=== PATIENT | female | born 1995 | race Caucasian/White ===

== ENCOUNTER 2018-01-11 07:13 | Emergency (ER) | payer OTHER, MEDICAID, SELFPAY ==
[2018-01-11 07:14] VITALS: BP 105/69; PULSE 92; RESP 16; TEMP 36.1; O2SAT 98; BMI 46.3
--- NOTE | 2018-01-11 07:19 | RAD_ITS ---
STUDY: X-RAY - RIGHT FOOT CLINICAL: Female, 22 years old. Bilateral foot pain. TECHNIQUE: 3 view(s) of the foot. COMPARISON: Radiographs of the right ankle dated January 11, 2018 and radiographs of the right foot dated November 11, 2015. FINDINGS: Patient has orthopedic screws within the talus apparently related to open reduction internal fixation of a talar fracture. Lucencies are visible in the calcaneus, similar to previous radiographs. The intertarsal articulations are within normal limits. Normal metatarsi. Normal metatarsophalangeal joint of the great toe. Normal tibial and fibular sesamoid bones. Normal interphalangeal joint of the great toe. Normal phalanges of the great toe. Normal second through fifth metatarsophalangeal joints. Normal interphalangeal joints and phalanges of the lesser toes. There is soft tissue swelling. There are small bone fragments located anterior and posterior to the tibiotalar articulation. This may be the result of chip fracture of uncertain acuity but are new since the previous radiographs. These may represent intra-articular loose bodies. RAD/Foot min 3 Views IMPRESSION: 1. Bone fragments are visible anterior and posterior to the tibiotalar articulation are new since previous study. This may represent intra-articular loose bodies. 2. Postoperative changes of the talus are similar to previous study. Electronically Signed: Mallory Dueñas MD at 8:01 EDT , Service support ,
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
--- NOTE | 2018-01-11 08:06 | ED.DEP ---
ED Disposition - Plan for ED Patient: Chief Complaint: Lower Extremity Injury Instructions: ED Sprain Ankle W X Ray Referrals: Shanti Garcia NP-Carin [Primary Care Provider] - Walker Dueñas MD [STAFF PHYSICIAN] -
[2018-01-11 08:42] VITALS: BP 108/53; PULSE 67; RESP 14; O2SAT 99
== END 2018-01-11 08:42 | disposition home or self-care (01) ==
LOC: ED 07:43
PROVIDERS: Emergency Provider Emergency Medicine; Family Provider Nurse Practitioner Family; PCP Nurse Practitioner Family
DX: S99.911A Unspecified injury of right ankle, initial encounter (principal); W22.8XXA Striking against or struck by other objects, initial encounter; Y93.89 Activity, other specified; Y92.9 Unspecified place or not applicable
CPT/HCPCS: 73610; 73630; 99284

== ENCOUNTER 2018-01-18 18:45 | Emergency (ER) | payer OTHER, MEDICAID, SELFPAY ==
[2018-01-18 18:46] VITALS: BP 125/81; PULSE 100; RESP 17; TEMP 36.9; O2SAT 96; BMI 46.3
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
--- NOTE | 2018-01-18 19:33 | ED.DEP ---
ED Disposition - Plan for ED Patient: Chief Complaint: Lower Extremity Injury Instructions: ED Fx Ankle General Prescriptions: Hydrocodone Bitart/Apap 5-325 [[place] 5MG-325MG] 1 tab PO Q6H PRN PRN 3 Days #10 tab PRN Reason: Pain Referrals: Shanti Garcia, VOCATIONAL TRAINING TEACHER-C [Primary Care Provider] - Carlos Boles [NON-STAFF] -
--- NOTE | 2018-01-18 19:34 | DCINST.ED_ITS ---
ED Disposition - Plan for ED Patient: Chief Complaint: Lower Extremity Injury Instructions: ED Fx Ankle General Prescriptions: Hydrocodone Bitart/Apap 5-325 [[place] 5MG-325MG] 1 tab PO Q6H PRN PRN 3 Days #10 tab PRN Reason: Pain Referrals: Shanti Garcia, SUPPLIER QUALITY ENGINEERING MANAGER-C [Primary Care Provider] - Carlos Boles [NON-STAFF] -
== END 2018-01-18 19:50 | disposition home or self-care (01) ==
LOC: ED 19:44
PROVIDERS: Emergency Provider Emergency Medicine; Family Provider Nurse Practitioner Family; PCP Nurse Practitioner Family
DX: M25.571 Pain in right ankle and joints of right foot (principal); E03.9 Hypothyroidism, unspecified; Z72.0 Tobacco use
CPT/HCPCS: 99282

== ENCOUNTER 2018-02-19 19:57 | Emergency (ER) | payer OTHER, MEDICAID, SELFPAY ==
[2018-02-19 19:57] VITALS: BP 148/86; PULSE 88; RESP 18; TEMP 36.7; O2SAT 97; BMI 46.0
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
--- NOTE | 2018-02-19 20:09 | ED.RN ---
CALLED CRISIS PER REQUEST OF DR LASSITER
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
--- NOTE | 2018-02-19 20:11 | ED.DEP ---
ED Disposition - Plan for ED Patient: Disposition: Home or Assisted Living Chief Complaint: Suicidal Instructions: ED Depression Referrals: Shanti Garcia NP-C [Primary Care Provider] - As Needed Counseling,Center [GROUP OF PHYSICIANS] - As soon as possible Additional Instructions: Call and follow-up with counseling center soon as possible. Return immediately if you are feeling more more depressed or that you would act on her suicidal thoughts.
--- NOTE | 2018-02-19 20:13 | ED.RN ---
SMILEY CALLED BACK, SHE WILL BE IN
[2018-02-19 21:36] VITALS: BP 135/78; PULSE 85; RESP 14; O2SAT 98
[2018-02-19 21:51] LABS: Basophil# 0.03 X10^3/uL; Basophil% 0.3 % (0-1); Eosinophil# 0.28 X10^3/uL; Eosinophils% 2.3 % (0-5); Hematocrit 42.2 % (37-47); Hemoglobin 13.7 g/dl (12.0-15.0); Lymphocyte % 40.1 % (19-41); Mean Corp Hgb Conc 32.5 g/gl (32-36); Mean Corpuscular Hgb 25.8 pg (27.0-32.0); Mean Corpuscular Volume 79.5 fL (81-99); Mean Platelet Vol. 10.5 fl (6.2-12.0); Monocyte% 7.5 % (0-10); Neutrophil # 5.96 X10^3/uL (2.7-7.7); Neutrophil % 49.7 % (47-70); Platelet Count 362 K/mm3 (150-450); RBC Distribution Width CV 14.2 % (11.6-14.6); RBC Distribution Width SD 40.2 fl (35.1-43.9); Red Blood Count 5.31 M/mm3 (4.2-5.4)
[2018-02-19 22:00] LABS: Amphetamine Urine VISTA NEGATIVE (<1000 ng/mL); Barbiturate Urine VISTA NEGATIVE (< 200 ng/mL); Benzodiazepine Urine VISTA NEGATIVE (< 200 ng/mL); Cocaine Urine VISTA NEGATIVE (< 300 ng/mL); Ecstacy Urine VISTA NEGATIVE (< 500 ng/mL); Methadone Urine VISTA NEGATIVE (< 300 ng/mL); PCP Urine VISTA NEGATIVE (< 25 ng/mL); THC Urine VISTA NEGATIVE (< 50 ng/mL); Vista UDS pH Range 6
[2018-02-19 22:01] LABS: Anion Gap 7 (5-15); BUN 13 mg/dL (7-18); BUN/Creat Ratio 18.2 RATIO (10-20); Chloride 111 mmol/L (98-107); Creatinine, Serum 0.72 mg/dL (0.55-1.02); EST Glomerular Filtration Rate 108 mL/min (>60); Est Glom Filt Rate - Afr Amer 131 mL/min (>60); Estimated Creatinine Clearance 105.83 ml/min; Glucose 89 mg/dL (74-106); POSITIVE COUNT NO; POSITIVE DIFFERENTIAL NO; POSITIVE MORPHOLOGY NO; Potassium 3.7 mmol/L (3.5-5.1); Sodium Level 141 mmol/L (136-145)
[2018-02-19 22:06] LABS: Alcohol, Blood (Medical)-Serum < 3.0 mg/dL; Pregnancy, Serum, hCG Quali. NEGATIVE Negative (0-9 Nonpreg)
[2018-02-19 23:00] VITALS: BP 121/89; PULSE 85; RESP 17; O2SAT 96
[2018-02-19] MEDS: predniSONE 20 MG Tablet 60 MG PO (23:00)
[2018-02-19] MEDS: Acetaminophen 500 MG Tablet 1000 MG PO (23:00)
[2018-02-19] MEDS: DiphenhydrAMINE 25 MG Capsule PO (23:00)
--- NOTE | 2018-02-19 23:33 | NURSING ---
Anel talking with the pt about calling children services.
[2018-02-20 01:42] VITALS: RESP 18
[2018-02-20 02:34] VITALS: RESP 14
[2018-02-20 03:49] VITALS: RESP 16
[2018-02-20 06:12] VITALS: BP 97/54; PULSE 85; RESP 14; O2SAT 97
[2018-02-20] MEDS: Levothyroxine 75 MCG Tablet PO (06:37)
--- NOTE | 2018-02-20 07:30 | NURSING ---
CALLED [facility] FOR TRANSPORT. ETA IS 45 MIN TO 1 HR
[2018-02-20 07:49] VITALS: BP 101/83; PULSE 84; RESP 18; O2SAT 97
[2018-02-20 07:54] VITALS: BP 101/83; PULSE 83; RESP 17; TEMP 36.7; O2SAT 98
== END 2018-02-20 08:32 ==
PROVIDERS: Emergency Provider Emergency Medicine; Family Provider Nurse Practitioner Family; PCP Nurse Practitioner Family
DX: F32.9 Major depressive disorder, single episode, unspecified (principal); R45.851 Suicidal ideations; L23.9 Allergic contact dermatitis, unspecified cause; E03.9 Hypothyroidism, unspecified; Z87.820 Personal history of traumatic brain injury; Z72.0 Tobacco use
CPT/HCPCS: 80048; 80307; 80320; 84703; 85025; 99283; G0480

== ENCOUNTER 2018-05-24 12:41 | Emergency (ER) | payer OTHER, MEDICAID, SELFPAY ==
[2018-05-24 12:41] VITALS: BP 157/89; PULSE 107; RESP 16; TEMP 36.8; O2SAT 99; BMI 44.6
--- NOTE | 2018-05-24 12:53 | ED.VISSUMM ---
- ER Visit Summary Date of Service: 05/24/18 Chief Complaint: Bright red blood per rectum History of Present Illness: The patient is a 22 F presents for evaluation of blood after wiping yesterday. States there was pain with wiping. There was no blood in the stools. History of hemorrhoids when she was . No anticoagulation medicines. States this morning epigastric discomfort. Nausea without vomiting. Denies melena. Denies NSAID use. Denies any lower quadrant abdominal pain. No fevers. Physical Examination: General: Alert and oriented ?3, no acute distress HEENT: Normocephalic, atraumatic. Moist mucosa membranes. Normal conjunctiva Neck: supple, nontender. Cardiovascular: Regular rate and rhythm, no murmurs Respiratory: Normal breath sounds, symmetric, no distress Abdomen: Soft, nondistended, mild epigastric tenderness without guarding or rebound. Negative Perdomo's or McBurney's tenderness. No left lower quadrant tenderness. Rectal examination: Small posterior hemorrhoid, tender to palpation, non-thrombosed. Extremities: Nontender, no edema, pulses intact ?4 Neuro: no focal neurological deficits. Skin: No pallor Test Results: [] Emergency Department Course and Treatment: Patient nonsurgical abdomen. Rectal exam notes tender hemorrhoids nonthrombosed. Plan to place patient on Colace and monitoring symptoms. The epigastric tenderness, treated with Zofran and GI cocktail with improvement. Discussed patient monitoring for melanotic stools. She will be placed on omeprazole. She will follow-up with her PCP. Signs and symptoms discussed to return. Treatment Plan: [] Disposition: Discharge Impression: 1. Acute gastritis 2. Hemorrhoids This note was generated with [employer] dictation software. It may contain incorrect words, spelling, and punctuation that were not noted in review of the chart prior to signing ED Disposition - Plan for ED Patient: Disposition: Home or Assisted Living Chief Complaint: Abd Pain Diagnosis: Gastritis, Hemorrhoids Instructions: ED Gastritis, ED Hemorrhoids Prescriptions: Ondansetron [Zofran Odt] 8 mg PO Q8H PRN PRN #10 tab PRN Reason: Nausea Docusate Sodium [Colace] 100 mg PO DAILY #30 capsule Omeprazole 40 mg PO DAILY #30 capsule. Referrals: Shanti Garcia, PARACHUTE CROWN SEWER-C [Primary Care Provider] - 3-5 Days
--- NOTE | 2018-05-24 12:56 | ED.DCSUM_ITS ---
- ER Visit Summary Date of Service: 05/24/18 Chief Complaint: Bright red blood per rectum History of Present Illness: The patient is a 22 F presents for evaluation of blood after wiping yesterday. States there was pain with wiping. There was no blood in the stools. History of hemorrhoids when she was . No anticoagulation medicines. States this morning epigastric discomfort. Nausea without vomiting. Denies melena. Denies NSAID use. Denies any lower quadrant abdominal pain. No fevers. Physical Examination: General: Alert and oriented ?3, no acute distress HEENT: Normocephalic, atraumatic. Moist mucosa membranes. Normal conjunctiva Neck: supple, nontender. Cardiovascular: Regular rate and rhythm, no murmurs Respiratory: Normal breath sounds, symmetric, no distress Abdomen: Soft, nondistended, mild epigastric tenderness without guarding or rebound. Negative Perdomo's or McBurney's tenderness. No left lower quadrant tenderness. Rectal examination: Small posterior hemorrhoid, tender to palpation, non- thrombosed. Extremities: Nontender, no edema, pulses intact ?4 Neuro: no focal neurological deficits. Skin: No pallor Test Results: [] Emergency Department Course and Treatment: Patient nonsurgical abdomen. Rectal exam notes tender hemorrhoids nonthrombosed. Plan to place patient on Colace and monitoring symptoms. The epigastric tenderness, treated with Zofran and GI cocktail with improvement. Discussed patient monitoring for melanotic stools. She will be placed on omeprazole. She will follow-up with her PCP. Signs and symptoms discussed to return. Treatment Plan: [] Disposition: Discharge Impression: 1. Acute gastritis 2. Hemorrhoids This note was generated with [employer] dictation software. It may contain incorrect words, spelling, and punctuation that were not noted in review of the chart prior to signing ED Disposition - Plan for ED Patient: Disposition: Home or Assisted Living Chief Complaint: Abd Pain Diagnosis: Gastritis, Hemorrhoids Instructions: ED Gastritis, ED Hemorrhoids Prescriptions: Ondansetron [Zofran Odt] 8 mg PO Q8H PRN PRN #10 tab PRN Reason: Nausea Docusate Sodium [Colace] 100 mg PO DAILY #30 capsule Omeprazole 40 mg PO DAILY #30 capsule. Referrals: Shanti Garcia, BALE STACKER-C [Primary Care Provider] - 3-5 Days
[2018-05-24] MEDS: Mag Hydrox/Al Hydrox/Simeth 30 ML UDC PO (13:03)
[2018-05-24] MEDS: Ondansetron ODT 4 MG Tablet 8 MG PO (13:03)
--- NOTE | 2018-05-24 13:04 | ED.RN ---
Computer not working in pts room. Unable to scan meds at this time. talend etl developer is aware and has put sysaid ticket in.
[2018-05-24 14:10] VITALS: BP 146/78; PULSE 81; RESP 16; O2SAT 100
== END 2018-05-24 14:23 | disposition home or self-care (01) ==
PROVIDERS: Emergency Provider Emergency Medicine; Family Provider Nurse Practitioner Family; PCP Nurse Practitioner Family
DX: K29.00 Acute gastritis without bleeding (principal); K64.9 Unspecified hemorrhoids
CPT/HCPCS: 99284

== ENCOUNTER → 2019-09-25 15:21 | Outpatient (CLI) | payer OTHER, MEDICAID, SELFPAY ==
[2019-09-04 11:04] VITALS: BMI 44.6
--- NOTE | 2019-09-25 15:23 | MRI_ITS ---
HISTORY:rt shoulder injurywork injury 1 month ago, pain shoulder with limited rom, loss of strengh MRI EXAMINATION OF THERight SHOULDER COMPARISON: None TECHNIQUE: Coronal fat-suppressed proton density and fat-suppressed T2 fat-suppressed T2 propeller Sagittal T2 axial T1 and fat-suppressed proton density # of images including paperwork:154 FINDINGS: Bones: There is no acute fracture or dislocation. No marrow edema. Rotator cuff: Minimal increased signal within the distal supraspinatus tendon suggesting tendinosis but no tear. The infraspinatus tendon is intact. The subscapularis tendon in the teres minor tendon are intact Coracoacromial arch and Acromioclavicular joint: The acromion demonstrates Bigliani Type 2-3 morphology. The acromiohumeral distance is preserved The acromiohumeral distance is preserved. No downsloping of the acromion. The coracoacromial ligament is intact. No arthropathy. There is fluid seen within the subacromial subdeltoid bursa that may reflect mild bursitis. Biceps tendon: The extraarticular tendon is within the bicipital groove.The intraarticular tendon is unremarkable. Glenohumeral joint and labrum: Articular Cartilage is intact with a labral tear. The anterior and posterior bands of the inferior glenohumeral ligament are intact. The middle glenohumeral ligament is intact. CONCLUSION: Minimal tendinosis involving the distal supraspinatus tendon. No evidence of a tear There is a small amount of fluid within the subacromial subdeltoid bursa that may represent bursitis at 0254 Reported and signed by: Sonia Groves DO Electronically Signed: Sonia Groves DO at 2:53 EST Tel , Service support , MRI/Upper Ext Joint Only(Routine)
== END ==
PROVIDERS: PCP Nurse Practitioner Family; Referring Provider Physician Assistant Surgical; Visit Provider Physician Assistant Surgical
DX: S46.911A Strain of unspecified muscle, fascia and tendon at shoulder and upper arm level, right arm, initial encounter (principal)
CPT/HCPCS: 73221

== ENCOUNTER 2020-01-27 12:32 | Emergency (ER) | payer OTHER, MEDICAID, SELFPAY ==
[2019-10-02 08:09] VITALS: BMI 44.6
[2020-01-27 12:35] VITALS: BP 131/90; PULSE 81; RESP 18; TEMP 36.8; O2SAT 99; BMI 46.3
--- NOTE | 2020-01-27 12:45 | ED.DCSUM_ITS ---
History of Present Illness Chief Complaint: Chest Pain Informant: Patient Onset: Today Context: Sudden Onset Timing: Continuous Quality: Pressure to sharp Location: Left sternal border Current Severity: Mild Maximum Severity: Severe Worsened by: Movement of left upper extremity Relieved by: Nothing Associated Symptoms: No associated symptoms Narrative: Patient is a 24-year-old woman who smokes 1 pack/day. She presents because of left-sided chest pain. She became concerned because the pain radiated to her back and arm. She denies any associated symptoms. The pain is worse with turning and especially movement of the left upper extremity. The pain is the worst when she puts her left arm above her head. She denies rhinorrhea, congestion or postnasal drainage. Denies sore throat. She denies fever or chills. There is no history of trauma. She works at [employer]. She denies GI symptoms. She denies black or maroon stool. She denies history of peptic ulcer disease, renal disease or diabetes. She reported no allergies. Review of records indicates patient has hives and Naprosyn. She also reports history of GERD. Prior similar symptoms: No Recent Illness/Hospitalization: No - Past Medical History (1) History of gastroesophageal reflux (GERD) Status: Chronic (2) Hypothyroidism Status: Chronic Past Medical History - Allergies and Home Meds Allergies/Adverse Reactions: Allergies bee venom protein (honey bee) Allergy (Verified 10/02/19 08:08) Swelling naproxen Adverse Reaction (Verified 10/02/19 08:08) Other blood shot/swollen eyes acid reflux hives Primary Care Physician: Shanti Garcia NP-C [Primary Care Provider] - Prior records reviewed: Yes Surgical History: tonsillectomy - 2008 Lives: Spouse/ Significant Other Smoking Status: Current every day smoker Alcohol: Rare Drugs: None - Family History Maternal Family History: Family History (Last Reviewed 10/02/19 @ 08:09 by Nino Russ) Other Arthritis Asthma Cancer Heart disease Hypertension Family History: Reports: - - mental health, liver problems. alive age 52 Paternal Family History: Family History (Last Reviewed 10/02/19 @ 08:09 by Nino Russ) Other Arthritis Asthma Cancer Heart disease Hypertension Family History: Reports: - - alive age 54, in good health Sibling Family History: Family History (Last Reviewed 10/02/19 @ 08:09 by Nino Russ) Other Arthritis Asthma Cancer Heart disease Hypertension Family History: Reports: - - brother age 27, sister age 26, in good health Review of Systems General: Denies: Chills, Fever, Malaise, Subjective, Sweats, Weight loss Cardiovascular: Reports: Chest pain. Denies: Palpitations, Heart racing Respiratory: Denies: Dyspnea, Cough, Sputum, Dyspnea on exertion, Orthopnea, Paroxysmal nocturnal dyspnea, -, - Gastrointestinal: Denies: Abdominal pain, Nausea, Vomiting, Diarrhea, Melena, Hematochezia Musculoskeletal: Denies: Myalgias, Arthralgias, Neck pain, Back pain, Swelling, Extremity Pain, -, - Skin: Denies: Rash, Wounds Neurological: Denies: Weakness, Parasthesia, Numbness Hematologic: Denies: Easy bruising, Easy bleeding Physical Exam Vital Signs/Narrative: Vital Signs Temp Pulse Resp BP Pulse Ox 01/27/20 12:35 98.2 F 81 18 131/90 H 99 Inital Vital Signs reviewed: Yes General: Well nourished, Well developed, Obese, No Acute Distress Head: Normocephalic, Atraumatic Eyes: Perrl. Negative for: Pale conjunctiva, Scleral icterus ENT: Moist mucous membranes, No rhinorrhea, TM's clear Neck: Supple, Nontender, No lymphadenopathy, No JVD Cardiovascular: Regular rate, Regular rhythm, No murmurs, Normal S1, Normal S2 Respiratory: No distress, CTA bilaterally, Chest tenderness - Tenderness over the fourth fifth left intercostal space. Movement of the left upper extremity exacerbates her pain. Having her cross her arms against resistance lifting her arms against resistance causes the pain to worsen. Abdomen: Soft, Nontender, Nondistended, Normal bowel sounds. Negative for: Hepatomegaly, Splenomegaly, Mass Rectal: Deferred Back: Nontender, Normal Inspection Extremities: Nontender, No edema Skin: Normal color, No rash Neurological: Alert, Oriented x3, Cranial nerves II-XII grossly intact, Normal Strength, Normal Sensation Psychological: Normal affect, Normal Mood Diagnostic/Tx/Re-eval - EKG Initial EKG Interpretation: Sinus Rhythm - Sinus rhythm with ventricular rate 86. MT interval 150 ms. QRS duration 86 ms. QT duration 370 ms. [place] is normal. EKG is normal. - Medical Decision Making EKG was obtained per nurse protocol. Patient's history and physical exam is con sistent with costochondritis. Since she has history of GERD and hives to Naprosyn she was treated with prednisone. She received her first dose of prednisone in the department department. ED Disposition - Plan for ED Patient: Disposition: Home or Assisted Living Diagnosis: Costochondritis, acute Instructions: ED CHEST PAIN [place] Prescriptions: Prednisone [Deltasone] 40 mg PO DAILY #10 tab Transmission Status: Pending to [id number] Referrals: Shanti Garcia, TOMMY-C [Primary Care Provider] - 3-5 Days if not improving
[2020-01-27] MEDS: predniSONE 20 MG Tablet 60 MG PO (13:19)
[2020-01-27 13:21] VITALS: BP 123/86; PULSE 80; RESP 16; O2SAT 100
--- NOTE | 2020-01-27 14:32 | EKG12_ITS ---
Test Reason : Blood Pressure : / mmHG Vent. Rate : 086 BPM Atrial Rate : 086 BPM P-R Int : 160 ms QRS Dur : 086 ms QT Int : 370 ms P-R-T Axes : 029 025 021 degrees QTc Int : 442 ms Normal sinus rhythm Normal ECG Confirmed by AMY MASON, JLUIS ([id number]), senior technical editor ALEXA STEPHENS ([id number]) on 02/01/2020 1:54:24 PM Referred By: TREY Confirmed By:HERMELINDA REYES MD
== END 2020-01-27 13:22 | disposition home or self-care (01) ==
LOC: ED 13:18
PROVIDERS: Emergency Provider Emergency Medicine
DX: M94.0 Chondrocostal junction syndrome [Tietze] (principal); F17.210 Nicotine dependence, cigarettes, uncomplicated; E66.9 Obesity, unspecified
CPT/HCPCS: 93005; 99284

== ENCOUNTER 2021-06-12 17:11 | Emergency (ER) | payer OTHER, MEDICAID, SELFPAY ==
[2021-06-12 17:12] VITALS: BP 136/95; PULSE 95; RESP 16; TEMP 35.9; O2SAT 98; BMI 51.4
--- NOTE | 2021-06-12 17:28 | EX.ED.VIS.HA ---
HPI History of Present Illness Chief Complaint: Headache Detail of Chief Complaint: Intractable occipital headache and neck pain x3 weeks Informant: patient Onset/Context/Timing Onset: Weeks (Onset of this headache 3 weeks ago) Context: Gradual Timing: Continuous Quality -Headache: Positive for Dull and Throbbing Location: Occipital Current Severity: Moderate Maximum Severity: Severe Worsened by: Nothing specific Relieved by: Nothing Associated Symptoms/Injury Associated Symptoms: Positive for Nausea, Blurred Vision (Bilateral) and Photophobia; Negative for Fever, Vomiting, Sore Throat, Sinus Pressure, Numbness, Tingling, Preceding Aura and Visual Loss Injury - PARRA: Positive for - (Patient states she has had headaches since diagnosed with Covid June 2020 she reports 2-3 episodes per week); Negative for Direct Trauma Narrative Narrative: Patient is a 25-year-old woman who presents with intractable occipital headache for the past 3 weeks. She is had headaches weekly 2-3 times since diagnosis of Covid June 2020. She complains of bilateral blurred vision. She denies loss of vision. She does report mild photophobia. She denies history of migraine. She denies fever, chills night sweats. She denies double vision. Denies ringing or ears decreased hearing. Denies rhinorrhea, congestion postnasal drainage. Denies sore throat. She denies cough. She does report shortness of breath. She does report nausea and diarrhea. She denies rash. She denies myalgias or arthralgias. Prior similar symptoms: Yes Recent Illness/Hospitalization: No PFSH PFSH Medical History (Updated 06/12/21 @ 19:[address] Christopher Gómez MD) Arthritis Asthma Back pain Hemorrhoids Shoulder pain Thyroid disease Home Medications etonogestrel 68 mg subdermal implant 1 implant SUBDERMAL ONCE 08/24/19 [History Last Taken Unknown] Allergy/AdvReac Type Severity Reaction Status Date / Time bee venom protein (honey bee) Allergy Swelling Verified 06/12/21 17:12 naproxen AdvReac Other Verified 06/12/21 17:12 Family History Other Arthritis Asthma Cancer Heart disease Hypertension Surgical History History of foot surgery History of tonsillectomy Social History (Updated 10/25/21 @ 17:[address] Christopher Gómez MD) household members: spouse Smoking Status: Current every day smoker tobacco type: cigarettes alcohol intake: never substance use type: does not use ROS ROS ED Constitutional Constitutional ED: Denies chills, fever(s), subjective, sweats or weight loss Eyes Eyes: Reports blurry vision bilateral; Denies change in vision or diplopia ENT ENT ED: Denies ear pain, rhinorrhea or sore throat Cardiovascular Cardiovascular: Denies chest pain, orthopnea, palpitations or paroxysmal nocturnal dyspnea Respiratory/Chest Respiratory/Chest: Denies cough, dyspnea, dyspnea on exertion, orthopnea or paroxysmal nocturnal dyspnea Gastrointestinal Gastrointestinal: Reports nausea; Denies abdominal pain, constipation, diarrhea, melena or vomiting Genitourinary Genitourinary ED: Denies dysuria, hematuria or urinary frequency Musculoskeletal Musculoskeletal: Reports myalgias and neck pain; Denies arthralgias or back pain Integumentary Denies rash Neurologic Neurologic: Reports headache(s); Denies paresthesias or weakness Psychiatric Psychiatric: Denies anxiety or depression Hematologic/Lymphatic Hematologic/Lymphatic: Denies easy bleeding or easy bruising EXAM Physical Exam Const Vital Signs: 06/12/21 17:12 Temperature 96.6 F L Temperature Source Temporal Pulse Rate 95 Respiratory Rate 16 Blood Pressure 136/95 H Blood Pressure Mean 108 Pulse Ox 98 Oxygen Delivery Method Room Air Positive well nourished, well developed and obese General Appearance ED: well developed; Negative for cyanotic or diaphoretic Nutritional Appearance: obese HEENT Reports normocephalic, TM's clear and moist mucous membranes atraumatic; Negative for temporal artery tenderness or vesicular rash Face and Sinus: Negative for sinus tenderness Tympanic Membrane ED: Yes TM's clear Eyes PERRL and EOMs intact bilaterally Eyes Narrative: There is no nystagmus. General Eye ED: Negative for pale conjunctiva or scleral icterus Neck no lymphadenopathy, supple, no meningeal signs and no JVD General: tenderness Resp normal respiratory effort and clear to auscultation bilaterally Cardio regular rate, regular rhythm, S1 normal heart sound, S2 normal heart sound and no murmurs GI non-tender and non-distended Auscultation: normoactive bowel sounds Palpation: soft Back/Spine no CVA tenderness General Back: Negative for tenderness Cervical Spine: Negative for cervical spine tenderness Thoracic Spine / Upper Back: Negative for thoracic spinal tenderness Lumbar Spine / Lower Back: Negative for lumbar spinal tenderness Extremity normal to inspection, full ROM and normal capillary refill Neuro oriented x3 and CN's II-XII intact bilaterally Neuro Narrative: Negative clonus and Babinski sign. No dysmetria. Negative eye askew test. Negative HIT test. Negative [place]-Hallpike maneuver. Sensorium / Orientation: awake and alert Coordination / Balance: [id number] test normal Speech: speech normal Motor Exam: strength 5/5 throughout Psych mental status grossly normal Skin General Skin Exam: elasticity normal Lesions: no lesions Rashes: no rashes Nails: normal MDM MDM MDM Narrative Medical decision making narrative: Suspect patient has a vascular headache due to Covid infection. Will treat with IV Toradol, Benadryl and Reglan. She received a liter of normal saline. Her neuro exam is normal. Imaging was not obtained. Patient was reassessed at 08/27/2004. Her headache is resolved. She still complains of neck pain with movement. She was instructed to apply ice and take anti-inflammatory. Suspect the headache is due to the her Covid infection. Discharge Plan Triage Chief Complaint: Headache ED Provider: Christopher Gómez Dx/Rx/DC Orders Clinical Impression: Cephalalgia, Intractable episodic headache, Strain of fascia of neck Instructions: ED Neck Sprain or Strain Prescriptions: No Action Nexplanon 68 mg implant 1 implant subdermal ONCE RF: 0 Primary Care Provider: Care Physician,No Primary Referrals: Care Physician,No Primary [Primary Care Provider] - Doctor,Your [STAFF PHYSICIAN] - As Needed Disposition Disposition: Home, Self Care
[2021-06-12] MEDS: Metoclopramide 10 MG/2 ML Vial IV (17:38)
[2021-06-12] MEDS: DiphenhydrAMINE 50 MG/ML Syringe 25 MG IV (17:38)
[2021-06-12] MEDS: 0.9% Normal Saline 1,000 ML 999 ML IV (17:39)
[2021-06-12] MEDS: Ketorolac 15 MG/ML Vial IV (17:39)
[2021-06-12 19:18] VITALS: BP 126/77; PULSE 84; RESP 16; O2SAT 98
== END 2021-06-12 19:20 | disposition home or self-care (01) ==
PROVIDERS: Emergency Provider Emergency Medicine
DX: R51.9 Headache, unspecified (principal); S16.1XXA Strain of muscle, fascia and tendon at neck level, initial encounter; F17.210 Nicotine dependence, cigarettes, uncomplicated; E66.9 Obesity, unspecified; Z79.899 Other long term (current) drug therapy; X58.XXXA Exposure to other specified factors, initial encounter
CPT/HCPCS: 96374; 96375; 99283; J7030; A4216

== ENCOUNTER 2023-12-29 19:05 | Emergency (ER) | payer MEDICAID, SELFPAY ==
[2023-12-29 19:06] VITALS: BP 133/81; PULSE 102; RESP 22; TEMP 36.6; O2SAT 98; BMI 49.5
--- NOTE | 2023-12-29 19:23 | EDS_ITS ---
HPI History of Present Illness Chief Complaint: Lower Extremity Injury Informant: patient Narrative Narrative: 28-year-old female was barefoot in her kitchen, her son pulled one of the cabinetry panels off of their cabinetry below the sink, a placeholder for what otherwise would be a drawer but is not because there is a sink there, and it fell hitting her squarely in the dorsum of the right great toe at the base of the nail. She is having severe pain on the toe and states that she can hardly bear any weight because of the pain. She denies injury anywhere else and no other toe. [facility] Medical History (Updated 12/29/23 @ 20:[address] Panda Cooper MD) Arthritis Asthma Back pain Hemorrhoids Shoulder pain Thyroid disease Home Medications etonogestrel 68 mg subdermal implant (Nexplanon) 1 implant subdermal ONCE 08/24/19 [History Last Taken Unknown] Allergy/AdvReac Type Severity Reaction Status Date / Time bee venom protein (honey bee) Allergy Swelling Verified 06/12/21 17:12 shellfish derived Allergy Nausea/Vom/ Verified 12/29/23 19:06 Diarrhea naproxen AdvReac Other Verified 06/12/21 17:12 Family History Other Arthritis Asthma Cancer Heart disease Hypertension Surgical History History of foot surgery History of tonsillectomy Social History household members: spouse Smoking Status: Current every day smoker tobacco type: e-cigarettes alcohol intake: never substance use type: does not use ROS ROS ED Constitutional Constitutional ED: Denies chills or fever(s) Musculoskeletal Musculoskeletal: Reports extremity pain; Denies neck pain Integumentary Denies Abrasions, rash or wounds Neurologic Neurologic: Denies paresthesias or weakness EXAM Physical Exam Const Vital Signs: 12/29/23 19:06 Temperature 98 F Temperature Source Temporal Pulse Rate 102 H Respiratory Rate 22 H Blood Pressure 133/81 H Blood Pressure Mean 98 Pulse Ox 98 Oxygen Delivery Method Room Air Positive well nourished and well developed General Appearance ED: well developed and NAD Neck full ROM and supple Back/Spine normal ROM and normal to inspection Extremity Extremity Narrative: Normal-appearing right foot including the great toe. Her toenails have black bahamian on them, there is no way to evaluate for subungual hematoma given this. Very tender at the IPJ and distally, the MTPJ is nontender limited range of motion due to pain no other areas of tenderness. Neuro oriented x3, no focal motor deficits and no sensory deficits noted Sensorium / Orientation: alert Psych thought process normal Mood & Affect: anxious Skin no wounds Rashes: no rashes MDM MDM MDM Narrative Medical decision making narrative: Three-view x-ray series of the right great toe were obtained and on my interpretation show no acute fracture or dislocation. Patient was reassured. I had nurses try to dissolve the nail bahamian on her toe. All we have are nonacetone chemical pads. The patient was crying when the nurse was trying to put any pressure on the nail to remove it, she states they are gel coat which would take acetone and a soak. On reinspection I am not able to rule out or rule in a subungual hematoma. Given this I do not recommend trephination. Patient understands, she was given ibuprofen since she drove herself here, as well as an ice pack and a postop shoe. Discharge Plan Triage Chief Complaint: Lower Extremity Injury ED Provider: Panda Cooper Dx/Rx/DC Orders Clinical Impression: Contusion of great toe, right Instructions: ED Finger or Toe Contusion Prescriptions: No Action Nexplanon 68 mg implant 1 implant subdermal ONCE Rx Instructions: as a single dose Primary Care Provider: Care Physician,No Primary Referrals: Jesus Molina DPM [Med Staff - Active Staff] - 1 Week if not improving Activity Restrictions/Additional Instructions: If you are able to soak your toe in acetone to remove the gel coat, and to see what appears to be a large bruise beneath the nail, you may be a candidate for a procedure called trephination which we burned a small hole in the nail to relieve your pain but this needs to be done to soon as possible. Disposition Disposition: Home, Self Care
--- NOTE | 2023-12-29 19:30 | RAD_ITS ---
EXAM: XR RIGHT TOES, 2 OR MORE VIEWS CLINICAL INDICATION: trauma -- GREAT TECHNIQUE: Frontal, lateral and oblique views of the toes of the right foot. COMPARISON: No relevant prior studies available. FINDINGS: BONES/JOINTS: Unremarkable. No acute fracture. No dislocation. SOFT TISSUES: Unremarkable. No radiopaque foreign body. RAD/Toe(s) Min 2 Views IMPRESSION: Negative right toe x-rays. Electronically Signed: Sreekanth Daugherty MD at 20:03 EDT ,
[2023-12-29] MEDS: Ibuprofen 600 MG Tablet PO (20:18)
[2023-12-29 20:24] VITALS: BP 130/78; PULSE 95; RESP 18; TEMP 37.2; O2SAT 96
== END 2023-12-29 20:25 | disposition home or self-care (01) ==
PROVIDERS: Emergency Provider Emergency Medicine; Visit Provider Emergency Medicine
DX: S90.111A Contusion of right great toe without damage to nail, initial encounter (principal); W22.8XXA Striking against or struck by other objects, initial encounter; Y92.89 Other specified places as the place of occurrence of the external cause; F17.290 Nicotine dependence, other tobacco product, uncomplicated
CPT/HCPCS: 73660; 99283

== ENCOUNTER 2024-03-04 13:24 | Emergency (ER) | payer MEDICAID, SELFPAY ==
[2024-03-04 13:25] VITALS: BP 142/99; PULSE 104; RESP 20; TEMP 37.2; O2SAT 97; BMI 49.8
--- NOTE | 2024-03-04 14:15 | ED.VIS.FEGU ---
HPI HPI - Female History of Present Illness Chief Complaint: Female C/O PFSH PFS Medical History (Updated 03/04/24 @ 14:02 by Jessie Leigh) Ovarian cyst Back pain Thyroid disease Asthma Shoulder pain Hemorrhoids Arthritis Home Medications ?Medication ?Instructions ?Recorded ?Last Taken ?Type etonogestrel 68 mg subdermal 1 implant subdermal ONCE 08/24/19 Unknown History implant (Nexplanon) Allergy/AdvReac Type Severity Reaction Status Date / Time bee venom protein (honey bee) Allergy Swelling Verified 03/04/24 13:25 shellfish derived Allergy Nausea/Vom/ Verified 03/04/24 13:25 Diarrhea naproxen AdvReac Other Verified 03/04/24 13:25 Family History Other Arthritis Asthma Cancer Heart disease Hypertension Surgical History History of tonsillectomy History of foot surgery Social History household members: spouse Smoking Status: Current every day smoker tobacco type: e-cigarettes alcohol intake: never substance use type: does not use EXAM Physical Exam Const Vital Signs: 03/04/24 13:25 03/04/24 15:24 03/04/24 17:00 Temperature 98.9 F Temperature Source Temporal Pulse Rate 104 H 79 69 Respiratory Rate 20 H 16 16 Blood Pressure 142/99 H 116/83 H 136/76 H Blood Pressure Mean 113 94 96 Pulse Ox 97 99 96 Oxygen Delivery Method Room Air Room Air Room Air MDM MDM MDM Narrative Medical decision making narrative: HISTORY OF PRESENT ILLNESS: 28-year-old female presents with sudden onset abdominal pain today. Pain is located left lower quadrant. She denies any CVA tenderness. She states it feels like a ruptured cyst. Notes she has history of similar. Notes acute onset of left lower quad abdominal pain that began approximately 4 hours prior to arrival. Denies nausea vomiting or fever. Denies any frequency urgency or dysuria. Denies any hematuria. Denies any vaginal discharge or foul-smelling vaginal odor. No or active 1 partner unprotected. Not concerned with STDs. Denies history abdominal surgeries. Last bowel was yesterday. No melena medic easier noted. Denies history of kidney stones. REVIEW OF SYSTEMS: Pertinent positives: Abdominal pain Pertinent negatives: Nausea, vomiting, urinary complaints PHYSICAL EXAM: Nursing triage notes reviewed, Vital signs reviewed Constitutional: please see mdm HENT: MMM Eyes: Pupils equal round and reactive to light, Extraocular muscles intact Neck: No stridor, no JVD, full neck ROM Lungs: Clear to auscultation, No wheezing or rales. No increased work of breathing, no conversational dyspnea, no accessory muscle use, no nasal flaring. No respiratory distress noted Heart: Regular rate and rhythm, No murmurs, No rubs and No gallops, 2+ distal pulses (radial, femoral, posterior tibial) in all extremities Abdomen: Soft, left adnexal tenderness, no rigidity, rebound or guarding, no obvious peritoneal signs, no palpable pulsatile abdominal masses, no auscultated abdominal bruit : No CVAT Extremities: No edema Neuro: No focal neurological deficits, cranial nerves II through XII intact, 5/5 strength in all extremities. Intact sensation to light touch in all extremities, 2+ reflexes bilateral patella tendons. Normal gait. No ataxia. Skin: No rash or lesions noted MEDICAL DECISION MAKING: Chief Complaint: Abdominal pain External records reviewed: No recent imaging of the abdomen pelvis: Ultrasound Reviewed from 2016 showed a right ovarian cyst factors affecting care: Ovarian cyst on the right Social determinants of health: none History obtained from others: none Consults: none [facility] Narrative: Patient was initially hemodynamically stable, afebrile and nontoxic-appearing. Abdominal exam with left lower quadrant TTP I considered the following differential diagnosis: AAA, small bowel obstruction, abdominal perforation, appendicitis, pancreatitis, hepatobiliary pathology (acute cholecystitis), mesenteric ischemia, pathology (ie nephrolithiasis, pyelonephritis). While consider diverticulitis, obstruction or perforation the patient abdominal exam is not consistent with such etiologies. I obtained a broad lab and imaging workup to further elucidate the etiology of the patient's complaint specifically ruling out signs of , ectopic , ovarian cyst, ovarian torsion or tubo-ovarian abscess. I initially treat the patient 1 L normal saline bolus, Tylenol orally. Will hold off on NSAIDs until test is known. ALL IMAGES (IF OBTAINED) HAVE BEEN PERSONALLY REVIEWED AND INTERPRETED BY MYSELF. Transvaginal ultrasound shows no evidence of ovarian torsion, tubo-ovarian abscess or evidence of ovarian cyst no acute process. CBC with leukocytosis suggestive of systemic admission, no anemia or thrombocytopenia BMP without evidence of significant electrolyte abnormalities, no anion gap, no acute kidney injury. Urinalysis shows no evidence of urinary inflammation suggestive of UTI Urine test is negative Given elevated white blood cell count and negative ultrasound I wanted to obtain a CT scan of the abdomen and pelvis to rule any acute/surgical intra-abdominal pathology specifically signs of appendicitis, diverticulitis or other acute surgical pathology. Prior to CT scan, reevaluation and final disposition patient eloped from the emergency department. The patient and/or family, caregivers express understanding. The patient and/or family, caregivers agrees with the plan. Shared decision making: I will have a discussion with the patient and or visitors regarding risk/benefits of further testing or admission. They will be made aware of of the risk/benefits inherent in this decision they will be given the opportunity to voice understanding. Total critical care time today provided was at least 0 minutes. This excludes separately billable procedures. Critical care time (if documented) is secondary to the patient having high probability of clinically significant/life threatening deterioration in the patient's condition which required my urgent intervention. Impression: 1. Abdominal pain 2. History of ovarian cyst 3. Elevated white blood cell count Dispo: Eloped from the emergency department This note was generated with imbookin (Pogby) dictation software. It may contain incorrect words, spelling, and punctuation that were not noted in review of the chart prior to signing. Lab Data Labs: Laboratory Results - last 24 hr 03/04/24 03/04/24 14:51 15:30 WBC 13.1 H RBC 5.03 Hgb 13.7 Hct 42.4 MCV 84.3 MCH 27.2 MCHC 32.3 RDW Std Deviation 38.8 RDW Coeff of Mimi 12.8 Plt Count 413 MPV 10.9 Immature Gran % (Auto) 0.400 Neut % (Auto) 55.0 Lymph % (Auto) 34.9 [place] % (Auto) 7.3 Eos % (Auto) 1.8 Baso % (Auto) 0.6 Absolute Neuts (auto) 7.2 Absolute Lymphs (auto) 4.59 H Nucleated RBC % 0 Sodium 140 Potassium 4.5 Chloride 108 H Carbon Dioxide 27.0 Anion Gap 5 BUN 12 Creatinine 0.87 Estim Creat Clear Calc 129.85 Est GFR (MDRD) Af Amer 100 Est GFR (MDRD) Non-Af 82 BUN/Creatinine Ratio 13.8 Glucose 91 Calcium 9.2 Urine Color Yellow Urine Clarity Clear Urine pH 6.0 Ur Specific [place] 1.020 Urine Protein Negative Urine Glucose (UA) Normal Urine Ketones Negative Urine Occult Blood Negative Urine Nitrite Negative Urine Bilirubin Negative Urine Urobilinogen Normal Ur Leukocyte Esterase Negative Urine RBC 0 SEEN Urine WBC 0 SEEN Ur Squamous Epith Cells 0-5 SEEN Urine Bacteria RARE Urine Mucus 0 SEEN Urine Test Negative Radiography Diagnostic Testing: Clinical Impression(s) from Imaging Studies Transvaginal US 03/04/24 14:36 IMPRESSION: Normal transvaginal pelvic ultrasound. Electronically Signed: Deniz Lee MD at 16:45 EDT , Discharge Plan Triage Chief Complaint: Female C/O ED Provider: Danis Garza Dx/Rx/DC Orders Prescriptions: No Action Nexplanon 68 mg implant 1 implant subdermal ONCE Rx Instructions: as a single dose Primary Care Provider: Care Physician,No Primary Referrals: Care Physician,No Primary [Primary Care Provider] - Print Language: Maltese Disposition Disposition: Elopement Discharge Date/Time: 03/04/24 18:16
--- NOTE | 2024-03-04 14:36 | US_ITS ---
STUDY: ULTRASOUND TRANSVAGINAL CLINICAL: Female, 28 years old. LLQ TTP TECHNIQUE: Transvaginal COMPARISON: None. FINDINGS: Normal uterine size measuring 8.4 x 4.6 x 3.3 cm in maximal craniocaudal dimension. There are no myometrial masses. Normal endometrial thickness measuring 5 mm. There are no endometrial masses, and there is no fluid in the endometrial cavity. Normal uterine cervix. Normal right ovary, measuring 4.1 x 2.4 x 2.5 cm. There are multiple follicles with a dominant cyst. Normal left ovary, measuring 2.1 x 2.1 x 1.2 cm. There are multiple follicles without a dominant cyst. There is no free fluid in the pelvis. Polycystic ovary disease: No. US/Transvaginal Non- IMPRESSION: Normal transvaginal pelvic ultrasound. Electronically Signed: Deniz Lee MD at 16:45 EDT ,
[2024-03-04] MEDS: 0.9% Normal Saline (1000mL) 1,000 ML 999 ML IV (14:49)
[2024-03-04] MEDS: Acetaminophen 325 MG Tablet 650 MG PO (14:50)
[2024-03-04 15:02] LABS: Absolute Lymphocyte Count 4.59 X10^3/uL (0.83-4.51); Absolute Neutrophil Count 7.2 X10^3/uL (2.0-7.7); Basophil# 0.08 X10^3/uL; Basophil% 0.6 % (0-1); Eosinophil# 0.23 X10^3/uL; Eosinophils% 1.8 % (0-5); Hematocrit 42.4 % (37-47); Hemoglobin 13.7 g/dL (12.0-15.0); Lymphocyte # 4.59 X10^3/ul (0.83-4.51); Lymphocyte % 34.9 % (19-41); Mean Corp Hgb Conc 32.3 g/dL (32-36); Mean Corpuscular Hgb 27.2 pg (27.0-32.0); Mean Corpuscular Volume 84.3 fL (81-99); Mean Platelet Vol. 10.9 fl (6.2-12.0); Monocyte# 0.96 X10^3/uL; Monocyte% 7.3 % (0-10); NRBC Flagged by Analyzer 0 % (0-5); Neutrophil # 7.23 X10^3/uL (2.7-7.7); Platelet Count 413 K/mm3 (150-450); RBC Distribution Width CV 12.8 % (11.6-14.6); RBC Distribution Width SD 38.8 fl (35.1-43.9); Red Blood Count 5.03 M/mm3 (4.2-5.4); White Blood Count 13.1 K/mm3 (4.4-11.0)
[2024-03-04 15:24] VITALS: BP 116/83; PULSE 79; RESP 16; O2SAT 99
[2024-03-04 15:39] LABS: Mucous, Urine 0 SEEN /hpf (<or=2+); Red Blood Cells-Urine 0 SEEN /hpf (0-5); White Blood Cells 0 SEEN /hpf (0-5)
[2024-03-04 15:42] LABS: Anion Gap 5 (5-15); BUN 12 mg/dL (7-18); BUN/Creat Ratio 13.8 RATIO (10-20); Calcium,Total 9.2 mg/dL (8.5-10.1); Chloride 108 mmol/L (98-107); Creatinine, Serum 0.87 mg/dL (0.55-1.02); EST Glomerular Filtration Rate 82 mL/min (>60); Est Glom Filt Rate - Afr Amer 100 mL/min (>60); Estimated Creatinine Clearance 129.85 ml/min; Glucose 91 mg/dL (74-106); Potassium 4.5 mmol/L (3.5-5.1); Sodium Level 140 mmol/L (136-145)
[2024-03-04 15:46] LABS: Color, Urine Yellow (Yellow); Glucose, Dipstick Normal (Normal); Ketone-Dipstick Negative (Negative); Leukocyte Esterase-Dipstick Negative /ul (Negative); Nitrite-Dipstick Negative (Negative); Occult Blood-Urine Negative /ul (Negative); Protein-Dipstick Negative (Negative); Urine Bilirubin Dipstick Negative (Negative); Urine Clarity Clear (Clear); Urine Urobilinogen Normal (Normal)
[2024-03-04 15:49] LABS: Internal QC Validated? YES +Cl - CLEAR BKGD; Pregnancy, Urine Negative Negative
[2024-03-04 15:55] LABS: Bacteria RARE /hpf (None Seen); Squamous Epithelial Cells - UA 0-5 SEEN /hpf (5-10)
[2024-03-04 17:00] VITALS: BP 136/76; PULSE 69; RESP 16; O2SAT 96
== END 2024-03-04 18:16 | disposition left against medical advice (07) ==
PROVIDERS: Emergency Provider Emergency Medicine; Visit Provider Emergency Medicine
DX: N83.201 Unspecified ovarian cyst, right side (principal); D72.829 Elevated white blood cell count, unspecified; J45.909 Unspecified asthma, uncomplicated; F17.290 Nicotine dependence, other tobacco product, uncomplicated; R10.32 Left lower quadrant pain
CPT/HCPCS: 76830; 80048; 81001; 81025; 85025; 99283; J7030; A4216

== ENCOUNTER → 2024-06-26 | Outpatient (CLI) | payer MEDICAID, SELFPAY ==
[2024-06-29 21:07] LABS: Chlamydia By Nucleic Acid AMP Negative (Negative); Gonococcus By Nucleic Acid AMP Negative (Negative)
== END | disposition home or self-care (01) ==
LOC: LABSPEC 13:12
PROVIDERS: Referring Provider Advanced Practice Midwife; Visit Provider Advanced Practice Midwife
DX: O99.210 Obesity complicating pregnancy, unspecified trimester (principal); Z3A.00 Weeks of gestation of pregnancy not specified
CPT/HCPCS: 87086; 87088; 87491; 87591

== ENCOUNTER → 2024-07-31 | Outpatient (CLI) | payer MEDICAID, SELFPAY ==
[2024-07-31 16:29] LABS: Absolute Neutrophil Count 11.3 X10^3/uL (2.0-7.7); Basophil# 0.05 X10^3/uL; Basophil% 0.3 % (0-1); Eosinophil# 0.17 X10^3/uL; Eosinophils% 1.1 % (0-5); Hematocrit 39.9 % (37-47); Hemoglobin 12.9 g/dL (12.0-15.0); Lymphocyte % 19.4 % (19-41); Mean Corp Hgb Conc 32.3 g/dL (32-36); Mean Corpuscular Hgb 26.9 pg (27.0-32.0); Mean Corpuscular Volume 83.1 fL (81-99); Monocyte# 1.23 X10^3/uL; Monocyte% 7.7 % (0-10); NRBC Flagged by Analyzer 0 % (0-5); Neutrophil # 11.33 X10^3/uL (2.7-7.7); Neutrophil % 71.1 % (47-70); Platelet Count 316 K/mm3 (150-450); RBC Distribution Width CV 12.9 % (11.6-14.6); RBC Distribution Width SD 38.7 fl (35.1-43.9); White Blood Count 15.9 K/mm3 (4.4-11.0)
[2024-07-31 16:50] LABS: T4 Free Direct 1.01 ng/dL (0.76-1.46)
[2024-07-31 17:43] LABS: Hemoglobin A1c 5.2 % (3.8-5.6)
[2024-08-03 16:20] LABS: HIV - WCH Non-Reactive (Nonreactive); Hepatitis B Surface Antigen Non-Reactive (Nonreactive); Hepatitis C Antibody Non-Reactive (Nonreactive); Rubella IgG Reactive (Nonreactive); Syphilis Antibodies Non-reactive
== END | disposition home or self-care (01) ==
PROVIDERS: Referring Provider Advanced Practice Midwife; Visit Provider Advanced Practice Midwife
DX: O99.210 Obesity complicating pregnancy, unspecified trimester (principal); Z3A.00 Weeks of gestation of pregnancy not specified
CPT/HCPCS: 36415; 83036; 84439; 84443; 85025; 86703; 86762; 86780; 86803; 86850; 86900; 86901; 87340

== ENCOUNTER 2024-09-06 09:38 | Emergency (ER) | payer MEDICAID, SELFPAY ==
[2024-09-06 09:38] VITALS: BP 128/83; PULSE 102; RESP 18; TEMP 36.3; O2SAT 99; BMI 51.1
--- NOTE | 2024-09-06 09:44 | RAD_ITS ---
STUDY: X-RAY CHEST REASON FOR EXAM: Female, 28 years old. Shortness of breath TECHNIQUE: PA and lateral views of the chest. COMPARISON: 03/29/2016 FINDINGS: The lungs are clear and expanded. There is no demonstrated pleural abnormality. Normal size heart. Normal mediastinum and yaakov. Normal visualized pulmonary arteries. Normal visualized aortic arch and descending thoracic aorta. Normal visualized thoracic spine. Normal visualized ribs, clavicles, and shoulders. There is no demonstrated abnormality of the visualized soft tissue structures of the upper abdomen. RAD/Chest PA and Lateral IMPRESSION: No acute pulmonary process Electronically Signed: Paul Calhoun MD at 10:29 EST ,
[2024-09-06 10:05] LABS: Absolute Lymphocyte Count 2.94 X10^3/uL (0.83-4.51); Absolute Neutrophil Count 6.2 X10^3/uL (2.0-7.7); Basophil# 0.05 X10^3/uL; Basophil% 0.5 % (0-1); Eosinophil# 0.17 X10^3/uL; Eosinophils% 1.7 % (0-5); Hematocrit 39.4 % (37-47); Hemoglobin 12.7 g/dL (12.0-15.0); Lymphocyte # 2.94 X10^3/ul (0.83-4.51); Lymphocyte % 29.1 % (19-41); Mean Corp Hgb Conc 32.2 g/dL (32-36); Mean Corpuscular Hgb 26.5 pg (27.0-32.0); Mean Corpuscular Volume 82.1 fL (81-99); Mean Platelet Vol. 10.2 fl (6.2-12.0); Monocyte# 0.72 X10^3/uL; Monocyte% 7.1 % (0-10); NRBC Flagged by Analyzer 0 % (0-5); Neutrophil # 6.17 X10^3/uL (2.7-7.7); Neutrophil % 61.1 % (47-70); Platelet Count 289 K/mm3 (150-450); RBC Distribution Width CV 13.2 % (11.6-14.6); RBC Distribution Width SD 39.4 fl (35.1-43.9); White Blood Count 10.1 K/mm3 (4.4-11.0)
--- NOTE | 2024-09-06 10:11 | EKG12_ITS ---
Test Reason : CP Blood Pressure : */* mmHG Vent. Rate : 95 BPM Atrial Rate : 95 BPM P-R Int : 142 ms QRS Dur : 86 ms QT Int : 368 ms P-R-T Axes : 26 11 10 degrees QTcB Int : 462 ms Normal sinus rhythm Normal ECG Confirmed by AMY MASON, JLUIS ([id number]), technical editor ALEXA STEPHENS ([id number]) on 09/07/2024 10:55:27 A M Referred By: MARGARITA Confirmed By: JLUIS REYES MD
--- NOTE | 2024-09-06 10:12 | EDS_ITS ---
HPI History of Present Illness Chief Complaint: Chest Pain Informant: patient and spouse/S.O. Narrative Narrative: 28-year-old female G2, P1 at 19 weeks gestation presenting to the emergency room with chest pain shortness of breath. Patient states over the past 2 days she has had a pressure/pain in her chest that moves from the left to her right side intermittently. She notes dyspnea. She notes significant fatigue palpitations and sensation that her heart is beating really strongly while doing activities such as showering or dishes. She feels no syncopal with activity. She denies any arm/hand or leg swelling. She denies any cough or fever. She notes no matter how much she drinks her urine is dark and feels like she is urinating less. She is an everyday smoker. History of asthma but states she does not get flares anymore. She called OB at [place] and was recommended to come to emergency. No previous history of venous thromboembolism. No history of sleep apnea. [facility] Medical History Seasonal allergies Femur fracture, right Rib fracture Calcaneal fracture Post term at 41 weeks gestation HSV-2 infection Ovarian cyst Back pain Thyroid disease Asthma Shoulder pain Hemorrhoids Arthritis Home Medications ?Medication ?Instructions ?Recorded ?Last Taken ?Type multivit-min no.71-iron fum 28 cap PO 06/18/24 Unknown History mg-folate no.1 1 mg-dha 300 mg capsule (PNV-[place]) ondansetron 4 mg disintegrating 4 mg PO Q6H PRN nausea and 06/26/24 Unknown Rx tablet vomiting #90 tabs potassium chloride 20 mEq 20 meq PO DAILY #5 tabs 09/06/24 Unknown Rx tablet,extended release Allergy/AdvReac Type Severity Reaction Status Date / Time bee venom protein (honey bee) Allergy Swelling Verified 09/06/24 09:39 shellfish derived Allergy Nausea/Vom/ Verified 09/06/24 09:39 Diarrhea naproxen AdvReac Other Verified 09/06/24 09:39 Family History Mother Arthritis Endometriosis Father Arthritis Cancer, Onset Age: 58 prostate Heart disease Hypertension Grandmother Cancer, Onset Age: 70 Maternal- skin cancer Heart disease Paternal Hypertension Paternal Grandfather Heart disease Paternal Hypertension Maternal Grandfather Heart disease Maternal Hypertension Paternal Surgical History History of tonsillectomy History of foot surgery Social History adopted: No household members: significant other and children number of children: 1 current occupational status: employed current occupation: [employer] @ [employer] current occupational exposures/hazards: No pets and animals: Yes (Avoid litterbox) pets and animals: cat(s) history of recent travel: No sexually active: Yes Smoking Status: Current every day smoker tobacco type: e-cigarettes quit status: considering quitting alcohol intake: never substance use type: does not use diet: gluten free well-balanced diet: daily or most days caffeine: Yes Type: coffee Number of servings: 1 eating out: rarely or never during the past year weight has: increased > 10 lbs what type of physical activity do you participate in: none rodrigo/yarsanism: None seatbelt use: always do you feel safe at home: Yes additional social history: significant Other- [employer] ROS ROS ED ROS Narrative Fatigue Constitutional Constitutional ED: Denies chills, fever(s) or weight loss Eyes Eyes: Denies change in vision or diplopia ENT ENT ED: Denies ear pain, rhinorrhea or sore throat Cardiovascular Cardiovascular: Reports chest pain, palpitations and other Details: Strongly beating heart ; Denies orthopnea Respiratory/Chest Respiratory/Chest: Reports dyspnea and dyspnea on exertion; Denies cough or orthopnea Gastrointestinal Gastrointestinal: Denies abdominal pain, diarrhea, nausea or vomiting Genitourinary Genitourinary ED: Denies dysuria, hematuria or urinary frequency Musculoskeletal Musculoskeletal: Denies arthralgias or myalgias Integumentary Denies abscess or rash Neurologic Neurologic: Denies headache(s) or weakness Psychiatric Psychiatric: Denies anxiety, depression, suicidal ideation or suicidal thoughts Endocrine Endocrinology: Denies polydipsia, polyphagia or polyuria Allergic/Immunologic Allergic/Immunologic ED: Denies mouth swelling, tongue swelling or urticaria EXAM Physical Exam Const Vital Signs: 09/06/24 09:38 09/06/24 11:40 Temperature 97.3 F L 97.3 F L Temperature Source Temporal Pulse Rate 102 H 85 Respiratory Rate 18 18 Blood Pressure 128/83 H 104/61 Blood Pressure Mean 98 75 Pulse Ox 99 100 Oxygen Delivery Method Room Air Positive well nourished, well developed and obese General Appearance ED: well developed and NAD Nutritional Appearance: obese HEENT Reports normocephalic, head/scalp atraumatic and moist mucous membranes Eyes PERRL and EOMs intact bilaterally Neck no lymphadenopathy, supple and no JVD Resp normal respiratory effort and clear to auscultation bilaterally Cardio regular rate, regular rhythm and no murmurs GI normal to inspection, nondistended, normoactive bowel sounds and non-tender Palpation: soft Back/Spine no CVA tenderness and normal ROM Extremity normal to inspection General Extremety ED: Negative for edema General Extremity: Negative for edema Neuro oriented x3 and CN's II-XII intact bilaterally Sensorium / Orientation: alert Motor Exam: strength 5/5 throughout Psych mental status grossly normal Mood & Affect: Negative for depressed or tearful Skin no rashes or lesions noted and no wounds MDM MDM MDM Narrative Medical decision making narrative: Differential diagnosis includes but not limited to anemia cardiomyopathy c ongestive heart failure acute coronary syndrome cardiac dysrhythmia electrolyte abnormalities dehydration preeclampsia pulmonary embolism pneumonia pleural effusions EKG is in normal sinus rhythm. Patient's white count 10.1 hemoglobin 12.7 platelet count of 289. Troponin and BNP are within normal limits. Potassium is noted to be slightly low at 3.4. Her urine with no overt infection. Noted that there is some protein in the urine. LFTs are within normal limits. Creatinine 0.47. D-dimer is elevated 0.74. May depend interpretation of the chest x-ray is no acute process Because of the elevated D-dimer the chest pain and the shortness of breath a CTA of the chest was obtained. This is negative for pulmonary embolism. Bedside ultrasound was performed and demonstrates a single live intrauterine . The baby is quite active. heart rate of 147 bpm is noted. Patient's had no cardiac dysrhythmias on the monitor. Given the above workup I feel the patient can be discharged home with instructions to follow-up with obstetrics. History & Record Review Discussion w/independent historian: Patient and Family Lab Data Attestation: I reviewed the patient's lab results. Labs: Laboratory Results - last 24 hr 09/06/24 10:00 WBC 10.1 RBC 4.80 Hgb 12.7 Hct 39.4 MCV 82.1 MCH 26.5 L MCHC 32.2 RDW Std Deviation 39.4 RDW Coeff of Mimi 13.2 Plt Count 289 MPV 10.2 Immature Gran % (Auto) 0.500 Neut % (Auto) 61.1 Lymph % (Auto) 29.1 [place] % (Auto) 7.1 Eos % (Auto) 1.7 Baso % (Auto) 0.5 Absolute Neuts (auto) 6.2 Absolute Lymphs (auto) 2.94 Nucleated RBC % 0 D-Dimer Quant (PE/DVT) 0.74 H* Sodium 139 Potassium 3.4 L Chloride 108 H Carbon Dioxide 25.0 Anion Gap 6 BUN 7 Creatinine 0.47 L Estim Creat Clear Calc 244.47 Est GFR (MDRD) Af Amer 202 Est GFR (MDRD) Non-Af 167 BUN/Creatinine Ratio 14.9 Glucose 92 Calcium 9.2 Total Bilirubin 0.40 Direct Bilirubin 0.14 AST 13 L ALT 21 Alkaline Phosphatase 57 Troponin I High Sens < 3 L B-Natriuretic Peptide 4.6 Total Protein 6.9 Albumin 2.8 L Globulin 4.1 Urine Color Yellow Urine Clarity Clear Urine pH 6.0 Ur Specific [place] 1.025 Urine Protein 30 H Urine Glucose (UA) Normal Urine Ketones Negative Urine Occult Blood 10 H Urine Nitrite Negative Urine Bilirubin Negative Urine Urobilinogen 1 H Ur Leukocyte Esterase 25 H Urine RBC 0 SEEN Urine WBC 0-5 SEEN Ur Squamous Epith Cells 5-10 SEEN Urine Bacteria 1+ Urine Mucus 0 SEEN Radiography Diagnostic Testing: Clinical Impression(s) from Imaging Studies Chest X-Ray 09/06/24 09:44 IMPRESSION: No acute pulmonary process Electronically Signed: Paul Calhoun MD at 10:29 EST , Chest CTA 09/06/24 10:52 IMPRESSION: No demonstrated PE, or thoracic aortic aneurysm or dissection Interstitial edema in both lung dutta consistent with patient being no superimposed infiltrate or effusion No suspicious adenopathy Electronically Signed: Paul Calhoun MD at 11:29 EST , EKG Initial EKG: Attestation: I personally reviewed and interpreted this EKG as follows: Comments: Normal sinus rhythm ventricular rate of 95 bpm. Discharge Plan Triage Chief Complaint: Chest Pain ED Provider: Tadeo Esquivel Dx/Rx/DC Orders Clinical Impression: Chest pain, Dyspnea, Second trimester , Hypokalemia Instructions: ED Chest Pain, Uncertain Cause Prescriptions: New potassium chloride 20 mEq tablet extended release 20 meq PO DAILY Qty: 5 0RF No Action PNV-[place] 28-1-300 mg capsule PO ondansetron 4 mg tablet,disintegrating 4 mg PO Q6H PRN (Reason: nausea and vomiting) Qty: 90 4RF Primary Care Provider: Care Physician,No Primary Referrals: Yany Carmichael DO [Med Staff - Active Staff] - As soon as possible Care Physician,No Primary [Primary Care Provider] - Print Language: Kazakh Disposition Disposition: Home, Self Care
[2024-09-06 10:16] LABS: Anion Gap 6 (5-15); BUN 7 mg/dL (7-18); BUN/Creat Ratio 14.9 RATIO (10-20); Calcium,Total 9.2 mg/dL (8.5-10.1); Chloride 108 mmol/L (98-107); Creatinine, Serum 0.47 mg/dL (0.55-1.02); EST Glomerular Filtration Rate 167 mL/min (>60); Est Glom Filt Rate - Afr Amer 202 mL/min (>60); Estimated Creatinine Clearance 244.47 ml/min; Glucose 92 mg/dL (74-106); Potassium 3.4 mmol/L (3.5-5.1); Sodium Level 139 mmol/L (136-145)
[2024-09-06 10:27] LABS: D-Dimer Quantitative (DVT/PE) 0.74 FEU/ug/m (0.27-0.49)
[2024-09-06 10:35] LABS: BNP,B-Type NATRIURETIC PEPTIDE 4.6 pg/mL (0-100)
[2024-09-06 10:38] LABS: AST(SGOT) 13 U/L (15-37); Alanine Aminotransfer ALT/SGPT 21 U/L (13-56); Albumin, Serum 2.8 g/dL (3.2-5.0); Alkaline Phosphatase 57 U/L (45-117); Bilirubin, Direct 0.14 mg/dL (0.00-0.30); Globulin 4.1 g/dL (2.2-4.2); Protein, Total 6.9 g/dL (6.4-8.2); Troponin-I HS < 3 pg/mL (3.0-54.0)
--- NOTE | 2024-09-06 10:52 | CT_ITS ---
STUDY: CTA CHEST REASON FOR EXAM: Female, 28 years old. Acute shortness of breath, patient RADIATION DOSAGE (If Supplied By Facility): CTDIvol = ( 13.98 ) mGy, DLP = ( 531.94 ) mGycm TECHNIQUE: The examination was performed with the intravenous administration of IV 100mL Isovue-370. Post-processing of the angiographic images was performed, with multiplanar reformation and 3D reconstruction. Individualized dose optimization techniques were used for this CT. COMPARISON: 6 03/24/2014 FINDINGS: Normal enhancement of the main pulmonary artery and right and left pulmonary arteries. Normal enhancement of the bilateral peripheral pulmonary arteries. There is no demonstrated pulmonary embolism. Normal thoracic aorta and visualized great vessels. There is no demonstrated aortic dissection. Normal heart and pericardium. Normal mediastinum. Normal hilar regions. Normal visualized trachea and bronchi. The lungs are well expanded. There is interstitial edema in both lung dutta consistent with patient being Normal pleura. Normal chest wall structures. Normal osseous structures. Normal visualized upper abdomen. CT/CTA Chest W/WO Contrast IMPRESSION: No demonstrated PE, or thoracic aortic aneurysm or dissection Interstitial edema in both lung dutta consistent with patient being no superimposed infiltrate or effusion No suspicious adenopathy Electronically Signed: Paul Calhoun MD at 11:29 EST ,
[2024-09-06 10:58] LABS: Mucous, Urine 0 SEEN /hpf (<or=2+); Red Blood Cells-Urine 0 SEEN /hpf (0-5)
[2024-09-06 11:01] LABS: Color, Urine Yellow (Yellow); Glucose, Dipstick Normal (Normal); Ketone-Dipstick Negative (Negative); Leukocyte Esterase-Dipstick 25 /ul (Negative); Nitrite-Dipstick Negative (Negative); Occult Blood-Urine 10 /ul (Negative); Protein-Dipstick 30 mg/dl (Negative); Specific Gravity, Urine 1.025 (1.002-1.030); Urine Bilirubin Dipstick Negative (Negative); Urine Clarity Clear (Clear); Urine Urobilinogen 1 mg/dl (Normal)
[2024-09-06 11:10] LABS: Bacteria 1+ /hpf (None Seen); Squamous Epithelial Cells - UA 5-10 SEEN /hpf (5-10); White Blood Cells 0-5 SEEN /hpf (0-5)
[2024-09-06 11:40] VITALS: BP 104/61; PULSE 85; RESP 18; TEMP 36.3; O2SAT 100
== END 2024-09-06 11:47 | disposition home or self-care (01) ==
PROVIDERS: Emergency Medicine; Emergency Provider Emergency Medicine; Visit Provider Emergency Medicine
DX: O99.891 Other specified diseases and conditions complicating pregnancy (principal); O99.282 Endocrine, nutritional and metabolic diseases complicating pregnancy, second trimester; O99.332 Smoking (tobacco) complicating pregnancy, second trimester; R06.00 Dyspnea, unspecified; R07.9 Chest pain, unspecified; E87.6 Hypokalemia; F17.290 Nicotine dependence, other tobacco product, uncomplicated; Z3A.19 19 weeks gestation of pregnancy
CPT/HCPCS: 71046; 71275; 80048; 80076; 81001; 83880; 84484; 85025; 85379; 93005; 99283; Q9967; A4216

== ENCOUNTER 2024-09-15 17:06 | Outpatient (CLI) | payer MEDICAID, SELFPAY ==
[2024-09-15 17:09] VITALS: PULSE 118; O2SAT 98
[2024-09-15 17:12] VITALS: RESP 16; TEMP 37.5
[2024-09-15 17:13] VITALS: BP 141/69; PULSE 111
[2024-09-15] MEDS: Lactated Ringers 1,000 ML 999 ML IV (17:30)
[2024-09-15 17:45] LABS: Absolute Lymphocyte Count 1.49 X10^3/uL (0.83-4.51); Basophil# 0.05 X10^3/uL; Basophil% 0.4 % (0-1); Eosinophil# 0.07 X10^3/uL; Eosinophils% 0.6 % (0-5); Hematocrit 38.2 % (37-47); Hemoglobin 13.2 g/dL (12.0-15.0); Lymphocyte # 1.49 X10^3/ul (0.83-4.51); Lymphocyte % 12.7 % (19-41); Mean Corp Hgb Conc 34.6 g/dL (32-36); Mean Corpuscular Hgb 27.4 pg (27.0-32.0); Mean Corpuscular Volume 79.3 fL (81-99); Mean Platelet Vol. 10.8 fl (6.2-12.0); Monocyte% 9.4 % (0-10); NRBC Flagged by Analyzer 0 % (0-5); Neutrophil # 8.98 X10^3/uL (2.7-7.7); Neutrophil % 76.6 % (47-70); Platelet Count 291 K/mm3 (150-450); RBC Distribution Width CV 13.2 % (11.6-14.6); RBC Distribution Width SD 37.5 fl (35.1-43.9); Red Blood Count 4.82 M/mm3 (4.2-5.4); White Blood Count 11.7 K/mm3 (4.4-11.0)
[2024-09-15 17:59] LABS: Fibrinogen 537 mg/dl (203-444)
[2024-09-15 18:14] LABS: ALB/GLOB Ratio 0.7 RATIO (0.9-2.4); AST(SGOT) 19 U/L (15-37); Alanine Aminotransfer ALT/SGPT 24 U/L (13-56); Albumin, Serum 2.9 g/dL (3.2-5.0); Alkaline Phosphatase 63 U/L (45-117); Anion Gap 11 (5-15); BUN 5 mg/dL (7-18); BUN/Creat Ratio 11.2 RATIO (10-20); Calcium,Total 9.6 mg/dL (8.5-10.1); Chloride 104 mmol/L (98-107); Creatinine, Serum 0.45 mg/dL (0.55-1.02); EST Glomerular Filtration Rate 177 mL/min (>60); Est Glom Filt Rate - Afr Amer 214 mL/min (>60); Globulin 4.2 g/dL (2.2-4.2); Glucose 97 mg/dL (74-106); Potassium 3.8 mmol/L (3.5-5.1); Protein, Total 7.1 g/dL (6.4-8.2); Sodium Level 135 mmol/L (136-145)
--- NOTE | 2024-09-20 17:38 | OB.TRI.PN_ITS ---
Progress Notes Date of Service: 09/15/24 Progress Note: seen at 21 weeks for abdominal pain, bedside ultrasound done and viable iU Pseen, cervical exam done and closed. patient sent to ER for eval further due to being felt thta this is a non issue. no vaginal bleeding or LOF. Laboratory Studies: Laboratory Tests 09/15/24 Range/Units 17:30 WBC 11.7 H (4.4-11.0) K/mm3 RBC 4.82 (4.2-5.4) M/mm3 Hgb 13.2 (12.0-15.0) g/dL Hct 38.2 (37-47) % MCV 79.3 L (81-99) fL MCH 27.4 (27.0-32.0) pg MCHC 34.6 (32-36) g/dL RDW Std Deviation 37.5 (35.1-43.9) fl RDW Coeff of Mimi 13.2 (11.6-14.6) % Plt Count 291 (150-450) K/mm3 MPV 10.8 (6.2-12.0) fl Immature Gran % (Auto) 0.300 (0.0-0.9) % Neut % (Auto) 76.6 H (47-70) % Lymph % (Auto) 12.7 L (19-41) % [place] % (Auto) 9.4 (0-10) % Eos % (Auto) 0.6 (0-5) % Baso % (Auto) 0.4 (0-1) % Absolute Neuts (auto) 9.0 H (2.0-7.7) X10^3/uL Absolute Lymphs (auto) 1.49 (0.83-4.51) X10^3/uL Nucleated RBC % 0 (0-5) % Fibrinogen 537 H (203-444) mg/dl Sodium 135 L (136-145) mmol/L Potassium 3.8 (3.5-5.1) mmol/L Chloride 104 (98-107) mmol/L Carbon Dioxide 21.0 (21.0-32.0) mmol/L Anion Gap 11 (5-15) BUN 5 L (7-18) mg/dL Creatinine 0.45 L (0.55-1.02) mg/dL Est GFR (MDRD) Af Amer 214 (>60) mL/min Est GFR (MDRD) Non-Af 177 (>60) mL/min BUN/Creatinine Ratio 11.2 (10-20) RATIO Glucose 97 (74-106) mg/dL Calcium 9.6 (8.5-10.1) mg/dL Total Bilirubin 0.40 (0.20-1.00) mg/dL AST 19 (15-37) U/L ALT 24 (13-56) U/L Alkaline Phosphatase 63 (45-117) U/L Total Protein 7.1 (6.4-8.2) g/dL Albumin 2.9 L (3.2-5.0) g/dL Globulin 4.2 (2.2-4.2) g/dL Albumin/Globulin Ratio 0.7 L (0.9-2.4) RATIO Charges/Coding Multi Select Codes Urinary/Genital Urinary/Genital CPT Codes: No Charge
== END 2024-09-15 17:55 | disposition home or self-care (01) ==
LOC: WPOUT 17:08 → WP 17:09
PROVIDERS: Obstetrics & Gynecology; Visit Provider Registered Nurse
DX: O99.891 Other specified diseases and conditions complicating pregnancy (principal); R10.9 Unspecified abdominal pain; Z3A.21 21 weeks gestation of pregnancy
CPT/HCPCS: 36415; 59025; 59050; 76815; 80053; 85025; 85384; G0378

== ENCOUNTER 2024-09-15 18:01 | Emergency (ER) | payer MEDICAID, SELFPAY ==
[2024-09-15 18:04] VITALS: BP 110/78; PULSE 78; RESP 16; TEMP 36.6; O2SAT 98; BMI 51.0
[2024-09-15 19:04] LABS: Absolute Lymphocyte Count 1.17 X10^3/uL (0.83-4.51); Absolute Neutrophil Count 9.6 X10^3/uL (2.0-7.7); Basophil# 0.03 X10^3/uL; Basophil% 0.3 % (0-1); Eosinophil# 0.05 X10^3/uL; Eosinophils% 0.4 % (0-5); Hematocrit 39.4 % (37-47); Hemoglobin 12.8 g/dL (12.0-15.0); Lymphocyte # 1.17 X10^3/ul (0.83-4.51); Mean Corp Hgb Conc 32.5 g/dL (32-36); Mean Corpuscular Hgb 26.7 pg (27.0-32.0); Mean Corpuscular Volume 82.3 fL (81-99); Mean Platelet Vol. 10.6 fl (6.2-12.0); Monocyte# 0.84 X10^3/uL; Monocyte% 7.2 % (0-10); NRBC Flagged by Analyzer 0 % (0-5); Neutrophil # 9.61 X10^3/uL (2.7-7.7); Neutrophil % 81.8 % (47-70); POSITIVE COUNT YES; Platelet Count 226 K/mm3 (150-450); RBC Distribution Width CV 13.2 % (11.6-14.6); RBC Distribution Width SD 39.1 fl (35.1-43.9); Red Blood Count 4.79 M/mm3 (4.2-5.4); White Blood Count 11.7 K/mm3 (4.4-11.0)
[2024-09-15 19:05] LABS: Differential Indicated SCAN CRITERIA MET
[2024-09-15 19:18] LABS: Internal QC Validated? YES +Cl - CLEAR BKGD; Pregnancy, Serum, hCG Quali. POSITIVE Negative
[2024-09-15 19:20] LABS: ALB/GLOB Ratio 0.7 RATIO (0.9-2.4); AST(SGOT) 22 U/L (15-37); Alanine Aminotransfer ALT/SGPT 24 U/L (13-56); Albumin, Serum 2.8 g/dL (3.2-5.0); Alkaline Phosphatase 63 U/L (45-117); Anion Gap 10 (5-15); BUN 5 mg/dL (7-18); BUN/Creat Ratio 11.2 RATIO (10-20); Calcium,Total 9.5 mg/dL (8.5-10.1); Chloride 104 mmol/L (98-107); Creatinine, Serum 0.45 mg/dL (0.55-1.02); EST Glomerular Filtration Rate 177 mL/min (>60); Est Glom Filt Rate - Afr Amer 214 mL/min (>60); Estimated Creatinine Clearance 254.98 ml/min; Globulin 4.2 g/dL (2.2-4.2); Glucose 84 mg/dL (74-106); Potassium 3.8 mmol/L (3.5-5.1); Sodium Level 134 mmol/L (136-145)
[2024-09-15 19:44] LABS: Anisocytosis RARE; Platelet Estimate ADEQUATE (ADEQ); Platelet Morphology LARGE
[2024-09-15 19:45] LABS: Red Cell Morphology NORM C+C NORMAL (NORM C&C)
[2024-09-15 20:02] VITALS: BP 136/79; PULSE 114; RESP 18; O2SAT 97
--- NOTE | 2024-09-15 20:58 | CT_ITS ---
PROCEDURE: ABDOMEN/PELVIS W IV CONT ONLY REASON FOR EXAM: Right lower quadrant pain. 21 weeks gestation TECHNIQUE: Abdomen and pelvis CT with intravenous contrast. IV CONTRAST: Isovue-300, 96 mL. COMPARISON: None. FINDINGS: Lung bases: Clear Liver: Unremarkable. Gallbladder: Unremarkable. Spleen: Unremarkable. Pancreas: Unremarkable. Adrenals: Unremarkable. Kidneys: Unremarkable. Bladder: Unremarkable. Reproductive Organs: Gravid uterus. Bowel: Unremarkable. Small hiatal hernia. Appendix: Normal. Lymph nodes: No suspicious lymph node enlargement. Anterior abdominal wall: Small periumbilical fat containing ventral hernia. Vasculature: Major vascular structures are unremarkable. Peritoneum / Retroperitoneum: No ascites. No free air. Bones: Unremarkable. CT/Abdomen/Pelvis W IV Cont ONLY IMPRESSION: Gravid uterus. No signs of appendicitis. Small periumbilical fat containing ventral hernia. Small hiatal hernia. One or more dose reduction techniques were used (e.g., Automated exposure contr ol, adjustment of the mA and/or kV according to patient size, use of iterative reconstruction technique). Reading Location: [facility]
[2024-09-15 20:59] LABS: Bacteria 0 SEEN /hpf (None Seen); Mucous, Urine 0 SEEN /hpf (<or=2+); Red Blood Cells-Urine 0 SEEN /hpf (0-5)
--- NOTE | 2024-09-15 20:59 | EDS_ITS ---
HPI HPI - GI History of Present Illness Chief Complaint: Abd Pain Informant: patient and spouse/S.O. Narrative Narrative: G2, P1 21-week gestation sent down from OB triage rule out appendicitis. Patient followed life-limiting OB. Earlier this morning had upper mid abdominal pain that migrated down to her right lower quadrant nausea without vomiting. Subjective fevers. No diarrhea. No urinary symptoms. No abdominal surgeries in the past. Prior similar symptoms: No PFSH PFSH Medical History Seasonal allergies Femur fracture, right Rib fracture Calcaneal fracture Post term at 41 weeks gestation HSV-2 infection Ovarian cyst Back pain Thyroid disease Asthma Shoulder pain Hemorrhoids Arthritis Home Medications ?Medication ?Instructions ?Recorded ?Last Taken ?Type multivit-min no.71-iron fum 28 1 cap PO DAILY 06/18/24 Unknown History mg-folate no.1 1 mg-dha 300 mg capsule (PNV-[place]) ondansetron 4 mg disintegrating 4 mg PO Q6H PRN nausea and 06/26/24 Unknown Rx tablet vomiting #90 tabs albuterol sulfate 90 mcg/actuation 2 puff inhalation Q6H PRN PRN 09/15/24 Unknown History aerosol inhaler wheezing Allergy/AdvReac Type Severity Reaction Status Date / Time bee venom protein (honey bee) Allergy Swelling Verified 09/15/24 18:03 shellfish derived Allergy Nausea/Vom/ Verified 09/15/24 18:03 Diarrhea naproxen AdvReac Other Verified 09/15/24 18:03 Family History Mother Arthritis Endometriosis Father Arthritis Cancer, Onset Age: 58 prostate Heart disease Hypertension Grandmother Cancer, Onset Age: 70 Maternal- skin cancer Heart disease Paternal Hypertension Paternal Grandfather Heart disease Paternal Hypertension Maternal Grandfather Heart disease Maternal Hypertension Paternal Surgical History History of tonsillectomy History of foot surgery Social History adopted: No household members: significant other and children number of children: 1 current occupational status: employed 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 @ [employer] current occupational exposures/hazards: No pets and animals: Yes (Avoid litterbox) pets and animals: cat(s) history of recent travel: No sexually active: Yes Smoking Status: Current every day smoker tobacco type: e-cigarettes quit status: considering quitting alcohol intake: never substance use type: does not use diet: gluten free well-balanced diet: daily or most days caffeine: Yes Type: coffee Number of servings: 1 eating out: rarely or never during the past year weight has: increased > 10 lbs what type of physical activity do you participate in: none rodrigo/protestant: None seatbelt use: always do you feel safe at home: Yes additional social history: significant Other- Sanjay - [employer] ROS ROS ED Constitutional Constitutional ED: Reports fever(s); Denies chills or sweats ENT ENT ED: Denies sore throat Cardiovascular Cardiovascular: Denies chest pain, leg edema, palpitations or racing heartbeat Respiratory/Chest Respiratory/Chest: Denies cough, dyspnea or dyspnea on exertion Gastrointestinal Gastrointestinal: Reports abdominal pain and nausea; Denies diarrhea or vomiting Genitourinary Genitourinary ED: Denies dysuria, hematuria or urinary frequency Musculoskeletal Musculoskeletal: Denies back pain, extremity pain or neck pain Integumentary Denies rash or wounds Neurologic Neurologic: Denies headache(s), paresthesias or weakness EXAM Physical Exam Const Vital Signs: 09/15/24 18:04 09/15/24 20:02 09/15/24 22:00 Temperature 98 F Temperature Source Oral Pulse Rate 78 114 H 110 H Respiratory Rate 16 18 18 Blood Pressure 110/78 136/79 H 110/58 L Blood Pressure Mean 88 98 75 Pulse Ox 98 97 98 Oxygen Delivery Method Room Air Room Air Room Air 09/15/24 23:55 09/16/24 00:00 Temperature 98.8 F Temperature Source Pulse Rate 100 103 H Respiratory Rate 18 18 Blood Pressure 126/54 H 126/54 H Blood Pressure Mean 78 78 Pulse Ox 98 98 Oxygen Delivery Method Room Air MDM MDM MDM Narrative Medical decision making narrative: Interventions / MDM: Differential diagnosis: Acute appendicitis, second trimester , tobacco dependence Diagnosis considered but do not suspect: N/A My EKG interpretation: N/A Imaging independently reviewed and interpreted by myself: CT abdomen pelvis: Intrauterine , dilated appendix concerning for appendicitis. External documents reviewed: N/A Test considered but not ordered:N/A ED course: Patient with pain migrated right lower quadrant. She is tender right lower quadrant on exam. IV established labs urine, fluids given Zofran and morphine for pain control. 0: Labs white count [place] 0.7 creatinine 0.45. Urine [address] scan abdomen pelvis IV contrast noting concerns for acute appendicitis dilated no rupture or abscess. This was discussed and reviewed by general surgeon Dr. Perez and agrees. He reviewed imagings with her ELISSA, he is concerned there is not the appropriate equipment and hands to manage patient here. He also discussed with anesthesia, they are hesitant with her for sedation here. They recommended transfer to higher level care for further management. I discussed this with the patient. Will start antibiotics of Zosyn. Pain is better controlled at this time. Will keep n.p.o., will run fluids. 0: Pain returning additional morphine ordered. 2300: Parent read from radiology stating of normal appendix however general surgeon was in the apartment, does not agree with this. She has classic presentation she is tender we are concerned for dilated appendix with stranding. 2310: I did receive callback from [facility] they conferenced Dr. Neri general surgery, who accepted for ED to ED transport. I spoke with the ED physician Dr. Winston ED physician for acceptance to the ED. Will work on transport. Re-evaluation: stable Disposition discussed with patient/family/significant other: Patient significant other Case discussed with consulting clinician: General Surgery This note was generated with [employer] dictation software. It may contain incorrect words, spelling, and punctuation that were not noted in checking the note before signing. Lab Data Attestation: I reviewed the patient's lab results. Labs: Laboratory Results - last 24 hr 09/15/24 09/15/24 09/15/24 18:53 20:52 22:14 WBC 11.7 H RBC 4.79 Hgb 12.8 Hct 39.4 MCV 82.3 MCH 26.7 L MCHC 32.5 D RDW Std Deviation 39.1 RDW Coeff of Mimi 13.2 Plt Count 226 MPV 10.6 Immature Gran % (Auto) 0.300 Neut % (Auto) 81.8 H Lymph % (Auto) 10.0 L [place] % (Auto) 7.2 Eos % (Auto) 0.4 Baso % (Auto) 0.3 Absolute Neuts (auto) 9.6 H Absolute Lymphs (auto) 1.17 Nucleated RBC % 0 Platelet Estimate ADEQUATE Plt Morphology Comment LARGE RBC Morphology NORM C+C Anisocytosis RARE PT 13.2 INR 1.0 APTT 20.5 L Sodium 134 L Potassium 3.8 Chloride 104 Carbon Dioxide 20.0 L Anion Gap 10 BUN 5 L Creatinine 0.45 L Estim Creat Clear Calc 254.98 Est GFR (MDRD) Af Amer 214 Est GFR (MDRD) Non-Af 177 BUN/Creatinine Ratio 11.2 Glucose 84 Calcium 9.5 Total Bilirubin 0.40 AST 22 ALT 24 Alkaline Phosphatase 63 Total Protein 7.0 Albumin 2.8 L Globulin 4.2 Albumin/Globulin Ratio 0.7 L Serum , Qual POSITIVE Urine Color Yellow Urine Clarity Sl. Cloudy Urine pH 5.0 Ur Specific [place] 1.025 Urine Protein 30 H Urine Glucose (UA) Normal Urine Ketones 150 A* Urine Occult Blood Negative Urine Nitrite Negative Urine Bilirubin Negative Urine Urobilinogen 1 H Ur Leukocyte Esterase 25 H Urine RBC 0 SEEN Urine WBC 0-5 SEEN Ur Squamous Epith Cells 0-5 SEEN Amorphous Sediment 1+ URATE Urine Bacteria 0 SEEN Urine Mucus 0 SEEN Radiography Diagnostic Testing: Clinical Impression(s) from Imaging Studies Abdomen/Pelvis CT 09/15/24 20:58 IMPRESSION: Gravid uterus. No signs of appendicitis. Small periumbilical fat containing ventral hernia. Small hiatal hernia. One or more dose reduction techniques were used (e.g., Automated exposure control, adjustment of the mA and/or kV according to patient size, use of iterative reconstruction technique). Reading Location: [facility] Discharge Plan Triage Chief Complaint: Abd Pain ED Provider: Mateusz Carlisle Dx/Rx/DC Orders Prescriptions: No Action PNV-[place] 28-1-300 mg capsule 1 cap PO DAILY ondansetron 4 mg tablet,disintegrating 4 mg PO Q6H PRN (Reason: nausea and vomiting) Qty: 90 4RF albuterol sulfate 90 mcg/actuation HFA aerosol inhaler 2 puff inhalation Q6H PRN PRN (Reason: wheezing) Primary Care Provider: Care Physician,No Primary Referrals: Care Physician,No Primary [Primary Care Provider] - Print Language: Korean
[2024-09-15 21:01] LABS: Color, Urine Yellow (Yellow); Glucose, Dipstick Normal (Normal); Leukocyte Esterase-Dipstick 25 /ul (Negative); Nitrite-Dipstick Negative (Negative); Occult Blood-Urine Negative /ul (Negative); Protein-Dipstick 30 mg/dl (Negative); Specific Gravity, Urine 1.025 (1.002-1.030); Urine Bilirubin Dipstick Negative (Negative); Urine Clarity Sl. Cloudy (Clear); Urine Urobilinogen 1 mg/dl (Normal)
[2024-09-15 21:04] LABS: Ketone-Dipstick 150 mg/dl (Negative)
[2024-09-15 21:08] LABS: Amorphous Sediment 1+ URATE; Squamous Epithelial Cells - UA 0-5 SEEN /hpf (5-10); White Blood Cells 0-5 SEEN /hpf (0-5)
[2024-09-15] MEDS: Morphine 4 MG/ML Syringe IV ×2 (21:19→22:51)
[2024-09-15] MEDS: Ondansetron 4 MG/2 ML Vial IV (21:19)
[2024-09-15] MEDS: 0.9% Normal Saline (1000mL) 1,000 ML 1000 ML IV (21:19)
[2024-09-15 22:00] VITALS: BP 110/58; PULSE 110; RESP 18; O2SAT 98
[2024-09-15] MEDS: Piperacil/Tazobactam 4.5 GM in 0.9% Normal Saline (100mL MB+) 100 ML IV (22:51)
[2024-09-15] MEDS: 0.9% Normal Saline (1000mL) 1,000 ML 999 ML IV (22:51)
[2024-09-15 23:00] LABS: Partial Thromboplast Time 20.5 Seconds (24.1-36.2); Prothrombin Time (Protime)PT. 13.2 SECONDS (11.7-14.9)
[2024-09-15 23:55] VITALS: BP 126/54; PULSE 100; RESP 18; TEMP 37.1; O2SAT 98
[2024-09-16] VITALS: BP 126/54; PULSE 103; RESP 18; O2SAT 98
[2024-09-16] MEDS: Morphine 4 MG/ML Syringe IV (01:27)
== END 2024-09-16 01:35 | disposition short-term general hospital (02) ==
PROVIDERS: Emergency Provider Emergency Medicine; Visit Provider Emergency Medicine
DX: O26.899 Other specified pregnancy related conditions, unspecified trimester (principal); O99.332 Smoking (tobacco) complicating pregnancy, second trimester; R10.9 Unspecified abdominal pain; F17.290 Nicotine dependence, other tobacco product, uncomplicated; Z3A.21 21 weeks gestation of pregnancy
CPT/HCPCS: 96367; G0378; 36415; 59025; 59050; 74177; 76815; 80053; 81001; 84703; 85025; 85384; 85610; 85730; 96361; 96365; 96375; 96376; 99221; 99284; Q9967; A4216; J2405

== ENCOUNTER → 2024-10-20 | Outpatient (CLI) | payer MEDICAID, SELFPAY ==
[2024-10-20 11:06] LABS: Absolute Lymphocyte Count 2.69 X10^3/uL (0.83-4.51); Absolute Neutrophil Count 6.1 X10^3/uL (2.0-7.7); Basophil# 0.05 X10^3/uL; Basophil% 0.5 % (0-1); Eosinophil# 0.19 X10^3/uL; Eosinophils% 1.9 % (0-5); Hematocrit 35.6 % (37-47); Hemoglobin 11.6 g/dL (12.0-15.0); Lymphocyte # 2.69 X10^3/ul (0.83-4.51); Lymphocyte % 27.6 % (19-41); Mean Corp Hgb Conc 32.6 g/dL (32-36); Mean Corpuscular Hgb 26.9 pg (27.0-32.0); Mean Corpuscular Volume 82.6 fL (81-99); Mean Platelet Vol. 11.2 fl (6.2-12.0); Monocyte# 0.74 X10^3/uL; Monocyte% 7.6 % (0-10); NRBC Flagged by Analyzer 0 % (0-5); Neutrophil # 6.05 X10^3/uL (2.7-7.7); Platelet Count 259 K/mm3 (150-450); RBC Distribution Width SD 41.1 fl (35.1-43.9); Red Blood Count 4.31 M/mm3 (4.2-5.4); White Blood Count 9.8 K/mm3 (4.4-11.0)
[2024-10-20 15:40] LABS: Glucose Challenge Gest 1H 50g 97 mg/dL; HIV Nonreactive (Nonreactive); Syphilis Antibodies Nonreactive (Nonreactive)
== END | disposition home or self-care (01) ==
PROVIDERS: Referring Provider Advanced Practice Midwife; Visit Provider Advanced Practice Midwife
DX: O09.90 Supervision of high risk pregnancy, unspecified, unspecified trimester (principal); Z3A.00 Weeks of gestation of pregnancy not specified; Z13.1 Encounter for screening for diabetes mellitus
CPT/HCPCS: 36415; 82950; 85025; 86703; 86780

== ENCOUNTER → 2024-12-14 | Outpatient (CLI) | payer MEDICAID, SELFPAY | END | disposition home or self-care (01) | PROVIDERS: Referring Provider Obstetrics & Gynecology; Visit Provider Obstetrics & Gynecology | DX: E03.9 Hypothyroidism, unspecified (principal) | CPT/HCPCS: 36415; 84439; 84443 ==

== ENCOUNTER → 2024-12-28 | Outpatient (CLI) | payer MEDICAID, SELFPAY | END | disposition home or self-care (01) | LOC: LABSPEC 15:47 | PROVIDERS: Referring Provider Advanced Practice Midwife; Visit Provider Advanced Practice Midwife | DX: O09.93 Supervision of high risk pregnancy, unspecified, third trimester (principal); Z3A.00 Weeks of gestation of pregnancy not specified | CPT/HCPCS: 87081 ==

== ENCOUNTER 2025-01-06 19:35 | Outpatient (CLI) | payer MEDICAID, SELFPAY ==
[2025-01-06] VITALS (7 sets, daily range): BP systolic 104; BP diastolic 57; PULSE 96–111; RESP 24; TEMP 37.2; O2SAT 93–99; BMI 53.1
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
[2025-01-06] MEDS: hydrOXYzine PAM 25 MG Capsule 50 MG PO (22:04)
== END 2025-01-06 22:06 | disposition home or self-care (01) ==
LOC: WPOUT 19:39 → WP 19:40
PROVIDERS: Referring Provider Obstetrics & Gynecology; Visit Provider Obstetrics & Gynecology
DX: O47.1 False labor at or after 37 completed weeks of gestation (principal); O99.333 Smoking (tobacco) complicating pregnancy, third trimester; O99.513 Diseases of the respiratory system complicating pregnancy, third trimester; O99.213 Obesity complicating pregnancy, third trimester; O99.343 Other mental disorders complicating pregnancy, third trimester; O99.280 Endocrine, nutritional and metabolic diseases complicating pregnancy, unspecified trimester; F17.290 Nicotine dependence, other tobacco product, uncomplicated; F41.9 Anxiety disorder, unspecified; J45.909 Unspecified asthma, uncomplicated; E03.9 Hypothyroidism, unspecified; Z79.51 Long term (current) use of inhaled steroids; Z3A.37 37 weeks gestation of pregnancy
CPT/HCPCS: 59025; 59050; 99221; G0378

== ENCOUNTER 2025-01-19 07:19 | Inpatient (IN) | payer MEDICAID, SELFPAY ==
[2025-01-19] VITALS (57 sets, daily range): BP systolic 99–133; BP diastolic 52–91; PULSE 74–123; RESP 16–22; TEMP 35.1–36.7; O2SAT 94–100; BMI 60.0
--- OUTSIDE RECORDS SUMMARY | 2025-01-19 07:14 | XMS RPT_ITS | CCD ---
Author Organization [facility] Care Team Providers Care Product Picker Name Role Phone Shanti Kaur APRN, NP Primary Care Provider SHANTI HARPER Primary Care Physician SHANTI HARPER Primary Care Physician Shanti Kaur APRN, NP Primary Care Provider Shanti Kaur APRN, NP Primary Care Provider Shanti Garcia Primary Care Unavailable PROVIDER, UNKNOWN Referring Unavailable CARLOS RAMIREZ Attending Unavailable SHANTI GARCIA Primary Care Unavailable SHANTI GARCIA Attending Unavailable WAYNE TAPIA Attending Unavailab SHANTI Patricia Primary Care Unavailable SHANTI GARCIA Attending Unavailable SHANTI GARCIA Primary Care Unavailable Care Physician, No Primary Primary Care Provider Unavailable Care Physician, No Primary Referring Provider Un available BOONE Chaney Attending Provider [phone] NERIS PRINCE Primary Care Unavailable Unavailable Primary Care Provider Unavailabl e Care Physician, No Primary Primary Care Provider Unavailable Care Physician, No Primary Referring Provider Un available Dr. Yany Carmichael DO Attending Provider Suzy Daniels CNM Attending Provider Suzy Daniels CNM Referring Provider Dr. Tadeo Esquivel DO Attending Provider Dr. Tadeo Esquivel DO Emergency Provider [phone] Nina Marc CNM Attending Provider Maylin SAHA, Dr. Child Attending Provider Dr. Mateusz Carlisle DO Emergency Provider Monico BAR, Nina Other Provider [phone] Enrrique MASON, Dr. Parson Attending Provider [phone] Care Physician, No Primary Primary Care Provider Unavailable Care Physician, No Primary Referring Provider Un available Nicholas BAR, Suyz Attending Provider [phone] Jenna Andrade DO, Dr. Slade Attending Provider Suzy Daniels CNM Referring Provider [phone] Bertin SANDERS-CArchana Attending Provider [phone] Jenna Andrade DO, Dr. Slade Referring Provider Care Physician, No Primary Primary Care Provider Unavailable Care Physician, No Primary Primary Care Unava ilable Mateusz Carlisle Attending Unavailable Care Physician, No Primary Referring Unava ilable Suzy Daniels Attending Unavailable Care Physician, No Primary Primary Care Unava ilable Care Physician, No Primary Primary Care Unava ilable Suzy Daniels Attending Unavailable Suzy Daniels Referring Unavailable Care Physician, No Primary Primary Care Unava ilable Care Physician, No Primary Referring Unava ilable Yany Carmichael Attending Unavailabl e Care Physician, No Primary Primary Care Unava ilable Danis Garza Attending Unavailable Care Physician, No Primary Primary Care Unava ilable Suzy Daniels Referring Unavailable Suzy Daniels Attending Unavailable Care Physician, No Primary Primary Care Unava ilable Suzy Daniels Referring Unavailable Suzy Daniles Attending Unavailable Yany Carmichael Referring Unavailabl e Yany Carmichael Attending Unavailabl e Care Physician, No Primary Primary Care Unava ilable Care Physician, No Primary Primary Care Unava ilable Suzy Daniels Referring Unavailable Suzy Daniels Attending Unavailable Yany Carmichael Referring Unavailabl e Yany Carmichael Attending Unavailabl e Care Physician, No Primary Primary Care Unava ilable Care Physician, No Primary Primary Care Unava ilable Care Physician, No Primary Referring Unava ilable Suzy Daniels Attending Unavailable Care Physician, No Primary Referring Unava ilable Yayn Carmichael Attending Unavailabl e Care Physician, No Primary Primary Care Unava ilable Care Physician, No Primary Primary Care Unava ilable Care Physician, No Primary Referring Unava ilable Suzy Daniels Attending Unavailable Care Physician, No Primary Primary Care Unava ilable Care Physician, No Primary Referring Unava ilable Suzy Daniels Attending Unavailable Yany Carmichael Attending Unavailabl e Care Physician, No Primary Primary Care Unava ilable Care Physician, No Primary Referring Unava ilable Yany Carmichael Attending Unavailabl e Care Physician, No Primary Referring Unava ilable Care Physician, No Primary Primary Care Unava ilable Jenna Andrade, Yany Consulting Unavailabl e Vande Velde, Yany Referring Unavailabl e Vande Velde, Yany Attending Unavailabl e Care Physician, No Primary Primary Care Unava ilable Nina Marc Consulting Unavailable Care Physician, No Primary Primary Care Unava ilable Blank Osuna Attending Unavailable Care Physician, No Primary Referring Unava ilable Blank Osuna Attending Unavailable Care Physician, No Primary Primary Care Unava ilable Care Physician, No Primary Referring Unava ilable Care Physician, No Primary Primary Care Unava ilable Blank Osuna Attending Unavailable Care Physician, No Primary Primary Care Unava ilable Care Physician, No Primary Referring Unava ilable Suzy Daniels Attending Unavailable Care Physician, No Primary Referring Unava ilable Care Physician, No Primary Primary Care Unava ilable Bertin JAVA J2EE ARCHITECTArchana Attending Unavailable Care Physician, No Primary Primary Care Unava ilable Tadeo Esquivel Attending Unavailable Care Physician, No Primary Primary Care Unava ilable Nina Marc Attending Unavailable DAVID GUTIERREZ Attending Unavailable YANY COHEN Referring Unavailab le NO PRIMARY CAREMD Primary Care Unavailable YANY COHEN Referring Unavailab JAMES Mcguire Attending Unavailable NO PRIMARY CARE, Primary Care Unavailable NO PRIMARY CARE, Primary Care Unavailable YANY COHEN Referring Unavailab KAYLIN Pathak Attending Unavailable NO PRIMARY CAREMD Primary Care Unavailable YANY COHEN Referring Unavailab KAYLIN Pathak Attending Unavailable NO PRIMARY CARE, Primary Care Unavailable KAYLIN MARQUEZ Attending Unavailable KAYLIN MARQUEZ Referring Unavailable ALYX PRO Attending Unavailable NO PRIMARY CAREMD Primary Care Unavailable YANY COHEN Referring Unavailab DAVID Curtis Attending Unavailable NO PRIMARY CAREMD Primary Care Unavailable YANY COHEN Referring Unavailab le Allergies Allergy Classification Reported Allergen(s) Allergy Type Date of Onset Reaction(s) Facility NSAIDs (3 sources) Naproxen Drug Allergy 8 Swelling [facility] (17 sources) Naproxen; Translations: [naproxen] Drug Allergy 6 Swelling, Abdominal pain (finding), Rash, Hives [facility] Comment on above: blood shot/swollen e yes acid reflux hives (4 sources) Bee/Wasp/Ant venom Allergy to substance Unknown (qualifier value) [facility] (1 source) Shellfish-Deriv ed Products Propensity to adverse reactions to drug 2 [facility] (7 sources) bee venom protein (honey bee) Allergy to substance 1 Swelling [facility] (7 sources) Shellfish; Translations: [shellfish derived] Allergy to substance 4 Nausea/Vom/Diar chhaya [facility] (1 source) Naproxen Drug Allergy 5 [facility] (1 source) bee venom protein (honey bee) Drug allergy (disorder) 5 [facility] (1 source) bee venom; Translations: [BEE VENOM] Propensity to adverse reactions to drug (disorder) 5 [facility] (1 source) Shellfish; Translations: [SHELLFISH ALLERGY] Propensity to adverse reactions to drug (disorder) 5 [facility] Medications Current Medications Medication Drug Class(es) Dates Sig (Normalized) Sig (Original) acetaminophen 325 mg / oxyCODONE hydrochloride 5 mg oral tablet (2 sources) Opioid Agonist Start: 05-22-2022 End: 05-29-2022 oxyCODONE-acetamin ophen (PERCOCET) 5-325 MG per tablet Indications: 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 Intended supply: 7 days. Take lowest dose possible to manage pain 28 tablet 0 05/22/2022 05/29/2022 Active Start: 01-24-2021 End: 01-31-2021 oxyCODONE-acetaminophen (PER COCET) 5-325 MG per tablet Indications: Osteoarthritis of right subtalar joint Take 1 tablet by mouth every 6 hours as needed for Pain for up to 7 days. Intended supply: 7 days. Take lowest dose possible to manage pain 28 tablet 0 01/24/2021 01/31/2021 Active [id number] 200 actuat albuterol 0.09 mg/actuat metered dose inhaler (14 sources) beta2-Adrenergic Agonist Start: 09-15-2024 Albut michaela Sulfate 90 mcg/actuation HFA aerosol inhaler Active 2 NMA INHALATION EVERY 6 HOURS NEEDED as needed for wheezing September 15, 2024 1:00am Start: 08-30-2017 End: 08-24-2019 Albuterol Sulfate 1 PUFF inh aler Discontinued 1 NMA INHALATION NEEDED as needed for Asthma August 30, 2017 1:00am August 24, 2019 2:40pm Start: 08-30-2017 End: 08-24-2019 Albuterol Sulfate Discontinu ed 1 PUFF INHALATION NEEDED August 30, 2017 1:00am August 24, 2019 2:40pm Start: 08-22-2017 take 2 puff(s) by in halation every four hours as needed for wheezing albuterol HFA (VENTOLIN HFA) 90 mcg/actuation inhaler Indications: Sinobronchitis Inhale 2 Puffs as instructed every 4 hours as needed for Wheezing/Shortness of Breath. 1 Inhaler 08/22/2017 Active ALBUTEROL IN Inh jer into the lungs 0 Active ALPRAZolam 0.25 mg disintegrating oral tablet (2 sources) Benzodiazepine Start: 05-22-2022 ALPRAZolam (NI RAVAM) dissolvable tablet 0.25 mg Start: 01-24-2021 ALPRAZolam (NI RAVAM) dissolvable tablet 0.25 mg aspirin 81 mg delayed release oral tablet (5 sources) Platelet Aggregation Inhibitor, Nonsteroidal Anti-inflammatory Drug Start: 05-22-2022 take 1 tablet by mouth once daily aspirin EC 81 MG EC tablet Indications: Pain due to internal orthopedic prosthetic devices, implants and grafts, initial encounter (HCC) Take 1 tablet by mouth daily 30 tablet 0 05/22/2022 Active Start: 01-24-2021 take 1 tablet by akshat th once daily aspirin EC 81 MG EC tablet Indications: Osteoarthritis of right subtalar joint Take 1 tablet by mouth daily 30 tablet 0 01/24/2021 Active brompheniramine maleate 0.4 mg/ml / dextromethorphan hydrobromide 2 mg/ml / pseudoephedrine hydrochloride 6 mg/ml oral solution (1 source) alpha-Adrenergic Agonist, Uncompetitive G-wssgxc-K-aspartate Receptor Antagonist, Sigma-1 Agonist Start: 08-22-2017 take 5-10 mL by mouth four times daily as needed Zcrrcbbouczrxuf-Tnpfeyzqw-FE (BROMFED DM) 2-30-10 mg/5 mL syrup Indications: Sinobronchitis Take 5-10 mL by mouth four times daily as needed. 120 mL 08/22/2017 Active calcium chloride 0.0014 meq/ml / potassium chloride 0.004 meq/ml / sodium chloride 0.103 meq/ml / sodium lactate 0.028 meq/ml injectable solution (3 sources) Start: 05-22-2022 lactated ringers infusion Start: 01-24-2021 lactated ringe rs infusion cyclobenzaprine hydrochloride 5 mg oral tablet (2 sources) Muscle Relaxant Start: 11-03-2021 End: 11-10-2021 cyclobenzaprine 5 mg oral tablet Dose : 5 mg = 1 tab(s), Oral, TID, X 7 day(s), # 21 tab(s), 0 Refill(s), 11/10/21 16:19:00 EDT, Pharmacy: [facility]/pharmacy #[id number], 163.8, cm, 11/03/21 15:39:00 EDT, Height, kg, 11/03/21 15:39:00 EDT, Dosing Weight Start Date: 11/03/21 Stop Date: 11/10/21 Status: Ordered Start: 01-08-2020 take 1 tablet by akshat th every eight hours as needed cyclobenzaprine (FLEXERIL) 10 mg tablet Take 1 tablet by mouth three times daily as needed for Muscle Spasm. 21 tablet 01/08/2020 Active dibucaine 0.01 mg/mg topical ointment (1 source) Standardized Chemical Allergen Start: 03-01-2017 dibucaine (NUPERCAINAL) 1 % ointment to perineal area as needed for pain 30 g 1 03/01/2017 Active 1 ml diphenhydrAMINE hydrochloride 50 mg/ml cartridge (2 sources) Histamine-1 Receptor Antagonist Start: 05-22-2022 End: 05-23-2022 diphenhydrAMINE (BENADRYL) injection 12.5 mg Start: 01-24-2021 End: 01-24-2021 diphenhydrAMINE (BENADRYL) i njection 12.5 mg ergocalciferol 1.25 mg oral capsule (2 sources) Provitamin D2 Compound Start: 11-09-2021 End: 01-08-2022 ergocalciferol 50,000 intl units (1.25 mg) oral capsule Dose : 50,000 International_Unit = 1 cap(s), Oral, qWeek, # 5 cap(s), 1 Refill(s), Pharmacy: [facility]/pharmacy #[id number], 163.8, cm, 11/03/21 15:39:00 EDT, Height, kg, 11/03/21 15:39:00 EDT, Dosing Weight Start Date: 11/09/21 Stop Date: 01/08/22 Status: Ordered Start: 11-09-2021 End: 01-08-2022 ergocalciferol 50,000 intl u nits (1.25 mg) oral capsule Dose : 50,000 International_Unit = 1 cap(s), Oral, qWeek, # 5 cap(s), 1 Refill(s), Pharmacy: [facility]/pharmacy #[id number], 163.8, cm, 11/03/21 15:39:00 EDT, Height, kg, 11/03/21 15:39:00 EDT, Dosing Weight Start Date: 11/09/21 Stop Date: 01/08/22 Status: Ordered 2 ml fentaNYL 0.05 mg/ml injection (2 sources) Opioid Agonist Start: 05-22-2022 fentaNYL (SUBL IMAZE) injection 50 mcg Start: 05-22-2022 fentaNYL (SUBL IMAZE) injection 25 mcg 1 ml hydrALAZINE hydrochloride 20 mg/ml injection (1 source) Arteriolar Vasodilator Start: 01-24-2021 hydrALAZINE (APRESOLINE) injection 5 mg 1 ml HYDROmorphone hydrochloride 1 mg/ml cartridge (4 sources) Opioid Agonist Start: 01-24-2021 HYDROmorphone (DILAUDID) injection 1 mg Start: 01-24-2021 HYDROmorphone (DILAUDID) injection 0.5 mg Start: 01-24-2021 HYDROmorphone (DILAUDID) injection 0.25 mg ibuprofen 200 mg oral tablet (5 sources) Nonsteroidal Anti-inflammatory Drug take 1 tablet by mouth every six hours as needed for pain ibuprofen (ADVIL;MOTRIN) 200 MG tablet Take 200 mg by mouth every 6 hours as needed for Pain 0 Active labetalol hydrochloride 5 mg/ml injectable solution (1 source) beta-Adrenergic Dyan Start: labetalol (NORMODYNE;TRANDATE) injection 5 mg labetalol (NORMODYNE;TRANDATE) injection 5 mg (1 source) Start: labetalol (NORMODYNE;TRANDATE) injection 5 mg 10 ml lidocaine hydrochloride 10 mg/ml injection (2 sources) Antiarrhythmic, Amide Local Anesthetic Start: End: lidocaine 1 % injection 1 mL Start: 01-24-2021 End: 01-24-2021 lidocaine PF 1 % injection 1 mL 1 ml meperidine hydrochloride 25 mg/ml cartridge (2 sources) Opioid Agonist Start: 05-22-2022 meperidine (DE MEROL) injection 12.5 mg Start: 01-24-2021 meperidine (DE MEROL) injection 12.5 mg Mv-Mins 40-Anoe-Yeuzt No.1-Dha (Pnv-[place]) 28-1-300 mg capsule (5 sources) Start: 06-18-2024 Mv-Mins 06-Birq-Kqims No.1-Dha (Pnv-[place]) 28-1-300 mg capsule Active 1 NMA PO DAILY June 18, 2024 12:00am Nexplanon 68 mg subcutaneous implant (3 sources) Start: 12-15-2020 inject 1 mg by subcutaneous injection once Nexplanon 68 mg subcutaneous implant mg = EA, Subcutaneous, Once, 0 Refill(s) Start Date: 12/15/20 Status: Ordered predniSONE 50 mg oral tablet (1 source) Start: 01-08-2020 take 1 tablet by mouth once daily predniSONE (DELTASONE) 50 mg Take 1 tablet by mouth once daily. 5 tablet 01/08/2020 Active vit no.124/iron/folic ( VITAMIN ORAL) (1 source) take 1 tablet by mouth once daily vit no.124/iron/folic ( VITAMIN ORAL) Take 1 tablet by mouth once daily. Active 1 ml promethazine hydrochloride 25 mg/ml injection (1 source) Phenothiazine Start: 01-24-2021 End: 01-24-2021 promethazine (PHENERGAN) injection 6.25 mg 200 ml ropivacaine hydrochloride 2 mg/ml injection (1 source) Amide Local Anesthetic Start: 01-24-2021 ropivacaine 0.2% (NAROPIN) elastomeric infusion 550 mL 5 ml sodium chloride 9 mg/ml injection (13 sources) Start: 05-22-2022 sodium chloride flush 0.9 % injection 5-40 mL Start: 05-22-2022 0.9 % sodium c hloride bolus Start: 05-22-2022 0.9 % sodium c hloride infusion Start: 05-22-2022 sodium chlorid e flush 0.9 % injection 5-40 mL Start: 01-24-2021 End: 01-24-2021 0.9 % sodium chloride bolus Start: 01-24-2021 0.9 % sodium c hloride infusion Start: 01-24-2021 sodium chlorid e flush 0.9 % injection 5-40 mL valACYclovir 500 mg oral tablet (3 sources) Herpesvirus Nucleoside Analog DNA Polymerase Inhibitor, Herpes Simplex Virus Nucleoside Analog DNA Polymerase Inhibitor, Herpes Zoster Virus Nucleoside Analog DNA Polymerase Inhibitor Start: 11-03-2021 End: 02-01-2022 valACYclovir 500 mg oral tablet Dose : 500 mg = 1 tab(s), Oral, qDay, X 90 day(s), # 90 tab(s), 0 Refill(s), 02/01/22 16:22:00 EDT, Pharmacy: [facility]/pharmacy #[id number], 163.8, cm, 11/03/21 15:39:00 EDT, Height, 138.7, kg, 11/03/21 15:39:00 EDT, Dosing Weight Start Date: 11/03/21 Stop Date: 02/01/22 Status: Ordered Completed/Discontinued Medications Medication Drug Class(es) Dates Sig (Normalized) Sig (Original) acetaminophen 500 mg oral tablet (2 sources) Start: 05-22-2022 End: 05-22-2022 acetaminophen (TYLENOL) tablet 1,000 mg Start: 01-24-2021 End: 01-24-2021 acetaminophen (TYLENOL) tabl et 1,000 mg acetaminophen 325 mg / HYDROcodone bitartrate 5 mg oral tablet (7 sources) Opioid Agonist Start: 10-05-2014 End: 10-13-2014 Hydrocodone-Acetaminophen 1 TABLET tablet Discontinued 1 - 2 {tbl} PO EVERY 6 HOURS NEEDED as needed for Pain October 05, 2014 1:00am October 13, 2014 11:11am Start: 10-05-2014 End: 10-13-2014 take 1 tablet by mouth every six hours as needed Hydrocodone-Acetaminophen Discontinued 1 - 2 TABLET PO EVERY 6 HOURS NEEDED October 05, 2014 1:00am October 13, 2014 11:11am ascorbic acid 500 mg oral tablet (7 sources) Vitamin C Start: 10-05-2014 End: 10-13-2014 take 1 tablet by mouth once daily Ascorbic Acid (Vitamin C) (Vitamin C) 500 MG tablet Discontinued 500 mg PO DAILY October 05, 2014 1:00am October 13, 2014 11:11am 24 hr buPROPion hydrochloride 150 mg extended release oral tablet (7 sources) Aminoketone Start: 05-24-2018 End: 08-24-2019 take 1 tablet by mouth once daily Bupropion Hcl 150 MG tablet extended release 24 hr Discontinued 150 mg PO DAILY May 24, 2018 12:00am August 24, 2019 2:40pm ceFAZolin (ANCEF) 3000 mg in sodium chloride 0.9% 100 mL IVPB (1 source) Start: 05-22-2022 End: 05-22-2022 ceFAZolin (ANCEF) 3000 mg in sodium chloride 0.9% 100 mL IVPB docusate sodium 100 mg oral capsule (14 sources) Start: 05-24-2018 End: 08-24-2019 take 1 capsule by mouth once daily Docusate Sodium 100 MG capsule Discontinued 100 mg PO DAILY May 24, 2018 12:00am August 24, 2019 2:40pm Start: 10-05-2014 End: 10-13-2014 take 1 capsule by mouth twice daily Docusate Sodium (Colace) 100 MG capsule Discontinued 100 mg PO TWICE A DAY October 05, 2014 1:00am October 13, 2014 11:11am 0.3 ml enoxaparin sodium 100 mg/ml prefilled syringe (7 sources) Low Molecular Weight Heparin Start: 10-05-2014 End: 10-13-2014 Enoxaparin 30 MG/0.3 ML syringe Discontinued 30 mg SC Q12H October 05, 2014 1:00am October 13, 2014 12:25pm Norgestimate-Ethin yl Estradiol (7 sources) Progestin, Estrogen Start: 03-24-2014 End: 10-06-2014 take 1 tablet by mouth once daily Norgestimate-Ethiny l Estradiol (Ortho Tri-Cyclen) 1 EACH tablet Discontinued 1 NMA PO DAILY March 24, 2014 12:00am October 06, 2014 9:00am Start: 03-24-2014 End: 10-06-2014 take 1 tablet by mouth once daily Norgestimate-Ethinyl Estradiol (Ortho Tri-Cyclen) 1 EACH tablet Discontinued 1 EACH PO DAILY March 24, 2014 12:00am October 06, 2014 9:00am Start: 03-24-2014 End: 10-06-2014 take 1 tablet by mouth once daily Norgestimate-Ethinyl Estradiol (Ortho Tri-Cyclen) 1 EACH tablet Discontinued 1 EACH PO DAILY March 23, 2014 11:00pm October 06, 2014 8:00am etonogestrel 68 mg drug implant (10 sources) Progestin Start: 08-24-2019 End: 06-18-2024 Etonogestrel (Nexplanon) 68 mg implant Discontinued 1 NMA subdermal ONCE August 24, 2019 1:00am June 18, 2024 9:04am as a single dose etonogestrel (NE XPLANON) subdermal implant 68 mg 68 mg by SUBDERMAL route. Active famotidine 20 mg oral tablet (2 sources) Histamine-2 Receptor Antagonist Start: 05-22-2022 End: 05-22-2022 famotidine (PEPCID) tablet 20 mg Start: 01-24-2021 End: 01-24-2021 famotidine (PEPCID) tablet 2 0 mg gabapentin 100 mg oral capsule (1 source) Anti-epileptic Agent Start: 05-22-2022 End: 05-22-2022 gabapentin (NEURONTIN) capsule 100 mg 1 ml LORazepam 2 mg/ml injection (3 sources) Benzodiazepine Start: 05-22-2022 End: 05-22-2022 LORazepam (ATIVAN) injection 0.5 mg Start: 01-24-2021 End: 01-24-2021 LORazepam (ATIVAN) 2 MG/ML i njection Start: 01-24-2021 End: 01-24-2021 LORazepam (ATIVAN) injection 1 mg Multivitamin With Folic Acid (Thera) 1 TABLET tablet (7 sources) Start: 10-06-2014 End: 10-13-2014 take 1 tablet by mouth once daily Multivitamin With Folic Acid (Thera) 1 TABLET tablet Discontinued 1 {tbl} PO DAILY October 06, 2014 1:00am October 13, 2014 11:11am Start: 10-06-2014 End: 10-13-2014 take 1 tablet by mouth once daily Multivitamin With Folic Acid (Thera) 1 TABLET tablet Discontinued 1 TABLET PO DAILY October 06, 2014 1:00am October 13, 2014 11:11am Start: 10-06-2014 End: 10-13-2014 take 1 tablet by mouth once daily Multivitamin With Folic Acid (Thera) 1 TABLET tablet Discontinued 1 TABLET PO DAILY October 06, 2014 12:00am October 13, 2014 10:11am omeprazole 40 mg delayed release oral capsule (7 sources) Proton Pump Inhibitor Start: 05-24-2018 End: 08-24-2019 take 1 capsule by mouth once daily Omeprazole 40 MG capsule,delayed release(DR/EC) Discontinued 40 mg PO DAILY May 24, 2018 12:00am August 24, 2019 2:40pm ondansetron 4 mg disintegrating oral tablet (19 sources) Serotonin-3 Receptor Antagonist Start: 06-26-2024 End: 12-03-2024 take 1 tablet by mouth every six hours as needed for nausea and vomiting Ondansetron 4 mg tablet,disintegratin g Discontinued 4 mg PO EVERY 6 HOURS as needed for nausea and vomiting June 26, 2024 1:00am December 03, 2024 9:57am Start: 05-22-2022 End: 05-23-2022 ondansetron (ZOFRAN) injecti on 4 mg Start: 05-22-2022 take 1 tablet by akshat th three times daily as needed for nausea ondansetron (ZOFRAN-ODT) 4 MG disintegrating tablet Indications: Pain due to internal orthopedic prosthetic devices, implants and grafts, initial encounter ([facility] [place]) Take 1 tablet by mouth 3 times daily as needed for Nausea or Vomiting 21 tablet 0 05/22/2022 Active Start: 01-24-2021 take 1 tablet by akshat th once daily as needed for nausea ondansetron (ZOFRAN) 4 MG tablet Indications: Osteoarthritis of right subtalar joint Take 1 tablet by mouth daily as needed for Nausea or Vomiting 30 tablet 0 01/24/2021 Active Start: 01-24-2021 End: 01-24-2021 ondansetron (ZOFRAN) injecti on 4 mg Start: 05-24-2018 End: 08-24-2019 take 1 tablet by mouth every eight hours as needed for nausea Ondansetron 8 MG tablet,disintegrating Discontinued 8 mg PO EVERY 8 HOURS NEEDED as needed for Nausea May 24, 2018 12:00am August 24, 2019 2:40pm potassium chloride 20 meq extended release oral tablet (5 sources) Start: 09-06-2024 End: 09-15-2024 take 1 tablet by mouth once daily Potassium Chloride 20 mEq tablet extended release Discontinued 20 meq PO DAILY September 06, 2024 1:00am September 15, 2024 9:04pm sertraline 50 mg oral tablet (7 sources) Serotonin Reuptake Inhibitor Start: 05-24-2018 End: 08-24-2019 take 1 tablet by mouth once daily Sertraline 50 MG tablet Discontinued 50 mg PO DAILY May 24, 2018 12:00am August 24, 2019 2:40pm Problems Active Problems Problem Classification Problem Date Documented Da te Episodic/Chronic Abdominal pain (12 sources) Right lower quadrant pain; Translations: [Right lower quadrant pain] Onset: 4 09-24-2024 Episodic Allergic reactions (2 sources) Allergy status to analgesic agent status; Translations: [Allergy status to analgesic agent] Onset: 2 Episodic Anxiety disorders (20 sources) Generalized anxiety disorder; Translations: [Anxiety] Onset: 5 07-13-2020 Chronic Comment on above: stable Appendicitis and other appendiceal conditions (12 sources) Acute appendicitis; Translations: [Unspecified acute appendicitis] Onset: 5 09-16-2024 Episodic Comment on above: appendectomy 09/15/24 [facility] (2 sources) Unspecified asthma, uncomplicated; Translations: [Unspecified asthma, uncomplicated] Onset: 2 Chronic Complication of device; implant or graft (4 sources) Pain due to internal prosthetic device; Translations: [Pain due to internal orthopedic prosthetic devices, implants and grafts, initial encounter] Onset: 2 Episodic Deficiency and other anemia (7 sources) Anemia; Translations: [Anemia, unspecified] 01-27-2020 Episodic Comment on above: orif 2 Early or threatened labor (2 sources) False labor at or after 37 completed weeks of gestation; Translations: [False labor at or after 37 completed weeks of gestation] Onset: 5 Episodic Esophageal disorders (6 sources) Gastroesophageal reflux disease; Translations: [Gastro-esophageal reflux disease without esophagitis] 11-27-2017 Chronic Fluid and electrolyte disorders (5 sources) Hypokalemia; Translations: [Hypokalemia] 09-14-2024 Episodic Fracture of lower limb (14 sources) Fracture of calcaneus; Translations: [Unspecified fracture of unspecified calcaneus, initial encounter for closed fracture] 01-27-2020 Episodic Comment on above: S/P orif 09/30 Gastritis and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 Period: 04/21/24 Zika: Zika virus screening: Negative : No PFSH PFSH Medical History Seasonal allergies Femur fracture, right Rib fracture Calcaneal fracture Post term at 41 weeks gestation HSV-2 infection Ovarian cyst Back pain Thyroid disease Asthma Shoulder pain Hemorrhoids Arthritis Surgical History History of tonsillectomy History of foot surgery Family History Mother Arthritis Endometriosis Father Arthritis Cancer, Onset Age: 58 prostate Heart disease Hypertension Grandmother Cancer, Onset Age: 70 Maternal- skin cancer Heart disease Paternal Hypertension Paternal Grandfather Heart disease Paternal Hypertension Maternal Grandfather Heart disease Maternal Hypertension Paternal Social History adopted: No household members: significant other and children number of children: 1 current occupational status: employed current occupation: [employer] @ [employer] current occupational exposures/hazards: No pets and animals: Yes (Avoid litterbox) pets and animals: cat(s) history of recent travel: No sexually active: Yes Smoking Status: Current every day smoker tobacco type: e-cigarettes quit status: considering quitting alcohol intake: never substance use type: does not use diet: gluten free well-balanced diet: daily or most days caffeine: Yes Type: coffee Number of servings: 1 eating out: rarely or never during the past year weight has: increased > 10 lbs what type of physical activity do you participate in: none rodrigo/spiritism: None seatbelt use: always do you feel safe at home: Yes additional social history: significant Other- [employer] History 2 Elective abortions Hx Para 1 Spontaneous abortions Hx # Term Pregnancies 1 Ectopic pregnancies Hx # Pregnancies Multiple births # of living children 1 Past Pregnancies Del. Date Name GA/Weeks Outcome Route Bth Weight Gen Labor Lgth Anesthesia Del Locatn Provider FOB 02/26/17 Nick 41 live - full term 8#2oz Female epidural [facility] Dr. Benjamin Rodriguez Delivery Date: 02/26/17 Last Updated by: Catherine Garrett placenta started to detach- not given abruption dx HPI 37wk ob Details: MARYAM CONROY is a 29 year old who presents for routine OB visit. OB Visit CAT Calculator Estimated Delivery Date Method Current WG Current Estimate 01/26/25 LMP (Certain) 37w 0d Other Estimates 01/25/25 Ultrasound #1 37w 1d Expected Delivery Route/Plan Labor Preferences- CB/BF classes: no labor support person: Sanjay labor intervention preferences: [] pain management options preferred: epidural cut cord/dad catch: cord : yes PP control planned: discussed discussed possible routes of delivery and associated risks: [] special requests: [] Specific Issue/Plans Covid status: [] Flu vaccine: [] Tdap vaccine: given Rhogam: NA LARC form signed: yes Problem list reviewed and updated with the most current plan of care details and appropriate orders placed. Relevant counseling for the gestational age provided. Continue routine care and follow up unless otherwise noted in visit notes/problem list details Initial Weight: 294 lb Date -???-???-???-???-???- ???-???-???-???-???-? ??-???- EGA Weight BP Urine Prot -???-???-???-???-???- ???-???-???-???-???-? ??-???- Glucose FHR FuHt Pres Dilation -???-?? (more content not included)... Normal [facility] Rule out Beta Strep (Grp. B) on 12-30-2024 JESUS Group B Beta Streptococcus is not isolated. Normal [facility] Comment on above: Performed By: #### M [id number] ####[facility] [id number] [place], [address] Laboratory - Chemistry and C hemistry - challengeOrdered By: uSzy Daniels on 12-28-2024 Glucose Ql (U) Negative [facility] Laboratory - UrinalysisOrder ed By: Suzy Daniels on 12-28-2024 Protein Ql (U) Negative [facility] Irrigation Installation Specialist Office Visit Reporton 12-28-2024 Irrigation Installation Specialist Office Visit Report [facility] [address], [address] [place] [address] OFFICE VISIT Date of Service: 12/28/24 MR#: [id number] Acct: [id number] Name: MARYAM CONROY Rep #: [id number] 5 : 1995 Provider: DIPIKA Spencer ams Age/Sex: 29/F Location[facility] Status: Signed Intake Vital Signs 11/02/24 13:53 12/14/24 10:03 12/28/24 09:55 Height 5 ft 4 in 5 ft 4 in 5 ft 4 in Weight: 308 lb BMI 52.8 BP 120/82 H Intake Visit Reasons: 36wk ob Chief Complaint: 36wk OB Death Claim Clerk Required: No Is patient in pain?: No Allergies bee venom protein (honey bee) Allergy (Verified 12/28/24 09:53) Swelling shellfish derived Allergy (Verified 12/28/24 09:53) Nausea/Vom/Diarrhea naproxen Adverse Reaction (Verified 12/28/24 09:53) Other Medications ???Medication ???Instructions ???Recorded ???Confirmed ???Type multivit-min no.71-iron fum 28 1 cap PO DAILY 06/18/24 12/28/24 H istory mg-folate no.1 1 mg-dha 300 mg capsule (PNV-[place]) albuterol sulfate 90 mcg/actuation 2 puff inhalation Q6H PRN PRN 12/28/24 History aerosol inhaler wheezing Last Menstrual Period: 04/21/24 : No PFSH PFSH Medical History Seasonal allergies Femur fracture, right Rib fracture Calcaneal fracture Post term at 41 weeks gestation HSV-2 infection Ovarian cyst Back pain Thyroid disease Asthma Shoulder pain Hemorrhoids Arthritis Surgical History History of tonsillectomy History of foot surgery Family History Mother Arthritis Endometriosis Father Arthritis Cancer, Onset Age: 58 prostate Heart disease Hypertension Grandmother Cancer, Onset Age: 70 Maternal- skin cancer Heart disease Paternal Hypertension Paternal Grandfather Heart disease Paternal Hypertension Maternal Grandfather Heart disease Maternal Hypertension Paternal Social History adopted: No household members: significant other and children number of children: 1 current occupational status: employed 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 @ [employer] current occupational exposures/hazards: No pets and animals: Yes (Avoid litterbox) pets and animals: cat(s) history of recent travel: No sexually active: Yes Smoking Status: Current every day smoker tobacco type: e-cigarettes quit status: considering quitting alcohol intake: never substance use type: does not use diet: gluten free well-balanced diet: daily or most days caffeine: Yes Type: coffee Number of servings: 1 eating out: rarely or never during the past year weight has: increased > 10 lbs what type of physical activity do you participate in: none rodrigo/spiritism: None seatbelt use: always do you feel safe at home: Yes additional social history: significant Other- [employer] History 2 Elective abortions Hx Para 1 Spontaneous abortions Hx # Term Pregnancies 1 Ectopic pregnancies Hx # Pregnancies Multiple births # of living children 1 Past Pregnancies Del. Date Name GA/Weeks Outcome Route Bth Weight Infant Gen Labor Lgth Anesthesia Del Locatn Provider FOB 02/26/17 Nick 41 live - full term 8#2oz Female epidural [facility] Dr. Benjamin Rodriguez Delivery Date: 02/26/17 Last Updated by: Catherine Garrett placenta started to detach- not given abruption dx HPI 36wk ob Details: MARYAM CONROY is a 29 year old who presents for routine OB visit. OB Visit CAT Calculator Estimated Delivery Date Method Current Current Estimate 01/26/25 LMP (Certain) 35w 6d Other Estimates 01/25/25 Ultrasound #1 36w 0d Expected Delivery Route/Plan Labor Preferences- CB/BF classes: no labor support person: Sanjay labor intervention preferences: [] pain management options preferred: epidural cut cord/dad catch: cord : yes PP control planned: discussed discussed possible routes of delivery and associated risks: [] special requests: [] Specific Issue/Plans Covid status: [] Flu vaccine: [] Tdap vaccine: given Rhogam: NA LARC form signed: yes Problem list reviewed and updated with the most current plan of care details and appropriate orders placed. Relevant counseling for the gestational age provided. Continue routine care and follow up unless otherwise noted in visit notes/problem list details Initial Weight: 294 lb Date -???-???-???-???-???- ???-???-???-???-???-? ??-???- EGA Weight BP Urine Prot -???-???-???-???-???- ???-???-???-???-???-? ??-???- Glucose FHR FuHt Pres Dilation -???-???-???-???-???- ???-???-???-???-???-? ??-?? (more content not included)... Normal [facility] Screening beta-hemolytic Str eptococcus cultureOrdered By: Suzy Daniels on 12-28-2024 Beta-hemolytic Streptococcus culture Group B Beta Streptococcus is not isolated. [facility] Laboratory - Chemistry and C hemistry - challengeOrdered By: Yany Andrade on 12-14-2024 Glucose Ql (U) Negative [facility] Laboratory - UrinalysisOrder ed By: Yany Andrade on 12-14-2024 Protein Ql (U) Negative [facility] Irrigation Installation Specialist Office Visit Reporton 12-14-2024 Irrigation Installation Specialist Office Visit Report [facility]'s [address], [facility] [address] [place] [address] OFFICE VISIT Date of Service: 12/14/24 MR#: [id number] Acct: [id number] Name: MARYAM CONROY Rep #: [id number] 7 : 1995 Provider: Dr. Yany Turpin DO Age/Sex: 29/F Location: [facility] Status: Signed Intake Vital Signs 11/02/24 13:53 12/03/24 09:53 12/14/24 10:03 12/14/24 10:03 Height 5 ft 4 in 5 ft 4 in 5 ft 4 in 5 ft 4 in Weight: 308 lb 6 oz BMI 52.9 BP 115/78 Intake Visit Reasons: 34wk ob Death Claim Clerk Required: No Is patient in pain?: No Allergies bee venom protein (honey bee) Allergy (Verified 12/14/24 10:03) Swelling shellfish derived Allergy (Verified 12/14/24 10:03) Nausea/Vom/Diarrhea naproxen Adverse Reaction (Verified 12/14/24 10:03) Other Medications ???Medication ???Instructions ???Recorded ???Confirmed ???Type multivit-min no.71-iron fum 28 1 cap PO DAILY 06/18/24 12/14/24 H istory mg-folate no.1 1 mg-dha 300 mg capsule (PNV-[place]) albuterol sulfate 90 mcg/actuation 2 puff inhalation Q6H PRN PRN 12/14/24 History aerosol inhaler wheezing Last Menstrual Period: 04/21/24 Zika: Zika virus screening: Negative : No PFSH PFSH Medical History Seasonal allergies Femur fracture, right Rib fracture Calcaneal fracture Post term at 41 weeks gestation HSV-2 infection Ovarian cyst Back pain Thyroid disease Asthma Shoulder pain Hemorrhoids Arthritis Surgical History History of tonsillectomy History of foot surgery Family History Mother Arthritis Endometriosis Father Arthritis Cancer, Onset Age: 58 prostate Heart disease Hypertension Grandmother Cancer, Onset Age: 70 Maternal- skin cancer Heart disease Paternal Hypertension Paternal Grandfather Heart disease Paternal Hypertension Maternal Grandfather Heart disease Maternal Hypertension Paternal Social History adopted: No household members: significant other and children number of children: 1 current occupational status: employed current occupation: [employer] @ [employer] current occupational exposures/hazards: No pets and animals: Yes (Avoid litterbox) pets and animals: cat(s) history of recent travel: No sexually active: Yes Smoking Status: Current every day smoker tobacco type: e-cigarettes quit status: considering quitting alcohol intake: never substance use type: does not use diet: gluten free well-balanced diet: daily or most days caffeine: Yes Type: coffee Number of servings: 1 eating out: rarely or never during the past year weight has: increased > 10 lbs what type of physical activity do you participate in: none rodrigo/spiritism: None seatbelt use: always do you feel safe at home: Yes additional social history: significant Other- [employer] History 2 Elective abortions Hx Para 1 Spontaneous abortions Hx # Term Pregnancies 1 Ectopic pregnancies Hx # Pregnancies Multiple births # of living children 1 Past Pregnancies Del. Date Name GA/Weeks Outcome Route Bth Weight Gen Labor Lgth Anesthesia Del Locatn Provider FOB 02/26/17 Nick 41 live - full term 8#2oz Female epidural [facility] Dr. Benjamin Rodriguez Delivery Date: 02/26/17 Last Updated by: Catherine Garrett placenta started to detach- not given abruption dx HPI 34wk ob Details: MARYAM CONROY is a 29 year old who presents for routine OB visit. OB Visit CAT Calculator Estimated Delivery Date Method Current WG Current Estimate 01/26/25 LMP (Certain) 33w 6d Other Estimates 01/25/25 Ultrasound #1 34w 0d Expected Delivery Route/Plan Labor Preferences- CB/BF classes: no labor support person: Sanjay labor intervention preferences: [] pain management options preferred: epidural cut cord/dad catch: cord : yes PP control planned: discussed discussed possible routes of delivery and associated risks: [] special requests: [] Specific Issue/Plans Covid status: [] Flu vaccine: [] Tdap vaccine: given Rhogam: NA LARC form signed: yes Problem list reviewed and updated with the most current plan of care details and appropriate orders placed. Relevant counseling for the gestational age provided. Continue routine care and follow up unless otherwise noted in visit notes/problem list details Initial Weight: 294 lb Date -???-???-???-???-???- ???-???-???-???-???-? ??-???- EGA Weight BP Urine Prot -???-???-???-???-???- ???-???-???-???-???-? ??-???- Glucose (more content not included)... Normal [facility] T4 Free Directon 12-14-2024 T4 FREE DIRECT 0.70 ng/dL Low 0.76-1.46 [facility] Comment on above: Performed By: #### L [id number], [id number] #### [facility] Laboratory [address] [place], [address] T4 freeOrdered By: Yany Andrade on 12-14-2024 Free T4 [Mass/Vol] 0.70 ng/dL Low 0.76-1.46 [facility] TSH DL <= 0.005 mIU/L QnOrde red By: Yany Andrade on 12-14-2024 TSH Qn 4.080 uIU/mL 0.300-4.200 [facility] Thyroid Stim Hormone (TSH)on 12-14-2024 TSH 4.080 uIU/mL Normal 0.300-4.200 [facility] Comment on above: Performed By: #### L [id number], [id number] #### [facility] [address] [place], [address] Laboratory - Chemistry and C hemistry - challengeOrdered By: Suzy Daniels on 12-03-2024 Glucose Ql (U) Negative [facility] Laboratory - UrinalysisOrder ed By: Suzy Daniels on 12-03-2024 Protein Ql (U) Negative [facility] Irrigation Installation Specialist Office Visit Reporton 12-03-2024 Irrigation Installation Specialist Office Visit Report [facility]'s [address], [address] [place] [address] OFFICE VISIT Date of Service: 12/03/24 MR#: [id number] Acct: [id number] Name: MARYAM CONROY Rep #: [id number] 8 : 1995 Provider: DIPIKA Spencer ams Age/Sex: 29/F Location: [facility] Status: Signed Intake Vital Signs 10/20/24 09:29 11/17/24 08:45 12/03/24 09:53 Height 5 ft 4 in 5 ft 4 in 5 ft 4 in Weight: 305 lb 6 oz BMI 52.4 BP 130/87 H Intake Visit Reasons: 32 wk ob Chief Complaint: 32wk ob Death Claim Clerk Required: No Is patient in pain?: No Allergies bee venom protein (honey bee) Allergy (Verified 12/03/24 09:51) Swelling shellfish derived Allergy (Verified 12/03/24 09:51) Nausea/Vom/Diarrhea naproxen Adverse Reaction (Verified 12/03/24 09:51) Other Medications ???Medication ???Instructions ???Recorded ???Confirmed ???Type multivit-min no.71-iron fum 28 1 cap PO DAILY 06/18/24 12/03/24 H istory mg-folate no.1 1 mg-dha 300 mg capsule (PNV-[place]) albuterol sulfate 90 mcg/actuation 2 puff inhalation Q6H PRN PRN 12/03/24 History aerosol inhaler wheezing Last Menstrual Period: 04/21/24 : No PFSH PFS Medical History Seasonal allergies Femur fracture, right Rib fracture Calcaneal fracture Post term at 41 weeks gestation HSV-2 infection Ovarian cyst Back pain Thyroid disease Asthma Shoulder pain Hemorrhoids Arthritis Surgical History History of tonsillectomy History of foot surgery Family History Mother Arthritis Endometriosis Father Arthritis Cancer, Onset Age: 58 prostate Heart disease Hypertension Grandmother Cancer, Onset Age: 70 Maternal- skin cancer Heart disease Paternal Hypertension Paternal Grandfather Heart disease Paternal Hypertension Maternal Grandfather Heart disease Maternal Hypertension Paternal Social History adopted: No household members: significant other and children number of children: 1 current occupational status: employed current occupation: [employer] @ [employer] current occupational exposures/hazards: No pets and animals: Yes (Avoid litterbox) pets and animals: cat(s) history of recent travel: No sexually active: Yes Smoking Status: Current every day smoker tobacco type: e-cigarettes quit status: considering quitting alcohol intake: never substance use type: does not use diet: gluten free well-balanced diet: daily or most days caffeine: Yes Type: coffee Number of servings: 1 eating out: rarely or never during the past year weight has: increased > 10 lbs what type of physical activity do you participate in: none rodrigo/spiritism: None seatbelt use: always do you feel safe at home: Yes additional social history: significant Other- [employer] History 2 Elective abortions Hx Para 1 Spontaneous abortions Hx # Term Pregnancies 1 Ectopic pregnancies Hx # Pregnancies Multiple births # of living children 1 Past Pregnancies Del. Date Name GA/Weeks Outcome Route Bth Weight Gen Labor Lgth Anesthesia Del Locatn Provider FOB 02/26/17 Nick 41 live - full term 8#2oz Female epidural [facility] Dr. Benjamin Rodriguez Delivery Date: 02/26/17 Last Updated by: Catherine Garrett placenta started to detach- not given abruption dx HPI 32 wk ob Details: MARYAM CONROY is a 29 year old who presents for routine OB visit. OB Visit CAT Calculator Estimated Delivery Date Method Current WG Current Estimate 01/26/25 LMP (Certain) 32w 2d Other Estimates 01/25/25 Ultrasound #1 32w 3d Expected Delivery Route/Plan Labor Preferences- CB/BF classes: no labor support person: Sanjay labor intervention preferences: [] pain management options preferred: epidural cut cord/dad catch: cord : yes PP control planned: discussed discussed possible routes of delivery and associated risks: [] special requests: [] Specific Issue/Plans Covid status: [] Flu vaccine: [] Tdap vaccine: given Rhogam: NA LARC form signed: yes Problem list reviewed and updated with the most current plan of care details and appropriate orders placed. Relevant counseling for the gestational age provided. Continue routine care and follow up unless otherwise noted in visit notes/problem list details Initial Weight: 294 lb Date -???-???-???-???-???- ???-???-???-???-???-? ??-???- EGA Weight BP Urine Prot -???-???-???-???-???- ???-???-???-???-???-? ??-???- Glucose FHR FuHt Pres Dilation -???-???-???-???-???- ???-???-???-???-??? (more content not included)... [facility] Laboratory - Chemistry and C hemistry - challengeOrdered By: Archana Denton on 11-17-2024 Glucose Ql (U) Negative [facility] Laboratory - UrinalysisOrder ed By: Archana Denton on 11-17-2024 Protein Ql (U) Negative [facility] Irrigation Installation Specialist Office Visit Reporton 11-17-2024 Irrigation Installation Specialist Office Visit Report [facility]'s [address], [address] [place] [address] OFFICE VISIT Date of Service: 11/17/24 MR#: [id number] Acct: [id number] Name: MARYAM CONROY Rep #: [id number] 8 : 1995 Provider: GAVIN jordan Age/Sex: 29/F Location: [facility] Status: Signed Intake Vital Signs 09/21/24 10:44 11/02/24 13:53 11/17/24 08:45 Height 5 ft 4 in 5 ft 4 in 5 ft 4 in Weight: 306 lb 8 oz BMI 52.6 BP 118/80 Intake Visit Reasons: 30 wk ob Chief Complaint: 30 Week OB Death Claim Clerk Required: No Is patient in pain?: No Allergies bee venom protein (honey bee) Allergy (Verified 11/17/24 08:45) Swelling shellfish derived Allergy (Verified 11/17/24 08:45) Nausea/Vom/Diarrhea naproxen Adverse Reaction (Verified 11/17/24 08:45) Other Medications ???Medication ???Instructions ???Recorded ???Confirmed ???Type multivit-min no.71-iron fum 28 1 cap PO DAILY 06/18/24 11/17/24 H istory mg-folate no.1 1 mg-dha 300 mg capsule (PNV-[place]) ondansetron 4 mg disintegrating 4 mg PO Q6H PRN nausea and 4 11/17/24 Rx tablet vomiting #90 tabs albuterol sulfate 90 mcg/actuation 2 puff inhalation Q6H PRN PRN 11/17/24 History aerosol inhaler wheezing Last Menstrual Period: 04/21/24 Zika: Zika virus screening: Negative : Yes PFSH PFSH Medical History Seasonal allergies Femur fracture, right Rib fracture Calcaneal fracture Post term at 41 weeks gestation HSV-2 infection Ovarian cyst Back pain Thyroid disease Asthma Shoulder pain Hemorrhoids Arthritis Surgical History History of tonsillectomy History of foot surgery Family History Mother Arthritis Endometriosis Father Arthritis Cancer, Onset Age: 58 prostate Heart disease Hypertension Grandmother Cancer, Onset Age: 70 Maternal- skin cancer Heart disease Paternal Hypertension Paternal Grandfather Heart disease Paternal Hypertension Maternal Grandfather Heart disease Maternal Hypertension Paternal Social History adopted: No household members: significant other and children number of children: 1 current occupational status: employed 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 @ [employer] current occupational exposures/hazards: No pets and animals: Yes (Avoid litterbox) pets and animals: cat(s) history of recent travel: No sexually active: Yes Smoking Status: Current every day smoker tobacco type: e-cigarettes quit status: considering quitting alcohol intake: never substance use type: does not use diet: gluten free well-balanced diet: daily or most days caffeine: Yes Type: coffee Number of servings: 1 eating out: rarely or never during the past year weight has: increased > 10 lbs what type of physical activity do you participate in: none rodrigo/spiritism: None seatbelt use: always do you feel safe at home: Yes additional social history: significant Other- [employer] History 2 Elective abortions Hx Para 1 Spontaneous abortions Hx # Term Pregnancies 1 Ectopic pregnancies Hx # Pregnancies Multiple births # of living children 1 Past Pregnancies Del. Date Name GA/Weeks Outcome Route Bth Weight Infant Gen Labor Lgth Anesthesia Del Locatn Provider FOB 02/26/17 Nick 41 live - full term 8#2oz Female epidural [facility] Dr. Benjamin Rodriguez Delivery Date: 02/26/17 Last Updated by: Catherine Garrett placenta started to detach- not given abruption dx HPI 30 wk ob Details: MARYAM CONROY is a 29 year old who presents for routine OB visit. OB Visit CAT Calculator Estimated Delivery Date Method Current WG Current Estimate 01/26/25 LMP (Certain) 30w 0d Other Estimates 01/25/25 Ultrasound #1 30w 1d Expected Delivery Route/Plan Labor Preferences- CB/BF classes: no labor support person: Sanjay labor intervention preferences: [] pain management options preferred: epidural cut cord/dad catch: cord : yes PP control planned: discussed discussed possible routes of delivery and associated risks: [] special requests: [] Specific Issue/Plans Covid status: [] Flu vaccine: [] Tdap vaccine: given Rhogam: NA LARC form signed: yes Problem list reviewed and updated with the most current plan of care details and appropriate orders placed. Relevant counseling for the gestational age provided. Continue routine care and follow up unless otherwise noted in visit notes/problem list details Initial Weight: 294 lb Date -???-???-???-???-???- ? (more content not included)... Normal [facility] Laboratory - Chemistry and C hemistry - challengeOrdered By: Blank Osuna on 11-02-2024 Glucose Ql (U) Negative [facility] - UrinalysisOrder ed By: Blank Osuna on 11-02-2024 Protein Ql (U) Negative [facility] Irrigation Installation Specialist Office Visit Reporton 11-02-2024 Irrigation Installation Specialist Office Visit Report [facility] [address], [address] [place] [address] OFFICE VISIT Date of Service: 11/02/24 MR#: [id number] Acct: [id number] Name: MARYAM CONROY Rep #: [id number] 1 : 1995 Provider: Dr. Blank nolasco MD Age/Sex: 29/F Location: [facility] Status: Signed Intake Vital Signs 10/20/24 09:29 11/02/24 13:51 11/02/24 13:53 Height 5 ft 4 in 5 ft 4 in 5 ft 4 in Weight: 304 lb BMI 52.2 BP 117/81 H Intake Visit Reasons: 28 wk ob Death Claim Clerk Required: No Is patient in pain?: No Feel stressed/tense/nervou s/anxious/difficulty sleeping: not at all Allergies bee venom protein (honey bee) Allergy (Verified 11/02/24 13:51) Swelling shellfish derived Allergy (Verified 11/02/24 13:51) Nausea/Vom/Diarrhea naproxen Adverse Reaction (Verified 11/02/24 13:51) Other Medications ???Medication ???Instructions ???Recorded ???Confirmed ???Type multivit-min no.71-iron fum 28 1 cap PO DAILY 06/18/24 11/02/24 H istory mg-folate no.1 1 mg-dha 300 mg capsule (PNV-[place]) ondansetron 4 mg disintegrating 4 mg PO Q6H PRN nausea and 4 11/02/24 Rx tablet vomiting #90 tabs albuterol sulfate 90 mcg/actuation 2 puff inhalation Q6H PRN PRN 11/02/24 History aerosol inhaler wheezing Last Menstrual Period: 04/21/24 Zika: Zika virus screening: Negative : No PFSH PFS Medical History Seasonal allergies Femur fracture, right Rib fracture Calcaneal fracture Post term at 41 weeks gestation HSV-2 infection Ovarian cyst Back pain Thyroid disease Asthma Shoulder pain Hemorrhoids Arthritis Surgical History History of tonsillectomy History of foot surgery Family History Mother Arthritis Endometriosis Father Arthritis Cancer, Onset Age: 58 prostate Heart disease Hypertension Grandmother Cancer, Onset Age: 70 Maternal- skin cancer Heart disease Paternal Hypertension Paternal Grandfather Heart disease Paternal Hypertension Maternal Grandfather Heart disease Maternal Hypertension Paternal Social History adopted: No household members: significant other and children number of children: 1 current occupational status: employed current occupation: [employer] @ [employer] current occupational exposures/hazards: No pets and animals: Yes (Avoid litterbox) pets and animals: cat(s) history of recent travel: No sexually active: Yes Smoking Status: Current every day smoker tobacco type: e-cigarettes quit status: considering quitting alcohol intake: never substance use type: does not use diet: gluten free well-balanced diet: daily or most days caffeine: Yes Type: coffee Number of servings: 1 eating out: rarely or never during the past year weight has: increased > 10 lbs what type of physical activity do you participate in: none rodrigo/spiritism: None seatbelt use: always do you feel safe at home: Yes additional social history: significant Other- Sanjay - [employer] History 2 Elective abortions Hx Para 1 Spontaneous abortions Hx # Term Pregnancies 1 Ectopic pregnancies Hx # Pregnancies Multiple births # of living children 1 Past Pregnancies Del. Date Name GA/Weeks Outcome Route Bth Weight Gen Labor Lgth Anesthesia Del Locatn Provider FOB 02/26/17 Nick 41 live - full term 8#2oz Female epidural [facility] Dr. Benjamin Rodriguez Delivery Date: 02/26/17 Last Updated by: Catherine Garrett placenta started to detach- not given abruption dx HPI 28 wk ob Details: MARYAM CONROY is a 29 year old who presents for routine OB visit. OB Visit CAT Calculator Estimated Delivery Date Method Current WG Current Estimate 01/26/25 LMP (Certain) 27w 6d Other Estimates 01/25/25 Ultrasound #1 28w 0d Expected Delivery Route/Plan Labor Preferences- CB/BF classes: [] labor support person: [] labor intervention preferences: [] pain management options preferred: [] cut cord/dad catch: [] : [] PP control planned: [] discussed possible routes of delivery and associated risks: [] special requests: [] Specific Issue/Plans Covid status: [] Flu vaccine: [] Tdap vaccine: [] Rhogam: [] LARC form signed: [] Problem list reviewed and updated with the most current plan of care details and appropriate orders placed. Relevant counseling for the gestational age provided. Continue routine care and follow up unless otherwise noted in visit notes/problem list details Initial Weight: 294 lb Date -???-???-???- (more content not included)... Normal [facility] Progress Noteon 10-27-2024 Respite Worker Authentication Interface Message Text Assessment Maryam Conroy is a 29 y.o. female being seen for a consult at the request of Kaylin Marquez MD for my opinion or medical advice regarding suboptimal cardiac views. Evaluation today demonstrated a normal appearing echocardiogram. I reviewed the normal cardiac anatomy, and explained that there is no evidence of significant cardiac disease in the fetus. I explained the limitations of echocardiography in general, including our inability to rule out mild valve abnormalities, smaller VSDs, and persistent patency of the ductus arteriosus or the interatrial communication after . Plan Given the normal findings today, we have not made a follow up appointment for Ms. Conroy in the [facility]. However, should any new concerns arise about the baby's heart either before or after delivery, we would be more than happy to reevaluate the baby at that time. Subjective Chief Complaint: New Patient Visit Initial History Maryam Conroy is a 29 year old 2 para 1 female currently at 27 0/7 weeks gestation seen in evaluation for suboptimal cardiac views. There is no reported family history of congenital heart disease. Lab Results, Procedures, & Imaging echocardiogram: SUMMARY: 1. Technically difficult study due to maternal habitus and position. 2. Normal appearing echocardiogram. 3. This study is limited in evaluating minor valve abnormalities, septal defects, partial anomalous pulmonary venous connection, and aortic arch abnormalities. 4. The above findings, including the limitations, were discussed with the patient. REASON FOR EXAM: Suboptimal cardiac views of the heart. : : - Maternal age: 29yr. - : 2. - Parity: 1. - Estimated delivery date: 01/26/2025. - Gestational age: 27 weeks. STUDY AND PROCEDURE DATA: The patient is . Procedure Description: New ([id number]) . Study status: Routine. Location: lab. Procedure: Transabdominal echocardiogram was performed for congenital heart disease evaluation. Patient status: Outpatient. FINDINGS: DESCRIPTION One fetus is present. Normal three vessel view. The rhythm is sinus rhythm, with a heart rate of 148bpm. The position is vertex. Normal Doppler pattern of the umbilical artery and vein. Three vessel cord. ANATOMIC RELATIONSHIPS - Normal viceral situs. Left sided stomach. Left sided cardiac apex (levocardia). Normally related great vessels. VEINS AND ATRIA Atrial septum - There is a patent foramen ovale. There is a [id number] shunt. Left atrium: - The atrium is normal in size. Right atrium: - The atrium is normal in size. Systemic veins - Inferior vena cava and superior vena cava seen entering normally into the right atrium. Pulmonary veins - There are at least 2 out of 4 pulmonary veins seen entering normally into the left atrium, with normal Doppler pattern. A-V CANAL Tricuspid valve - There is no regurgitation. - There is normal biphasic inflow spectral Doppler. Mitral valve - There is no regurgitation. - There is normal biphasic inflow spectral Doppler. VENTRICLES Right ventricle - The cavity size is normal. Wall thickness is normal. Systolic function is qualitatively normal. Ventricular septum - There is no evidence of a ventricular septal defect. Left ventricle - The cavity size is normal. Wall thickness is normal. Systolic function is quantitatively normal. The fractional shortening (MM) is 42%. CONOTRUNCUS Aortic valve - There is no stenosis. There is no insufficiency. Pulmonic valve - There is no stenosis. There is no insufficiency. GREAT ARTERIES Aorta and systemic arteries: - The arch is left-sided. Normal ductal arch seen. Normally related great arteries. Pulmonary arteries - The proximal branch pulmonary arteries are normal. - Main pulmonary artery: The artery is of normal size. Systemic-pulmonary shunts - Patent ductus arteriosus. Normal pulsed wave Doppler pattern. PERICARDIUM - There is no significant pericardial effusion. Normal [facility] Absolute lymphocyte countOrd ered By: Suzy Daniels on 10-20-2024 Lymphocytes Auto (Unsp spec) [#/Vol] 2.69 10*3/uL 0.83-4.51 [facility] Absolute neutrophil countOrd ered By: Suzy Daniels on 10-20-2024 Neutrophils (Bld) [#/Vol] 6.1 10*3/uL 2.0-7.7 [facility] Automated lymphocyte count a s percentage of total leukocytesOrdered By: Suzy Daniels on 10-20-2024 Lymphocytes/100 WBC Auto (Unsp spec) 27.6 % 19-41 [facility] Basophil percentageOrdered B y: Suzy Daniels on 10-20-2024 Basophils/100 WBC (Bld) 0.5 % 0-1 [facility] CBC W/Diff, Automatedon Absolute Lymph 2.69 X10 3/uL Normal 0.83-4.51 [facility] Comment on above: Performed By: #### L 509.8002, L501.0250, L100.0100, L3890.6006 #### [facility] [address] [place], [address] Absolute Neut 6.1 X10 3/uL Normal 2.0-7.7 [facility] Comment on above: Performed By: #### L 509.8002, L501.0250, L100.0100, L3890.6006 #### [facility] [address] [place], [address] Basophils/100 WBC (Bld) 0.5 % Normal 0-1 [facility] Comment on above: Performed By: #### L 509.8002, L501.0250, L100.0100, L3890.6006 #### [facility] [address] [place], [address] Eosinophils/100 WBC (Bld) 1.9 % Normal 0-5 [facility] Comment on above: Performed By: #### L 509.8002, L501.0250, L100.0100, L3890.6006 #### [facility] [address] [place], [address] Erythrocyte distribution width (RBC) [Ratio] 14.0 % Normal 11.6-14.6 [facility] Comment on above: Performed By: #### L 509.8002, L501.0250, L100.0100, L3890.6006 #### [facility] [address] [place], [address] Hematocrit (Bld) [Volume fraction] 35.6 % Low 37-47 [facility] Comment on above: Performed By: #### L 509.8002, L501.0250, L100.0100, L3890.6006 #### [facility] [address] [place], [address] Hemoglobin (Bld) [Mass/Vol] 11.6 g/dL Low 12.0-15.0 [facility] Comment on above: Performed By: #### L 509.8002, L501.0250, L100.0100, L3890.6006 #### [facility] [address] [place], [address] IG% 0.400 Normal 0.0-0.9 [facility] Comment on above: Result Comment: IG% - Immature Granulocytes (promyelocytes, myelocytes and metamyelocytes) > 1% indicates that a LEFT SHIFT is Present. Performed By: #### L 509.8002, L501.0250, L100.0100, L3890.6006 #### [facility] [address] [place], [address] Lymphocytes/100 WBC (Bld) 27.6 % Normal 19-41 [facility] Comment on above: Performed By: #### L 509.8002, L501.0250, L100.0100, L3890.6006 #### [facility] [address] [place], [address] MCH (RBC) [Entitic mass] 26.9 pg Low 27.0-32.0 [facility] Comment on above: Performed By: #### L 509.8002, L501.0250, L100.0100, L3890.6006 #### [facility] [address] [place], [address] MCHC (RBC) [Mass/Vol] 32.6 g/dL Normal 32-36 [facility] Comment on above: Performed By: #### L 509.8002, L501.0250, L100.0100, L3890.6006 #### [facility] [address] [place], [address] MCV (RBC) [Entitic vol] 82.6 fL Normal 81-99 [facility] Comment on above: Performed By: #### L 509.8002, L501.0250, L100.0100, L3890.6006 #### [facility] [address] [place], [address] Monocytes/100 WBC (Bld) 7.6 % Normal 0-10 [facility] Comment on above: Performed By: #### L 509.8002, L501.0250, L100.0100, L3890.6006 #### [facility] [address] [place], [address] Neutrophils/100 WBC (Bld) 62.0 % Normal 47-70 [facility] Comment on above: Performed By: #### L 509.8002, L501.0250, L100.0100, L3890.6006 #### [facility] [address] [place], [address] Nucleated RBC (Bld) [#/Vol] 0 10*3/uL Normal 0-5 [facility] Comment on above: Performed By: #### L 509.8002, L501.0250, L100.0100, L3890.6006 #### [facility] [address] [place], [address] Platelet mean volume (Bld) [Entitic vol] 11.2 fL Normal 6.2-12.0 [facility] Comment on above: Performed By: #### L 509.8002, L501.0250, L100.0100, L3890.6006 #### [facility] [address] [place], [address] Platelets (Bld) [#/Vol] 259 10*3/uL Normal 150-450 [facility] Comment on above: Performed By: #### L 509.8002, L501.0250, L100.0100, L3890.6006 #### [facility] [address] [place], [address] RBC (Bld) [#/Vol] 4.31 10*6/uL Normal 4.2-5.4 [facility] Comment on above: Performed By: #### L 509.8002, L501.0250, L100.0100, L3890.6006 #### [facility] [address] [place], [address] RDW SD 41.1 fl Normal 35.1-43.9 [facility] Comment on above: Performed By: #### L 509.8002, L501.0250, L100.0100, L3890.6006 #### [facility] [address] [place], [address] WBC (Bld) [#/Vol] 9.8 10*3/uL Normal 4.4-11.0 [facility] Comment on above: Performed By: #### L 509.8002, L501.0250, L100.0100, L3890.6006 #### [facility] [address] [place], [address] Eosinophil percentageOrdered By: Suzy Daniels on 10-20-2024 Eosinophils/100 WBC (Bld) 1.9 % 0-5 [facility] Erythrocyte distribution wid th ratioOrdered By: Suzy Daniels on 10-20-2024 Erythrocyte distribution width (RBC) [Ratio] 14.0 % 11.6-14.6 [facility] Erythrocyte distribution wid th standard deviationOrdered By: Suzy Daniels on 10-20-2024 Erythrocyte distribution width (RBC) [Entitic vol] 41.1 fL 35.1-43.9 [facility] Erythrocyte distribution width (RBC) [Ratio] 41.1 fl 35.1-43.9 [facility] Glucose Challenge Gest 1H 50 eileen 10-20-2024 GLU GEST 50g 1H 97 mg/dL Normal [facility] Comment on above: Performed By: #### L 509.8002, L501.0250, L100.0100, L3890.6006 #### [facility] [address] [facility] [place], [place], [id number] Glucose measurement at 2 pricila rs post-dose gestational glucose tolerance testOrdered By: Suzy Daniels on 10-20-2024 Glucose [Mass/Vol] 97 mg/dL [facility] Hematocrit Auto (Bld) [Volum e fraction]Ordered By: Suzy Daniels on 10-20-2024 Hematocrit (Bld) [Volume fraction] 35.6 % Low 37-47 [facility] Hemoglobin measurementOrdere d By: Suzy Daniels on 10-20-2024 Hemoglobin (Bld) [Mass/Vol] 11.6 g/dL Low 12.0-15.0 [facility] Immature granulocytes/100 WB C Auto (Bld)Ordered By: Suzy Daniels on 10-20-2024 Immature granulocytes/100 WBC (Bld) 0.400 % 0.0-0.9 [facility] Comment on above: IG% - Immature Granu locytes (promyelocytes, myelocytes and metamyelocytes) > 1% indicates that a LEFT SHIFT is Present. L3890.6006on 10-20-2024 HIV Non-Reactive Normal Nonreactive [facility] Comment on above: Result Comment: Non- Reactive Reactive Repeatedly reactive samples must be confirmed according to CDC recommended confirmatory algorithms. The subresults for either HIVAG or AHIV can be used as an aid in the selection of the confirmation algorithm for reactive samples. Send out specimens with Reactive results to [facility] for confirmation. Order the HIV antibody detection and differentiation: lc#[id number] Performed By: #### L 509.8002, L501.0250, L100.0100, L3890.6006 #### [facility] [address] [place], [address] L509.8002on 10-20-2024 Syphilis Abs Non-Reactive Normal Nonreactive [facility] Comment on above: Performed By: #### L 509.8002, L501.0250, L100.0100, L3890.6006 #### [facility] [address] [place], [address] Laboratory - Chemistry and C hemistry - challengeOrdered By: Yany Andrade on 10-20-2024 Glucose Ql (U) Negative [facility] - UrinalysisOrder ed By: Yany Andrade on 10-20-2024 Protein Ql (U) Negative [facility] Lymphocytes Auto (Unsp spec) [#/Vol]Ordered By: Suzy Daniels on 10-20-2024 Lymphocytes (Bld) [#/Vol] 2.69 10*3/uL 0.83-4.51 [facility] Lymphocytes/100 WBC Auto (Un sp spec)Ordered By: Suzy Daniels on 10-20-2024 Lymphocytes/100 WBC (Bld) 27.6 % 19-41 [facility] MCV (mean corpuscular volume ) determinationOrdered By: Suzy Daniels on 10-20-2024 MCV (RBC) [Entitic vol] 82.6 fL 81-99 [facility] Mean corpuscular hemoglobin (MCH) determinationOrdered By: Suzy Daniels on 10-20-2024 MCH (RBC) [Entitic mass] 26.9 pg Low 27.0-32.0 [facility] Mean corpuscular hemoglobin concentration (MCHC) determinationOrdered By: Suzy Daniels on 10-20-2024 MCHC (RBC) [Mass/Vol] 32.6 g/dL 32-36 [facility] Mean platelet volume determi nationOrdered By: Suzy Daniels on 10-20-2024 Platelet mean volume (Bld) [Entitic vol] 11.2 fL 6.2-12.0 [facility] Monocyte percentageOrdered B y: Suzy Daniels on 10-20-2024 Monocytes/100 WBC (Bld) 7.6 % 0-10 [facility] Neutrophil percentageOrdered By: Suzy Daniels on 10-20-2024 Neutrophils/100 WBC (Bld) 62.0 % 47-70 [facility] No Panel InformationOrdered By: Suzy Daniels on 10-20-2024 HIV (1&2) Antibody Non-Reactive Nonreactive [facility] Comment on above: Non-ReactiveReactive Repeatedly reactive samples must be confirmed according to CDC recommended confirmatory algorithms. The subresults for either HIVAG or AHIV can be used as an aid in the selection of the confirmation algorithm for reactive samples.Send out specimens with Reactive results to [facility] for confirmation.Order the HIV antibody detection and differentiation: lc#[id number] Nucleated red blood cell per centageOrdered By: Suzy Daniels on 10-20-2024 Nucleated RBC/100 WBC (Bld) [Ratio] 0 % 0-5 [facility] Irrigation Installation Specialist Office Visit Reporton 10-20-2024 Irrigation Installation Specialist Office Visit Report [facility] [address], [address] [place] [address] OFFICE VISIT Date of Service: 10/20/24 MR#: [id number] Acct: [id number] Name: MARYAM CONROY Rep #: [id number] : 1995 Provider: Dr. Yany Turpin DO Age/Sex: 28/F Location: [facility] Status: Signed Intake Vital Signs 09/21/24 10:44 10/20/24 09:27 10/20/24 09:29 Height 5 ft 4 in 5 ft 4 in 5 ft 4 in Weight: 303 lb 8 oz BMI 52.0 BP 121/78 H Intake Visit Reasons: 26 wk ob Death Claim Clerk Required: No Is patient in pain?: No Allergies bee venom protein (honey bee) Allergy (Verified 10/20/24 09:27) Swelling shellfish derived Allergy (Verified 10/20/24 09:27) Nausea/Vom/Diarrhea naproxen Adverse Reaction (Verified 10/20/24 09:27) Other Medications ???Medication ???Instructions ???Recorded ???Confirmed ???Type multivit-min no.71-iron fum 28 1 cap PO DAILY 06/18/24 10/20/24 H istory mg-folate no.1 1 mg-dha 300 mg capsule (PNV-[place]) ondansetron 4 mg disintegrating 4 mg PO Q6H PRN nausea and 4 10/20/24 Rx tablet vomiting #90 tabs albuterol sulfate 90 mcg/actuation 2 puff inhalation Q6H PRN PRN 10/20/24 History aerosol inhaler wheezing Last Menstrual Period: 04/21/24 Zika: Zika virus screening: Negative : No [facility] Medical History Seasonal allergies Femur fracture, right Rib fracture Calcaneal fracture Post term at 41 weeks gestation HSV-2 infection Ovarian cyst Back pain Thyroid disease Asthma Shoulder pain Hemorrhoids Arthritis Surgical History History of tonsillectomy History of foot surgery Family History Mother Arthritis Endometriosis Father Arthritis Cancer, Onset Age: 58 prostate Heart disease Hypertension Grandmother Cancer, Onset Age: 70 Maternal- skin cancer Heart disease Paternal Hypertension Paternal Grandfather Heart disease Paternal Hypertension Maternal Grandfather Heart disease Maternal Hypertension Paternal Social History adopted: No household members: significant other and children number of children: 1 current occupational status: employed 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 @ [employer] current occupational exposures/hazards: No pets and animals: Yes (Avoid litterbox) pets and animals: cat(s) history of recent travel: No sexually active: Yes Smoking Status: Current every day smoker tobacco type: e-cigarettes quit status: considering quitting alcohol intake: never substance use type: does not use diet: gluten free well-balanced diet: daily or most days caffeine: Yes Type: coffee Number of servings: 1 eating out: rarely or never during the past year weight has: increased > 10 lbs what type of physical activity do you participate in: none rodrigo/spiritism: None seatbelt use: always do you feel safe at home: Yes additional social history: significant Other- Sanjya - [employer] History 2 Elective abortions Hx Para 1 Spontaneous abortions Hx # Term Pregnancies 1 Ectopic pregnancies Hx # Pregnancies Multiple births # of living children 1 Past Pregnancies Del. Date Name GA/Weeks Outcome Route Bth Weight Infant Gen Labor Lgth Anesthesia Del Locatn Provider FOB 02/26/17 Nick 41 live - full term 8#2oz Female epidural [facility] Dr. Benjamin Rodriguez Delivery Date: 02/26/17 Last Updated by: Catherine Garrett placenta started to detach- not given abruption dx HPI 26 wk ob Details: MARYAM CONROY is a 28 year old who presents for routine OB visit. OB Visit CAT Calculator Estimated Delivery Date Method Current WG Current Estimate 01/26/25 LMP (Certain) 26w 0d Other Estimates 01/25/25 Ultrasound #1 26w 1d Expected Delivery Route/Plan Labor Preferences- CB/BF classes: [] labor support person: [] labor intervention preferences: [] pain management options preferred: [] cut cord/dad catch: [] : [] PP control planned: [] discussed possible routes of delivery and associated risks: [] special requests: [] Specific Issue/Plans Covid status: [] Flu vaccine: [] Tdap vaccine: [] Rhogam: [] LARC form signed: [] Problem list reviewed and updated with the most current plan of care details and appropriate orders placed. Relevant counseling for the gestational age provided. Continue routine care and follow up unless otherwise noted in visit notes/problem list details Initial Weight: 294 lb Date -???-???-???-???-???- ???-???-???-???-???-? ??-???- EGA Weight BP Ur (more content not included)... Normal [facility] Platelet countOrdered By: Tucker Daniels on 10-20-2024 Platelets (Bld) [#/Vol] 259 10*3/uL 150-450 [facility] RBC Auto (Bld) [#/Vol]Ordere d By: Suzy Daniels on 10-20-2024 RBC (Bld) [#/Vol] 4.31 10*6/uL 4.2-5.4 [facility] T. pallidum abOrdered By: Tucker Daniels on 10-20-2024 Syphilis Total Antibody Non-Reactive Nonreactiv e [facility] White blood cell (WBC) count Ordered By: Suzy Daniels on 10-20-2024 WBC (Bld) [#/Vol] 9.8 10*3/uL 4.4-11.0 [facility] Laboratory - Chemistry and C hemistry - challengeOrdered By: Suzy Daniels on 09-21-2024 Glucose Ql (U) Negative [facility] Laboratory - UrinalysisOrder ed By: Suzy Daniels on 09-21-2024 Protein Ql (U) Trace [facility] Irrigation Installation Specialist Office Visit Reporton 09-21-2024 Irrigation Installation Specialist Office Visit Report [facility] [address], [address] [place] [address] OFFICE VISIT Date of Service: 09/21/24 MR#: [id number] Acct: [id number] Name: MARYAM CONROY Rep #: [id number] : 1995 Provider: DIPIKA Spencer ams Age/Sex: 28/F Location: [facility] Status: Signed Intake Vital Signs 09/06/24 09:38 09/10/24 12:49 09/21/24 10:44 Height 5 ft 4 in 5 ft 4 in 5 ft 4 in Weight: 297 lb 4 oz BMI 51.0 BP 110/77 Intake Visit Reasons: 22 wk OB Chief Complaint: 22wk OB Is patient in pain?: Yes (right groin ) Pain scale (1-10): 4 Allergies bee venom protein (honey bee) Allergy (Verified 09/21/24 10:42) Swelling shellfish derived Allergy (Verified 09/21/24 10:42) Nausea/Vom/Diarrhea naproxen Adverse Reaction (Verified 09/21/24 10:42) Other Medications ???Medication ???Instructions ???Recorded ???Confirmed ???Type multivit-min no.71-iron fum 28 1 cap PO DAILY 06/18/24 09/21/24 H istory mg-folate no.1 1 mg-dha 300 mg capsule (PNV-[place]) ondansetron 4 mg disintegrating 4 mg PO Q6H PRN nausea and 4 09/21/24 Rx tablet vomiting #90 tabs albuterol sulfate 90 mcg/actuation 2 puff inhalation Q6H PRN PRN 09/21/24 History aerosol inhaler wheezing Last Menstrual Period: 04/21/24 : [facility] Medical History Seasonal allergies Femur fracture, right Rib fracture Calcaneal fracture Post term at 41 weeks gestation HSV-2 infection Ovarian cyst Back pain Thyroid disease Asthma Shoulder pain Hemorrhoids Arthritis Surgical History History of tonsillectomy History of foot surgery Family History Mother Arthritis Endometriosis Father Arthritis Cancer, Onset Age: 58 prostate Heart disease Hypertension Grandmother Cancer, Onset Age: 70 Maternal- skin cancer Heart disease Paternal Hypertension Paternal Grandfather Heart disease Paternal Hypertension Maternal Grandfather Heart disease Maternal Hypertension Paternal Social History adopted: No household members: significant other and children number of children: 1 current occupational status: employed current occupation: [employer] @ [employer] current occupational exposures/hazards: No pets and animals: Yes (Avoid litterbox) pets and animals: cat(s) history of recent travel: No sexually active: Yes Smoking Status: Current every day smoker tobacco type: e-cigarettes quit status: considering quitting alcohol intake: never substance use type: does not use diet: gluten free well-balanced diet: daily or most days caffeine: Yes Type: coffee Number of servings: 1 eating out: rarely or never during the past year weight has: increased > 10 lbs what type of physical activity do you participate in: none rodrigo/spiritism: None seatbelt use: always do you feel safe at home: Yes additional social history: significant Other- [employer] History 2 Elective abortions Hx Para 1 Spontaneous abortions Hx # Term Pregnancies 1 Ectopic pregnancies Hx # Pregnancies Multiple births # of living children 1 Past Pregnancies Del. Date Name GA/Weeks Outcome Route Bth Weight Infant Gen Labor Lgth Anesthesia Del Locatn Provider FOB 02/26/17 Nick 41 live - full term 8#2oz Female epidural [facility] Dr. Benjamin Rodriguez Delivery Date: 02/26/17 Last Updated by: Catherine Garrett placenta started to detach- not given abruption dx HPI 22 wk OB Details: MARYAM CONROY is a 28 year old who presents for routine OB visit. OB Visit CAT Calculator Estimated Delivery Date Method Current WG Current Estimate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 100.0100 ####[facility] [address] [place], [address] Lymphocytes/100 WBC (Bld) 12.7 % Low 19-41 [facility] Comment on above: Performed By: #### L 100.0100 ####[facility] [address] [place], [address] MCH (RBC) [Entitic mass] 27.4 pg Normal 27.0-32.0 [facility] Comment on above: Performed By: #### L 100.0100 ####[facility] [address] [place], [address] MCHC (RBC) [Mass/Vol] 34.6 g/dL Normal 32-36 [facility] Comment on above: Performed By: #### L 100.0100 ####[facility] [address] [place], [address] MCV (RBC) [Entitic vol] 79.3 fL Low 81-99 [facility] Comment on above: Performed By: #### L 100.0100 ####[facility] [address] [place], [address] Monocytes/100 WBC (Bld) 9.4 % Normal 0-10 [facility] Comment on above: Performed By: #### L 100.0100 ####[facility] [address] [place], [address] Neutrophils/100 WBC (Bld) 76.6 % High 47-70 [facility] Comment on above: Performed By: #### L 100.0100 ####[facility] [address] [place], [address] Nucleated RBC (Bld) [#/Vol] 0 10*3/uL Normal 0-5 [facility] Comment on above: Performed By: #### L 100.0100 ####[facility] [address] [place], [address] Platelet mean volume (Bld) [Entitic vol] 10.8 fL Normal 6.2-12.0 [facility] Comment on above: Performed By: #### L 100.0100 ####[facility] [address] [place], [address] Platelets (Bld) [#/Vol] 291 10*3/uL Normal 150-450 [facility] Comment on above: Performed By: #### L 100.0100 ####[facility] [address] [place], [address] RBC (Bld) [#/Vol] 4.82 10*6/uL Normal 4.2-5.4 [facility] Comment on above: Performed By: #### L 100.0100 ####[facility] [address] [place], [address] RDW SD 37.5 fl Normal 35.1-43.9 [facility] Comment on above: Performed By: #### L 100.0100 ####[facility] [address] [place], [address] WBC (Bld) [#/Vol] 11.7 10*3/uL High 4.4-11.0 [facility] Comment on above: Performed By: #### L 100.0100 ####[facility] [address] [place], [address] Carbon dioxide measurementOr dered By: ED PROVIDER on 09-15-2024 CO2 [Moles/Vol] 20.0 mmol/L Low 21.0-32.0 [facility] Carbon dioxide measurementOr dered By: Blank Osuna on 09-15-2024 CO2 [Moles/Vol] 21.0 mmol/L 21.0-32.0 [facility] Chloride measurementOrdered By: ED PROVIDER on 09-15-2024 Chloride [Moles/Vol] 104 mmol/L 98-107 [facility] Chloride measurementOrdered By: Blank Osuna on 09-15-2024 Chloride [Moles/Vol] 104 mmol/L 98-107 [facility] Comprehensive Metabolic Prof ilon 09-15-2024 Albumin [Mass/Vol] 2.8 g/dL Low 3.2-5.0 [facility] Comment on above: Performed By: #### L 700.6800, L100.0100, L500.4050 #### [facility] [address] [place], [address] Albumin/Globulin [Mass ratio] 0.7 {ratio} Low 0.9-2.4 [facility] Comment on above: Performed By: #### L 700.6800, L100.0100, L500.4050 #### [facility] [address] [place], [address] ALK P 63 U/L Normal 45-117 [facility] Comment on above: Performed By: #### L 700.6800, L100.0100, L500.4050 #### [facility] [address] [place], [address] ALT [Catalytic activity/Vol] 24 U/L Normal 13-56 [facility] Comment on above: Performed By: #### L 700.6800, L100.0100, L500.4050 #### [facility] [address] [place], [address] AST [Catalytic activity/Vol] 22 U/L Normal 15-37 [facility] Comment on above: Performed By: #### L 700.6800, L100.0100, L500.4050 #### [facility] [address] [place], [address] Bilirubin [Mass/Vol] 0.40 mg/dL Normal 0.20-1.00 [facility] Comment on above: Result Comment: For patients on eltrombopag therapy, use of Dimension Cades TBIL is not recommended. Performed By: #### L 700.6800, L100.0100, L500.4050 #### [facility] [address] [place], [address] BUN/CRE 11.2 RATIO Normal 10-20 [facility] Comment on above: Performed By: #### L 700.6800, L100.0100, L500.4050 #### [facility] [address] [place], [address] CA,Total 9.5 mg/dL Normal 8.5-10.1 [facility] Comment on above: Performed By: #### L 700.6800, L100.0100, L500.4050 #### [facility] [address] [place], [address] Chloride [Moles/Vol] 104 mmol/L Normal 98-107 [facility] Comment on above: Performed By: #### L 700.6800, L100.0100, L500.4050 #### [facility] [address] [place], [address] CO2 [Moles/Vol] 20.0 mmol/L Low 21.0-32.0 [facility] Comment on above: Performed By: #### L 700.6800, L100.0100, L500.4050 #### [facility] [address] [place], [address] Creatinine [Mass/Vol] 0.45 mg/dL Low 0.55-1.02 [facility] Comment on above: Result Comment: The validity of the calculated GFR GFRAA in patients over 70 years has not been determined. Clinical correlation is essential. Performed By: #### L 700.6800, L100.0100, L500.4050 #### [facility] [address] [place], [address] ECRCL 254.98 ml/min Normal [facility] Comment on above: Performed By: #### L 700.6800, L100.0100, L500.4050 #### [facility] [address] [place], [address] EST GFR - AA 214 mL/min Normal >60 [facility] Comment on above: Result Comment: Afri can Marshallese GFR Calc Performed By: #### L 700.6800, L100.0100, L500.4050 #### [facility] [address] [place], [address] GAP 10 Normal 5-15 [facility] Comment on above: Performed By: #### L 700.6800, L100.0100, L500.4050 #### [facility] [address] [place], [address] GFR/1.73 sq M.predicted among non-blacks MDRD (S/P/Bld) [Vol rate/Area] 177 mL/min/{1.73_m2} Normal >60 [facility] Comment on above: Result Comment: Non- GFR Calc Performed By: #### L 700.6800, L100.0100, L500.4050 #### [facility] [address] [place], [address] Globulin (S) [Mass/Vol] 4.2 g/dL Normal 2.2-4.2 [facility] Comment on above: Performed By: #### L 700.6800, L100.0100, L500.4050 #### [facility] [address] [place], [address] Glucose [Mass/Vol] 84 mg/dL Normal 74-106 [facility] Comment on above: Performed By: #### L 700.6800, L100.0100, L500.4050 #### [facility] [address] [place], [address] Potassium [Moles/Vol] 3.8 mmol/L Normal 3.5-5.1 [facility] Comment on above: Performed By: #### L 700.6800, L100.0100, L500.4050 #### [facility] [address] [place], [address] Sodium [Moles/Vol] 134 mmol/L Low 136-145 [facility] Comment on above: Performed By: #### L 700.6800, L100.0100, L500.4050 #### [facility] [address] [place], [address] T PROT 7.0 g/dL Normal 6.4-8.2 [facility] Comment on above: Performed By: #### L 700.6800, L100.0100, L500.4050 #### [facility] [address] [place], [address] Urea nitrogen [Mass/Vol] 5 mg/dL Low 7-18 [facility] Comment on above: Performed By: #### L 700.6800, L100.0100, L500.4050 #### [facility] [address] [place], [address] Albumin [Mass/Vol] 2.9 g/dL Low 3.2-5.0 [facility] Comment on above: Performed By: #### L 700.6800, L100.0100, L500.4050 #### [facility] [address] [place], [address] Albumin/Globulin [Mass ratio] 0.7 {ratio} Low 0.9-2.4 [facility] Comment on above: Performed By: #### L 700.6800, L100.0100, L500.4050 #### [facility] [address] [place], [address] ALK P 63 U/L Normal 45-117 [facility] Comment on above: Performed By: #### L 700.6800, L100.0100, L500.4050 #### [facility] [address] [place], [address] ALT [Catalytic activity/Vol] 24 U/L Normal 13-56 [facility] Comment on above: Performed By: #### L 700.6800, L100.0100, L500.4050 #### [facility] [address] [place], [address] AST [Catalytic activity/Vol] 19 U/L Normal 15-37 [facility] Comment on above: Performed By: #### L 700.6800, L100.0100, L500.4050 #### [facility] [address] [place], [address] Bilirubin [Mass/Vol] 0.40 mg/dL Normal 0.20-1.00 [facility] Comment on above: Result Comment: For patients on eltrombopag therapy, use of Dimension Cades TBIL is not recommended. Performed By: #### L 700.6800, L100.0100, L500.4050 #### [facility] [address] [place], [address] BUN/CRE 11.2 RATIO Normal 10-20 [facility] Comment on above: Performed By: #### L 700.6800, L100.0100, L500.4050 #### [facility] [address] [place], [address] CA,Total 9.6 mg/dL Normal 8.5-10.1 [facility] Comment on above: Performed By: #### L 700.6800, L100.0100, L500.4050 #### [facility] [address] [place], [address] Chloride [Moles/Vol] 104 mmol/L Normal 98-107 [facility] Comment on above: Performed By: #### L 700.6800, L100.0100, L500.4050 #### [facility] [address] [place], [address] CO2 [Moles/Vol] 21.0 mmol/L Normal 21.0-32.0 [facility] Comment on above: Performed By: #### L 700.6800, L100.0100, L500.4050 #### [facility] [address] [place], [address] Creatinine [Mass/Vol] 0.45 mg/dL Low 0.55-1.02 [facility] Comment on above: Result Comment: The validity of the calculated GFR GFRAA in patients over 70 years has not been determined. Clinical correlation is essential. Performed By: #### L 700.6800, L100.0100, L500.4050 #### [facility] [address] [place], [address] EST GFR - AA 214 mL/min Normal >60 [facility] Comment on above: Result Comment: Afri can Marshallese GFR Calc Performed By: #### L 700.6800, L100.0100, L500.4050 #### [facility] [address] [place], [address] GAP 11 Normal 5-15 [facility] Comment on above: Performed By: #### L 700.6800, L100.0100, L500.4050 #### [facility] [address] [place], [address] GFR/1.73 sq M.predicted among non-blacks MDRD (S/P/Bld) [Vol rate/Area] 177 mL/min/{1.73_m2} Normal >60 [facility] Comment on above: Result Comment: Non- GFR Calc Performed By: #### L 700.6800, L100.0100, L500.4050 #### [facility] [address] [place], [address] Globulin (S) [Mass/Vol] 4.2 g/dL Normal 2.2-4.2 [facility] Comment on above: Performed By: #### L 700.6800, L100.0100, L500.4050 #### [facility] [address] [place], [address] Glucose [Mass/Vol] 97 mg/dL Normal 74-106 [facility] Comment on above: Performed By: #### L 700.6800, L100.0100, L500.4050 #### [facility] [address] [place], [address] Potassium [Moles/Vol] 3.8 mmol/L Normal 3.5-5.1 [facility] Comment on above: Performed By: #### L 700.6800, L100.0100, L500.4050 #### [facility] [address] [place], [address] Sodium [Moles/Vol] 135 mmol/L Low 136-145 [facility] Comment on above: Performed By: #### L 700.6800, L100.0100, L500.4050 #### [facility] [address] [place], [address] T PROT 7.1 g/dL Normal 6.4-8.2 [facility] Comment on above: Performed By: #### L 700.6800, L100.0100, L500.4050 #### [facility] [address] [place], [address] Urea nitrogen [Mass/Vol] 5 mg/dL Low 7-18 [facility] Comment on above: Performed By: #### L 700.6800, L100.0100, L500.4050 #### [facility] [address] [place], [address] Emergency Department Summary on 09-15-2024 Emergency Department Summary [facility] [address] [place] [address] Emergency Department Summary 09/15/24 MR#: [id number] Acct: [id number] Name: MARYAM CONROY Rep #: [id number] : 1995 28 From: Mateusz Berkowitz PCP: Care Physician,No Primary Status:REG ER Location: ED HPI HPI - GI History of Present Illness Chief Complaint: Abd Pain Informant: patient and spouse/S.O. Narrative Narrative: G2, P1 21-week gestation sent down from OB triage rule out appendicitis. Patient followed life- limiting OB. Earlier this morning had upper mid abdominal pain that migrated down to her right lower quadrant nausea without vomiting. Subjective fevers. No diarrhea. No urinary symptoms. No abdominal surgeries in the past. Prior similar symptoms: No PFSH PFSH Medical History Seasonal allergies Femur fracture, right Rib fracture Calcaneal fracture Post term at 41 weeks gestation HSV-2 infection Ovarian cyst Back pain Thyroid disease Asthma Shoulder pain Hemorrhoids Arthritis Home Medications ???Medication ???Instructions ???Recorded ???Last Taken ???Type multivit-min no.71-iron fum 28 1 cap PO DAILY 06/18/24 Unknown History mg-folate no.1 1 mg-dha 300 mg capsule ([facility]-[place]) ondansetron 4 mg disintegrating 4 mg PO Q6H PRN nausea and 06/26/24 Unknown Rx tablet vomiting #90 tabs albuterol sulfate 90 mcg/actuation 2 puff inhalation Q6H PRN PRN 09/15/24 Unknown History aerosol inhaler wheezing Allergy/AdvReac Type Severity Reaction Status Date / Time bee venom protein (honey bee) Allergy Swelling Verified 09/15/24 18:03 shellfish derived Allergy Nausea/Vom/ Verified 09/15/24 18:03 Diarrhea naproxen AdvReac Other Verified 09/15/24 18:03 Family History Mother Arthritis Endometriosis Father Arthritis Cancer, Onset Age: 58 prostate Heart disease Hypertension Grandmother Cancer, Onset Age: 70 Maternal- skin cancer Heart disease Paternal Hypertension Paternal Grandfather Heart disease Paternal Hypertension Maternal Grandfather Heart disease Maternal Hypertension Paternal Surgical History History of tonsillectomy History of foot surgery Social History adopted: No household members: significant other and children number of children: 1 current occupational status: employed 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 @ [employer] current occupational exposures/hazards: No pets and animals: Yes (Avoid litterbox) pets and animals: cat(s) history of recent travel: No sexually active: Yes Smoking Status: Current every day smoker tobacco type: e-cigarettes quit status: considering quitting alcohol intake: never substance use type: does not use diet: gluten free well-balanced diet: daily or most days caffeine: Yes Type: coffee Number of servings: 1 eating out: rarely or never during the past year weight has: increased > 10 lbs what type of physical activity do you participate in: none rodrigo/spiritism: None seatbelt use: always do you feel safe at home: Yes additional social history: significant Other- [employer] ROS ROS ED Constitutional Constitutional ED: Reports fever(s); Denies chills or sweats ENT ENT ED: Denies sore throat Cardiovascular Cardiovascular: Denies chest pain, leg edema, palpitations or racing heartbeat Respiratory/Chest Respiratory/Chest: Denies cough, dyspnea or dyspnea on exertion Gastrointestinal Gastrointestinal: Reports abdominal pain and nausea; Denies diarrhea or vomiting Genitourinary Genitourinary ED: Denies dysuria, hematuria or urinary frequency Musculoskeletal Musculoskeletal: Denies back pain, extremity pain or neck pain Integumentary Denies rash or wounds Neurologic Neurologic: Denies headache(s), paresthesias or weakness EXAM Physical Exam Const Vital Signs: 09/15/24 18:04 09/15/24 20:02 09/15/24 22:00 Temperature 98 F Temperature Source Oral Pulse Rate 78 114 H 110 H Respiratory Rate 16 18 18 Blood Pressure 110/78 136/79 H 110/58 L Blood Pressure Mean 88 98 75 Pulse Ox 98 97 98 Oxygen Delivery Method Room Air Room Air Room Air 09/15/24 23:55 09/16/24 00:00 Temperature 98.8 F Temperature Source Pulse Rate 100 103 H Respiratory Rate 18 18 Blood Pressure 126/54 H 126/54 H Blood Pressure Mean 78 78 Pulse Ox 98 98 Oxygen Delivery Method Room Air MDM MDM MDM Narrative Medical decision making narrative: Interventions / MDM: Differential diagnosis: Acute appendicitis, second trimester , tobacco dependence Diagnosis considered but do not awa (more content not included)... Normal [facility] Eosinophil percentageOrdered By: ED PROVIDER on 09-15-2024 Eosinophils/100 WBC (Bld) 0.4 % 0-5 [facility] Eosinophil percentageOrdered By: Blank Osuna on 09-15-2024 Eosinophils/100 WBC (Bld) 0.6 % 0-5 [facility] Epithelial cells.squamous LM Ql (Urine sed)Ordered By: Mateusz Carlisle on 09-15-2024 Epithelial cells.squamous LM.HPF (Urine sed) [#/Area] 0 /[HPF] 5-10 [facility] Erythrocyte distribution wid th ratioOrdered By: ED PROVIDER on 09-15-2024 Erythrocyte distribution width (RBC) [Ratio] 13.2 % 11.6-14.6 [facility] Erythrocyte distribution wid th ratioOrdered By: Blank Osuna on 09-15-2024 Erythrocyte distribution width (RBC) [Ratio] 13.2 % 11.6-14.6 [facility] Erythrocyte distribution wid th standard deviationOrdered By: ED PROVIDER on 09-15-2024 Erythrocyte distribution width (RBC) [Entitic vol] 39.1 fL 35.1-43.9 [facility] Erythrocyte distribution width (RBC) [Ratio] 39.1 fl 35.1-43.9 [facility] Erythrocyte distribution wid th standard deviationOrdered By: Blank Osuna on 09-15-2024 Erythrocyte distribution width (RBC) [Entitic vol] 37.5 fL 35.1-43.9 [facility] Erythrocyte distribution width (RBC) [Ratio] 37.5 fl 35.1-43.9 [facility] Erythrocyte morphology asses smentOrdered By: ED PROVIDER on 09-15-2024 RBC morphology finding Nom (Bld) NORM C+C NORMAL NORM C&C [facility] Estimated glomerular filtrat ion rate (GFR) AmericanOrdered By: ED PROVIDER on 09-15-2024 Estimated GFR (MDRD) Amer 214 mL/min >60 [facility] Comment on above: GFR Calc Estimated glomerular filtrat ion rate (GFR) AmericanOrdered By: Blank Osuna on 09-15-2024 Estimated GFR (MDRD) Amer 214 mL/min >60 [facility] Comment on above: GFR Calc Estimation of creatinine alex aranceOrdered By: ED PROVIDER on 09-15-2024 Estimated Creatinine Clearance Calc 254.98 ml/min [facility] Fibrinogenon 09-15-2024 FIBRINOGEN 537 mg/dl High 203-444 [facility] Comment on above: Performed By: #### L 700.6800, L100.0100, L500.4050 #### [facility] [address] [place], [address] Fibrinogen measurementOrdere d By: Blank Osuna on 09-15-2024 Fibrinogen 537 mg/dl High 203-444 [facility] Glomerular filtration rate ( GFR) estimationOrdered By: ED PROVIDER on 09-15-2024 Estimated GFR (MDRD) Non-Af Amer 177 mL/min >60 [facility] Comment on above: Non- GFR Calc GFR/1.73 sq M.predicted among non-blacks MDRD (S/P/Bld) [Vol rate/Area] 177 mL/min/{1.73_m2} >60 [facility] Comment on above: Non- GFR Calc Glomerular filtration rate ( GFR) estimationOrdered By: Blank Osuna on 09-15-2024 Estimated GFR (MDRD) Non-Af Amer 177 mL/min >60 [facility] Comment on above: Non- GFR Calc GFR/1.73 sq M.predicted among non-blacks MDRD (S/P/Bld) [Vol rate/Area] 177 mL/min/{1.73_m2} >60 [facility] Comment on above: Non- GFR Calc Glucose Ql (U)Ordered By: Zac Carlisle on 09-15-2024 Urine Glucose (UA) Normal mg/dl Normal [facility] Glucose measurementOrdered B y: ED PROVIDER on 09-15-2024 Glucose [Mass/Vol] 84 mg/dL 74-106 [facility] Glucose measurementOrdered B y: Blank Osuna on 09-15-2024 Glucose [Mass/Vol] 97 mg/dL 74-106 [facility] Hematocrit Auto (Bld) [Volum e fraction]Ordered By: ED PROVIDER on 09-15-2024 Hematocrit (Bld) [Volume fraction] 39.4 % 37-47 [facility] Hematocrit Auto (Bld) [Volum e fraction]Ordered By: Blank Osuna on 09-15-2024 Hematocrit (Bld) [Volume fraction] 38.2 % 37-47 [facility] Hemoglobin measurementOrdere d By: ED PROVIDER on 09-15-2024 Hemoglobin (Bld) [Mass/Vol] 12.8 g/dL 12.0-15.0 [facility] Hemoglobin measurementOrdere d By: Blank Osuna on 09-15-2024 Hemoglobin (Bld) [Mass/Vol] 13.2 g/dL 12.0-15.0 [facility] Immature granulocytes/100 WB C Auto (Bld)Ordered By: ED PROVIDER on 09-15-2024 Immature granulocytes/100 WBC (Bld) 0.300 % 0.0-0.9 [facility] Comment on above: IG% - Immature Granu locytes (promyelocytes, myelocytes and metamyelocytes) > 1% indicates that a LEFT SHIFT is Present. Immature granulocytes/100 WB C Auto (Bld)Ordered By: Blank Osuna on 09-15-2024 Immature granulocytes/100 WBC (Bld) 0.300 % 0.0-0.9 [facility] Comment on above: IG% - Immature Granu locytes (promyelocytes, myelocytes and metamyelocytes) > 1% indicates that a LEFT SHIFT is Present. International normalized rat io (INR) calculationOrdered By: Mateusz Carlisle on 09-15-2024 INR Coag (Bld) [Relative time] 1.0 {INR} [facility] Ketones Test strip Ql (U)Ord ered By: Mateusz Carlisle on 09-15-2024 Ketones Ql (U) 150 mg/dl Abnormal Negative [facility] Comment on above: CRITICAL VALUE RODRIGUEZ D TO SAÚL PATEL RN [id number] Jesus Macias.RESULTS READ BACK BY SAME. CRITICAL VALUE *H Laboratory - Chemistry and C hemistry - challengeOrdered By: ED PROVIDER on 09-15-2024 AST [Catalytic activity/Vol] 22 U/L [facility] Laboratory - Chemistry and C hemistry - challengeOrdered By: Blank Osuna on 09-15-2024 AST [Catalytic activity/Vol] 19 U/L [facility] Laboratory - Hematology and Cell countsOrdered By: ED PROVIDER on 09-15-2024 Anisocytosis Ql (Bld) RARE [facility] Lymphocytes Auto (Unsp spec) [#/Vol]Ordered By: ED PROVIDER on 09-15-2024 Lymphocytes (Bld) [#/Vol] 1.17 10*3/uL 0.83-4.51 [facility] Lymphocytes Auto (Unsp spec) [#/Vol]Ordered By: Blank Osuna on 09-15-2024 Lymphocytes (Bld) [#/Vol] 1.49 10*3/uL 0.83-4.51 [facility] Lymphocytes/100 WBC Auto (Un sp spec)Ordered By: ED PROVIDER on 09-15-2024 Lymphocytes/100 WBC (Bld) 10.0 % Low 19-41 [facility] Lymphocytes/100 WBC Auto (Un sp spec)Ordered By: Blank Osuna on 09-15-2024 Lymphocytes/100 WBC (Bld) 12.7 % Low 19-41 [facility] MCV (mean corpuscular volume ) determinationOrdered By: ED PROVIDER on 09-15-2024 MCV (RBC) [Entitic vol] 82.3 fL 81-99 [facility] MCV (mean corpuscular volume ) determinationOrdered By: Blank Osuna on 09-15-2024 MCV (RBC) [Entitic vol] 79.3 fL Low 81-99 [facility] Mean corpuscular hemoglobin (MCH) determinationOrdered By: ED PROVIDER on 09-15-2024 MCH (RBC) [Entitic mass] 26.7 pg Low 27.0-32.0 [facility] Mean corpuscular hemoglobin (MCH) determinationOrdered By: Blank Osuna on 09-15-2024 MCH (RBC) [Entitic mass] 27.4 pg 27.0-32.0 [facility] Mean corpuscular hemoglobin concentration (MCHC) determinationOrdered By: ED PROVIDER on 09-15-2024 MCHC (RBC) [Mass/Vol] 32.5 g/dL 32-36 [facility] Comment on above: Delta: 34.6 on 09/15-1729 Mean corpuscular hemoglobin concentration (MCHC) determinationOrdered By: Blank Osuna on 09-15-2024 MCHC (RBC) [Mass/Vol] 34.6 g/dL -36 [facility] Mean platelet volume determi nationOrdered By: ED PROVIDER on 09-15-2024 Platelet mean volume (Bld) [Entitic vol] 10.6 fL 6.2-12.0 [facility] Mean platelet volume determi nationOrdered By: Blank Osuna on 09-15-2024 Platelet mean volume (Bld) [Entitic vol] 10.8 fL 6.2-12.0 [facility] Microscopic analysis of urin e for red blood cells (RBC)Ordered By: Mateusz Carlisle on 09-15-2024 Microscopic analysis of urine for red blood cells (RBC) 0 SEEN /hpf 0-5 [facility] Urine RBC 0 SEEN /hpf 0-5 [facility] Monocyte percentageOrdered B y: ED PROVIDER on 09-15-2024 Monocytes/100 WBC (Bld) 7.2 % 0-10 [facility] Monocyte percentageOrdered B y: Blank Osuna on 09-15-2024 Monocytes/100 WBC (Bld) 9.4 % 0-10 [facility] Mucus LM Ql (Urine sed)Order ed By: Mateusz Carlisle on 09-15-2024 Mucus Ql (Urine sed) 0 SEEN /hpf [facility] Neutrophil percentageOrdered By: ED PROVIDER on 09-15-2024 Neutrophils/100 WBC (Bld) 81.8 % High 47-70 [facility] Neutrophil percentageOrdered By: Blank Osuna on 09-15-2024 Neutrophils/100 WBC (Bld) 76.6 % High 47-70 [facility] Nitrite Test strip Ql (U)Ord ered By: Mateusz Carlisle on 09-15-2024 Nitrite Ql (U) Negative Negative [facility] Nucleated red blood cell per centageOrdered By: ED PROVIDER on 09-15-2024 Nucleated RBC/100 WBC (Bld) [Ratio] 0 % 0-5 [facility] Nucleated red blood cell per centageOrdered By: Blank Osuna on 09-15-2024 Nucleated RBC/100 WBC (Bld) [Ratio] 0 % 0-5 [facility] Platelet countOrdered By: ED PROVIDER on 09-15-2024 Platelets (Bld) [#/Vol] 226 10*3/uL 150-450 [facility] Platelet countOrdered By: Naveen Osuna on 09-15-2024 Platelets (Bld) [#/Vol] 291 10*3/uL 150-450 [facility] Platelet estimateOrdered By: ED PROVIDER on 09-15-2024 Platelets LM Ql (Bld) ADEQUATE ADEQ [facility] Platelet morphologyOrdered B y: ED PROVIDER on 09-15-2024 Platelet morphology finding Nom (Bld) LARGE [facility] Platelet morphology finding Nom (Bld)Ordered By: ED PROVIDER on 09-15-2024 Platelet Morphology Comment LARGE [facility] Platelets LM Ql (Bld)Ordered By: ED PROVIDER on 09-15-2024 Platelet Estimate ADEQUATE ADEQ [facility] Potassium measurementOrdered By: ED PROVIDER on 09-15-2024 Potassium [Moles/Vol] 3.8 mmol/L 3.5-5.1 [facility] Potassium measurementOrdered By: Blank Osuna on 09-15-2024 Potassium [Moles/Vol] 3.8 mmol/L 3.5-5.1 [facility] ,Serum,hCG Quali.on 09-15-2024 HCG, SERUM QUAL Positive Normal [facility] Comment on above: Order Comment: CRITI CHEYANNE VALUE CALLED TO SAÚL PATEL 09/15/24 Yarelis Za Pederson. RESULTS READ BACK BY SAME. Performed By: #### L 700.6800, L100.0100, L500.4050 #### [facility] [address] [place], [place], [id number] Protein Test strip Ql (U)Ord ered By: Mateusz Carlisle on 09-15-2024 Protein Ql (U) 30 mg/dl High Negative [facility] Prothrombin Time w/INRon INR Coag (PPP) [Relative time] 1.0 {INR} Normal [facility] Comment on above: Performed By: #### L 700.6800, L100.0100, L500.4050 #### [facility] [address] [place], [place], [id number] Prothrombin timeOrdered By: Mateusz Carlisle on 09-15-2024 PT Coag (PPP) [Time] 13.2 s Normal 11.7-14.9 [facility] Comment on above: Performed By: #### L 700.6800, L100.0100, L500.4050 #### [facility] [place], [address] RBC Auto (Bld) [#/Vol]Ordere d By: ED PROVIDER on 09-15-2024 RBC (Bld) [#/Vol] 4.79 10*6/uL 4.2-5.4 [facility] RBC Auto (Bld) [#/Vol]Ordere d By: Blank Osuna on 09-15-2024 RBC (Bld) [#/Vol] 4.82 10*6/uL 4.2-5.4 [facility] RBC morphology finding Nom ( Bld)Ordered By: ED PROVIDER on 09-15-2024 Red Blood Cell Morphology NORM C+C NORMAL NORM C&C [facility] Serum anion gap measurementO rdered By: ED PROVIDER on 09-15-2024 Anion gap [Moles/Vol] 10 mmol/L - [facility] Serum anion gap measurementO rdered By: Blank Osuna on 09-15-2024 Anion gap [Moles/Vol] 11 mmol/L 5- [facility] Serum beta-hCG test, qualita tiveOrdered By: ED PROVIDER on 09-15-2024 Beta HCG ( test) Ql Negative [facility] Serum globulin measurementOr dered By: ED PROVIDER on 09-15-2024 Globulin (S) [Mass/Vol] 4.2 g/dL 2.2-4.2 [facility] Serum globulin measurementOr dered By: Blank Osuna on 09-15-2024 Globulin (S) [Mass/Vol] 4.2 g/dL 2.2-4.2 [facility] Serum or plasma alanine shi otransferase (ALT) measurementOrdered By: ED PROVIDER on 09-15-2024 ALT [Catalytic activity/Vol] 24 U/L [facility] Serum or plasma alanine shi otransferase (ALT) measurementOrdered By: Blank Osuna on 09-15-2024 ALT [Catalytic activity/Vol] 24 U/L [facility] Serum or plasma albumin cary urement (mass/volume)Ordered By: ED PROVIDER on 09-15-2024 Albumin [Mass/Vol] 2.8 g/dL Low 3.2-5.0 [facility] Serum or plasma albumin cary urement (mass/volume)Ordered By: Blank Osuna on 09-15-2024 Albumin [Mass/Vol] 2.9 g/dL Low 3.2-5.0 [facility] Serum or plasma alkaline philomena sphatase measurementOrdered By: ED PROVIDER on 09-15-2024 ALP [Catalytic activity/Vol] 63 U/L 45-117 [facility] Serum or plasma alkaline philomena sphatase measurementOrdered By: Blank Osuna on 09-15-2024 ALP [Catalytic activity/Vol] 63 U/L 45-117 [facility] Serum or plasma calcium cary urement (mass/volume)Ordered By: ED PROVIDER on 09-15-2024 Calcium [Mass/Vol] 9.5 mg/dL 8.5-10.1 [facility] Serum or plasma calcium cary urement (mass/volume)Ordered By: Blank Osuna on 09-15-2024 Calcium [Mass/Vol] 9.6 mg/dL 8.5-10.1 [facility] Serum or plasma creatinine m easurement (mass/volume)Ordered By: ED PROVIDER on 09-15-2024 Creatinine [Mass/Vol] 0.45 mg/dL Low 0.55-1.02 [facility] Comment on above: The validity of the calculated GFR & GFRAA in patients over 70 years has not been determined. Clinical correlation is essential. Serum or plasma creatinine m easurement (mass/volume)Ordered By: Blank Osuna on 09-15-2024 Creatinine [Mass/Vol] 0.45 mg/dL Low 0.55-1.02 [facility] Comment on above: The validity of the calculated GFR & GFRAA in patients over 70 years has not been determined. Clinical correlation is essential. Serum or plasma urea nitroge n measurement (mass/volume)Ordered By: ED PROVIDER on 09-15-2024 Urea nitrogen [Mass/Vol] 5 mg/dL Low 7-18 [facility] Serum or plasma urea nitroge n measurement (mass/volume)Ordered By: Blank Osuna on 01-28-2025 Urea nitrogen [Mass/Vol] 5 mg/dL Low 7-18 [facility] Sodium levelOrdered By: YARELI ERNANDEZ on 09-15-2024 Sodium [Moles/Vol] 134 mmol/L Low 136-145 [facility] Sodium levelOrdered By: Kory Osuna on 09-15-2024 Sodium [Moles/Vol] 135 mmol/L Low 136-145 [facility] Squamous epithelial cells de tection in urine sediment by light microscopyOrdered By: Mateusz Carlisle on 09-15-2024 Epithelial cells.squamous LM Ql (Urine sed) 0-5 SEEN /hpf 5-10 [facility] Total proteinOrdered By: ED JAROD on 09-15-2024 Protein [Mass/Vol] 7.0 g/dL 6.4-8.2 [facility] Total proteinOrdered By: Kyrie Osuna on 09-15-2024 Protein [Mass/Vol] 7.1 g/dL 6.4-8.2 [facility] Urinalysis, Completeon 09-15 AMORPHOUS 1+ URATE Normal [facility] Comment on above: Order Comment: FERNANDA CTOR TO SPECIFY Performed By: #### L 509.8002, L501.0250, L100.0100, L3890.6006 #### [facility] [address] [place], [address] EPI,SQUAMOUS 0-5 SEEN Normal 5-10 [facility] Comment on above: Order Comment: FERNANDA CTOR TO SPECIFY Performed By: #### L 509.8002, L501.0250, L100.0100, L3890.6006 #### [facility] [address] [place], [address] WBC 0-5 SEEN Normal 0-5 [facility] Comment on above: Order Comment: FERNANDA CTOR TO SPECIFY Performed By: #### L 509.8002, L501.0250, L100.0100, L3890.6006 #### [facility] [address] [place], [address] BACTERIA 0 SEEN Normal None Seen [facility] Comment on above: Order Comment: FERNANDA CTOR TO SPECIFY Performed By: #### L 509.8002, L501.0250, L100.0100, L3890.6006 #### [facility] [address] [place], [address] Mucus Ql (Urine sed) 0 SEEN Normal [facility] Comment on above: Order Comment: FERNANDA CTOR TO SPECIFY Performed By: #### L 509.8002, L501.0250, L100.0100, L3890.6006 #### [facility] [address] [place], [address] RBC 0 SEEN Normal 0-5 [facility] Comment on above: Order Comment: FERNANDA CTOR TO SPECIFY Performed By: #### L 509.8002, L501.0250, L100.0100, L3890.6006 #### [facility] [address] [place], [address] Urine blood detectionOrdered By: Mateusz Carlisle on 09-15-2024 Urine Occult Blood Negative Negative [facility] Urine clarityOrdered By: Steve Carlisle on 09-15-2024 Clarity (U) Sl. Cloudy Clear [facility] Urine color determinationOrd ered By: Mateusz Carlisle on 09-15-2024 Color (U) Yellow Yellow [facility] Urine glucose detectionOrder ed By: Mateusz Carlisle on 09-15-2024 Glucose Ql (U) Normal mg/dl Normal [facility] Urine leukocyte esterase det ection by dipstickOrdered By: Mateusz Calrisle on 09-15-2024 Leukocyte esterase Test strip Ql (U) 25 /ul High Negative [facility] Urine pHOrdered By: Mateusz Carlisle on 09-15-2024 pH (U) 5.0 [pH] 5.0 - 8.0 [facility] Urine sediment bacteria coun t by microscopy (number/high power field)Ordered By: Mateusz Carlisle on 09-15-2024 Bacteria LM.HPF (Urine sed) [#/Area] 0 /[HPF] None Seen [facility] Urine specific gravity measu rementOrdered By: Mateusz Carlisle on 09-15-2024 Specific gravity (U) [Rel density] 1.025 1.002-1.030 [facility] Urine urobilinogen measureme ntOrdered By: Mateusz Carlisle on 09-15-2024 Urobilinogen Ql (U) 1 mg/dl High Normal [facility] Urobilinogen Ql (U)Ordered B y: Mateusz Carlisle on 09-15-2024 Urobilinogen (U) [Mass/Vol] 1 mg/dL High Normal [facility] White blood cell (WBC) count Ordered By: ED PROVIDER on 09-15-2024 WBC (Bld) [#/Vol] 11.7 10*3/uL High 4.4-11.0 [facility] White blood cell (WBC) count Ordered By: Blank Osuna on 09-15-2024 WBC (Bld) [#/Vol] 11.7 10*3/uL High 4.4-11.0 [facility] White blood cell countOrdere d By: Mateusz Carlisle on 09-15-2024 Urine WBC 0-5 SEEN /hpf 0-5 [facility] White blood cell count 0-5 SEEN /hpf 0-5 [facility] 12 Lead EKGon 09-06-2024 12 Lead EKG [facility] [address] [place] [address] 12 Lead EKG 09/06/24 0947 MR#: [id number] Acct: [id number] Name: MARYAM CONROY Rep #: [id number] : 1995 28 From: Madison Finch MD Attending Dr: Status: DEP ER Ordering Dr: Tadeo Esquivel DO Date: 09/06/24 Location: ED Sex: F C Admitted: Test Reason : CP Blood Pressure : */* mmHG Vent. Rate : 95 BPM Atrial Rate : 95 BPM P-R Int : 142 ms QRS Dur : 86 ms QT Int : 368 ms P-R-T Axes : 26 11 10 degrees QTcB Int : 462 ms Normal sinus rhythm Normal ECG Confirmed by AMY MASON, JLUIS ([id number]), news editor ALEXA STEPHENS ([id number]) on 09/07/2024 10:55:27 AM Referred By: MARGARITA Confirmed By: JLUIS FINCH MD 09/07/24 1055 Date Madison Finch MD CC: Dr. Tadeo Esquivel, DO; No Primary Care Physician Signed Normal [facility] Absolute lymphocyte countOrd ered By: Christopher Gómez on 09-06-2024 Lymphocytes Auto (Unsp spec) [#/Vol] 2.94 10*3/uL 0.83-4.51 [facility] Absolute neutrophil countOrd ered By: Christopher Gómez on 09-06-2024 Neutrophils (Bld) [#/Vol] 6.2 10*3/uL 2.0-7.7 [facility] Automated blood erythrocyte countOrdered By: Christopher Gómez on 09-06-2024 RBC (Bld) [#/Vol] 4.80 10*6/uL Normal 4.2-5.4 [facility] Comment on above: Performed By: #### L 700.6800, L100.0100, L500.4050 #### [facility] [address] [place], [place], [id number] Automated blood hematocrit ( percentage)Ordered By: Christopher Gómez on 09-06-2024 Hematocrit (Bld) [Volume fraction] 39.4 % Normal 37-47 [facility] Comment on above: Performed By: #### L 700.6800, L100.0100, L500.4050 #### [facility] [address] [place], [address] Automated lymphocyte count a s percentage of total leukocytesOrdered By: Christopher Gómez on 09-06-2024 Lymphocytes/100 WBC (Bld) 29.1 % Normal 19-41 [facility] Comment on above: Performed By: #### L 700.6800, L100.0100, L500.4050 #### [facility] [address] [place], [address] Lymphocytes/100 WBC Auto (Unsp spec) 29.1 % 19-41 [facility] BNP (brain natriuretic pepti de measurement)Ordered By: Tadeo Esquivel on 09-06-2024 Natriuretic peptide B (Bld) [Mass/Vol] 4.6 pg/mL Normal 0-100 [facility] Comment on above: Performed By: #### L 503.6620, L501.4020, L500.3400, L300.8000 ####[facility] [address] [place], [address] Basic Metabolic Profile (BMP )on 09-06-2024 BUN/CRE 14.9 RATIO Normal 10-20 [facility] Comment on above: Performed By: #### L 700.6800, L100.0100, L500.4050 #### [facility] [address] [place], [address] CA,Total 9.2 mg/dL Normal 8.5-10.1 [facility] Comment on above: Performed By: #### L 700.6800, L100.0100, L500.4050 #### [facility] [address] [place], [address] ECRCL 244.47 ml/min Normal [facility] Comment on above: Performed By: #### L 700.6800, L100.0100, L500.4050 #### [facility] [address] [place], [address] EST GFR - AA 202 mL/min Normal >60 [facility] Comment on above: Result Comment: Afri can Marshallese GFR Calc Performed By: #### L 700.6800, L100.0100, L500.4050 #### [facility] [address] [place], [address] GAP 6 Normal 5-15 [facility] Comment on above: Performed By: #### L 700.6800, L100.0100, L500.4050 #### [facility] [address] [place], [address] Basophil percentageOrdered B y: Christopher Gómez on 09-06-2024 Basophils/100 WBC (Bld) 0.5 % Normal 0-1 [facility] Comment on above: Performed By: #### L 700.6800, L100.0100, L500.4050 #### [facility] [address] [place], [address] Bilirubin Test strip Ql (U)O rdered By: Tadeo Esquivel on 09-06-2024 Bilirubin Ql (U) Negative Negative [facility] Bilirubin directOrdered By: Tadeo Esquivel on 09-06-2024 Bilirubin.direct [Mass/Vol] 0.14 mg/dL Normal 0.00-0.30 [facility] Comment on above: Order Comment: 'TROP ' Serial specimen #1, #2 or #3: 1 Performed By: #### L 509.8002, L501.0250, L100.0100, L3890.6006 #### [facility] [address] [place], [address] Bilirubin, totalOrdered By: Tadeo Esquivel on 09-06-2024 Bilirubin [Mass/Vol] 0.40 mg/dL Normal 0.20-1.00 [facility] Comment on above: For patients on eltr ombopag therapy, use of Dimension Cades TBIL is not recommended. Order Comment: 'TROP ' Serial specimen #1, #2 or #3: 1 Result Comment: For patients on eltrombopag therapy, use of Dimension Cades TBIL is not recommended. Performed By: #### L 509.8002, L501.0250, L100.0100, L3890.6006 #### [facility] [address] [place], [address] Blood urea nitrogen (BUN)/cr eatinine ratioOrdered By: Christopher Gómez on 09-06-2024 Urea nitrogen/Creatinine [Mass ratio] 14.9 mg/mg 10-20 [facility] CBC W/Diff, Automatedon 08-19 Absolute Lymph 2.94 X10 3/uL Normal 0.83-4.51 [facility] Comment on above: Performed By: #### L 700.6800, L100.0100, L500.4050 #### [facility] [address] [place], [address] Absolute Neut 6.2 X10 3/uL Normal 2.0-7.7 [facility] Comment on above: Performed By: #### L 700.6800, L100.0100, L500.4050 #### [facility] [address] [place], [address] IG% 0.500 Normal 0.0-0.9 [facility] Comment on above: Result Comment: IG% - Immature Granulocytes (promyelocytes, myelocytes and metamyelocytes) > 1% indicates that a LEFT SHIFT is Present. Performed By: #### L 700.6800, L100.0100, L500.4050 #### [facility] [address] [place], [address] Nucleated RBC (Bld) [#/Vol] 0 10*3/uL Normal 0-5 [facility] Comment on above: Performed By: #### L 700.6800, L100.0100, L500.4050 #### [facility] [address] [place], [address] RDW SD 39.4 fl Normal 35.1-43.9 [facility] Comment on above: Performed By: #### L 700.6800, L100.0100, L500.4050 #### [facility] [address] [place], [address] CTA Chest W/WO Contraston CTA Chest W/WO Contrast [facility] [address] [place] [address] CTA Chest W/WO Contrast MR#: [id number] Acct: [id number] Name: MARYAM CONROY Rep #: [id number] : 1995 F 28 From: Sukhwinder Calhoun MD PCP: Care Physician,No Primary Status: REG ER Study: CTA Chest W/WO Contrast Date of Exam: 09/06/24 Exam# [id number] Ordering Dr: Tadeo Esquivel DO [id number] STUDY: CTA CHEST REASON FOR EXAM: Female, 28 years old. Acute shortness of breath, patient RADIATION DOSAGE (If Supplied By Facility): CTDIvol = ( 13.98 ) mGy, DLP = ( 531.94 ) mGycm TECHNIQUE: The examination was performed with the intravenous administration of IV 100mL Isovue-370. Post-processing of the angiographic images was performed, with multiplanar reformation and 3D reconstruction. Individualized dose optimization techniques were used for this CT. COMPARISON: 6 03/24/2014 FINDINGS: Normal enhancement of the main pulmonary artery and right and left pulmonary arteries. Normal enhancement of the bilateral peripheral pulmonary arteries. There is no demonstrated pulmonary embolism. Normal thoracic aorta and visualized great vessels. There is no demonstrated aortic dissection. Normal heart and pericardium. Normal mediastinum. Normal hilar regions. Normal visualized trachea and bronchi. The lungs are well expanded. There is interstitial edema in both lung dutta consistent with patient being Normal pleura. Normal chest wall structures. Normal osseous structures. Normal visualized upper abdomen. CT/CTA Chest W/WO Contrast IMPRESSION: No demonstrated PE, or thoracic aortic aneurysm or dissection Interstitial edema in both lung dutta consistent with patient being no superimposed infiltrate or effusion No suspicious adenopathy Electronically Signed: Paul Calhoun MD at 11:29 EST , CC: Dr. Tadeo Esquivel, ; No Primary Care Physician Half Backer: Signed Normal [facility] Carbon dioxide measurementOr dered By: Christopher Gómez on 09-06-2024 CO2 [Moles/Vol] 25.0 mmol/L Normal 21.0-32.0 [facility] Comment on above: Performed By: #### L 700.6800, L100.0100, L500.4050 #### [facility] [address] [place], [place], [address] Chest PA and Lateralon 09-06 Chest PA and Lateral [facility] [address] [place], [place] [address] Chest PA and Lateral MR#: [id number] Acct: [id number] Name: MARYAM CONROY Rep #: [id number] : 1995 F 28 From: Sukhwinder Calhoun MD PCP: Care Physician,No Primary Status: PRE ER Study: Chest PA and Lateral Date of Exam: 09/06/24 Exam# [id number] Ordering Dr: Christopher Gómez MD [id number] STUDY: X-RAY CHEST REASON FOR EXAM: Female, 28 years old. Shortness of breath TECHNIQUE: PA and lateral views of the chest. COMPARISON: 03/29/2016 FINDINGS: The lungs are clear and expanded. There is no demonstrated pleural abnormality. Normal size heart. Normal mediastinum and yaakov. Normal visualized pulmonary arteries. Normal visualized aortic arch and descending thoracic aorta. Normal visualized thoracic spine. Normal visualized ribs, clavicles, and shoulders. There is no demonstrated abnormality of the visualized soft tissue structures of the upper abdomen. RAD/Chest PA and Lateral IMPRESSION: No acute pulmonary process Electronically Signed: Paul Calhoun MD at 10:29 EST , CC: Dr. Christopher Gómez MD; No Primary Care Physician Half Backer: Signed Normal [facility] Chloride measurementOrdered By: Christopher Gómez on 09-06-2024 Chloride [Moles/Vol] 108 mmol/L High 98-107 [facility] Comment on above: Performed By: #### L 700.6800, L100.0100, L500.4050 #### [facility] [address] [place], [place], [id number] D-Dimer Quantitative (DVT/PE )on 09-06-2024 D-DIMER QUANT 0.74 FEU/ug/m Invalid Interpretation Code 0.27-0.49 [facility] Comment on above: Order Comment: CRITI CHEYANNE VALUE CALLED TO rose mary reyes09/06/24 1027 Janet Cee.RESULTS READ BACK BY same. Result Comment: D-Di anirudh ELEVATED (>0.49): Additional studies and clinical assessments are indicated to conclude diagnosis of: Deep Vein Thrombosis (DVT) or Pulmonary Embolism (PE) Performed By: #### L 503.6620, L501.4020, L500.3400, L300.8000 ####[facility] [address] [place], [place], [id number] D-dimer measurement for deep venous thrombosisOrdered By: Tadeo Esquivel on 09-06-2024 D-Dimer Quantitative (PE/DVT) 0.74 FEU/ug/m High 0.27-0.49 [facility] Comment on above: D-Dimer ELEVATED (>0 .49): Additional studies and clinicalassessments are indicated to conclude diagnosis of:Deep Vein Thrombosis (DVT) or Pulmonary Embolism (PE) Emergency Department Summary on 09-06-2024 Emergency Department Summary [facility] Department [address] [place] [address] Emergency Department Summary 09/06/24 MR#: [id number] Acct: [id number] Name: MARYAM CONROY Rep #: [id number] : 1995 28 From: Tadeo Esquivel DO PCP: Care Physician,No Primary Status:DEP ER Location: ED HPI History of Present Illness Chief Complaint: Chest Pain Informant: patient and spouse/S.O. Narrative Narrative: 28-year-old female G2, P1 at 19 weeks gestation presenting to the emergency room with chest pain shortness of breath. Patient states over the past 2 days she has had a pressure/pain in her chest that moves from the left to her right side intermittently. She notes dyspnea. She notes significant fatigue palpitations and sensation that her heart is beating really strongly while doing activities such as showering or dishes. She feels no syncopal with activity. She denies any arm/hand or leg swelling. She denies any cough or fever. She notes no matter how much she drinks her urine is dark and feels like she is urinating less. She is an everyday smoker. History of asthma but states she does not get flares anymore. She called OB at [facility] and was recommended to come to emergency. No previous history of venous thromboembolism. No history of sleep apnea. [facility] Medical History Seasonal allergies Femur fracture, right Rib fracture Calcaneal fracture Post term at 41 weeks gestation HSV-2 infection Ovarian cyst Back pain Thyroid disease Asthma Shoulder pain Hemorrhoids Arthritis Home Medications ???Medication ???Instructions ???Recorded ???Last Taken ???Type multivit-min no.71-iron fum 28 cap PO 06/18/24 Unknown History mg-folate no.1 1 mg-dha 300 mg capsule (PNV-[place]) ondansetron 4 mg disintegrating 4 mg PO Q6H PRN nausea and 06/26/24 Unknown Rx tablet vomiting #90 tabs potassium chloride 20 mEq 20 meq PO DAILY #5 tabs 09/06/24 Unknown Rx tablet,extended release Allergy/AdvReac Type Severity Reaction Status Date / Time bee venom protein (honey bee) Allergy Swelling Verified 09/06/24 09:39 shellfish derived Allergy Nausea/Vom/ Verified 09/06/24 09:39 Diarrhea naproxen AdvReac Other Verified 09/06/24 09:39 Family History Mother Arthritis Endometriosis Father Arthritis Cancer, Onset Age: 58 prostate Heart disease Hypertension Grandmother Cancer, Onset Age: 70 Maternal- skin cancer Heart disease Paternal Hypertension Paternal Grandfather Heart disease Paternal Hypertension Maternal Grandfather Heart disease Maternal Hypertension Paternal Surgical History History of tonsillectomy History of foot surgery Social History adopted: No household members: significant other and children number of children: 1 current occupational status: employed current occupation: [employer] @ [employer] current occupational exposures/hazards: No pets and animals: Yes (Avoid litterbox) pets and animals: cat(s) history of recent travel: No sexually active: Yes Smoking Status: Current every day smoker tobacco type: e-cigarettes quit status: considering quitting alcohol intake: never substance use type: does not use diet: gluten free well-balanced diet: daily or most days caffeine: Yes Type: coffee Number of servings: 1 eating out: rarely or never during the past year weight has: increased > 10 lbs what type of physical activity do you participate in: none rodrigo/spiritism: None seatbelt use: always do you feel safe at home: Yes additional social history: significant Other- [employer] ROS ROS ED ROS Narrative Fatigue Constitutional Constitutional ED: Denies chills, fever(s) or weight loss Eyes Eyes: Denies change in vision or diplopia ENT ENT ED: Denies ear pain, rhinorrhea or sore throat Cardiovascular Cardiovascular: Reports chest pain, palpitations and other Details: Strongly beating heart ; Denies orthopnea Respiratory/Chest Respiratory/Chest: Reports dyspnea and dyspnea on exertion; Denies cough or orthopnea Gastrointestinal Gastrointestinal: Denies abdominal pain, diarrhea, nausea or vomiting Genitourinary Genitourinary ED: Denies dysuria, hematuria or urinary frequency Musculoskeletal Musculoskeletal: Denies arthralgias or myalgias Integumentary Denies abscess or rash Neurologic Neurologic: Denies headache(s) or weakness Psychiatric Psychiatric: Denies anxiety, depression, suicidal ideation or suicidal thoughts Endocrine Endocrinology: Denies polydipsia, polyphagia or polyuria Allergic/Immunologic Allergic/Immunologic ED: Denies mouth swelli (more content not included)... Normal [facility] Eosinophil percentageOrdered By: Christopher Gómez on 09-06-2024 Eosinophils/100 WBC (Bld) 1.7 % Normal 0-5 [facility] Comment on above: Performed By: #### L 700.6800, L100.0100, L500.4050 #### [facility] [address] [place], [address] Epithelial cells.squamous LM Ql (Urine sed)Ordered By: Tadeo Esquivel on 09-06-2024 Epithelial cells.squamous LM.HPF (Urine sed) [#/Area] 5 /[HPF] 5-10 [facility] Erythrocyte distribution wid th ratioOrdered By: Christopher Gómez on 09-06-2024 Erythrocyte distribution width (RBC) [Ratio] 13.2 % Normal 11.6-14.6 [facility] Comment on above: Performed By: #### L 700.6800, L100.0100, L500.4050 #### [facility] [address] [place], [address] Erythrocyte distribution wid th standard deviationOrdered By: Christopher Gómez on 09-06-2024 Erythrocyte distribution width (RBC) [Entitic vol] 39.4 fL 35.1-43.9 [facility] Erythrocyte distribution width (RBC) [Ratio] 39.4 fl 35.1-43.9 [facility] Estimated glomerular filtrat ion rate (GFR) AmericanOrdered By: Christopher Gómez on 09-06-2024 Estimated GFR (MDRD) Amer 202 mL/min >60 [facility] Comment on above: GFR Calc Estimation of creatinine alex aranceOrdered By: Christopher Gómez on 09-06-2024 Estimated Creatinine Clearance Calc 244.47 ml/min [facility] Glomerular filtration rate ( GFR) estimationOrdered By: Christopher Gómez on 09-06-2024 GFR/1.73 sq M.predicted among non-blacks MDRD (S/P/Bld) [Vol rate/Area] 167 mL/min/{1.73_m2} Normal >60 [facility] Comment on above: Non- GFR Calc Result Comment: Non- GFR Calc Performed By: #### L 700.6800, L100.0100, L500.4050 #### [facility] [address] [place], [address] Estimated GFR (MDRD) Non-Af Amer 167 mL/min >60 [facility] Comment on above: Non- GFR Calc Glucose Ql (U)Ordered By: Smith Esquivel on 09-06-2024 Urine Glucose (UA) Normal mg/dl Normal [facility] Glucose measurementOrdered B y: Christopher Gómez on 09-06-2024 Glucose [Mass/Vol] 92 mg/dL Normal 74-106 [facility] Comment on above: Performed By: #### L 700.6800, L100.0100, L500.4050 #### [facility] [address] [place], [address] Hemoglobin measurementOrdere d By: Christopher Gómez on 09-06-2024 Hemoglobin (Bld) [Mass/Vol] 12.7 g/dL Normal 12.0-15.0 [facility] Comment on above: Performed By: #### L 700.6800, L100.0100, L500.4050 #### [facility] [address] [place], [address] Immature granulocytes/100 WB C Auto (Bld)Ordered By: Christopher Gómez on 09-06-2024 Immature granulocytes/100 WBC (Bld) 0.500 % 0.0-0.9 [facility] Comment on above: IG% - Immature Granu locytes (promyelocytes, myelocytes and metamyelocytes) > 1% indicates that a LEFT SHIFT is Present. Ketones Test strip Ql (U)Ord ered By: Tadeo Esquivel on 09-06-2024 Ketones Ql (U) Negative Negative [facility] L501.4020on 09-06-2024 TROPONIN-I HS < 3 Low 3.0-54.0 [facility] Comment on above: Order Comment: 'TROP ' Serial specimen #1, #2 or #3: 1 Result Comment: [place] foley Note: New Test Units and Gender Specific Reference Ranges. For more information see Policy Stat Procedure Cades High Sensitivity Troponin (TNIH) and attachments. Performed By: #### L 509.8002, L501.0250, L100.0100, L3890.6006 #### [facility] [address] [place], [address] Liver Profileon 09-06-2024 ALK P 57 U/L Normal 45-117 [facility] Comment on above: Order Comment: 'TROP ' Serial specimen #1, #2 or #3: 1 Performed By: #### L 509.8002, L501.0250, L100.0100, L3890.6006 #### [facility] [address] [place], [address] T PROT 6.9 g/dL Normal 6.4-8.2 [facility] Comment on above: Order Comment: 'TROP ' Serial specimen #1, #2 or #3: 1 Performed By: #### L 509.8002, L501.0250, L100.0100, L3890.6006 #### [facility] [address] [place], [address] Liver ProfileOrdered By: Wilfrid Esquivel on 09-06-2024 AST [Catalytic activity/Vol] 13 U/L Low 15-37 [facility] Comment on above: Order Comment: 'TROP ' Serial specimen #1, #2 or #3: 1 Performed By: #### L 509.8002, L501.0250, L100.0100, L3890.6006 #### [facility] [address] [place], [address] Lymphocytes Auto (Unsp spec) [#/Vol]Ordered By: Christopherzhen Leono on 09-06-2024 Lymphocytes (Bld) [#/Vol] 2.94 10*3/uL 0.83-4.51 [facility] MCV (mean corpuscular volume ) determinationOrdered By: Christopherzhen Leono on 09-06-2024 MCV (RBC) [Entitic vol] 82.1 fL Normal 81-99 [facility] Comment on above: Performed By: #### L 700.6800, L100.0100, L500.4050 #### [facility] [address] [place], [address] Mean corpuscular hemoglobin (MCH) determinationOrdered By: Christopher Gómez on 09-06-2024 MCH (RBC) [Entitic mass] 26.5 pg Low 27.0-32.0 [facility] Comment on above: Performed By: #### L 700.6800, L100.0100, L500.4050 #### [facility] [address] [place], [address] Mean corpuscular hemoglobin concentration (MCHC) determinationOrdered By: Christopherzhen Leono on 09-06-2024 MCHC (RBC) [Mass/Vol] 32.2 g/dL Normal 32-36 [facility] Comment on above: Performed By: #### L 700.6800, L100.0100, L500.4050 #### [facility] [address] [place], [address] Mean platelet volume determi nationOrdered By: Christopherzhen Leono on 09-06-2024 Platelet mean volume (Bld) [Entitic vol] 10.2 fL Normal 6.2-12.0 [facility] Comment on above: Performed By: #### L 700.6800, L100.0100, L500.4050 #### [facility] [address] [place], [address] Microscopic analysis of urin e for red blood cells (RBC)Ordered By: Tadeo Esquivel on 09-06-2024 Microscopic analysis of urine for red blood cells (RBC) 0 SEEN /hpf 0-5 [facility] Urine RBC 0 SEEN /hpf 0-5 [facility] Monocyte percentageOrdered B y: Christopher Gómez on 09-06-2024 Monocytes/100 WBC (Bld) 7.1 % Normal 0-10 [facility] Comment on above: Performed By: #### L 700.6800, L100.0100, L500.4050 #### [facility] [address] [place], [address] Mucus LM Ql (Urine sed)Order ed By: Tadeo Esquivel on 09-06-2024 Mucus Ql (Urine sed) 0 SEEN /hpf [facility] Neutrophil percentageOrdered By: Christopher Gómez on 09-06-2024 Neutrophils/100 WBC (Bld) 61.1 % Normal 47-70 [facility] Comment on above: Performed By: #### L 700.6800, L100.0100, L500.4050 #### [facility] [address] [place], [address] Nitrite Test strip Ql (U)Ord ered By: Tadeo Esquivel on 09-06-2024 Nitrite Ql (U) Negative Negative [facility] Nucleated red blood cell per centageOrdered By: Christopher Gómez on 09-06-2024 Nucleated RBC/100 WBC (Bld) [Ratio] 0 % 0-5 [facility] Platelet countOrdered By: Adria Gómez on 09-06-2024 Platelets (Bld) [#/Vol] 289 10*3/uL Normal 150-450 [facility] Comment on above: Performed By: #### L 700.6800, L100.0100, L500.4050 #### [facility] [address] [place], [address] Potassium measurementOrdered By: Christopher Gómez on 09-06-2024 Potassium [Moles/Vol] 3.4 mmol/L Low 3.5-5.1 [facility] Comment on above: Performed By: #### L 700.6800, L100.0100, L500.4050 #### [facility] [address] [place], [address] Protein Test strip Ql (U)Ord ered By: Tadeo Esquivel on 09-06-2024 Protein Ql (U) 30 mg/dl High Negative [facility] Serum anion gap measurementO rdered By: Christopher Gómez on 09-06-2024 Anion gap [Moles/Vol] 6 mmol/L 5-15 [facility] Serum globulin measurementOr dered By: Tadeo Esquivel on 09-06-2024 Globulin (S) [Mass/Vol] 4.1 g/dL Normal 2.2-4.2 [facility] Comment on above: Order Comment: 'TROP ' Serial specimen #1, #2 or #3: 1 Performed By: #### L 509.8002, L501.0250, L100.0100, L3890.6006 #### [facility] [address] [place], [address] Serum or plasma alanine shi otransferase (ALT) measurementOrdered By: Tadeo Esquivel on 09-06-2024 ALT [Catalytic activity/Vol] 21 U/L Normal 13-56 [facility] Comment on above: Order Comment: 'TROP ' Serial specimen #1, #2 or #3: 1 Performed By: #### L 509.8002, L501.0250, L100.0100, L3890.6006 #### [facility] [address] [place], [address] Serum or plasma albumin cary urement (mass/volume)Ordered By: Tadeo Esquivel on 09-06-2024 Albumin [Mass/Vol] 2.8 g/dL Low 3.2-5.0 [facility] Comment on above: Order Comment: 'TROP ' Serial specimen #1, #2 or #3: 1 Performed By: #### L 509.8002, L501.0250, L100.0100, L3890.6006 #### [facility] [address] [place], [address] Serum or plasma alkaline philomena sphatase measurementOrdered By: Tadeo Esquivel on 09-06-2024 ALP [Catalytic activity/Vol] 57 U/L 45-117 [facility] [facility] Serum or plasma calcium cary urement (mass/volume)Ordered By: Christopherzhen Leono on 09-06-2024 Calcium [Mass/Vol] 9.2 mg/dL 8.5-10.1 [facility] Serum or plasma creatinine m easurement (mass/volume)Ordered By: [facility] on 09-06-2024 Creatinine [Mass/Vol] 0.47 mg/dL Low 0.55-1.02 [facility] Comment on above: The validity of the calculated GFR & GFRAA in patients over 70 years has not been determined. Clinical correlation is essential. Result Comment: The validity of the calculated GFR GFRAA in patients over 70 years has not been determined. Clinical correlation is essential. Performed By: #### L 700.6800, L100.0100, L500.4050 #### [facility] [address] [place], [address] Serum or plasma urea nitroge n measurement (mass/volume)Ordered By: Christopherzhen Leono on 09-06-2024 Urea nitrogen [Mass/Vol] 7 mg/dL Normal 7-18 [facility] Comment on above: Performed By: #### L 700.6800, L100.0100, L500.4050 #### [facility] [address] [place], [address] Sodium levelOrdered By: Christopher Gómez on 09-06-2024 Sodium [Moles/Vol] 139 mmol/L Normal 136-145 [facility] Comment on above: Performed By: #### L 700.6800, L100.0100, L500.4050 #### [facility] [address] [place], [address] Squamous epithelial cells de tection in urine sediment by light microscopyOrdered By: Tadeo Esquivel on 09-06-2024 Epithelial cells.squamous LM Ql (Urine sed) 5-10 SEEN /hpf 5-10 [facility] Total proteinOrdered By: Wilfrid ornelas Sierra on 09-06-2024 Protein [Mass/Vol] 6.9 g/dL 6.4-8.2 [facility] Troponin IOrdered By: Tadeo Esquivel on 09-06-2024 Troponin I < 3 pg/mL Low 3.0-54.0 [facility] Comment on above: Please Note: [place] t Units and Gender Specific Reference Ranges. For more information see Policy Stat Procedure Cades High Sensitivity Troponin (TNIH) and attachments. Troponin I High Sensitivity < 3 pg/mL Low 3.0-54.0 [facility] Comment on above: Please Note: [place] t Units and Gender Specific Reference Ranges. For more information see Policy Stat Procedure Cades High Sensitivity Troponin (TNIH) and attachments. Urinalysis, Completeon 09-06 BACTERIA 1+ /hpf Normal None Seen [facility] Comment on above: Order Comment: CRITI CHEYANNE VALUE CALLED TO [facility] 09/15/24 [facility] Za Lollo. RESULTS READ BACK BY SAME. Performed By: #### L 700.6800, L100.0100, L500.4050 #### [facility] [address] [place], [place], [id number] EPI,SQUAMOUS 5-10 SEEN Normal 5-10 [facility] Comment on above: Order Comment: CRITI CHEYANNE VALUE CALLED TO [facility] 09/15/241917 Za Lollo. RESULTS READ BACK BY SAME. Performed By: #### L 700.6800, L100.0100, L500.4050 #### [facility] [address] [place], [address] WBC 0-5 SEEN Normal 0-5 [facility] Comment on above: Order Comment: CRITI CHEYANNE VALUE CALLED TO [facility] 09/15/241917 Za Lollo. RESULTS READ BACK BY SAME. Performed By: #### L 700.6800, L100.0100, L500.4050 #### [facility] [address] [place], [address] Mucus Ql (Urine sed) 0 SEEN Normal [facility] Comment on above: Order Comment: CRITI CHEYANNE VALUE CALLED TO [facility] 09/15/241917 Za Lollo. RESULTS READ BACK BY SAME. Performed By: #### L 700.6800, L100.0100, L500.4050 #### [facility] [address] [place], [address] RBC 0 SEEN Normal 0-5 [facility] Comment on above: Order Comment: CRITI CHEYANNE VALUE CALLED TO [facility] PAT[facility] 09/15/24 [facility] Za Lollo. RESULTS READ BACK BY SAME. Performed By: #### L 700.6800, L100.0100, L500.4050 #### [facility] [address] [place], [address] Urine blood detectionOrdered By: Tadeo Esquivel on 09-06-2024 Urine Occult Blood 10 /ul High Negative [facility] Urine clarityOrdered By: Wilfrid Esquivel on 09-06-2024 Clarity (U) Clear Clear [facility] Urine color determinationOrd ered By: Tadeo Esquivel on 09-06-2024 Color (U) Yellow Yellow [facility] Urine glucose detectionOrder ed By: Tadeo Esquivel on 09-06-2024 Glucose Ql (U) Normal mg/dl Normal [facility] Urine leukocyte esterase det ection by dipstickOrdered By: Tadeo Esquivel on 09-06-2024 Leukocyte esterase Test strip Ql (U) 25 /ul High Negative [facility] Urine pHOrdered By: Tadeo campos on 09-06-2024 pH (U) 6.0 [pH] 5.0 - 8.0 [facility] Urine sediment bacteria coun t by microscopy (number/high power field)Ordered By: Tadeo Esquivel on 09-06-2024 Bacteria LM.HPF (Urine sed) [#/Area] 1 /[HPF] None Seen [facility] Urine specific gravity measu rementOrdered By: Tadeo Esquivel on 09-06-2024 Specific gravity (U) [Rel density] 1.025 1.002-1.030 [facility] Urine urobilinogen measureme ntOrdered By: Tadeo Esquivel on 09-06-2024 Urobilinogen Ql (U) 1 mg/dl High Normal [facility] Urobilinogen Ql (U)Ordered B y: Tadeo Esquivel on 09-06-2024 Urobilinogen (U) [Mass/Vol] 1 mg/dL High Normal [facility] White blood cell (WBC) count Ordered By: Christopher Gómez on 09-06-2024 WBC (Bld) [#/Vol] 10.1 10*3/uL Normal 4.4-11.0 [facility] Comment on above: Performed By: #### L 700.6800, L100.0100, L500.4050 #### [facility] [address] [place] [address]. [place], [address] White blood cell countOrdere d By: Tadeo Esquivel on 09-06-2024 Urine WBC 0-5 SEEN /hpf 0-5 [facility] White blood cell count 0-5 SEEN /hpf 0-5 [facility] Miscellaneous Lab Procedureo n 08-05-2024 [facility] [place] Normal [facility] Comment on above: Order Comment: Comme nts: [id number] Receptor Antibodies Result Comment: TEST RESULTS LIMITS Thyrotropin Receptor Ab, Serum <1.10 IU/L 0.00-1.75 TESTING PERFORMED AT [facility]. ORIGINAL REPORT ON FILE IN LAB CONTAINS ADDITIONAL TEST SITE INFORMATION. Performed By: #### L 700.6800, L100.0100, L500.4050 #### [facility] [address] [place], [address] HIV - WCHon 08-03-2024 HIV Non-Reactive Normal Nonreactive [facility] Comment on above: Order Comment: Reaso n for Exam: Performed By: #### L 700.6800, L100.0100, L500.4050 #### [facility] [address] [place], [address] Hepatitis B Surface Antigeno n 08-03-2024 HEP B Surf Ag Non-Reactive Normal Nonreactive [facility] Comment on above: Order Comment: Reaso n for Exam: Performed By: #### L 700.6800, L100.0100, L500.4050 #### [facility] [address] [place], [address] Hepatitis C Antibodyon 08-03 Hepatitis C AB Non-Reactive Normal Nonreactive [facility] Comment on above: Order Comment: Reaso n for Exam: Result Comment: Non Reactive: < 0.8 Equivocal: >/= 0.8 to < 1.0 Reactive: >/= 1.0 The CDC requires that a reactive/equivocal HCV antibody result be sent out for confirmation. HCV Quant by PCR testing. Performed By: #### L 700.6800, L100.0100, L500.4050 #### [facility] [address] [place], [address] L509.8000on 08-03-2024 Syphilis Abs Non-Reactive Normal [facility] Comment on above: Order Comment: Reaso n for Exam: Performed By: #### L 700.6800, L100.0100, L500.4050 #### [facility] [address] [place], [address] Rubella IgGon 08-03-2024 Rubella IgG Reactive Normal Nonreactive [facility] Comment on above: Order Comment: Reaso n for Exam: Result Comment: Anti body Results Interpretation of Immune Status Non Reactive Presumed Non-Immune Equivocal Equivocal Reactive Presumed Immune Performed By: #### L 700.6800, L100.0100, L500.4050 #### [facility] [address] [place], [address] Absolute neutrophil countOrd ered By: Suzy Daniels on 07-31-2024 Neutrophils (Bld) [#/Vol] 11.3 10*3/uL High 2.0-7.7 [facility] Basophil percentageOrdered B y: Suzy Daniels on 07-31-2024 Basophils/100 WBC (Bld) 0.3 % 0-1 [facility] CBC W/Diff, Automatedon 07-19-2023 Absolute Lymph 3.10 X10 3/uL Normal 0.83-4.51 [facility] Comment on above: Performed By: #### L 700.6800, L100.0100, L500.4050 #### [facility] [address] [place], [address] Absolute Neut 11.3 X10 3/uL High 2.0-7.7 [facility] Comment on above: Performed By: #### L 700.6800, L100.0100, L500.4050 #### [facility] [address] [place], [address] Basophils/100 WBC (Bld) 0.3 % Normal 0-1 [facility] Comment on above: Performed By: #### L 700.6800, L100.0100, L500.4050 #### [facility] [address] [place], [address] Eosinophils/100 WBC (Bld) 1.1 % Normal 0-5 [facility] Comment on above: Performed By: #### L 700.6800, L100.0100, L500.4050 #### [facility] [address] [place], [address] Erythrocyte distribution width (RBC) [Ratio] 12.9 % Normal 11.6-14.6 [facility] Comment on above: Performed By: #### L 700.6800, L100.0100, L500.4050 #### [facility] [address] [place], [address] Hematocrit (Bld) [Volume fraction] 39.9 % Normal 37-47 [facility] Comment on above: Performed By: #### L 700.6800, L100.0100, L500.4050 #### [facility] [address] [place], [address] Hemoglobin (Bld) [Mass/Vol] 12.9 g/dL Normal 12.0-15.0 [facility] Comment on above: Performed By: #### L 700.6800, L100.0100, L500.4050 #### [facility] [address] [place], [address] IG% 0.400 Normal 0.0-0.9 [facility] Comment on above: Result Comment: IG% - Immature Granulocytes (promyelocytes, myelocytes and metamyelocytes) > 1% indicates that a LEFT SHIFT is Present. Performed By: #### L 700.6800, L100.0100, L500.4050 #### [facility] [address] [place], [address] Lymphocytes/100 WBC (Bld) 19.4 % Normal 19-41 [facility] Comment on above: Performed By: #### L 700.6800, L100.0100, L500.4050 #### [facility] [address] [place], [address] MCH (RBC) [Entitic mass] 26.9 pg Low 27.0-32.0 [facility] Comment on above: Performed By: #### L 700.6800, L100.0100, L500.4050 #### [facility] [address] [place], [address] MCHC (RBC) [Mass/Vol] 32.3 g/dL Normal 32-36 [facility] Comment on above: Performed By: #### L 700.6800, L100.0100, L500.4050 #### [facility] [address] [place], [address] MCV (RBC) [Entitic vol] 83.1 fL Normal 81-99 [facility] Comment on above: Performed By: #### L 700.6800, L100.0100, L500.4050 #### [facility] [address] [place], [address] Monocytes/100 WBC (Bld) 7.7 % Normal 0-10 [facility] Comment on above: Performed By: #### L 700.6800, L100.0100, L500.4050 #### [facility] [address] [place], [address] Neutrophils/100 WBC (Bld) 71.1 % High 47-70 [facility] Comment on above: Performed By: #### L 700.6800, L100.0100, L500.4050 #### [facility] [address] [place], [address] Nucleated RBC (Bld) [#/Vol] 0 10*3/uL Normal 0-5 [facility] Comment on above: Performed By: #### L 700.6800, L100.0100, L500.4050 #### [facility] [address] [place], [address] Platelet mean volume (Bld) [Entitic vol] 11.0 fL Normal 6.2-12.0 [facility] Comment on above: Performed By: #### L 700.6800, L100.0100, L500.4050 #### [facility] [address] [place], [address] Platelets (Bld) [#/Vol] 316 10*3/uL Normal 150-450 [facility] Comment on above: Performed By: #### L 700.6800, L100.0100, L500.4050 #### [facility] [address] [place], [address] RBC (Bld) [#/Vol] 4.80 10*6/uL Normal 4.2-5.4 [facility] Comment on above: Performed By: #### L 700.6800, L100.0100, L500.4050 #### [facility] [address] [place], [address] RDW SD 38.7 fl Normal 35.1-43.9 [facility] Comment on above: Performed By: #### L 700.6800, L100.0100, L500.4050 #### [facility] [address] [place], [address] WBC (Bld) [#/Vol] 15.9 10*3/uL High 4.4-11.0 [facility] Comment on above: Performed By: #### L 700.6800, L100.0100, L500.4050 #### [facility] [address] [place], [address] Direct serum free thyroxine (FT4) measurementOrdered By: Suzy Daniels on 07-31-2024 Free T4 [Mass/Vol] 1.01 ng/dL 0.76-1.46 [facility] Eosinophil percentageOrdered By: Suzy Daniels on 07-31-2024 Eosinophils/100 WBC (Bld) 1.1 % 0-5 [facility] Erythrocyte distribution wid th ratioOrdered By: Suzy Daniels on 07-31-2024 Erythrocyte distribution width (RBC) [Ratio] 12.9 % 11.6-14.6 [facility] Erythrocyte distribution wid th standard deviationOrdered By: Suzy Daniels on 07-31-2024 Erythrocyte distribution width (RBC) [Entitic vol] 38.7 fL 35.1-43.9 [facility] HIV 1+2 Ab+HIV1 p24 Ag IA Ql Ordered By: Suzy Daniels on 07-31-2024 HIV (1&2) Antibody Non-Reactive Nonreactive [facility] Hematocrit Auto (Bld) [Volum e fraction]Ordered By: Suzy Daniels on 07-31-2024 Hematocrit (Bld) [Volume fraction] 39.9 % 37-47 [facility] Hemoglobin A1con 07-31-2024 HbA1c (Bld) [Mass fraction] 5.2 % Normal 3.8-5.6 [facility] Comment on above: Result Comment: Norm al < 5.7 % Prediabetic 5.7 - 6.4 % Diabetic >or= 6.5 % Please note range changes. Performed By: #### L 700.6800, L100.0100, L500.4050 #### [facility] [address] [place] [address]. [place], [place], [address] Hemoglobin A1c percentageOrd ered By: Suzy Daniels on 07-31-2024 HbA1c (Bld) [Mass fraction] 5.2 % 3.8-5.6 [facility] Comment on above: Normal < 5.7 % Predi abetic 5.7 - 6.4 % Diabetic >or= 6.5 % Please note range changes. Hemoglobin measurementOrdere d By: Suzy Daniels on 07-31-2024 Hemoglobin (Bld) [Mass/Vol] 12.9 g/dL 12.0-15.0 [facility] Hepatitis B surface antigen detectionOrdered By: Suzy Daniels on 07-31-2024 Hepatitis B Surface Antigen Non-Reactive Nonreactive [facility] Hepatitis C virus antibody a ssayOrdered By: Suzy Daniels on 07-31-2024 Hepatitis C Antibody Non-Reactive Nonreactive [facility] Comment on above: Non Reactive: < 0.8 Equivocal: >/= 0.8 to < 1.0 Reactive: >/= 1.0The CDC requires that a reactive/equivocal HCV antibody result be sent out for confirmation. HCV Quant by PCR testing. Immature granulocytes/100 WB C Auto (Bld)Ordered By: Suzy Daniels on 07-31-2024 Immature granulocytes/100 WBC (Bld) 0.400 % 0.0-0.9 [facility] Comment on above: IG% - Immature Granu locytes (promyelocytes, myelocytes and metamyelocytes) > 1% indicates that a LEFT SHIFT is Present. Laboratory - Chemistry and C hemistry - challengeon 07-31-2024 Glucose Ql (U) Negative [facility] Laboratory - Urinalysison Protein Ql (U) Negative [facility] Lymphocytes Auto (Unsp spec) [#/Vol]Ordered By: Suzy Daniels on 07-31-2024 Lymphocytes (Bld) [#/Vol] 3.10 10*3/uL 0.83-4.51 [facility] Lymphocytes/100 WBC Auto (Un sp spec)Ordered By: Suzy Daniels on 07-31-2024 Lymphocytes/100 WBC (Bld) 19.4 % 19-41 [facility] MCV (mean corpuscular volume ) determinationOrdered By: Suzy Daniels on 07-31-2024 MCV (RBC) [Entitic vol] 83.1 fL 81-99 [facility] Mean corpuscular hemoglobin (MCH) determinationOrdered By: Suzy Daniels on 07-31-2024 MCH (RBC) [Entitic mass] 26.9 pg Low 27.0-32.0 [facility] Mean corpuscular hemoglobin concentration (MCHC) determinationOrdered By: Suzy Daniels on 07-31-2024 MCHC (RBC) [Mass/Vol] 32.3 g/dL 32-36 [facility] Mean platelet volume determi nationOrdered By: Suzy Daniels on 07-31-2024 Platelet mean volume (Bld) [Entitic vol] 11.0 fL 6.2-12.0 [facility] Miscellaneous procedureOrder ed By: Suzy Daniels on 07-31-2024 Miscellaneous Test See comment [facility] Comment on above: TEST RESULTS LIMITST hyrotropin Receptor Ab,Serum <1.10 IU/L 0.00-1.75 TESTING PERFORMED AT [facility]. ORIGINAL REPORT ON FILE IN LAB CONTAINS ADDITIONAL TEST SITE INFORMATION. Miscellaneous Test Comment SEE SCANNED REPORT [facility] Monocyte percentageOrdered B y: Suzy Daniels on 07-31-2024 Monocytes/100 WBC (Bld) 7.7 % 0-10 [facility] NATERAon 07-31-2024 NATURA SEE SCANNED REPORT Normal [facility] Comment on above: Order Comment: CRITI CHEYANNE VALUE CALLED TO SAÚL PATEL 09/15/241917 Za Pederson. RESULTS READ BACK BY SAME. Performed By: #### L 700.6800, L100.0100, L500.4050 #### [facility] [address] [place], [address] Neutrophil percentageOrdered By: Suzy Daniels on 07-31-2024 Neutrophils/100 WBC (Bld) 71.1 % High 47-70 [facility] Nucleated red blood cell per centageOrdered By: Suzy Daniels on 07-31-2024 Nucleated RBC/100 WBC (Bld) [Ratio] 0 % 0-5 [facility] Irrigation Installation Specialist Office Visit Reporton 07-31-2024 Irrigation Installation Specialist Office Visit Report [facility] [address], [address] [place] [address] OFFICE VISIT Date of Service: 07/31/24 MR#: [id number] Acct: [id number] Name: MARYAM CONROY Rep #: [id number] 1 : 1995 Provider: Dr. Yany Turpin DO Age/Sex: 28/F Location: [facility] Status: Signed Intake Vital Signs 03/04/24 13:25 06/26/24 11:34 07/31/24 13:25 07/31/24 13:25 Height 5 ft 4 in 5 ft 4 in 5 ft 4 in 5 ft 4 in Weight: 295 lb 4 oz BMI 50.6 BP 117/81 H Intake Visit Reasons: 14wk OB Death Claim Clerk Required: No Is patient in pain?: No Allergies bee venom protein (honey bee) Allergy (Verified 07/31/24 13:) Swelling shellfish derived Allergy (Verified 07/31/24 13:24) Nausea/Vom/Diarrhea naproxen Adverse Reaction (Verified 07/31/24 13:24) Other Medications ???Medication ???Instructions ???Recorded ???Confirmed ???Type multivit-min no.71-iron fum 28 cap PO 06/18/24 07/31/24 History mg-folate no.1 1 mg-dha 300 mg capsule (PNV-[place]) ondansetron 4 mg disintegrating 4 mg PO Q6H PRN nausea and 06/26/24 07/31/24 Rx tablet vomiting #90 tabs Last Menstrual Period: 04/21/24 Zika: Zika virus screening: Negative : No PFSH PFSH Medical History Seasonal allergies Femur fracture, right Rib fracture Calcaneal fracture Post term at 41 weeks gestation HSV-2 infection Ovarian cyst Back pain Thyroid disease Asthma Shoulder pain Hemorrhoids Arthritis Surgical History History of tonsillectomy History of foot surgery Family History Mother Arthritis Endometriosis Father Arthritis Cancer, Onset Age: 58 prostate Heart disease Hypertension Grandmother Cancer, Onset Age: 70 Maternal- skin cancer Heart disease Paternal Hypertension Paternal Grandfather Heart disease Paternal Hypertension Maternal Grandfather Heart disease Maternal Hypertension Paternal Social History adopted: No household members: significant other and children number of children: 1 current occupational status: employed current occupation: [employer] @ [employer] current occupational exposures/hazards: No pets and animals: Yes (Avoid litterbox) pets and animals: cat(s) history of recent travel: No sexually active: Yes Smoking Status: Current every day smoker tobacco type: e-cigarettes quit status: considering quitting alcohol intake: never substance use type: does not use diet: gluten free well-balanced diet: daily or most days caffeine: Yes Type: coffee Number of servings: 1 eating out: rarely or never during the past year weight has: increased > 10 lbs what type of physical activity do you participate in: none rodrigo/spiritism: None seatbelt use: always do you feel safe at home: Yes additional social history: significant Other- [employer] - [employer] History 2 Elective abortions Hx Para 1 Spontaneous abortions Hx # Term Pregnancies 1 Ectopic pregnancies Hx # Pregnancies Multiple births # of living children 1 Past Pregnancies Del. Date Name GA/Weeks Outcome Route Bth Weight Gen Labor Lgth Anesthesia Del Locatn Provider FOB 02/26/17 Nick 41 live - full term 8#2oz Female epidural [facility] Dr. Benjamin Rodriguez Delivery Date: 02/26/17 Last Updated by: Catherine Garrett placenta started to detach- not given abruption dx HPI 14wk OB Details: MARYAM CONROY is a 28 year old who presents for routine OB visit. OB Visit CAT Calculator Estimated Delivery Date Method Current WG Current Estimate 01/26/25 LMP (Certain) 14w 3d Other Estimates 01/25/25 Ultrasound #1 14w 4d Expected Delivery Route/Plan Labor Preferences- CB/BF classes: [] labor support person: [] labor intervention preferences: [] pain management options preferred: [] cut cord/dad catch: [] : [] PP control planned: [] discussed possible routes of delivery and associated risks: [] special requests: [] Specific Issue/Plans Covid status: [] Flu vaccine: [] Tdap vaccine: [] Rhogam: [] LARC form signed: [] Problem list reviewed and updated with the most current plan of care details and appropriate orders placed. Relevant counseling for the gestational age provided. Continue routine care and follow up unless otherwise noted in visit notes/problem list details Initial Weight: 2 lb Date -???-???-???-???-???- ???-???-???-???-???-? ??-???- EGA Weight BP Urine Prot -???-???-???-???-???- ???-???-???-???-???-? ??-???- Glucose FHR FuHt Pres Dilation -???-???-???-???-???- ? (more content not included)... Normal [facility] Platelet countOrdered By: Tucker Daniels on 07-31-2024 Platelets (Bld) [#/Vol] 316 10*3/uL 150-450 [facility] RBC Auto (Bld) [#/Vol]Ordere d By: Suzy Daniels on 07-31-2024 RBC (Bld) [#/Vol] 4.80 10*6/uL 4.2-5.4 [facility] Rubella immune status IgGOrd ered By: Suzy Daniels on 07-31-2024 Rubella IgG Antibody Reactive Nonreactive [facility] Comment on above: Antibody Results Int erpretation of Immune Status Non Reactive Presumed Non-Immune Equivocal Equivocal Reactive Presumed Immune T4 Free Directon 07-31-2024 T4 FREE DIRECT 1.01 ng/dL Normal 0.76-1.46 [facility] Comment on above: Order Comment: [id number] Performed By: #### L 700.6800, L100.0100, L500.4050 #### [facility] [address] [place], [address] TSH QnOrdered By: Suzy ruiz on 07-31-2024 Thyroid Stimulating Hormone (TSH) 2.660 uIU/mL 0.358-3.740 [facility] [facility] Thyroid Stim Hormone (TSH)on 07-31-2024 TSH 2.660 uIU/mL Normal 0.358-3.740 [facility] Comment on above: Order Comment: CRITI CHEYANNE VALUE CALLED TO SAÚL PATEL 09/15/24 [address]. RESULTS READ BACK BY SAME. Performed By: #### L 700.6800, L100.0100, L500.4050 #### [facility] [address] [place], [address] Treponema sp Ab Ql (S)Ordere d By: Suzy Daniels on 07-31-2024 Syphilis Total Antibody Non-Reactive [facility] Type AND Screenon 07-31-2024 Ab SCREEN GEL Negative Normal [facility] Comment on above: Order Comment: PN Performed By: #### L 700.6800, L100.0100, L500.4050 #### [facility] [address] [place], [address] ABO and Rh group Nom (Bld) Blood group A Rh(D) positive Normal [facility] Comment on above: Order Comment: PN Performed By: #### L 700.6800, L100.0100, L500.4050 #### [facility] [address] [place], [address] White blood cell (WBC) count Ordered By: Suzy Daniels on 07-31-2024 WBC (Bld) [#/Vol] 15.9 10*3/uL High 4.4-11.0 [facility] Chlamydia/GC ROLANDA aptimaon CHLAMY,NUC ACID Negative Normal Negative [facility] Comment on above: Performed By: #### L 501.9520, L506.0400 #### [facility] [address] [place], [address] GC BY NUC ACID Negative Normal Negative [facility] Comment on above: Result Comment: Perf ormed at: =G - [facility] [address] [phone] Business Services Associate: Beena Toledo MD, Phone: [phone] Performed By: #### L 501.9520, L506.0400 #### [facility] [address] [place], [address] Urine Cultureon 06-27-2024 URC Positive Normal [facility] Comment on above: Performed By: #### L 501.9520, L506.0400 #### [facility] [address] [place], [address] Irrigation Installation Specialist Office Visit Reporton 06-26-2024 Irrigation Installation Specialist Office Visit Report [address], [address] [place] [address] OFFICE VISIT Date of Service: 06/26/24 MR#: [id number] Acct: [id number] Name: MARYAM CONROY Rep #: [id number] : 1995 Provider: DIPIKA Spencer ams Age/Sex: 28/F Location: [facility] Status: Signed Intake Vital Signs 03/04/24 13:25 06/26/24 11:32 06/26/24 11:34 Height 5 ft 4 in 5 ft 4 in 5 ft 4 in Weight: 294 lb 2 oz BMI 50.5 BP 116/78 Intake Visit Reasons: NOB LMP 04/21 Death Claim Clerk Required: No Allergies bee venom protein (honey bee) Allergy (Verified 06/26/24 11:33) Swelling shellfish derived Allergy (Verified 06/26/24 11:33) Nausea/Vom/Diarrhea naproxen Adverse Reaction (Verified 06/26/24 11:33) Other Medications ???Medication ???Instructions ???Recorded ???Confirmed ???Type multivit-min no.71-iron fum 28 cap PO 06/18/24 06/26/24 History mg-folate no.1 1 mg-dha 300 mg capsule (PNV-[place]) ondansetron 4 mg disintegrating 4 mg PO Q6H PRN nausea and 06/26/24 06/26/24 Rx tablet vomiting #90 tabs Last Menstrual Period: 04/21/24 Zika: Zika virus screening: Negative : Yes PFSH PFSH Medical History Seasonal allergies Femur fracture, right Rib fracture Calcaneal fracture Post term at 41 weeks gestation HSV-2 infection Ovarian cyst Back pain Thyroid disease Asthma Shoulder pain Hemorrhoids Arthritis Surgical History History of tonsillectomy History of foot surgery Family History Mother Arthritis Endometriosis Father Arthritis Cancer, Onset Age: 58 prostate Heart disease Hypertension Grandmother Cancer, Onset Age: 70 Maternal- skin cancer Heart disease Paternal Hypertension Paternal Grandfather Heart disease Paternal Hypertension Maternal Grandfather Heart disease Maternal Hypertension Paternal Social History adopted: No household members: significant other and children number of children: 1 service: No current occupational status: employed 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 @ [employer] current occupational exposures/hazards: No pets and animals: Yes (Avoid litterbox) pets and animals: cat(s) history of recent travel: No sexually active: Yes Smoking Status: Current every day smoker tobacco type: e-cigarettes quit status: considering quitting alcohol intake: never substance use type: does not use diet: gluten free well-balanced diet: daily or most days caffeine: Yes Type: coffee Number of servings: 1 eating out: rarely or never during the past year weight has: increased > 10 lbs what type of physical activity do you participate in: none rodrigo/spiritism: None seatbelt use: always do you feel safe at home: Yes additional social history: significant Other- Sanjay - [employer] History 2 Elective abortions Hx Para 1 Spontaneous abortions Hx # Term Pregnancies 1 Ectopic pregnancies Hx # Pregnancies Multiple births # of living children 1 Past Pregnancies Del. Date Name GA/Weeks Outcome Route Bt Weight Infant Gen Labor Lgth Anesthesia Del Locatn Provider FOB 02/26/17 Nick 41 live - full term 8#2oz Female epidural [facility] Dr. Benjamin Rodriguez Delivery Date: 02/26/17 Last Updated by: Catherine Garrett placenta started to detach- not given abruption dx HPI NOB LMP 04/21 Details: MARYAM CONROY is a 28 year old who presents for New OB visit. OB Visit CAT Calculator Estimated Delivery Date Method Current WG Current Estimate 01/26/25 LMP (Certain) 9w 3d Other Estimates 01/25/25 Ultrasound #1 9w 4d Comments: HIV: Urine Culture: Sequential Screen: NIPT Screen: Estimated Due Date: 01/26/25 Expected Delivery Route/Plan Labor Preferences- CB/BF classes: [] labor support person: [] labor intervention preferences: [] pain management options preferred: [] cut cord/dad catch: [] : [] PP control planned: [] discussed possible routes of delivery and associated risks: [] special requests: [] Specific Issue/Plans Covid status: [] Flu vaccine: [] Tdap vaccine: [] Rhogam: [] LARC form signed: [] Problem list reviewed and updated with the most current plan of care details and appropriate orders placed. Relevant counseling for the gestational age provided. Continue routine care and follow up unless otherwise noted in visit notes/problem list details Initial Weight: 2 lb Date -???-???-???-???-???- ???-???-???-???-???-? ??-???- EGA Weight BP Urine Prot -???-???-???-???-???- ???-???- (more content not included)... Normal [facility] Basic Metabolic Profile (BMP )on 03-04-2024 BUN/CRE 13.8 RATIO Normal 10-20 [facility] Comment on above: Performed By: #### L 501.9520, L506.0400 #### [facility] [address] [place], [address] CA,Total 9.2 mg/dL Normal 8.5-10.1 [facility] Comment on above: Performed By: #### L 501.9520, L506.0400 #### [facility] [address] [place], [address] Chloride [Moles/Vol] 108 mmol/L High 98-107 [facility] Comment on above: Performed By: #### L 501.9520, L506.0400 #### [facility] [address] [place], [address] CO2 [Moles/Vol] 27.0 mmol/L Normal 21.0-32.0 [facility] Comment on above: Performed By: #### L 501.9520, L506.0400 #### [facility] [address] [place], [address] Creatinine [Mass/Vol] 0.87 mg/dL Normal 0.55-1.02 [facility] Comment on above: Result Comment: The validity of the calculated GFR GFRAA in patients over 70 years has not been determined. Clinical correlation is essential. Performed By: #### L 501.9520, L506.0400 #### [facility] [address] [place], [address] ECRCL 129.85 ml/min Normal [facility] Comment on above: Performed By: #### L 501.9520, L506.0400 #### [facility] [address] [place], [address] EST GFR - AA 100 mL/min Normal >60 [facility] Comment on above: Result Comment: Afri can Marshallese GFR Calc Performed By: #### L 501.9520, L506.0400 #### [facility] [address] [place], [address] GAP 5 Normal 5-15 [facility] Comment on above: Performed By: #### L 501.9520, L506.0400 #### [facility] [address] [place], [address] GFR/1.73 sq M.predicted among non-blacks MDRD (S/P/Bld) [Vol rate/Area] 82 mL/min/{1.73_m2} Normal >60 [facility] Comment on above: Result Comment: Non- GFR Calc Performed By: #### L 501.9520, L506.0400 #### [facility] [address] [place], [address] Glucose [Mass/Vol] 91 mg/dL Normal 74-106 [facility] Comment on above: Performed By: #### L 501.9520, L506.0400 #### [facility] [address] [place], [address] Potassium [Moles/Vol] 4.5 mmol/L Normal 3.5-5.1 [facility] Comment on above: Result Comment: Slig ht Hemolysis, Result may be falsely increased. Performed By: #### L 501.9520, L506.0400 #### [facility] [address] [place], [address] Sodium [Moles/Vol] 140 mmol/L Normal 136-145 [facility] Comment on above: Performed By: #### L 501.9520, L506.0400 #### [facility] [address] [place], [address] Urea nitrogen [Mass/Vol] 12 mg/dL Normal 7-18 [facility] Comment on above: Performed By: #### L 501.9520, L506.0400 #### [facility] [address] [place], [address] CBC W/Diff, Automatedon 02-16 Absolute Lymph 4.59 X10 3/uL High 0.83-4.51 [facility] Comment on above: Performed By: #### L 700.6800, L100.0100, L500.4050 #### [facility] [address] [place], [address] Absolute Neut 7.2 X10 3/uL Normal 2.0-7.7 [facility] Comment on above: Performed By: #### L 700.6800, L100.0100, L500.4050 #### [facility] [address] [place], [address] Basophils/100 WBC (Bld) 0.6 % Normal 0-1 [facility] Comment on above: Performed By: #### L 700.6800, L100.0100, L500.4050 #### [facility] [address] [place], [address] Eosinophils/100 WBC (Bld) 1.8 % Normal 0-5 [facility] Comment on above: Performed By: #### L 700.6800, L100.0100, L500.4050 #### [facility] [address] [place], [address] Erythrocyte distribution width (RBC) [Ratio] 12.8 % Normal 11.6-14.6 [facility] Comment on above: Performed By: #### L 700.6800, L100.0100, L500.4050 #### [facility] [address] [place], [address] Hematocrit (Bld) [Volume fraction] 42.4 % Normal 37-47 [facility] Comment on above: Performed By: #### L 700.6800, L100.0100, L500.4050 #### [facility] [address] [place], [address] Hemoglobin (Bld) [Mass/Vol] 13.7 g/dL Normal 12.0-15.0 [facility] Comment on above: Performed By: #### L 700.6800, L100.0100, L500.4050 #### [facility] [address] [place], [address] IG% 0.400 Normal 0.0-0.9 [facility] Comment on above: Result Comment: IG% - Immature Granulocytes (promyelocytes, myelocytes and metamyelocytes) > 1% indicates that a LEFT SHIFT is Present. Performed By: #### L 700.6800, L100.0100, L500.4050 #### [facility] [address] [place], [address] Lymphocytes/100 WBC (Bld) 34.9 % Normal 19-41 [facility] Comment on above: Performed By: #### L 700.6800, L100.0100, L500.4050 #### [facility] [address] [place], [address] MCH (RBC) [Entitic mass] 27.2 pg Normal 27.0-32.0 [facility] Comment on above: Performed By: #### L 700.6800, L100.0100, L500.4050 #### [facility] [address] [place], [address] MCHC (RBC) [Mass/Vol] 32.3 g/dL Normal 32-36 [facility] Comment on above: Performed By: #### L 700.6800, L100.0100, L500.4050 #### [facility] [address] [place], [address] MCV (RBC) [Entitic vol] 84.3 fL Normal 81-99 [facility] Comment on above: Performed By: #### L 700.6800, L100.0100, L500.4050 #### [facility] [address] [place], [address] Monocytes/100 WBC (Bld) 7.3 % Normal 0-10 [facility] Comment on above: Performed By: #### L 700.6800, L100.0100, L500.4050 #### [facility] [address] [place], [address] Neutrophils/100 WBC (Bld) 55.0 % Normal 47-70 [facility] Comment on above: Performed By: #### L 700.6800, L100.0100, L500.4050 #### [facility] [address] [place], [address] Nucleated RBC (Bld) [#/Vol] 0 10*3/uL Normal 0-5 [facility] Comment on above: Performed By: #### L 700.6800, L100.0100, L500.4050 #### [facility] [address] [place], [address] Platelet mean volume (Bld) [Entitic vol] 10.9 fL Normal 6.2-12.0 [facility] Comment on above: Performed By: #### L 700.6800, L100.0100, L500.4050 #### [facility] [address] [place], [address] Platelets (Bld) [#/Vol] 413 10*3/uL Normal 150-450 [facility] Comment on above: Performed By: #### L 700.6800, L100.0100, L500.4050 #### [facility] [address] [place], [address] RBC (Bld) [#/Vol] 5.03 10*6/uL Normal 4.2-5.4 [facility] Comment on above: Performed By: #### L 700.6800, L100.0100, L500.4050 #### [facility] [address] [place], [address] RDW SD 38.8 fl Normal 35.1-43.9 [facility] Comment on above: Performed By: #### L 700.6800, L100.0100, L500.4050 #### [facility] [address] [place], [address] WBC (Bld) [#/Vol] 13.1 10*3/uL High 4.4-11.0 [facility] Comment on above: Performed By: #### L 700.6800, L100.0100, L500.4050 #### [facility] [address] [place], [address] Emergency Department Summary on 03-04-2024 Emergency Department Summary [facility] [address] [place] [address] Emergency Department Summary 03/04/24 MR#: [id number] Acct: [id number] Name: MARYAM CONROY Rep #: [id number] : 1995 28 From: Danis Garza DO PCP: Care Physician,No Primary Status:DEP ER Location: ED HPI HPI - Female History of Present Illness Chief Complaint: Female C/O PFSH PFSH Medical History (Updated 03/04/24 @ 14:02 by Jessie Leigh) Ovarian cyst Back pain Thyroid disease Asthma Shoulder pain Hemorrhoids Arthritis Home Medications ???Medication ???Instructions ???Recorded ???Last Taken ???Type etonogestrel 68 mg subdermal 1 implant subdermal ONCE 08/24/19 Unknown History implant (Nexplanon) Allergy/AdvReac Type Severity Reaction Status Date / Time bee venom protein (honey bee) Allergy Swelling Verified 03/04/24 13:25 shellfish derived Allergy Nausea/Vom/ Verified 03/04/24 13:25 Diarrhea naproxen AdvReac Other Verified 03/04/24 13:25 Family History Other Arthritis Asthma Cancer Heart disease Hypertension Surgical History History of tonsillectomy History of foot surgery Social History household members: spouse Smoking Status: Current every day smoker tobacco type: e-cigarettes alcohol intake: never substance use type: does not use EXAM Physical Exam Const Vital Signs: 03/04/24 13:25 03/04/24 15:24 03/04/24 17:00 Temperature 98.9 F Temperature Source Temporal Pulse Rate 104 H 79 69 Respiratory Rate 20 H 16 16 Blood Pressure 142/99 H 116/83 H 136/76 H Blood Pressure Mean 113 94 96 Pulse Ox 97 99 96 Oxygen Delivery Method Room Air Room Air Room Air MDM MDM MDM Narrative Medical decision making narrative: HISTORY OF PRESENT ILLNESS: 28-year-old female presents with sudden onset abdominal pain today. Pain is located left lower quadrant. She denies any CVA tenderness. She states it feels like a ruptured cyst. Notes she has history of similar. Notes acute onset of left lower quad abdominal pain that began approximately 4 hours prior to arrival. Denies nausea vomiting or fever. Denies any frequency urgency or dysuria. Denies any hematuria. Denies any vaginal discharge or foul-smelling vaginal odor. No or active 1 partner unprotected. Not concerned with STDs. Denies history abdominal surgeries. Last bowel was yesterday. No melena medic easier noted. Denies history of kidney stones. REVIEW OF SYSTEMS: Pertinent positives: Abdominal pain Pertinent negatives: Nausea, vomiting, urinary complaints PHYSICAL EXAM: Nursing triage notes reviewed, Vital signs reviewed Constitutional: please see main campus medical center HENT: MMM Eyes: Pupils equal round and reactive to light, Extraocular muscles intact Neck: No stridor, no JVD, full neck ROM Lungs: Clear to auscultation, No wheezing or rales. No increased work of breathing, no conversational dyspnea, no accessory muscle use, no nasal flaring. No respiratory distress noted Heart: Regular rate and rhythm, No murmurs, No rubs and No gallops, 2+ distal pulses (radial, femoral, posterior tibial) in all extremities Abdomen: Soft, left adnexal tenderness, no rigidity, rebound or guarding, no obvious peritoneal signs, no palpable pulsatile abdominal masses, no auscultated abdominal bruit : No CVAT Extremities: No edema Neuro: No focal neurological deficits, cranial nerves II through XII intact, 5/5 strength in all extremities. Intact sensation to light touch in all extremities, 2+ reflexes bilateral patella tendons. Normal gait. No ataxia. Skin: No rash or lesions noted MEDICAL DECISION MAKING: Chief Complaint: Abdominal pain External records reviewed: No recent imaging of the abdomen pelvis: Ultrasound Reviewed from 2016 showed a right ovarian cyst factors affecting care: Ovarian cyst on the right Social determinants of health: none History obtained from others: none Consults: none [facility] Narrative: Patient was initially hemodynamically stable, afebrile and nontoxic-appearing. Abdominal exam with left lower quadrant TTP I considered the following differential diagnosis: AAA, small bowel obstruction, abdominal perforation, appendicitis, pancreatitis, hepatobiliary pathology (acute cholecystitis), mesenteric ischemia, pathology (ie nephrolithiasis, pyelonephritis). While consider diverticulitis, obstruction or perforation the patient abdominal exam is not consistent with such etiologies. I obtained a broad lab and imaging workup to further elucidate the etiology of the patient's complaint specifically ruling out signs of , ectopic , o (more content not included)... Normal [facility] ,Urineon 03-04-2024 Beta HCG ( test) Ql (U) Negative Normal [facility] Comment on above: Order Comment: [id number] Result Comment: Very dilute urine specimens, as indicated by a low specific gravity, may not contain claim service representative levels of hCG. If is still suspected, a first morning urine specimen should be collected 48 hours later and tested. Performed By: #### L 400.7600 ####[facility] [address] [place], [address] Transvaginal Non-on 03-04-2024 Transvaginal Non- [facility] [address] [place] [address] Transvaginal Non- MR#: [id number] Acct: [id number] Name: MARYAM CONROY Rep #: [id number] : 1995 F 28 From: Deniz Lee MD PCP: Care Physician,No Primary Status: REG ER Study: Transvaginal Non- Date of Exam: Exam# [id number] Ordering Dr: Danis Garza DO [id number] STUDY: ULTRASOUND TRANSVAGINAL CLINICAL: Female, 28 years old. LLQ TTP TECHNIQUE: Transvaginal COMPARISON: None. FINDINGS: Normal uterine size measuring 8.4 x 4.6 x 3.3 cm in maximal craniocaudal dimension. There are no myometrial masses. Normal endometrial thickness measuring 5 mm. There are no endometrial masses, and there is no fluid in the endometrial cavity. Normal uterine cervix. Normal right ovary, measuring 4.1 x 2.4 x 2.5 cm. There are multiple follicles with a dominant cyst. Normal left ovary, measuring 2.1 x 2.1 x 1.2 cm. There are multiple follicles without a dominant cyst. There is no free fluid in the pelvis. Polycystic ovary disease: No. US/Transvaginal Non- IMPRESSION: Normal transvaginal pelvic ultrasound. Electronically Signed: Deniz Lee MD at 16:45 EDT , CC: Dr. Danis Garza, DO; No Primary Care Physician Half Backer: Signed Normal [facility] Urinalysis, Completeon 03-04 BACTERIA RARE Normal None Seen [facility] Comment on above: Order Comment: CLEAN CATCH Performed By: #### L 400.0001 ####[facility] [address] [place], [address] EPI,SQUAMOUS 0-5 SEEN Normal 5-10 [facility] Comment on above: Order Comment: CLEAN CATCH Performed By: #### L 400.0001 ####[facility] [address] [place], [address] Mucus Ql (Urine sed) 0 SEEN Normal [facility] Comment on above: Order Comment: CLEAN CATCH Performed By: #### L 400.0001 ####[facility] [address] [place], [address] RBC 0 SEEN Normal 0-5 [facility] Comment on above: Order Comment: CLEAN CATCH Performed By: #### L 400.0001 ####[facility] [address] [place], [address] WBC 0 SEEN Normal 0-5 [facility] Comment on above: Order Comment: CLEAN CATCH Performed By: #### L 400.0001 ####[facility] [address] [place], [address] COVID-19 virus antigen assay Ordered By: Carlitos Last on 08-14-2023 SARS-CoV-2 (COVID-19) Ag IA.rapid Ql (Resp) [facility] - Microbiology an d Antimicrobial susceptibilityon 08-01-2023 SARS-CoV-2 (COVID-19) RNA ROLANDA+probe Ql (Unsp spec) Not detected [facility] No Panel Informationon 08-01 POC Nasal Swab Influenza A,B Not detected [facility] POC Nasal Swab RSV Not detected [facility] - Microbiology an d Antimicrobial susceptibilityon 07-31-2023 SARS-CoV-2 (COVID-19) RNA ROLANDA+probe Ql (Unsp spec) Not detected [facility] No Panel Informationon 07-31 POC Nasal Swab Influenza A,B Not detected [facility] POC Nasal Swab RSV Not detected [facility] No Panel InformationOrdered By: COUNT INCLUDES THE [facility] on 06-13-2023 Hepatitis B Surface Antibody Non-Reactive [facility] Comment on above: Non Reactive: Incons istent with immunity less than <10 mIU/mL Reactive: Consistent with immunity greater than or equal to 10 mIU/mL Rubella IgG Antibody Reactive Nonreactive [facility] Comment on above: Antibody Results Int erpretation of Immune Status Non Reactive Presumed Non-Immune Equivocal Equivocal Reactive Presumed Immune Serum Varicella zoster virus IgG antibody assay by immunoassay (units/volume)Ordered By: COUNT INCLUDES THE [facility] on 06-13-2023 VZV IgG IA Qn (S) < 135 index Immune >165 [facility] Comment on above: Negative <135 Equivo cheyanne 135 - 165 Positive >165A positive result generally indicates exposure to thepathogen or administration of specific immunoglobulins,but it is not indication of active infection or stageof disease. Serum measles virus IgG anti body assay (units/volume)Ordered By: COUNT INCLUDES THE [facility] on 06-13-2023 MeV IgG Qn (S) 126.0 AU/mL Immune >16.4 [facility] Comment on above: Negative <13.5 Equiv ocal 13.5 - 16.4 Positive >16.4Presence of antibodies to Rubeola is presumptive evidenceof immunity except when acute infection is suspected.Performed at: - [address] [id number] Director: Joo Prescott PhD, Phone: [phone] Serum mumps virus IgG antibo dy assay (units/volume)Ordered By: COUNT INCLUDES THE [facility] on 06-13-2023 MuV IgG Qn (S) 28.8 AU/mL Immune >10.9 [facility] Comment on above: Negative <9.0 Equivo cheyanne 9.0 - 10.9 Positive >10.9A positive result generally indicates past exposure toMumps virus or previous vaccination. .Auto Diffon 01-28-2023 Basophil, Absolute 0.1 10 3/mcL Normal 0.0-0.2 [facility] ([place]) Comment on above: Performed By: #### A DIFF, CMP, VIDH, CBC, ANEU, LIPID, TSH, GFR, FT4 #### [address] [address] Basophils/100 WBC (Bld) 0.5 % Normal 0.0-2.5 [facility] ([place]) Comment on above: Performed By: #### A DIFF, CMP, VIDH, CBC, ANEU, LIPID, TSH, GFR, FT4 #### [address] [address] Eosinophil, Absolute 0.3 10 3/mcL Normal 0.0-0.4 [facility] ([place]) Comment on above: Performed By: #### A DIFF, CMP, VIDH, CBC, ANEU, LIPID, TSH, GFR, FT4 #### [address] [address] Eosinophils/100 WBC (Bld) 1.8 % Normal 0.0-7.0 [facility] ([place]) Comment on above: Performed By: #### A DIFF, CMP, VIDH, CBC, ANEU, LIPID, TSH, GFR, FT4 #### [address] [address] Lymphocyte, Absolute 4.6 10 3/mcL High 0.8-3.9 [facility] ([place]) Comment on above: Performed By: #### A DIFF, CMP, VIDH, CBC, ANEU, LIPID, TSH, GFR, FT4 #### [address] [address] Lymphocytes/100 WBC (Bld) 32.4 % Normal 10.0-50.0 [facility] ([place]) Comment on above: Performed By: #### A DIFF, CMP, VIDH, CBC, ANEU, LIPID, TSH, GFR, FT4 #### [address] [address] Monocyte, Absolute 1.1 10 3/mcL High 0.2-1.0 [facility] ([place] Comment on above: Performed By: #### A DIFF, CMP, VIDH, CBC, ANEU, LIPID, TSH, GFR, FT4 #### [address] [address] Monocytes/100 WBC (Bld) 7.8 % Normal 1.7-13.0 [facility] ([place] Comment on above: Performed By: #### A DIFF, CMP, VIDH, CBC, ANEU, LIPID, TSH, GFR, FT4 #### [address] [address] Neutrophils/100 WBC (Bld) 57.5 % Normal 37.0-80.0 [facility] ([place]) Comment on above: Performed By: #### A DIFF, CMP, VIDH, CBC, ANEU, LIPID, TSH, GFR, FT4 #### [address] [address] .GFRon 01-28-2023 GFR 124 ml/min/1.73sqm Normal [facility] ([place]) Comment on above: Result Comment: GFR Population mean for , Non- Americans Ages 20-29 = 116 mL/min/1.73 sq.m. Ages 30-39 = 107 mL/min/1.73 sq.m. Ages 40-49 = 99 mL/min/1.73 sq.m. Ages 50-59 = 93 mL/min/1.73 sq.m. Ages 60-69 = 85 mL/min/1.73 sq.m. Ages 70+ = 75 mL/min/1.73 sq.m. Chronic Kidney Disease: Less than 60 mL/min/1.73 square meters End Stage Renal Disease: Less than 15 mL/min/1.73 square meters Performed By: #### A DIFF, CMP, VIDH, CBC, ANEU, LIPID, TSH, GFR, FT4 #### [address] [address] GFR Non- 102 ml/min/1.73sqm Normal [facility] ([place]) Comment on above: Result Comment: GFR Population mean for , Non- Americans Ages 20-29 = 116 mL/min/1.73 sq.m. Ages 30-39 = 107 mL/min/1.73 sq.m. Ages 40-49 = 99 mL/min/1.73 sq.m. Ages 50-59 = 93 mL/min/1.73 sq.m. Ages 60-69 = 85 mL/min/1.73 sq.m. Ages 70+ = 75 mL/min/1.73 sq.m. Chronic Kidney Disease: Less than 60 mL/min/1.73 square meters End Stage Renal Disease: Less than 15 mL/min/1.73 square meters Performed By: #### A DIFF, CMP, VIDH, CBC, ANEU, LIPID, TSH, GFR, FT4 #### [address] [address] .NEUABSon 01-28-2023 Neutrophil, Absolute 8.2 10 3/mcL High 2.9-6.2 [facility] ([place]) Comment on above: Performed By: #### A DIFF, CMP, VIDH, CBC, ANEU, LIPID, TSH, GFR, FT4 #### [address] [address] CBCon 01-28-2023 Erythrocyte distribution width (RBC) [Ratio] 13.7 % Normal 11.5-14.5 [facility] ([place]) Comment on above: Performed By: #### A DIFF, CMP, VIDH, CBC, ANEU, LIPID, TSH, GFR, FT4 #### [address] [address] Hematocrit (Bld) [Volume fraction] 41.4 % Normal 37.0-47.0 [facility] ([place]) Comment on above: Performed By: #### A DIFF, CMP, VIDH, CBC, ANEU, LIPID, TSH, GFR, FT4 #### [address] [address] Hgb 13.9 G/dL Normal 12.0-16.0 [facility] ([place]) Comment on above: Performed By: #### A DIFF, CMP, VIDH, CBC, ANEU, LIPID, TSH, GFR, FT4 #### [address] [address] MCH (RBC) [Entitic mass] 27.2 pg Normal 27.0-31.2 [facility] ([place] Comment on above: Performed By: #### A DIFF, CMP, VIDH, CBC, ANEU, LIPID, TSH, GFR, FT4 #### [address] [address] MCHC 33.7 G/dL Normal 33.0-37.0 [facility] ([place] Comment on above: Performed By: #### A DIFF, CMP, VIDH, CBC, ANEU, LIPID, TSH, GFR, FT4 #### [address] [address] MCV (RBC) [Entitic vol] 80.6 fL Normal 80.0-94.0 [facility] ([place]) Comment on above: Performed By: #### A DIFF, CMP, VIDH, CBC, ANEU, LIPID, TSH, GFR, FT4 #### [address] [address] Platelet 357 10 3/mcL Normal 130-400 [facility] ([place]) Comment on above: Performed By: #### A DIFF, CMP, VIDH, CBC, ANEU, LIPID, TSH, GFR, FT4 #### [address] [address] Platelet mean volume (Bld) [Entitic vol] 9.1 fL Normal 7.4-10.4 [facility] ([place] Comment on above: Performed By: #### A DIFF, CMP, VIDH, CBC, ANEU, LIPID, TSH, GFR, FT4 #### [address] [address] RBC 5.13 10 6/mcL Normal 4.20-5.40 [facility] ([place] Comment on above: Performed By: #### A DIFF, CMP, VIDH, CBC, ANEU, LIPID, TSH, GFR, FT4 #### [address] [address] WBC 14.2 10 3/mcL High 4.6-10.8 [facility] ([place]) Comment on above: Performed By: #### A DIFF, CMP, VIDH, CBC, ANEU, LIPID, TSH, GFR, FT4 #### [address] [address] CMPon 01-28-2023 Albumin Level 3.7 G/dL Normal 3.5-5.0 [facility] ([place]) Comment on above: Performed By: #### A DIFF, CMP, VIDH, CBC, ANEU, LIPID, TSH, GFR, FT4 #### [address] [address] Albumin/Globulin [Mass ratio] 1.2 {ratio} Normal 1.1-2.5 [facility] ([place]) Comment on above: Performed By: #### A DIFF, CMP, VIDH, CBC, ANEU, LIPID, TSH, GFR, FT4 #### [address] [address] ALP [Catalytic activity/Vol] 90 U/L Normal 40-135 [facility] ([place] Comment on above: Performed By: #### A DIFF, CMP, VIDH, CBC, ANEU, LIPID, TSH, GFR, FT4 #### [address] [address] ALT [Catalytic activity/Vol] 23 U/L Normal 14-59 [facility] ([place]) Comment on above: Performed By: #### A DIFF, CMP, VIDH, CBC, ANEU, LIPID, TSH, GFR, FT4 #### [address] [address] AST [Catalytic activity/Vol] 13 U/L Normal 10-40 [facility] ([place] Comment on above: Performed By: #### A DIFF, CMP, VIDH, CBC, ANEU, LIPID, TSH, GFR, FT4 #### [address] [address] Bili Total 0.5 mg/dL Normal 0.2-1.0 [facility] ([place]) Comment on above: Result Comment: Use of this assay is not recommended for patients undergoing treatment with eltrombopag due to the potential for falsely elevated results. Performed By: #### A DIFF, CMP, VIDH, CBC, ANEU, LIPID, TSH, GFR, FT4 #### [address] [address] BUN/Creatinine Ratio 12 ratio Normal 7-27 [facility] ([place] Comment on above: Performed By: #### A DIFF, CMP, VIDH, CBC, ANEU, LIPID, TSH, GFR, FT4 #### [address] [address] Calcium [Mass/Vol] 9.3 mg/dL Normal 8.4-10.2 [facility] ([place]) Comment on above: Performed By: #### A DIFF, CMP, VIDH, CBC, ANEU, LIPID, TSH, GFR, FT4 #### [place] [address] Chloride [Moles/Vol] 104 mmol/L Normal 98-107 [facility] ([place] Comment on above: Performed By: #### A DIFF, CMP, VIDH, CBC, ANEU, LIPID, TSH, GFR, FT4 #### [address] [address] CO2 [Moles/Vol] 28 mmol/L Normal 22-29 [facility] ([place]) Comment on above: Performed By: #### A DIFF, CMP, VIDH, CBC, ANEU, LIPID, TSH, GFR, FT4 #### [address] [address] Creatinine [Mass/Vol] 0.69 mg/dL Normal 0.55-1.02 [facility] ([place]) Comment on above: Performed By: #### A DIFF, CMP, VIDH, CBC, ANEU, LIPID, TSH, GFR, FT4 #### [address] [address] Electrolyte Balance 7.0 mEq/L Normal 4.0-15.0 [facility] ([place]) Comment on above: Performed By: #### A DIFF, CMP, VIDH, CBC, ANEU, LIPID, TSH, GFR, FT4 #### [address] [address] Globulin 3.1 G/dL Normal [facility] ([place] Comment on above: Performed By: #### A DIFF, CMP, VIDH, CBC, ANEU, LIPID, TSH, GFR, FT4 #### [address] [address] Glucose [Mass/Vol] 91 mg/dL Normal 70-105 [facility] ([place] Comment on above: Performed By: #### A DIFF, CMP, VIDH, CBC, ANEU, LIPID, TSH, GFR, FT4 #### [address] [address] Potassium [Moles/Vol] 5.2 mmol/L High 3.5-5.1 [facility] ([place] Comment on above: Performed By: #### A DIFF, CMP, VIDH, CBC, ANEU, LIPID, TSH, GFR, FT4 #### [address] [address] Sodium [Moles/Vol] 139 mmol/L Normal 136-145 [facility] ([place] Comment on above: Performed By: #### A DIFF, CMP, VIDH, CBC, ANEU, LIPID, TSH, GFR, FT4 #### [address] [address] Total Protein 6.8 G/dL Normal 6.4-8.2 [facility] ([place] Comment on above: Performed By: #### A DIFF, CMP, VIDH, CBC, ANEU, LIPID, TSH, GFR, FT4 #### [address] [address] Urea nitrogen [Mass/Vol] 8 mg/dL Normal 7-18 [facility] ([place]) Comment on above: Performed By: #### A DIFF, CMP, VIDH, CBC, ANEU, LIPID, TSH, GFR, FT4 #### [address] [address] FT4on 01-28-2023 Free T4 [Mass/Vol] 1.00 ng/dL Normal 0.76-1.46 [facility] ([place] Comment on above: Performed By: #### A DIFF, CMP, VIDH, CBC, ANEU, LIPID, TSH, GFR, FT4 #### [address] [address] LIPIDon 01-28-2023 Cholesterol [Mass/Vol] 170 mg/dL Normal 0-200 [facility] ([place] Comment on above: Result Comment: Chol esterol Reference Interval: Less than 200 Desirable 200-239 Borderline high risk 240 and above High risk Performed By: #### A DIFF, CMP, VIDH, CBC, ANEU, LIPID, TSH, GFR, FT4 #### [address] [address] Cholesterol in HDL [Mass/Vol] 38 mg/dL Low 40-60 [facility] ([place]) Comment on above: Performed By: #### A DIFF, CMP, VIDH, CBC, ANEU, LIPID, TSH, GFR, FT4 #### [address] [address] Cholesterol in LDL [Mass/Vol] 97 mg/dL Normal 0-130 [facility] ([place]) Comment on above: Performed By: #### A DIFF, CMP, VIDH, CBC, ANEU, LIPID, TSH, GFR, FT4 #### [address] [address] Triglyceride [Mass/Vol] 173 mg/dL High 0-150 [facility] ([place]) Comment on above: Result Comment: Trig lyceride Reference Interval: Less than 150 Normal 150-199 Borderline high risk 200-499 High risk 500 or higher Very high risk Performed By: #### A DIFF, CMP, VIDH, CBC, ANEU, LIPID, TSH, GFR, FT4 #### [address] [address] TSHon 01-28-2023 TSH Qn 4.30 m[IU]/L High 0.36-3.74 [facility] ([place]) Comment on above: Performed By: #### A DIFF, CMP, VIDH, CBC, ANEU, LIPID, TSH, GFR, FT4 #### [address] [address] VIDHon 01-28-2023 Vit. D 25-Hydroxy 18.4 ng/mL Normal [facility] ([place]) Comment on above: Result Comment: Inte rpretive Values Based on Total 25(OH) Vitamin D: Deficient <20 ng/mL Insufficient 20 - <30 ng/mL Sufficient 30-100 ng/mL Performed By: #### A DIFF, CMP, VIDH, CBC, ANEU, LIPID, TSH, GFR, FT4 #### [place] [id number] [place], [place] [address] Op Noteon 05-22-2022 Op Note Operative Note Patient: Maryam Conroy Date of : 1995 Pre-operative Diagnosis: Right foot painful orthopaedic implant Post-operative Diagnosis: Same Procedure: Right foot removal deep implant Components used: Not Applicable Anesthesia: General Surgeon: Ashley Assistants: Jefry Rodriguez Estimated Blood Loss: Minimal Complications: None Specimens: No Medications: Ancef 3 g IV Operative findings: The prominent screw traversing the subtalar joint was removed without difficulty. The subtalar joint was found to be completely fused. History of present illness: Maryam is a 26 y.o. female with past history significant for having had surgery on the Right foot and then she developed pain due to the orthopaedic implant. Because of pain and prominence of the implant I made a recommendation for surgical removal. Despite the risks of the above mentioned procedure, Maryam wished to proceed. Operative report: I met with Maryam in the preoperative area prior to the procedure and discussed the surgical plan once again and answered all of her questions related to the procedure and the expected post-operative course. The risks of surgery were discussed including but not limited to the risks of medications given for surgery, the risk of blood loss during and after surgery that can lead to the need for blood products in certain situations, infection, damage to normal structures that can lead to assisted problems of pain or dysfunction, wound healing complications, and late or chronic pain as a result of the surgical intervention. In addition potentially life threatening complications that can occur at the time of surgery and after surgery were discussed including but not limited to deep vein thrombosis, pulmonary embolism, myocardial infarction, stroke and . I initialed her Right lower extremity and signed her consent form. Maryam was then brought to the operating room and placed in the supine position on the Operating Room table. Care was taken to identify and pad all bony prominences. A general anesthetic was then given by the anesthesia staff and an endotracheal tube was placed by the anesthesia staff. At all times during the operative procedure the patient's head neck and airway were protected by the anesthesia staff. A tourniquet was not utilized for the case. The Right lower extremity was then prepped and draped in the usual orthopedic sterile fashion. A surgical timeout was then performed with the patient's identification, the procedure to be performed being reviewed with the consent form, verification that the patient had received preoperative antibiotics, and verification of the correct surgical side. Everyone in the operating room stopped what they were doing in order to participate in the timeout. This timeout was performed by myself, the circulating room nurse and the anesthesia staff. The patient's ASA was verified by the nurse compliance spec and the anesthesia staff. Fire risk was assessed. The dorsal midfoot incision was utilized to approach the prominent subtalar fusion screw. The skin and subcutaneous tissues were divided overlying the dorsal midfoot just medial to the anterior tibial tendon. At the deeper subcutaneous tissue layer blunt dissection was carried down over the dorsal talar head/neck. The screw was identified dorsally and bone that had grown over the head of the screw and into the service parts driver portion of the screw was removed. The screw was then removed using the 6.5 mm screwdriver. Fluoroscopic images were then obtained in multiple planes to verify screw removal and to assess the subtalar fusion. Any active bleeding was then controlled using Bovie cautery. The wound was thoroughly irrigated with copious amounts of sterile saline. The subcutaneous tissues were then closed utilizing 2-0 Vicryl. The skin was then closed utilizing 3-0 nylon. Dry sterile dressings were then applied. Maryam was then awakened from her anesthetic, transferred to her hospital bed and taken to the recovery room in stable medical condition. Post-operative plan: Follow-up: Maryam will follow-up in 2 week(s) for her first post-operative check. Suture removal: her incision(s) was/were closed with nylon and the sutures can be removed if the incision(s) appear(s) healed Shoe instructions: At the first post-operative visit Maryam will be allowed to try to fit into a regular shoe. Weight bearing: Maryam will be instructed to be weight bearing as tolerated on the Right lower extremity in her regular shoe following the 2 week visit and this will be continued until the 6 week office visit. Follow-up plan with Dr Ramirez after 2 week visit: If Maryam is doing well and has been able to resume her normal activities, she does not need to see Dr Ramirez for a follow up visit and should be instructed to call if things change and she wants to be seen Electron (more content not included)... Normal [facility] , urine POCTon 10-0 Beta HCG ( test) Ql (U) Negative Negative [employer] Work Phone: [phone] Beta HCG ( test) Ql (U) [id number] [employer] Work Phone: [phone] Negative QC Pass/Fail Pass [facility] Work Phone: Positive QC Pass/Fail Pass [facility] Work Phone: [facility] Work Phone: [phone] CR Foot Complete 3+ Views [facility] 03-30-2022 CR Foot Complete 3+ Views Right Patient Name: MARYAM CONROY Diagnostic Radiology ACCESSION EXAM DATE/TIME PROCEDURE ORDERING PROVIDER [id number] 03/30/2022 15:13 EDT CR Foot Complete 3+ [id number] -JEFYR HOMAR Views Right CPT code 64237 Reason For Exam (CR Foot Complete 3+ Views Right) PAIN Report Right foot TECHNIQUE: Three view CLINICAL INDICATION: Pain COMPARISON: May 05, 2021. FINDINGS: AP, lateral, and oblique views of the right foot are provided. 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 On the oblique view, there is increased lucency surrounding the threaded screw extending from the talus into the calcaneus (see arrow) suspicious for loosening. Stable degenerative changes of the tibiotalar joint including remodeling of the talar dome. No acute fracture or dislocation. The visualized soft tissues are within normal limits. IMPRESSION: On the oblique view, there is increased lucency surrounding the threaded screw extending from the talus into the calcaneus (see arrow) suspicious for loosening. Otherwise stable right foot radiographs. Report Dictated on Final Dictating Physician: MD NICHOLSON JASON Signed Date and Time: 03/30/2022 4:16 pm Signed by: MD NICHOLSON JASON Transcribed Date and Time: 03/30/2022 4:17 [facility] XR FOOT RIGHT (MIN 3 VIEWS)o n 03-30-2022 Patient Name: MARYAM CONROY Diagnostic Radiology ACCESSION EXAM DATE/TIME PROCEDURE ORDERING PROVIDER [id number] 03/30/2022 15:13 EDT CR Foot Complete 3+ [id number] -JEFRY, HOMAR Views Right CPT code 81830 Reason For Exam (CR Foot Complete 3+ Views Right) PAIN Report Right foot TECHNIQUE: Three view CLINICAL INDICATION: Pain COMPARISON: May 05, 2021. FINDINGS: AP, lateral, and oblique views of the right foot are provided. 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 On the oblique view, there is increased lucency surrounding the threaded screw extending from the talus into the calcaneus (see arrow) suspicious for loosening. Stable degenerative changes of the tibiotalar joint including remodeling of the talar dome. No acute fracture or dislocation. The visualized soft tissues are within normal limits. IMPRESSION: On the oblique view, there is increased lucency surrounding the threaded screw extending from the talus into the calcaneus (see arrow) suspicious for loosening. Otherwise stable right foot radiographs. Report Dictated on --- Final --- Dictating Physician: MD NICHOLSON JASON Signed Date and Time: 03/30/2022 4:16 pm Signed by: MD NICHOLSON JASON Transcribed Date and Time: 03/30/2022 4:17 [facility] Roman Nicholson MD - 03/30/2022 Patient Name: MARYAM CONROY Diagnostic Radiology ACCESSION EXAM DATE/TIME PROCEDURE ORDERING PROVIDER [id number] 03/30/2022 15:13 EDT CR Foot Complete 3+ [id number] -JEFRY, HOMAR Views Right CPT code 24254 Reason For Exam (CR Foot Complete 3+ Views Right) PAIN Report Right foot TECHNIQUE: Three view CLINICAL INDICATION: Pain COMPARISON: May 05, 2021. FINDINGS: AP, lateral, and oblique views of the right foot are provided. 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 On the oblique view, there is increased lucency surrounding the threaded screw extending from the talus into the calcaneus (see arrow) suspicious for loosening. Stable degenerative changes of the tibiotalar joint including remodeling of the talar dome. No acute fracture or dislocation. The visualized soft tissues are within normal limits. IMPRESSION: On the oblique view, there is increased lucency surrounding the threaded screw extending from the talus into the calcaneus (see arrow) suspicious for loosening. Otherwise stable right foot radiographs. Report Dictated on --- Final --- Dictating Physician: MD NICHOLSON JASON Signed Date and Time: 03/30/2022 4:16 pm Signed by: MD NICHOLSON JASON Transcribed Date and Time: 03/30/2022 4:17 [facility] Work Phone: Radiology Study observation (narrative) [facility] Work Phone: XR FOOT RIGHT (MIN 3 VIEWS)O rdered By: Roman Nicholson on 03-30-2022 [facility] Work Phone: LABORATORYOrdered By: PHI KALEN CONTRIBUTOR_SYSTEM on 11-06-2021 Creatinine [Mass/Vol] 63 mg/dL Invalid Interpretation Code AO Sendouts SS Creatinine Ur, per 24h 961 mg/day Invalid Interpretation Code 700-1600mg/da y AO Sendouts SS Hours Collected 24 1 Invalid Interpretation Code AO Sendouts SS Comment on above: Result Comment: Per 24h calculations are provided to aid interpretation for collections with a duration of 24 hours and an average daily urine volume. For specimens with notable deviations in collection time or volume, ratios of analytes to a corresponding urine creatinine concentration may assist in result interpretation. Total Volume, Urine 1525 mL Invalid Interpretation Code AO Sendouts SS UR [facility] Free Interp See Note Invalid Interpretation Code AO Sendouts SS Comment on above: Result Comment: INTE RPRETIVE INFORMATION: Cortisol Urine Free by LC-MS/MS Access complete set of age- and/or gender-specific reference intervals for this test in the [employer] [facility] Test Directory ([employer]). This test was developed and its performance characteristics determined by [facility]. It has not been cleared or approved by the [place] Food and Drug Administration. This test was performed in a CLIA certified laboratory and is intended for clinical purposes. Performed by [facility], [address] [place] [address],[place] [address] [email or web address], Vilma Duran MD, Lab. Director UR Cortisol Free ug/L 15.30 UG/L Invalid Interpretation Code AO Sendouts SS UR Cortisol ug/g delinquency prevention officer 24.29 UG/G CREAT Invalid Interpretation Code AO Sendouts SS Comment on above: Result Comment: Refe rence Interval: Cortisol ug/g delinquency prevention officer Female Prepubertal: Less than 25 ug/g delinquency prevention officer 18 years and older: Less than 24 ug/g delinquency prevention officer : Less than 59 ug/g delinquency prevention officer Male Prepubertal: Less than 25 ug/g delinquency prevention officer 18 years and older: Less than 32 ug/g delinquency prevention officer UR, Cortisol ug/d 23.3 1 Invalid Interpretation Code <=45.0ug/day AO Sendouts SS LABORATORYOrdered By: PHI HIGUERA CONTRIBUTOR_SYSTEM on 11-04-2021 Adrenocorticotropic Hormone 15.5 pg/mL Invalid Interpretation Code 7.2-63.3pg/mL AO Sendouts Comment on above: Result Comment: ACTH Reference Range: 7-10 am: 7.2 - 63.3 pg/mL Performed By: [facility] [address] [place] [address] Business Services Associate: Carmella Wolff III#: [id number] LABORATORYOrdered By: Lois Farris on 11-04-2021 Albumin BCP dye [Mass/Vol] 3.6 G/dL Invalid Interpretation Code 3.5 - 5.0 G/dL AO ADM SS Albumin/Globulin [Mass ratio] 1.1 {ratio} Invalid Interpretation Code 1.1 - 2.5 ratio AO ADM SS ALP [Catalytic activity/Vol] 73 U/L Invalid Interpretation Code 40 - 135 U/L AO ADM SS ALT With P-5'-P [Catalytic activity/Vol] 23 U/L Invalid Interpretation Code 14 - 59 U/L AO ADM SS AST With P-5'-P [Catalytic activity/Vol] 20 U/L Invalid Interpretation Code 10 - 40 U/L AO ADM SS Basophil, Absolute 0.00 103/mcL Invalid Interpretation Code 0.00 - 0.19 10^3/mcL AO Auto Heme SS Basophils/100 WBC (Bld) 0.4 % Invalid Interpretation Code 0.0 - 2.5 % AO Auto Heme SS Bilirubin [Mass/Vol] 0.4 mg/dL Invalid Interpretation Code 0.2 - 1.0 mg/dL AO ADM SS Calcium [Mass/Vol] 9.4 mg/dL Invalid Interpretation Code 8.4 - 10.2 mg/dL AO ADM SS Chloride [Moles/Vol] 104 mmol/L Invalid Interpretation Code 98 - 107 mmol/L AO ADM SS CO2 [Moles/Vol] 25 mmol/L Invalid Interpretation Code 22 - 29 mmol/L AO ADM SS Creatinine [Mass/Vol] 0.59 mg/dL Invalid Interpretation Code 0.55 - 1.02 mg/dL AO ADM SS Electrolyte Balance 11.0 mEq/L Invalid Interpretation Code 4.0 - 15.0 mEq/L AO ADM SS Eosinophil, Absolute 0.40 103/mcL Invalid Interpretation Code 0.00 - 0.40 10^3/mcL AO Auto Heme SS Eosinophils/100 WBC (Bld) 3.3 % Invalid Interpretation Code 0.0 - 7.0 % AO Auto Heme SS Erythrocyte distribution width (RBC) [Ratio] 14.1 % Invalid Interpretation Code 11.5 - 14.5 % AO Auto Heme SS Free T4 [Mass/Vol] 1.02 ng/dL Invalid Interpretation Code 0.76 - 1.46 ng/dL AO ADM SS Globulin 3.3 G/dL Invalid Interpretation Code AO ADM SS Glucose [Mass/Vol] 97 mg/dL Invalid Interpretation Code 70 - 105 mg/dL AO ADM SS Hematocrit (Bld) [Volume fraction] 41.8 % Invalid Interpretation Code 37.0 - 47.0 % AO Auto Heme SS Hemoglobin (Bld) [Mass/Vol] 14.0 G/dL Invalid Interpretation Code 12.0 - 16.0 G/dL AO Auto Heme SS Lymphocyte, Absolute 4.70 103/mcL Invalid Interpretation Code 0.77 - 3.85 10^3/mcL AO Auto Heme SS Lymphocytes/100 WBC (Bld) 38.2 % Invalid Interpretation Code 10.0 - 50.0 % AO Auto Heme SS MCH (RBC) [Entitic mass] 27.0 pg Invalid Interpretation Code 27.0 - 31.2 pg AO Auto Heme SS MCHC (RBC) [Mass/Vol] 33.5 G/dL Invalid Interpretation Code 33.0 - 37.0 G/dL AO Auto Heme SS MCV (RBC) [Entitic vol] 80.6 fL Invalid Interpretation Code 80.0 - 94.0 fL AO Auto Heme SS Monocyte, Absolute 0.90 103/mcL Invalid Interpretation Code 0.15 - 1.00 10^3/mcL AO Auto Heme SS Monocytes/100 WBC (Bld) 7.5 % Invalid Interpretation Code 1.7 - 13.0 % AO Auto Heme SS Neutrophil, Absolute 6.20 103/mcL Invalid Interpretation Code 2.85 - 6.16 10^3/mcL AO Auto Heme SS Neutrophils/100 WBC (Bld) 50.6 % Invalid Interpretation Code 37.0 - 80.0 % AO Auto Heme SS Platelet mean volume (Bld) [Entitic vol] 9.6 fL Invalid Interpretation Code 7.4 - 10.4 fL AO Auto Heme SS Platelets (Bld) [#/Vol] 362 103/mcL Invalid Interpretation Code 130 - 400 10^3/mcL AO Auto Heme SS Potassium [Moles/Vol] 5.1 mmol/L Invalid Interpretation Code 3.5 - 5.1 mmol/L AO ADM SS Protein [Mass/Vol] 6.9 G/dL Invalid Interpretation Code 6.4 - 8.2 G/dL AO ADM SS RBC (Bld) [#/Vol] 5.19 106/mcL Invalid Interpretation Code 4.20 - 5.40 10^6/mcL AO Auto Heme SS Sodium [Moles/Vol] 140 mmol/L Invalid Interpretation Code 136 - 145 mmol/L AO ADM SS TSH Qn 3.56 m[IU]/L Invalid Interpretation Code 0.36 - 3.74 mcIU/mL AO ADM SS Urea nitrogen [Mass/Vol] 11 mg/dL Invalid Interpretation Code 7 - 18 mg/dL AO ADM SS Urea nitrogen/Creatinine [Mass ratio] 19 ratio Invalid Interpretation Code 7 - 27 ratio AO ADM SS Vit. D 25-Hydroxy 12.6 ng/mL Invalid Interpretation Code AO ADM SS WBC (Bld) [#/Vol] 12.30 103/mcL Invalid Interpretation Code 4.60 - 10.80 10^3/mcL AO Auto Heme SS LABORATORYOrdered By: SYSTEM SYSTEM on 11-04-2021 Cortisol [Mass/Vol] 7.2 ug/dL Invalid Interpretation Code 6.5 - 26.0 mcg/dL AH ADM SS GFR 149 ml/min/1.73sqm Invalid Interpretation Code AO Chemistry S GFR Non- 123 ml/min/1.73sqm Invalid Interpretation Code AO Chemistry S LABORATORYOrdered By: Cari Monzon on 05-30-2021 ADMITTED TO INTENSIVE CARE UNIT FOR CONDITION OF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 pressure 80 mm[Hg] No Primary Care Physician [facility] 11-17-2024 08:45-0400 Systolic blood pressure 118 mm[Hg] No Primary Care Physician [facility] 11-02-2024 13:53-0400 Body mass index (BMI) [Ratio] 52.2 kg/m2 No Primary Care Physician [facility] 11-02-2024 13:53-0400 Body weight 137.89 kg No Primary Care Physician [facility] 11-02-2024 13:53-0400 Diastolic blood pressure 81 mm[Hg] No Primary Care Physician [facility] 11-02-2024 13:53-0400 Systolic blood pressure 117 mm[Hg] No Primary Care Physician [facility] 10-20-2024 09:29-0500 Body height 162.56 cm No Primary Care Physician [facility] 10-20-2024 09:27-0500 Body mass index (BMI) [Ratio] 52 kg/m2 No Primary Care Physician [facility] 10-20-2024 09:27-0500 Body weight 137.66 kg No Primary Care Physician [facility] 10-20-2024 09:27-0500 Diastolic blood pressure 78 mm[Hg] No Primary Care Physician [facility] 10-20-2024 09:27-0500 Systolic blood pressure 121 mm[Hg] No Primary Care Physician [facility] 09-21-2024 10:44-0500 Body mass index (BMI) [Ratio] 51 kg/m2 No Primary Care Physician [facility] 09-21-2024 10:44-0500 Body weight 134.83 kg No Primary Care Physician [facility] 09-21-2024 10:44-0500 Diastolic blood pressure 77 mm[Hg] No Primary Care Physician [facility] 09-21-2024 10:44-0500 Systolic blood pressure 110 mm[Hg] No Primary Care Physician [facility] 09-16-2024 00:00-0500 Diastolic blood pressure 54 mm[Hg] No Primary Care Physician [facility] 09-16-2024 00:00-0500 Heart rate 103 /min No Primary Care Physician [facility] 09-16-2024 00:00-0500 Respiratory rate 18 /min No Primary Care Physician [facility] 09-16-2024 00:00-0500 Systolic blood pressure 126 mm[Hg] No Primary Care Physician [facility] 09-15-2024 23:55-0500 Body temperature 98.8 [degF] No Primary Care Physician [facility] 09-15-2024 18:04-0500 Body mass index (BMI) [Ratio] 51 kg/m2 No Primary Care Physician [facility] 09-15-2024 18:04-0500 Body weight 134.89 kg No Primary Care Physician [facility] 09-15-2024 17:13-0500 Diastolic blood pressure 69 mm[Hg] No Primary Care Physician [facility] 09-15-2024 17:13-0500 Heart rate 111 /min No Primary Care Physician [facility] 09-15-2024 17:13-0500 Systolic blood pressure 141 mm[Hg] No Primary Care Physician [facility] 09-15-2024 17:12-0500 Body temperature 99.5 [degF] No Primary Care Physician [facility] 09-15-2024 17:12-0500 Respiratory rate 16 /min No Primary Care Physician [facility] 09-15-2024 17:09-0500 SaO2% (BldA) [Mass fraction] 98 % No Primary Care Physician [facility] 09-06-2024 11:40-0500 Body temperature 97.3 [degF] No Primary Care Physician [facility] 09-06-2024 11:40-0500 Diastolic blood pressure 61 mm[Hg] No Primary Care Physician [facility] 09-06-2024 11:40-0500 Heart rate 85 /min No Primary Care Physician [facility] 09-06-2024 11:40-0500 Respiratory rate 18 /min No Primary Care Physician [facility] 09-06-2024 11:40-0500 SaO2% (BldA) [Mass fraction] 100 % No Primary Care Physician [facility] 09-06-2024 11:40-0500 Systolic blood pressure 104 mm[Hg] No Primary Care Physician [facility] 09-06-2024 09:38-0500 Body mass index (BMI) [Ratio] 51.1 kg/m2 No Primary Care Physician [facility] 09-06-2024 09:38-0500 Body weight 135.2 kg No Primary Care Physician [facility] 07-31-2024 13:25-0500 Body mass index (BMI) [Ratio] 50.6 kg/m2 No Primary Care Physician [facility] 07-31-2024 13:25-0500 Body weight 133.92 kg No Primary Care Physician [facility] 07-31-2024 13:25-0500 Diastolic blood pressure 81 mm[Hg] No Primary Care Physician [facility] 07-31-2024 13:25-0500 Systolic blood pressure 117 mm[Hg] No Primary Care Physician [facility] 12-29-2023 20:24-0400 Body temperature 98.9 [degF] [facility] 12-29-2023 20:24-0400 Diastolic blood pressure 78 mm[Hg] [facility] 12-29-2023 20:24-0400 Heart rate 95 /min [facility] 12-29-2023 20:24-0400 Respiratory rate 18 /min [facility] 12-29-2023 20:24-0400 SaO2% (BldA) [Mass fraction] 96 % [facility] 12-29-2023 20:24-0400 Systolic blood pressure 130 mm[Hg] [facility] 12-29-2023 19:06-0400 Body height 162.56 cm [facility] 12-29-2023 19:06-0400 Body mass index (BMI) [Ratio] 49.5 kg/m2 [facility] 12-29-2023 19:06-0400 Body weight 130.95 kg [facility] 05-22-2022 16:20-0400 Body temperature 97.3 [degF] Carlos Ramirez MD Work Phone: [facility] 05-22-2022 16:20-0400 Diastolic blood pressure 88 mm[Hg] Carlos Ramirez MD Work Phone: [facility] 05-22-2022 16:20-0400 Heart rate 94 /min Carlos Ramirez MD Work Phone: [facility] 05-22-2022 16:20-0400 Respiratory rate 23 /min Carlos Ramirez MD Work Phone: [facility] 05-22-2022 16:20-0400 SaO2% (BldA) [Mass fraction] 99 % Carlos Ramirez MD Work Phone: [facility] 05-22-2022 16:20-0400 Systolic blood pressure 128 mm[Hg] Carlos Ramirez MD Work Phone: [facility] 05-22-2022 11:05-0400 Body height 162.6 cm Carlos Ramirez MD Work Phone: [facility] 05-22-2022 11:05-0400 Body mass index (BMI) [Ratio] 52.35 kg/m2 Carlos Ramirez MD Work Phone: [facility] 05-22-2022 11:05-0400 Body weight 138.35 kg Carlos Ramirez MD Work Phone: [facility] 01-24-2021 15:27-0400 Diastolic blood pressure 95 mm[Hg] Carlos Ramirez MD Work Phone: [facility] Work Phone: 01-24-2021 15:27-0400 Heart rate 93 /min Carlos Ramirez MD Work Phone: [facility] Work Phone: 01-24-2021 15:27-0400 Respiratory rate 20 /min Carlos Ramirez MD Work Phone: [facility] Work Phone: 01-24-2021 15:27-0400 SaO2% (BldA) [Mass fraction] 95 % Carlos Ramirez MD Work Phone: [facility] Work Phone: 01-24-2021 15:27-0400 Systolic blood pressure 117 mm[Hg] Carlos Ramirez MD Work Phone: [facility] Work Phone: 01-24-2021 15:15-0400 Body temperature 98.1 [degF] Carlos Ramirez MD Work Phone: [facility] Work Phone: 01-24-2021 08:19-0400 Body mass index (BMI) [Ratio] 52.18 kg/m2 Carlos Ramirez MD Work Phone: [facility] Work Phone: 01-24-2021 08:19-0400 Body weight 137.89 kg Carlos Ramirez MD Work Phone: [facility] Work Phone: 01-12-2021 09:27-0400 Body height 162.6 cm Carlos Ramirez MD Work Phone: [facility] Work Phone: 01-12-2021 09:27-0400 Body mass index (BMI) [Ratio] 52.22 kg/m2 Carlos Ramirez MD Work Phone: [facility] Work Phone: 01-12-2021 09:27-0400 Body weight 138.01 kg Carlos Ramirez MD Work Phone: [facility] Work Phone: 01-12-2021 09:25-0400 Body temperature 97.81 [degF] Carlos Ramirez MD Work Phone: [facility] Work Phone: 01-12-2021 09:25-0400 Diastolic blood pressure 92 mm[Hg] Carlos Ramirez MD Work Phone: [facility] Work Phone: 01-12-2021 09:25-0400 Heart rate 109 /min Carlos Ramirez MD Work Phone: [facility] Work Phone: 01-12-2021 09:25-0400 Respiratory rate 16 /min Carlos Ramirez MD Work Phone: [facility] Work Phone: 01-12-2021 09:25-0400 SaO2% (BldA) [Mass fraction] 96 % Carlos Ramirez MD Work Phone: [facility] Work Phone: 01-12-2021 09:25-0400 Systolic blood pressure 142 mm[Hg] Carlos Ramirez MD Work Phone: [facility] Work Phone: Encounters Encounter Date Encounter Type Care Provider Facility Start: 01-21-2025 ambulatory No Primary Car e Physician Facility:[facility] Start: 01-14-2025 End: 01-14-2025 ambulatory YANY COHEN [facility] Start: 01-12-2025 End: 01-12-2025 Patient encounter procedure Suzy BAUGH -[facility] Work Phone: Start: 01-12-2025 End: 01-12-2025 ambulatory No Primary Care Physician [facility] Work Phone: Start: 01-06-2025 End: 01-06-2025 ambulatory No Primary Care Physician [facility] Work Phone: Start: 01-06-2025 End: 01-06-[address] Yany Carmichael DO [facility] Work Phone: Start: 01-05-2025 End: 01-05-[address] Yany Carmichael DO -[facility] Work Phone: Start: 01-05-2025 End: 01-05-2025 ambulatory No Primary Care Physician [facility] Work Phone: Start: 12-31-2024 End: 12-31-2024 ambulatory [facility] Start: 12-28-2024 End: 12-28-2024 ambulatory No Primary Care Physician [facility] Work Phone: Start: 12-28-2024 End: 12-28-2024 Patient encounter procedure Suzy Daniels CNM -[facility] Work Phone: Start: 12-28-2024 End: 12-28-2024 Patient encounter procedure Suzy Daniels CNM -[facility] Work Phone: Start: 12-28-2024 End: 12-28-2024 ambulatory No Primary Care Physician Facility:[facility] Start: 12-28-2024 End: 12-28-2024 ambulatory No Primary Care Physician Facility:[facility] Start: 12-17-2024 End: 12-17-2024 ambulatory [facility] Start: 12-14-2024 End: 12-14-[address] Yany Carmichael DO -[facility] Work Phone: Start: 12-14-2024 End: 12-14-2024 ambulatory Yany Carmichael Facility:[facility] Start: 12-14-2024 End: 12-14-2024 ambulatory Yany Carmichael Facility:[facility] Start: 12-03-2024 End: 12-03-2024 ambulatory [facility] Start: 12-03-2024 End: 12-03-2024 Patient encounter procedure Suzy Daniels CNM -[facility] Work Phone: Start: 12-03-2024 End: 12-03-2024 ambulatory No Primary Care Physician Facility:[facility] Start: 11-17-2024 End: 11-17-2024 Patient encounter procedure Archana ALONSO -[facility] Work Phone: Start: 11-17-2024 End: 11-17-2024 ambulatory No Primary Care Physician Facility:[facility] Start: 11-02-2024 End: 11-02-[address] Blank Osuna MD -[facility] Work Phone: Start: 11-02-2024 End: 11-02-2024 ambulatory No Primary Care Physician Facility:[facility] Start: 10-27-2024 End: 10-27-2024 ambulatory NO PRIMARY CARE [facility] Start: 10-20-2024 End: 10-20-[address] Yany Carmichael DO -[facility] Work Phone: Start: 10-20-2024 End: 10-20-2024 ambulatory No Primary Care Physician [facility] Work Phone: Start: 10-20-2024 End: 10-20-2024 ambulatory No Primary Care Physician Facility:[facility] Start: 10-05-2024 End: 10-05-2024 Follow-up encounter Acute [facility] Work Phone: [facility] Comment on above: Follow-up exam (Prim timothy Dx) Start: 10-05-2024 End: 10-05-2024 Telemedicine consultation with patient [facility] Work Phone: [facility] Start: 10-05-2024 End: 10-05-2024 ambulatory NERIS PRINCE Facility:[facility] Start: 09-28-2024 End: 09-28-2024 ambulatory NO PRIMARY CARE [facility] Start: 09-21-2024 End: 09-21-2024 Patient encounter procedure Suzy Daniels CNM -[facility] Work Phone: Start: 09-21-2024 End: 09-21-2024 ambulatory No Primary Care Physician Facility:[facility] Start: 09-20-2024 ambulatory Nina Marc Facilit y:[facility] Start: 09-20-2024 Non-patient / Non-visit Dr. Naveen Osuna MD -[facility] Start: 09-16-2024 Emergency department patient visit NERIS PRINCE Facility:[facility] Start: 09-15-2024 End: 09-16-2024 Emergency department patient visit Dr. Mateusz Carlisle DO -Emergency Department Work Phone: Start: 09-15-2024 End: 09-15-2024 Patient encounter procedure Nina Marc CN -[facility] Work Phone: Start: 09-15-2024 End: 09-15-2024 ambulatory No Primary Care Physician Facility:[facility] Start: 09-10-2024 End: 09-10-2024 ambulatory MD NO PRIMARY CARE [facility] Start: 09-06-2024 End: 09-06-2024 Emergency department patient visit Dr. Tadeo Esquivel DO -Emergency Department Work Phone: Start: 07-31-2024 End: 07-31-[address] Yany Carmichael DO -[facility] Work Phone: Start: 07-31-2024 End: 07-31-2024 ambulatory No Primary Care Physician Facility:[facility] Start: 07-31-2024 End: 07-31-2024 ambulatory No Primary Care Physician Facility:[facility] Start: 06-26-2024 End: 06-26-2024 ambulatory No Primary Care Physician Facility:[facility] Start: 06-26-2024 End: 06-26-2024 ambulatory No Primary Care Physician Facility:[facility] Start: 03-04-2024 End: 03-04-2024 Emergency department patient visit No Primary Care Physician Facility:[facility] Start: 12-29-2023 End: 12-29-2023 Emergency department patient visit [facility]-Emergency Department Work Phone: Start: 08-14-2023 End: 08-18-2023 ambulatory No Primary Care Physician [facility] Work Phone: Start: 08-14-2023 End: 08-18-2023 Discharged Recurring No Primary Care Physician [facility] Start: 08-01-2023 End: 08-01-2023 Patient encounter procedure No Primary Care Physician [facility] Work Phone: Start: 07-31-2023 End: 07-31-2023 Patient encounter procedure No Primary Care Physician [facility] Work Phone: Start: 06-13-2023 Registered Referred No Primary Care Physician [facility] Start: 06-13-2023 Registered Recurring No [facility] Start: 03-20-2023 ambulatory SHANTI BREENICE Facility :A Start: 01-28-2023 End: 01-29-2023 ambulatory SHANTI GARCIA Facility:B Start: 06-18-2022 ambulatory WAYNE BRYAN ANESTHETIC ASSISTANT-REHAB DEPARTMENT MANAGER F acility:B Start: 05-22-2022 End: 05-22-2022 ambulatory Shanti Garcia [facility] Start: 05-22-2022 End: 05-22-2022 Subsequent hospital visit by physician Carlos Ramirez MD Work Phone: [facility] General Surgery Comment on above: Pain due to internal orthopedic prosthetic devices, implants and grafts, initial encounter (HCC) (Primary Dx) Start: 03-30-2022 End: 03-30-2022 Subsequent hospital visit by physician Homar SHOOK Work Phone: [facility] Radiology Comment on above: Right foot pain Start: 11-16-2021 End: 12-01-2021 Physical therapy management JAMES GARCIA ANESTHETIC ASSISTANT-REHAB DEPARTMENT MANAGER [facility] Start: 11-06-2021 End: 11-10-2021 Outreach Lab JAMES GARCIA ANESTHETIC ASSISTANT-REHAB DEPARTMENT MANAGER [facility] Start: 11-04-2021 End: 11-04-2021 Patient encounter procedure JAMES GARCIA ANESTHETIC ASSISTANT-REHAB DEPARTMENT MANAGER [facility] Start: 05-30-2021 End: 05-30-2021 Patient encounter procedure JAMES GARCIA ANESTHETIC ASSISTANT-REHAB DEPARTMENT MANAGER [facility] Start: 05-05-2021 End: 05-05-2021 Subsequent hospital visit by physician Carlos Ramirez MD Work Phone: 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) Start: 01-12-2021 End: 01-12-2021 Subsequent hospital visit by physician Carlos Ramirez MD Work Phone: [facility] Pre-Admit Testing Comment on above: Arrived Start: 06-28-2016 Patient requested procedure Acute 359 Work Phone: [facility] Procedures Date Procedure Procedure Detail Performing Clinician Start: 12-28-2024 Beta-hemolytic Strep tococcus culture No Primary Care Physician Start: 10-20-2024 Serologic test for syphilis No Primary Care Physician Start: 09-15-2024 Computed tomography of abdomen and pelvis with intravenous contrast No Primary Care Physician Start: 09-15-2024 Urnls dip stick/tabl et reagent auto microscopy No Primary Care Physician Start: 09-15-2024 Estimated creatinine clearance No Primary Care Physician Start: 09-15-2024 Measurement of renal function No Primary Care Physician Comment on above: GFR Calc Start: 09-15-2024 Fibrinogen assay, quantitative No Primary Care Physician Start: 09-15-2024 Measurement of renal function No Primary Care Physician Comment on above: GFR Calc Start: 09-06-2024 CT angiography of ch est with contrast No Primary Care Physician Start: 09-06-2024 D-dimer assay, quantitative No Primary Care Physician Comment on above: D-Dimer ELEVATED (>0 .49): Additional studies and clinicalassessments are indicated to conclude diagnosis of:Deep Vein Thrombosis (DVT) or Pulmonary Embolism (PE) Start: 09-06-2024 Estimated creatinine clearance No Primary Care Physician Start: 09-06-2024 Measurement of renal function No Primary Care Physician Comment on above: GFR Calc Start: 09-06-2024 Urnls dip stick/tabl et reagent auto microscopy No Primary Care Physician Start: 09-06-2024 X-ray of chest, PA a nd lateral views No Primary Care Physician Start: 12-29-2023 Plain X-ray of toe Start: 08-14-2023 Viral antigen assay No Primary Care Physician Start: 05-22-2022 Urine test visual color amanda Arvizu MD Work Phone: Start: 03-30-2022 Radex foot complete minimum 3 views Homar SHOOK Work Phone: Start: 01-24-2021 OPERATIVE REPORT [facility] Start: 01-24-2021 Urine test visual color amanda Arvizu MD Work Phone: Start: 01-12-2021 Ecg routine ecg w/le ast 12 lds w/i&r Gabrielgeorge Neri MD Work Phone: Start: 01-12-2021 Basic metabolic pane l calcium total Gabrielgeorge Neri MD Work Phone: Adenoid excision JAMES ROMERO ANESTHETIC ASSISTANT-REHAB DEPARTMENT MANAGER Foot structure (body structure) JAMES GARCIA ANESTHETIC ASSISTANT-REHAB DEPARTMENT MANAGER Comment on above: screws, micah, plate i n heel right foot Tonsillectomy JAMES Solomon ANESTHETIC ASSISTANT-REHAB DEPARTMENT MANAGER Plan of Treatment Date Care Activity Detail Author Start: 06-13-2033 Urine microalbumin profile DTaP,Tdap,Td Vaccine (4 - Td or Tdap) [facility] Start: 11-27-2026 DTaP/Tdap/Td vaccine (3 - Td or Tdap) DTaP/Tdap/Td vaccine (3 - Td or Tdap) [facility] Start: 11-27-2026 DTaP/Tdap/Td vaccine (3 - Td) DTaP/Tdap/Td vaccine (3 - Td) [facility] Work Phone: Start: 01-06-2025 Nonstress test [facility] Start: 01-06-2025 Obstetric monitoring [facility] Start: 01-06-2025 Vital signs measurements [facility] Start: 01-06-2025 [facility] Start: 01-06-2025 Patient discharge [facility] Start: 12-28-2024 Group B Streptococcu s Culture Group B Streptococcus Culture [facility] Start: 12-28-2024 Streptococcus agalactiae [Presence] in Unspecified specimen by Organism specific culture [facility] Start: 09-15-2024 [facility] Start: 09-15-2024 Nonstress test [facility] Start: 09-15-2024 Obstetric monitoring [facility] Start: 09-15-2024 Vital signs measurements [facility] Start: 09-15-2024 [facility] Start: 09-15-2024 Blood count complete auto&auto difrntl wbc COMPLETE CBC W/AUTO DIFF WBC [facility] Start: 09-15-2024 Collection venous bl ood venipuncture OPAL VENOUS BLD VENIPUNCTURE [facility] Start: 09-15-2024 Comprehensive metabo lic panel COMPREHEN METABOLIC PANEL [facility] Start: 09-15-2024 monitoring lab or phys written report MONITOR W/REPORT [facility] Start: 09-15-2024 nonstress test NON-STRES S TEST [facility] Start: 09-15-2024 Fibrinogen activity FIBRINOGEN ACTIV ITY [facility] Start: 09-15-2024 Iv infusion ther pro ph addl sequential to 1 hr TX/PROPH/DG ADDL SEQ IV INF [facility] Start: 09-15-2024 Us uterus limited 1/> fetuses OB US LIMITED FETUS(S) [facility] Start: 09-15-2024 Patient discharge [facility] Start: 09-06-2024 [facility] Start: 04-19-2024 Covid-19 Vaccine ( season) Covid-19 Vaccine ( season) [facility] Start: 12-29-2023 [facility] Start: 06-08-2022 End: 06-08-2022 Patient encounter procedure 06/08/2022 Office Visit Orthopedic Surgery Carlos Ramirez MD [address] [facility] [address] [place], [place] [id number] [facility] [place] Start: 04-19-2022 Influenza vaccination Flu vaccine (# 1) [facility] Start: 03-19-2022 Influenza vaccination Flu vaccine (# 1) [facility] Start: 05-05-2021 End: 05-05-2021 Patient encounter procedure 05/05/2021 Office Visit Orthopedic Surgery Carlos Ramirez MD [address] [facility] [address] [place], [place] [id number] [facility] [place] Start: 05-05-2021 End: 05-05-2021 Nursing evaluation of patient and report 05/05/2021 Nurse Only Orthopedic Surgery [facility] [place] Start: 04-19-2021 Influenza vaccination S [facility] Work Phone: Start: 02-10-2021 End: 02-10-2021 Patient encounter procedure 02/10/2021 Office Visit Orthopedic Surgery Carlos Ramirez MD [address] [facility] [address] [place], [place] [id number] [facility] [place] Start: 01-24-2021 Subsequent hospital visit by physician 01/24/2021 Hospital Encounter IP Unit Carlos Ramirez MD [address] [facility] [address] [place] [address] [facility] Start: 10-23-2016 Screening for malign ant neoplasm of cervix [facility] Start: 10-23-2013 Anxiety Screening Anxiety Screening [facility] Start: 10-23-2013 Depression Screening Depression Scre ening [facility] Start: 10-23-2013 Hepatitis C screening Hepatitis C cody heidigeorge [facility] Start: 10-23-2010 HIV screening HIV screen [facility] Start: 2007 Depression Screen Depression Screen [facility] Start: 10-23-2006 HPV vaccine (1 - 2-d ose series) HPV vaccine (1 - 2-dose series) [facility] Start: 10-23-2001 Pneumococcal 0-64 ye ars Vaccine (1 - PCV) Pneumococcal 0-64 years Vaccine (1 - PCV) [facility] Start: 10-23-2001 Pneumococcal 0-64 ye ars Vaccine (1 of 2 - PPSV23) Pneumococcal 0-64 years Vaccine (1 of 2 - PPSV23) [facility] Work Phone: Start: 10-23-1996 Varicella vaccine (1 of 2 - 2-dose childhood series) Varicella vaccine (1 of 2 - 2-dose childhood series) [facility] Start: 04-25-1996 COVID-19 Vaccine (#1) COVID-19 Vacci ne (#1) [facility] Start: 1995 Hepatitis C screening Hepatitis C cody warren [facility] Work Phone: Beta-hemolytic Streptococcus culture [facility] Blood glucose - POCT [facility] Work Phone: Comment on above: As Needed until disc ontinued starting 01/24/2021 Blood glucose - POCT Blood gluco se - POCT Point of Care Testing STAT As Needed until discontinued starting 05/22/2022 [facility] Work Phone: Comment on above: As Needed until disc ontinued starting 05/22/2022 End: 01-24-2021 Creatinine [Mass/volume] in Serum or Plasma Creatinine, serum Lab STAT One Time for 1 Occurrences starting 01/24/2021 until 01/24/2021 [facility] Work Phone: Comment on above: One Time for 1 Occur rences starting 01/24/2021 until 01/24/2021 End: 05-22-2022 Creatinine [Mass/volume] in Serum or Plasma Creatinine, serum Lab STAT One Time for 1 Occurrences starting 05/22/2022 until 05/22/2022 [employer] Work Phone: Comment on above: One Time for 1 Occur rences starting 05/22/2022 until 05/22/2022 EKG 12 Lead EKG 12 Lead ECG Routine 01/12/2021 9:48 AM EDT [employer] Work Phone: End: 01-24-2021 FL Greater Than 1 Hour FL Greater Than 1 Hour Imaging Routine Once for 1 Occurrences starting 01/24/2021 until 01/24/2021 [facility] Work Phone: Comment on above: Once for 1 Occurrenc es starting 01/24/2021 until 01/24/2021 FL Greater Than 1 Hour FL Greate r Than 1 Hour Imaging Routine 01/24/2021 11:50 AM EDT [facility] Work Phone: End: 05-22-2022 FL Greater Than 1 Hour [facility] Work Phone: Comment on above: Once for 1 Occurrenc es starting 05/22/2022 until 05/22/2022 End: 05-22-2022 INITIATE PACU OXYGEN THERAPY PROTOCOL Initiate PACU Oxygen Therapy Protocol Respiratory Care Routine Continuous until discontinued starting 05/22/2022 [facility] Comment on above: Continuous until dis continued starting 05/22/2022 End: 01-24-2021 Intermittent pulse oximetry Pulse Oximetry Spot Check Respiratory Care Routine One Time for 1 Occurrences starting 01/24/2021 until 01/24/2021 [facility] Work Phone: Comment on above: One Time for 1 Occur rences starting 01/24/2021 until 01/24/2021 End: 05-22-2022 Intermittent pulse oximetry Pulse Oximetry Spot Check Respiratory Care Routine One Time for 1 Occurrences starting 05/22/2022 until 05/22/2022 [facility] Work Phone: Comment on above: One Time for 1 Occur rences starting 05/22/2022 until 05/22/2022 Nasal Cannula Oxygen Nasal Cannu la Oxygen Respiratory Care Routine As Needed until discontinued starting 05/22/2022 [facility] Work Phone: Comment on above: As Needed until disc ontinued starting 05/22/2022 Nasal Cannula Oxygen Nasal Cannu la Oxygen Respiratory Care Routine As Needed until discontinued starting 05/22/2022 [employer] Work Phone: Comment on above: As Needed until disc ontinued starting 05/22/2022 Nonrebreather mask oxygen Nonrebreather mask oxygen Respiratory Care Routine As Needed until discontinued starting 05/22/2022 [employer] Work Phone: Comment on above: As Needed until disc ontinued starting 05/22/2022 Nonrebreather mask oxygen Nonrebreather mask oxygen Respiratory Care Routine As Needed until discontinued starting 05/22/2022 [employer] Work Phone: Comment on above: As Needed until disc ontinued starting 05/22/2022 Oxygen therapy [Mini mum Data Set] Initiate Oxygen Therapy Protocol Respiratory Care Routine Daily until discontinued starting 01/24/2021 [employer] Work Phone: Comment on above: Daily until disconti nued starting 01/24/2021 Oxygen therapy [Mini mum Data Set] Initiate Oxygen Therapy Protocol Respiratory Care Routine As Needed until discontinued starting 05/22/2022 [employer] Work Phone: Comment on above: As Needed until disc ontinued starting 05/22/2022 Patient Education [facility] Work Phone: Patient referral [facility] Work Phone: End: 01-24-2021 Potassium w/ Reflex to Magnesium Potassium w/ Reflex to Magnesium Lab Routine One Time for 1 Occurrences starting 01/24/2021 until 01/24/2021 [employer] Work Phone: Comment on above: One Time for 1 Occur rences starting 01/24/2021 until 01/24/2021 End: 05-22-2022 Potassium w/ Reflex to Magnesium Potassium w/ Reflex to Magnesium Lab Routine One Time for 1 Occurrences starting 05/22/2022 until 05/22/2022 [employer] Work Phone: Comment on above: One Time for 1 Occur rences starting 05/22/2022 until 05/22/2022 End: 01-24-2021 Protime-INR Protime-INR Lab STAT One Time for 1 Occurrences starting 01/24/2021 until 01/24/2021 [facility] Work Phone: Comment on above: One Time for 1 Occur rences starting 01/24/2021 until 01/24/2021 End: 05-22-2022 Protime-INR Protime-INR Lab STAT One Time for 1 Occurrences starting 05/22/2022 until 05/22/2022 [facility] Work Phone: Comment on above: One Time for 1 Occur rences starting 05/22/2022 until 05/22/2022 Serologic test for syphilis [facility] Spirometry panel Incentive fran metry Respiratory Care Routine Q1H PRN until discontinued starting 01/24/2021 [facility] Work Phone: Comment on above: Q1H PRN until discon tinued starting 01/24/2021 Spirometry panel Incentive fran metry Respiratory Care Routine Q1H PRN until discontinued starting 05/22/2022 [facility] Work Phone: Comment on above: Q1H PRN until discon tinued starting 05/22/2022 End: 03-10-2021 XR FOOT RIGHT (MIN 3 VIEWS) XR FOOT RIGHT (MIN 3 VIEWS) Imaging Routine Once for 1 Occurrences starting 03/10/2021 until 03/10/2021 [facility] Work Phone: Comment on above: Once for 1 Occurrenc es starting 03/10/2021 until 03/10/2021 XR FOOT RIGHT (MIN 3 VIEWS) [facility] Work Phone: End: 05-05-2021 XR FOOT RIGHT (MIN 3 VIEWS) XR FOOT RIGHT (MIN 3 VIEWS) Imaging Routine Once for 1 Occurrences starting 05/05/2021 until 05/05/2021 [facility] Work Phone: Comment on above: Once for 1 Occurrenc es starting 05/05/2021 until 05/05/2021 [facility] Immunizations Immunization Date Immunization Notes Care Provider Fa cility 11-17-2024 tetanus toxoid, redu samantha diphtheria toxoid, and acellular pertussis vaccine, adsorbed No Primary Care Physician [facility] 08-13-2024 influenza, seasonal, injectable, preservative free No Primary Care Physician [facility] 07-24-2023 Hepatitis B vaccine (recombinant), CpG adjuvanted No Primary Care Physician [facility] 06-21-2023 Hepatitis B vaccine (recombinant), CpG adjuvanted No Primary Care Physician [facility] 06-21-2023 varicella virus vaccine No P [facility] Physician [facility] 06-13-2023 influenza, injectabl e, quadrivalent, preservative free No Primary Care Physician [facility] 06-13-2023 tetanus toxoid, redu samantha diphtheria toxoid, and acellular pertussis vaccine, adsorbed No Primary Care Physician [facility] 11-27-2016 tetanus toxoid, redu samantha diphtheria toxoid, and acellular pertussis vaccine, adsorbed [facility] Work Phone: [facility] 09-30-2014 tetanus and diphther ia toxoids, adsorbed, preservative free, for adult use (2 Lf of tetanus toxoid and 2 Lf of diphtheria toxoid) No Primary Care Physician [facility] Payers Date Payer Category Payer Self-pay [id number] 2022 Medicaid [facility] [id number] 2022 Unknown [id number] 2016 Unknown [id number]. [id number] 2015 Unknown [id number] 1.2.840.806321.1.13.239.2.7.3. [id number] 1995 Unknown [id number] 2.16840.1.180695.3.579.2.668 1995 Unknown [id number] 2.16.840.1.020643.3.579.2.627 1995 Unknown [id number] 2.16840.1.350587.3.579.2.627 1995 Unknown [id number] 2.840.1.398626.3.579.2.627 1995 Unknown [id number] 2.840.1.662066.3.579.2.479 1995 Unknown [id number] 2.840.1.358214.3.579.2.479 1995 Unknown [id number] 2.840.1.051097.3.579.2479 1995 Unknown [id number] 2.840.1.831992.3.579.2479 1995 Unknown [id number] 2.840.1.489982.3.579.2479 1995 Unknown [id number] 2.840.1.395224.3.579.2.479 1995 Unknown [id number] 2.840.1.927452.3.579.2.479 Unknown Unknown [id number] 840.1.679989.3.579.2.462 Unknown [id number] .840.1.078325.3.579.2.462 Unknown [id number] 2.840.1.800907.3.579.2.462 Unknown [id number] 2.840.1.975570.3.579.2.462 Unknown [id number] 2.840.1.740998.3.579.2.462 Unknown [id number] 2.16.840.1.429839.3.579.2.462 Unknown [id number] 2.16.840.1.352399.3.579.2.462 Unknown [id number] 2.16.840.1.252807.3.579.2.462 Unknown [id number] 2.16.840.1.400688.3.579.2.462 Unknown [id number] 2.16840.1.404919.3.579.2.462 Unknown [id number] 2.16840.1.721552.3.579.2.462 Unknown [id number] 2.16840.1.667892.3.579.2.462 Unknown [id number] 2.840.1.309642.3.579.2.462 Unknown [id number] 2.16840.1.440792.3.579.2.462 Unknown [id number] 2.840.1.836459.3.579.2.462 Unknown [id number] 2.840.1.353393.3.579.2.462 Unknown [id number] 2.16840.1.232212.3.579.2.462 Unknown [id number] 2.16840.1.154521.3.579.2.462 Unknown [id number] 2.16840.1.561910.3.579.2.462 Unknown [id number] 2.16840.1.180756.3.579.2.462 Unknown [id number] 2.16840.1.483611.3.579.2.462 Unknown [id number] 2.16840.1.038018.3.579.2.462 Unknown [id number] 2.16840.1.209776.3.579.2.462 Unknown [id number] 2.16840.1.202866.3.579.2.462 Social History Date Type Detail Facility Start: 01-12-2021 End: 09-15-2024 Tobacco smoking status NHIS Current every day smoker [facility] Start: 08-19-2010 End: 05-17-2016 History of tobacco use Cigarette Smoker [facility] Start: 01-12-2021 End: 09-17-2024 Cigarettes smoked current (pack per day) - Reported [facility] Work Phone: Start: 08-22-2017 End: 01-12-2021 Tobacco use and exposure Never used [facility] Start: 01-12-2021 End: 05-22-2022 Alcohol intake Ex-drinker (finding) [facility] Work Phone: Start: 1995 Sex Assigned At Not on file S [facility] Work Phone: Start: 05-12-2022 End: 05-22-2022 Exposure to SARS-CoV-2 (event) Not sure [facility] Tobacco Nicotine Use: 1 pack daily. [facility] Sex Assigned At [facility] Start: 05-29-2021 Heavy tobacco smoker (finding) [facility] Start: 08-22-2017 End: 05-15-2022 Tobacco smoking status NHIS Ex-smoker [facility] Work Phone: Start: 08-19-2010 End: 05-17-2016 History of tobacco use Current smoker [facility] Work Phone: Start: 06-12-2021 End: 12-29-2023 Tobacco smoking status MTIS Unknown if ever smoked [facility] Start: 01-27-2020 Rare [facility] Start: 01-27-2020 None [facility] Start: 01-27-2020 Spouse/ Signif icant Other [facility] Start: 10-06-2014 Cigarettes [facility] Start: 1995 Sex Assigned At Female [facility] Start: 09-16-2024 Alcoholic beverage intake Current non-drinker of alcohol (finding) [facility] Start: 09-16-2024 End: 09-17-2024 Tobacco use panel [facility] National Score (1-10 0), lower number is lower risk 87 [facility] Start: 05-05-2024 [facility] Start: 10-30-2024 Sex Female (finding) [facility] Functional Status Date Assessment Result Facility 11-16-2021 Functional Status Viridiana L[facility]pez 11-30-2014 Are you deaf, or do you have serious difficulty hearing Yes 11/30/2014 10:55 AM ADELITA Fabiana Love Ma Yes [facility] 11-30-2014 Are you blind, or do you have serious difficulty seeing, even when wearing glasses No 11/30/2014 10:55 AM ADELITA Fabiana Love Ma No [facility] 11-30-2014 Do you have serious difficulty walking or climbing stairs Yes 11/30/2014 10:55 AM ADELITA Fabiana Love Ma Yes [facility] 11-30-2014 Do you have difficul ty dressing or bathing No 11/30/2014 10:55 AM ADELITA Fabiana Love Ma No [facility] 11-30-2014 Because of a physica l, mental, or emotional condition, do you have difficulty doing errands alone such as visiting a physician's office or shopping Yes 11/30/2014 10:55 AM ADELITA Fabiana Love Ma [facility] Mental Status Date Assessment Result Facility 11-30-2014 Because of a physica l, mental, or emotional condition, do you have serious difficulty concentrating, remembering, or making decisions No 11/30/2014 10:55 AM ADELITA Fabiana Love Ma No [facility] Clinical Notes 07-13-2020 to 01-05-2025 Lucas Nichole, JESSICA.REHAB DEPARTMENT MANAGER - 10/05/2024 1:30 PM EST Note Date & Type Note Facility 01-05-2025 Progress note [facility] 10-05-2024 History of Present illness Narrative AMBULATORY TELEPHONE VISIT Maryam Conroy has consented to this telephone encounter. Persons Present: patient Chief Complaint/Reason: Follow up visit HPI: Maryam Conroy is 23 weeks who underwent a s/p Laparoscopic appendectomy by Dr. Goode on 09/16.Patient tolerated surgery well without complications. Patient was stable for discharged home few hours after surgery. Spoke with Maryam who states she is doing well > 2 weeks post surgery. Tolerating regular diet without nausea/vomiting and having normal bowel function. Reports that pain has subsided. Surgical incisions are healing well, most of the glue have fell off. Data Reviewed: No new labs Assessment: Follow up visit S/p lap appendectomy Reviewed post operative instructions with patient including but not limited to diet, activity/restrictions and incisional care. Advised to continue to follow lifting restrictions as discussed. Recovering as expected. Follow up PRN Time spent counseling the patient, discussing post surgical recovery, and therapeutic modalities was conducted. This included a total of 10 min, of which, more than 50% was spent face to face with the patient. Total Time Spent: 10 minutes Lucas Nichole APRN.BETZY documented in this encounter [facility] 10-05-2024 Note HNO ID: [id number] Author: LUCAS NICHOLE APRN.CNP Service: ? Author Type: Nurse Practitioner Type: Progress Notes Filed: 10/05/2024 14:05 Note Text: AMBULATORY TELEPHONE VISIT Maryam Conroy has consented to this telephone encounter. Persons Present: patient Chief Complaint/Reason: Follow up visit HPI: Maryam Conroy is 23 weeks who underwent a s/p Laparoscopic appendectomy by Dr. Goode on 09/16.Patient tolerated surgery well without complications. Patient was stable for discharged home few hours after surgery. Spoke with Maryam who states she is doing well > 2 weeks post surgery. Tolerating regular diet without nausea/vomiting and having normal bowel function. Reports that pain has subsided. Surgical incisions are healing well, most of the glue have fell off. Data Reviewed: No new labs Assessment: Follow up visit S/p lap appendectomy Reviewed post operative instructions with patient including but not limited to diet, activity/restrictions and incisional care. Advised to continue to follow lifting restrictions as discussed. Recovering as expected. Follow up PRN Time spent counseling the patient, discussing post surgical recovery, and therapeutic modalities was conducted. This included a total of 10 min, of which, more than 50% was spent face to face with the patient. Total Time Spent: 10 minutes Lucas Nichole APRN.CNP [facility] 09-21-2024 Evaluation note Diagnosis Onset Date Resolution Anxiety acute September 21, 2024 10:40am Current every day smoker acute September 21, 2024 10:40am History of maternal blood transfusion, currently acute September 21 10:40am Hx of depression, currently acute September 21 10:40am Obesity affecting acute September 21 10:40am acute September 21, 2024 10:40am Supervision of high-risk acute September 21 10:40am History of gastroesophageal reflux (GERD) chronic September 21 10:40am Hypothyroidism chronic September 212024 10:40am Abdominal pain, RLQ inactive Febru timothy2024 10:40am Acute appendicitis inactive Februa 2024 10:40am Second trimester inactive September 21 10:40am Anxiety acute October 20 9:16am Current every day smoker acute October 20, 2024 9:16am History of maternal blood transfusion, currently acute October 20, 2024 9:16am Hx of depression, currently acute October 20, 2024 9:16am Obesity affecting acute October 20, 2024 9:16am acute October 20 9:16am Supervision of high-risk acute October 20, 2024 9:16am History of gastroesophageal reflux (GERD) chronic October 20, 2024 9:16am Hypothyroidism chronic October 20, 2024 9:16am Anxiety acute November 02 1:49pm Current every day smoker acute November 02, 2024 1:49pm History of maternal blood transfusion, currently acute November 02, 2024 1:49pm Hx of depression, currently acute November 02, 2024 1:49pm Obesity affecting acute November 02, 2024 1:49pm acute November 02 1:49pm Supervision of high-risk acute November 02, 2024 1:49pm History of gastroesophageal reflux (GERD) chronic November 02, 2024 1:49pm Hypothyroidism chronic October 1:49pm Anxiety acute November 17 8:35am Current every day smoker acute November 17, 2024 8:35am History of maternal blood transfusion, currently acute November 17, 2024 8:35am Hx of depression, currently acute November 17, 2024 8:35am Obesity affecting acute November 17, 2024 8:35am acute November 17 8:35am Supervision of high-risk acute November 17, 2024 8:35am History of gastroesophageal reflux (GERD) chronic November 17, 2024 8:35am Hypothyroidism chronic November 17, 2024 8:35am Anxiety acute December 03 9:49am Current every day smoker acute December 03, 2024 9:49am History of maternal blood transfusion, currently acute December 03, 2024 9:49am Hx of depression, currently acute December 03, 2024 9:49am Obesity affecting acute December 03, 2024 9:49am acute December 03 9:49am Supervision of high-risk acute December 03, 2024 9:49am History of gastroesophageal reflux (GERD) chronic December 03, 2024 9:49am Hypothyroidism chronic November 9:49am Anxiety acute December 14 10:02am Current every day smoker acute December 14, 2024 10:02am History of maternal blood transfusion, currently acute December 14, 2024 10:02am Hx of depression, currently acute December 14, 2024 10:02am Obesity affecting acute December 14, 2024 10:02am acute December 14 10:02am Supervision of high-risk acute December 14, 2024 10:02am History of gastroesophageal reflux (GERD) chronic December 14, 2024 10:02am Hypothyroidism chronic November 10:02am Anxiety acute December 28, 2024 9:50am Current every day smoker acute December 28, 2024 9:50am History of maternal blood transfusion, currently acute December 28, 2024 9:50am Hx of depression, currently acute December 28, 2024 9:50am Obesity affecting acute December 28, 2024 9:50am acute December 28, 2024 9:50am Supervision of high-risk acute December 28, 2024 9:50am History of gastroesophageal reflux (GERD) chronic December 28, 2024 9:50am Hypothyroidism chronic December 28, 2024 9:50am [facility] Work Phone: [phone]) 339-995102-03-2025 Evaluation note* Diagnosis Onset Date Resolution Status Admit Date Anxiety acute September 21, 2024 10:40am Current every day smoker acute September 21, 2024 10:40am History of maternal blood transfusion, currently acute September 21, 2024 10:40am Hx of depression, currently acute September 21, 2024 10:40am Obesity affecting acute September 21, 2024 10:40am acute September 21, 2024 10:40am Supervision of high-risk acute September 21 10:40am History of gastroesophageal reflux (GERD) chronic September 21 10:40am Hypothyroidism chronic September 212024 10:40am Abdominal pain, RLQ inactive Febru 2024 10:40am Acute appendicitis inactive Febr2024 10:40am Second trimester inactive September 21, 2024 10:40am Anxiety acute October 20 9:16am Current every day smoker acute October 20, 2024 9:16am History of maternal blood transfusion, currently acute October 20, 2024 9:16am Hx of depression, currently acute October 20 9:16am Obesity affecting acute October 20, 2024 9:16am acute October 20 9:16am Supervision of high-risk acute October 20, 2024 9:16am History of gastroesophageal reflux (GERD) chronic October 20, 2024 9:16am Hypothyroidism chronic October 20, 2024 9:16am Anxiety acute November 02 1:49pm Current every day smoker acute November 02, 2024 1:49pm History of maternal blood transfusion, currently acute November 02, 2024 1:49pm Hx of depression, currently acute November 02, 2 025 1:49pm Obesity affecting acute November 02, 2024 1:49pm acute November 02 1:49pm Supervision of high-risk acute November 02, 2024 1:49pm History of gastroesophageal reflux (GERD) chronic November 02, 2024 1:49pm Hypothyroidism chronic October 1:49pm Anxiety acute November 17 8:35am Current every day smoker acute November 17, 2024 8:35am History of maternal blood transfusion, currently acute November 17, 2024 8:35am Hx of depression, currently acute November 17 8:35am Obesity affecting acute November 17, 2024 8:35am acute November 17 8:35am Supervision of high-risk acute November 17, 2024 8:35am History of gastroesophageal reflux (GERD) chronic November 17, 2024 8:35am Hypothyroidism chronic November 17, 2024 8:35am Anxiety acute December 03 9:49am Current every day smoker acute December 03, 2024 9:49am History of maternal blood transfusion, currently acute December 03, 2024 9:49am Hx of depression, currently acute December 03, 025 9:49am Obesity affecting acute December 03, 2024 9:49am acute December 03 9:49am Supervision of high-risk acute December 03, 2024 9:49am History of gastroesophageal reflux (GERD) chronic December 03, 2024 9:49am Hypothyroidism chronic November 9:49am Anxiety acute December 14 10:02am Current every day smoker acute December 14, 2024 10:02am History of maternal blood transfusion, currently acute December 14, 2024 10:02am Hx of depression, currently acute December 14, 025 10:02am Obesity affecting acute December 14, 2024 10:02am acute December 14 10:02am Supervision of high-risk acute December 14, 2024 10:02am History of gastroesophageal reflux (GERD) chronic December 14, 2024 10:02am Hypothyroidism chronic November 10:02am Anxiety acute December 28, 2024 9:50am Current every day smoker acute December 28, 2024 9:50am History of maternal blood transfusion, currently acute December 28, 2024 9:50am Hx of depression, currently acute December 28 9:50am Obesity affecting acute December 28, 2024 9:50am acute December 28, 2024 9:50am Supervision of high-risk acute December 28, 2024 9 :50am History of gastroesophageal reflux (GERD) chronic December 28, 2024 9 :50am Hypothyroidism chronic December 28, 2024 9:50am Anxiety acute January 05, 2025 9:31am Current every day smoker acute January 05, 2025 9:31am History of maternal blood transfusion, currently acute January 05, 2025 9:31am Hx of depression, currently acute January 05 9:31am Obesity affecting acute January 05, 2025 9:31am acute January 05, 2025 9:31am Supervision of high-risk acute January 05, 2025 9 :31am History of gastroesophageal reflux (GERD) chronic January 05, 2025 9 :31am Hypothyroidism chronic January 05, 2025 9:31am [facility] Work Phone: 1([phone]) 312-371102-03-2025 Evaluation note* Diagnosis Onset Date Resolution Status Admit Date Anxiety acute September 21, 2024 10:40am Current every day smoker acute September 21, 2024 10:40am History of maternal blood transfusion, currently acute September 21, 2024 10:40am Hx of depression, currently acute September 21, 2024 10:40am Obesity affecting acute September 21, 2024 10:40am acute September 21, 2024 10:40am Supervision of high-risk acute September 21 10:40am History of gastroesophageal reflux (GERD) chronic September 21 10:40am Hypothyroidism chronic September 212024 10:40am Abdominal pain, RLQ inactive Febr2024 10:40am Acute appendicitis inactive Febr2024 10:40am Second trimester inactive September 21, 2024 10:40am Anxiety acute October 20 9:16am Current every day smoker acute October 20, 2024 9:16am History of maternal blood transfusion, currently acute October 20, 2024 9:16am Hx of depression, currently acute October 20 9:16am Obesity affecting acute October 20, 2024 9:16am acute October 20 9:16am Supervision of high-risk acute October 20, 2024 9:16am History of gastroesophageal reflux (GERD) chronic October 20, 2024 9:16am Hypothyroidism chronic October 20, 2024 9:16am Anxiety acute November 02 1:49pm Current every day smoker acute November 02, 2024 1:49pm History of maternal blood transfusion, currently acute November 02, 2024 1:49pm Hx of depression, currently acute November 02, 2 025 1:49pm Obesity affecting acute November 02, 2024 1:49pm acute November 02 1:49pm Supervision of high-risk acute November 02, 2024 1:49pm History of gastroesophageal reflux (GERD) chronic November 02, 2024 1:49pm Hypothyroidism chronic October 1:49pm Anxiety acute November 17 8:35am Current every day smoker acute November 17, 2024 8:35am History of maternal blood transfusion, currently acute November 17, 2024 8:35am Hx of depression, currently acute November 17 8:35am Obesity affecting acute November 17, 2024 8:35am acute November 17 8:35am Supervision of high-risk acute November 17, 2024 8:35am History of gastroesophageal reflux (GERD) chronic November 17, 2024 8:35am Hypothyroidism chronic November 17, 2024 8:35am Anxiety acute December 03 9:49am Current every day smoker acute December 03, 2024 9:49am History of maternal blood transfusion, currently acute December 03, 2024 9:49am Hx of depression, currently acute December 03, 2 025 9:49am Obesity affecting acute December 03, 2024 9:49am acute December 03 9:49am Supervision of high-risk acute December 03, 2024 9:49am History of gastroesophageal reflux (GERD) chronic December 03, 2024 9:49am Hypothyroidism chronic November 9:49am Anxiety acute December 14 10:02am Current every day smoker acute December 14, 2024 10:02am History of maternal blood transfusion, currently acute December 14, 2024 10:02am Hx of depression, currently acute December 14, 2 025 10:02am Obesity affecting acute December 14, 2024 10:02am acute December 14 10:02am Supervision of high-risk acute December 14, 2024 10:02am History of gastroesophageal reflux (GERD) chronic December 14, 2024 10:02am Hypothyroidism chronic November 10:02am Anxiety acute December 28, 2024 9:50am Current every day smoker acute December 28, 2024 9:50am History of maternal blood transfusion, currently acute December 28, 2024 9:50am Hx of depression, currently acute December 28 9:50am Obesity affecting acute December 28, 2024 9:50am acute December 28, 2024 9:50am Supervision of high-risk acute December 28, 2024 9 :50am History of gastroesophageal reflux (GERD) chronic December 28, 2024 9 :50am Hypothyroidism chronic December 28, 2024 9:50am Anxiety acute January 05, 2025 9:31am Current every day smoker acute January 05, 2025 9:31am History of maternal blood transfusion, currently acute January 05, 2025 9:31am Hx of depression, currently acute January 05 9:31am Obesity affecting acute January 05, 2025 9:31am acute January 05, 2025 9:31am Supervision of high-risk acute January 05, 2025 9 :31am History of gastroesophageal reflux (GERD) chronic January 05, 2025 9 :31am Hypothyroidism chronic January 05, 2025 9:31am Anxiety acute January 12, 2025 1:15pm Current every day smoker acute January 12, 2025 1:15pm History of maternal blood transfusion, currently acute January 12, 2025 1:15pm Hx of depression, currently acute January 12 1:15pm Obesity affecting acute January 12, 2025 1:15pm acute January 12, 2025 1:15pm Supervision of high-risk acute January 12, 2025 1 :15pm History of gastroesophageal reflux (GERD) chronic January 12, 2025 1 :15pm Hypothyroidism chronic January 12, 2025 1:15pm [facility] Work Phone: 1(300) 563-313001-29-2025 NoteHNO ID: [id number] Author: ROSAS POLLACK DO Service: Obstetrics Author Type: Resident Type: Progress Notes Filed: 09/16/2024 10:35 Note Text: Point of care ultrasound performed after procedure. heart tones measured 124 bpm. Rosas Pollack DO 10:34 [facility]01-29-2025 NoteHNO ID: [id number] Author: ANGELICA CABALLERO APRN.CRNA Service: Anesthesiology Author Type: Nurse Monitoring Specialist Type: Anesthesia Procedure Notes Filed: 09/16/2024 09:11 Note Text: ANESTHESIOLOGY PROCEDURE NOTE Airway General Information Procedure Start Time/Medication Administration: 09/16/2024 8:54 AM Procedure End Time: 09/16/2024 8:54 AM Patient location during procedure: OR Timeout Performed Pre-procedure: timeout performed Consent Obtained: Yes Patient identity confirmed: arm band Staffing GLASS ARTIST: Angelica Caballero APRN.GLASS ARTIST Performed by: MARTÍNEZ Indications and Patient Condition Indications for airway management: anesthesia and airway protection Preoxygenated: yes anesthesia circuit Patient position: sniffing Method: asleep Cricoid Pressure: No Manual In-Line Stabilization: No Difficult Mask: No Final Airway Details Final airway type: endotracheal airway Final Endotracheal Airway: ETT Cuffed: yes Successful intubation technique: direct laryngoscopy Endotracheal tube insertion site: oral Blade: Dueñas Blade size: #2 ETT size (mm): 7.0 Measured from: lips Measurement (cm): 22 Placement verified by: chest auscultation and capnometry Cormack-Lehane Classification: grade I - full view of glottis Number of attempts at approach: 1 Airway not difficult SIGNATURE: Angelica Caballero APRN.CRNA PATIENT NAME: Maryam Conroy DATE: September 16, 2024 TIME: 9:10 AM [facility]: [id number] NoteHNO ID: [id number] Author: DARA YOUNG DO Service: Obstetrics Author Type: Resident Type: Progress Notes Filed: 09/16/2024 08:21 Note Text: Unable to obtain doppler FHR due to body habitus. Bedside ultrasound performed: FHR 132 bpm movement noted during scan Will repeat POCUS for FHR post-operatively. Please page [phone] when patient ready for scan in PACU. Dara Young DO Obstetrics and Gynecology [facility]25 NoteHNO ID: [id number] Author: LAKEISHA WHITE MD Service: Maternal Medicine Author Type: Resident Type: Plan of Care Filed: 09/16/2024 03:41 Note Text: General guidelines: -In general, goals for a woman include: Slight left lateral tilt or slightly upright positioning to displace the gravid uterus off of the vena cava Maintain O2 sat >95% BP greater than 90/40 to maximize uterine perfusion If using the ABG to adjust oxygen supplementation or vent changes, consider physiologic normal values in (pH 7.40-7.47, pCO2 27-34, po2 106-108, bicarb 18-22, bd 3) Imaging guidelines: MRI: Most studies evaluating MRI safety during show no ill effects. It is good practice to avoid MRI during , particularly for elective studies or during the first trimester, but MRI remains preferable to any studies using ionizing radiation. Intravenous gadolinium is generally contra-indicated in , given that teratogenic effects have been demonstrated in animal studies, and should only be used if absolutely essential, and only after discussion of risks and benefits with the patient and referring clinician. CT scans should be avoided in all trimesters of unless absolutely necessary, because it may cause up to a doubling of the risk of fatal childhood cancer, which is low overall. Teratogenesis however is not a major concern after diagnostic CT studies of the pelvis in , because the radiation dose is generally too low to cause such effects. Despite in vitro concerns, iodinated contrast seems safe to use in . -- Place lead apron over abdomen/pelvic when feasible for any additional imaging studies Medication guidelines: - Narcotics and Tylenol safe for use in . Avoid NSAIDs. - Avoid tetracyclines and fluoroquinolones - Anticoagulation: heparin and lovenox safe to use. Avoid Coumadin - Call with any other medication questions Safe Over the Counter Medications in Allergy Diphenhydramine (Benadryl?) Loratidine (Claritin?) Cetirizine (Zyrtec?) Cold and Flu Diphenhydramine (Benadryl)* Dextromethorphan (Robitussin?)* Guaifenesin (Mucinex? [plain]) * Vicks Vapor Rub? mentholated cream Mentholated or non-mentholated cough drops (Sugar-free cough drops for gestational diabetes should not contain blends of herbs or aspartame) Pseudoephedrine ([Sudafed?] after 1st trimester, limited use in 2nd and 3rd trimester) Acetaminophen (Tylenol?)* Saline nasal drops or spray Warm salt/water gargle *Note: Do not take the SA (Sustained Action) form of these drugs or the Multi-Symptom form of these drugs. Do not use Nyquil? due to its high alcohol content. Diarrhea Loperamide ([Imodium?] after 1st trimester, for 24 hours only) Constipation Methylcellulose fiber (Citrucel?) Docusate (Colace?) Psyllium (Fiberall?, Metamucil?) Polycarbophil (FiberCon?) Polyethylene glycol (MiraLAX?) First Aid Ointment Bacitracin Neomycin/polymyxin B/bacitracin (Neosporin?) Headache Acetaminophen (Tylenol) Heartburn Famotidine (Pepcid AC?) Aluminum hydroxide/magnesium hydroxide (Maalox?) Calcium carbonate/magnesium carbonate (Mylanta?) Calcium carbonate (Titralac?, Tums?) Hemorrhoids Phenylephrine/mineral oil/petrolatum (Preparation H?) Witch howard (Tucks? pads or ointment) Insect Repellent N,K-scnksxn-wckx-toluamide (DEET?) Nausea and Vomiting Diphenhydramine (Benadryl) Vitamin B6 Rashes Diphenhydramine cream (Benadryl) Hydrocortisone cream or ointment Oatmeal bath (Aveeno?) Sleep Diphenhydramine (Unisom SleepGels?, Benadryl) Yeast infection Miconazole (Monistat?) SIGNATURE: Lakeisha White MD PATIENT NAME: Maryam Conroy DATE: 09/16/2024 TIME: 3:40 AM PAGER/CONTACT #: [phone] CASINO ATTENDANT Service Pager: For questions or concerns regarding: -Obstetric patients or consults, please page [phone] Evaluation note* Diagnosis Onset Date Resolution Status Admit Date Anxiety acute July 31, 2024 1:21pm Current every day smoker acute July 31, 2024 1:21pm History of maternal blood transfusion, currently acute July 31, 2024 1:21pm Hx of depression, currently acute July 1:21pm Obesity affecting acute July 31, 2024 1:21pm acute July 31, 2024 1:21pm Supervision of high-risk acute July 31, 2 024 1:21pm History of gastroesophageal reflux (GERD) chronic July 31, 2 024 1:21pm Hypothyroidism chronic July 192023 1:21pm Anxiety acute September 21, 2024 10:40am Current every day smoker acute September 21, 2024 10:40am History of maternal blood transfusion, currently acute September 21, 2024 10:40am Hx of depression, currently acute September 21, 2024 10:40am Obesity affecting acute September 21, 2024 10:40am acute September 21, 2024 10:40am Supervision of high-risk acute September 21 10:40am History of gastroesophageal reflux (GERD) chronic September 21 10:40am Hypothyroidism chronic September 212024 10:40am Abdominal pain, RLQ inactive Febru timothy2024 10:40am Acute appendicitis inactive Februa 2024 10:40am Second trimester inactive September 21, 2024 10:40am Anxiety acute October 20 9:16am Current every day smoker acute October 20, 2024 9:16am History of maternal blood transfusion, currently acute October 20, 2024 9:16am Hx of depression, currently acute October 20 9:16am Obesity affecting acute October 20, 2024 9:16am acute October 20 9:16am Supervision of high-risk acute October 20, 2024 9:16am History of gastroesophageal reflux (GERD) chronic October 20, 2024 9:16am Hypothyroidism chronic October 20, 2024 9:16am [facility] Work Phone: 1(715) 580-986205-12-2024 Discharge summary Author Panda Cooper [facility] December 29, 2023 8:05pm Note Date/Time December 29, 2023 7:25p m [facility] Medical Records Department [address] [place] [address] Emergency Department Summary 12/29/23 MR#: [id number] Acct: [id number] Name: MARYAM CONROY Rep #:[id number] 05 : 1995 28 From: Panda Cooper MD PCP: Care Physician,No Primary Status :REG ER Location: ED HPI History of Present Illness Chief Complaint: Lower Extremity Injury Informant: patient Narrative Narrative: 28-year-old female was barefoot in her kitchen, her son pulled one of the cabinetry panels off of their cabinetry below the sink, a placeholder for what otherwise would be a drawer but is not because there is a sink there, and it fell hitting her squarely in the dorsum of the right great toe at the base of the nail. She is having severe pain on the toe and states that she can hardly bear any weight because of the pain. She denies injury anywhere else and no other toe. [facility] Medical History (Updated 12/29/23 @ 20:[address] Panad Cooper MD) Arthritis Asthma Back pain Hemorrhoids Shoulder pain Thyroid disease Home Medications etonogestrel 68 mg subdermal implant (Nexplanon) 1 implant subdermal ONCE 08/24/19 [History Last Taken Unknown] Allergy/AdvReac Type Severity Reaction Status Date / Time bee venom protein (honey bee) Allergy Swelling Verified 06/12/21 17:12 shellfish derived Allergy Nausea/Vom/ Verified 12/29/23 19:06 Diarrhea naproxen AdvReac Other Verified 06/12/21 17:12 Family History Other Arthritis Asthma Cancer Heart disease Hypertension Surgical History History of foot surgery History of tonsillectomy Social History household members: spouse Smoking Status: Current every day smoker tobacco type: e-cigarettes alcohol intake: never substance use type: does not use ROS ROS ED Constitutional Constitutional ED: Denies chills or fever(s) Musculoskeletal Musculoskeletal: Reports extremity pain; Denies neck pain Integumentary Denies Abrasions, rash or wounds Neurologic Neurologic: Denies paresthesias or weakness EXAM Physical Exam Const Vital Signs: 12/29/23 19:06 Temperature 98 F Temperature Source Temporal Pulse Rate 102 H Respiratory Rate 22 H Blood Pressure 133/81 H Blood Pressure Mean 98 Pulse Ox 98 Oxygen Delivery Method Room Air Positive well nourished and well developed General Appearance ED: well developed and NAD Neck full ROM and supple Back/Spine normal ROM and normal to inspection Extremity Extremity Narrative: Normal-appearing right foot including the great toe. Her toenails have black icelandic on them, there is no way to evaluate for subungual hematoma given this. Very tender at the IPJ and distally, the MTPJ is nontender limited range of motion due to pain no other areas of tenderness. Neuro oriented x3, no focal motor deficits and no sensory deficits noted Sensorium / Orientation: alert Psych thought process normal Mood & Affect: anxious Skin no wounds Rashes: no rashes MDM MDM MDM Narrative Medical decision making narrative: Three-view x-ray series of the right great toe were obtained and on my interpretation show no acute fracture or dislocation. Patient was reassured. Ihad nurses try to dissolve the nail icelandic on her toe. All we have are nonacetone chemical pads. The patient was crying when the nurse was trying to put any pressure on the nail to remove it, she states they are gel coat which would take acetone and a soak. On reinspection I am not able to rule out or rule in a subungual hematoma. Given this I do not recommend trephination. Patient understands, she was given ibuprofen since she drove herself here, as well as an ice pack and a postop shoe. Discharge Plan Triage Chief Complaint: Lower Extremity Injury ED Provider: Panda Cooper Dx/Rx/DC Orders Clinical Impression: Contusion of great toe, right Instructions: ED Finger or Toe Contusion Prescriptions: No Action Nexplanon 68 mg implant 1 implant subdermal ONCE Rx Instructions: as a single dose Primary Care Provider: Care Physician,No Primary Referrals: Jesus Molina DPM [Med Staff - Active Staff] - 1 Week if not improving Activity Restrictions/Additional Instructions: If you are able to soak your toe in acetone to remove the gel coat, and to see what appears to be a large bruise beneath the nail, you may be a candidate for aprocedure called trephination which we burned a small hole in the nail to relieve your pain but this needs to be done to soon as possible. Disposition Disposition: Home, Self Care What to do if you have Problems For any increased pain, shortness of breath, bleeding, nausea or vomiting, chestpain, or any unexpected problems, contact your Primary Care Provider. Call [facility] ([phone]) or report to the closest Emergency Room. Call 911 if necessary. 12/29/232004 <Electronically signed by Panda Cooper MD> Cosigner Signature (if applicable): CC: No Primary Care Physician ~ Signed [facility] Work Phone: 1(284) 395-759410-04-2022 History of Present illness Narrative* Emili Verde RN - 05/22/2022 3:07 PM EDT 1457 received from OR on cart right foot dressing guaze with sincere wrap dressing D&I PPP strong good cap refill warm to touch foot toes documented in this [facility] Work Phone: 1(814) 206-601310-04-2022 Hospital Discharge instructions* Discharge Instructions* BOONE Busch - 05/22/2022 1:23 PM EDT Images from the original note were not included. If you have any questions please call Dr Ramirez's office ([phone]), all calls after 4:30 pm or anytime on Saturday or Saturday go through the answering service. The nurse at the answering service will triage your call to determine if the at night on-call physician needs to be called (this may notbe Dr Ramirez but one of his partners if Dr Ramirez is not environmental coordinator). Any calls regarding medication refills will be handled by the office during usual business hours Saturday-Saturday. If you call for medication refills after hours or on the weekend you will have to wait until the next business day. BANDAGE INSTRUCTIONS: Keep your bandage clean and dry. Do not put anything down under the dressings to scratch. If your bandage gets wet or starts to feel uncomfortable call Dr Ramirez's office immediately ([phone]). Leave the dressing in place, you do not need to change it unless you are instructed to do so by . If there are problems with the dressing (it feels to tight, too loose, it gets wet) call 's office. If you see any blood on the bandage reinforce it on the surface with gauze and an sincere bandage and call Dr Ramirez's office. Please call if you have any questions concerning your bandage/splint. ACTIVITY: The first 2 weeks after surgery is the most important time for healing. Please take this time to rest and give yourself the best chance to have a good outcome. Doing too much can affect your healing.If you are not sure how active you can be please call Dr Ramirez. You should get up and move around once or twice an hour based on your comfort level. You are not marissa at bed rest meaning you need to get up and move around in order to prevent blood clots. It is OK to wiggle your toes and you can contract your calf muscle as well. When you put your foot down it is normal for the toes to turn a bluish or purple color. Once you elevate the foot for a few minutes a normal pink color should return underneath the toenails. If the color does not change within [address] Ramirez's office. Keep your foot/ankle elevated for comfort. Elevation is the best way to alleviate pain and decreaseyour swelling (swelling causes pain by itself). Elevation means keeping the toes at the level of your nose. If your leg is not elevated to that height then it is not truly elevated. MEDICATIONS You have been given a prescription for a narcotic medication that is intended for postoperative pain control. This medication should be used judiciously to try and minimize your discomfort after surgery. The medication will not relieve all of your pain and you should not take large amounts of the medication in an attempt to be pain free. Please understand that narcotic medications can be addictive and they are intended to decrease but not eliminate your pain and should therefore be used in moderation. If you have questions regarding taking the narcotic medication and other medications that you are currently on please call the office. You cannot drive or operate machinery while taking the narcotic medication. You should not drink alcohol or use recreational drugs while taking the narcotic medication.[facility] restricts the amount of pain pills that can be legally prescribed and no more than one prescription in a week can be given. If you require a refill of the pain medication it requires that someone come to the office in person as it cannot be called in to the pharmacy or E-prescribed. Please understand that there is a limit to the total amount of pain medication that canbe prescribed so make every effort to take it only when needed. Unless otherwise instructed by Dr Ramirez you can take an over the counter anti-inflammatory to help with your pain as well. This includes but is not limited to Ibuprofen, Advil, Motrin, Alleve, etc. WEIGHTBEARING INSTRUCTIONS Dr Ramirez wants you to be weight bearing as tolerated on the Right lower extremity. If you have any problems maintaining this weight bearing status please call the office so that appropriate instructions can be given. FREQUENTLY ASKED QUESTIONS If I am supposed to be non-weight bearing on the operative foot/ankle can I still rest the foot on the ground when I am sitting? Yes, it is OK to rest your operative foot on the ground when you are sitting. Is it normal to feel a oneill of fluid or pressure in my foot/ankle when I put it down? Yes, after most foot, ankle or leg surgeries it is very common to feel immediate swelling or pressure in your foot, ankle and leg. Is it OK to put ice on my foot/ankle to help with the swelling and pain? After foot/ankle surgery elevating the foot/ankle is much better at relieving pain and swelling than ice. In many cases you bandage prevents the cold from getting to your skin. At your 2 week visit when your bandage is removed, icing the foot/ankle works much better and you can start it then. If I received a nerve block before surgery, how long will it last? A single shot nerve block can last anywhere from 8 hours to 36 hours on average, some patients' single shot blocks stop sooner and some can go a little longer. A catheter block (pain ball) lasts longer when you have it dialed down and it runs out faster if you have it dialed up. For most patients it lasts for a day and a half to 3 days. Can I shower or bathe after surgery? Yes, you can shower or bathe after surgery but you have to put a plastic bag over your splint/dressing to keep the splint/bandage absolutely dry. The splint/bandage is like a sponge and any water that gets in can damage your skin or cause your incision/incisions to open up and get infected. If your splint/bandage gets water in it, call Dr. Ramirez's office ([phone]) immediately and you will beinstructed which office can see your the quickest to change your splint/bandage. * Discharge Instr - Activity* BOONE Busch - 05/22/2022 1:24 PM EDT Weight-bearing and post-operative activity Dr Ramirez wants you to be weight bearing as tolerated on the Right lower extremity. If you have any problems maintaining this weight bearing status please call the office so that appropriate instructions can be given. Dr. Ramirez wants you to be as active as your comfort will allow. Remember that when you get up it isnormal for your foot/toes to change color and for you to feel fluid, pressure or throbbing (your heart beat) in your foot or toes. When you return to sitting down or laying down elevate your foot as it will lessen your swelling and be more comfortable. If you are having a hard time moving around during the day, let Dr Ramirez know. * Discharge Instr - Diet* BOONE Busch - 05/22/2022 1:24 PM EDT Good nutrition is important when healing from an illness, injury, or surgery. Follow any nutrition recommendations given to you during your hospital stay. If you were given an oral nutrition supplement while in the hospital, continue to take this supplement at home. You can take it with meals, in-between meals, and/or before bedtime. These supplements can be purchased at most local grocery stores, pharmacies, and chain [employer]-stores. If you have any questions about your diet or nutrition, call the hospital and ask for the dietitian. documented in this [facility] Work Phone: [phone]) 856-623403-29-2022 Evaluation + Plan note Future Scheduled Tests Laboratory* Complete Blood Count 11/14/21 Radiology* XR Spine Cervical AP/LAT 11/03/21 [facility] 03-18-2022 Evaluation + Plan note Future Scheduled Tests Laboratory* Urine Free Cortisol by LC-MS/MS 11/03/21 Radiology* XR Spine Cervical AP/LAT 11/03/21 [facility] 03-18-2022 Evaluation + Plan note Future Scheduled Tests Radiology* XR Spine Cervical AP/LAT 11/03/21 [facility] 06-08-2021 History of Present illness Narrative* Gilbert Lamar RN - 01/24/2021 2:10 PM EDT CRNAs at bedside for block. * Kalyani Greenwood RN - 01/24/2021 8:50 AM EDT SCD's applied documented in this [facility] Work Phone: [phone]) 693-497106-08-2021 Hospital Discharge instructions* Discharge Instr - Activity* Carlos Ramirez MD - 01/24/2021 10:47 AM EDT Weight-bearing and post-operative activity Dr Ramirez wants you to be nonweight bearing on the Right lower extremity. You will continue this weight bearing restriction for the next 6 weeks If you have any problems maintaining this weight bearing status please call the office so that appropriate instructions can be given. Dr. Ramirez wants you to get up once per hour during the day to move around for a few minutes while following the above weight bearing orders. He does not want you to be in bed or on a couch all day not getting up. Getting up and moving once per hour helps to promote blood flow and is one way of trying to prevent a blood clot. Remember that when you get up it is normal for your foot/toes to change color and for you to feel fluid, pressure or throbbing (your heart beat) in your foot or toes. When you return to sitting down or laying down elevate your foot as it will lessen your swelling and be more comfortable. If you are having a hard time moving around during the day, let Dr Ramirez know. * Discharge Instr - Diet* Carlos Ramirez MD - 01/24/2021 10:47 AM EDT Good nutrition is important when healing from an illness, injury, or surgery. Follow any nutrition recommendations given to you during your hospital stay. If you were given an oral nutrition supplement while in the hospital, continue to take this supplement at home. You can take it with meals, in-between meals, and/or before bedtime. These supplements can be purchased at most local grocery stores, pharmacies, and [employer]-stores. If you have any questions about your diet or nutrition, call the hospital and ask for the dietitian. VITAMIN D and Calcium Dr Ramirez wants you to take 10,000 IU of Vitamin D and 1000 mg of Calcium daily for the next 6 weeks. This will help your bone fusion to heal. * Additional Instructions* Carlos Ramirez MD - 01/24/2021 Images from the original note were not included. SPLINT INSTRUCTIONS Keep your splint clean and dry. Do not put anything down in the splint to scratch. If your splint gets wet or starts to feel uncomfortable call Dr Ramirez immediately ([phone]). If you see any blood on the outside bandage reinforce it on the surface with gauze and an sincere bandage and call Dr Ramirez [phone]. Do not walk or stand on your splint. You can rest the splint on the floor but do not put weight on it. You should get up and move around once or twice an hour based on your comfort level. You are notto be at bed rest meaning you need to get up and move around in order to prevent blood clots. It is OK to wiggle your toes and you can contract your calf muscle inside the splint as well. When you put your foot down it is normal for the toes to turn a bluish or purple color. Once you elevate the foot for a few minutes a normal pink color should return underneath the toenails. If the color does not change within 10 minutes after elevating call Dr. Ramirez. ELEVATION Keep your foot/ankle elevated for comfort. Elevating your foot/ankle is the best way to control your swelling and pain. Elevation means keeping the toes at the level of your nose. If your leg is not elevated to that height then it is not truly elevated. Correct elevation height Incorrect elevation height MEDICATIONS You have been given a prescription for a narcotic medication that is intended for postoperative pain control. This medication should be used judiciously to try and minimize your discomfort after surgery. The medication will not relieve all of your pain and you should not take large amounts of the medication in an attempt to be pain free. Please understand that narcotic medications can be addictive and they are intended to decrease but not eliminate your pain and should therefore be used in moderation. If you have questions regarding taking the narcotic medication and other medications that you are currently on please call the office. You cannot drive or operate machinery while taking the narcotic medication. You should not drink alcohol or use recreational drugs while taking the narcotic medication.[facility] restricts the amount of pain pills that can be legally prescribed and no more than one prescription in a week can be given. If you require a refill of the pain medication it requires that someone come to the office in person as it cannot be called in to the pharmacy or E-prescribed. Please understand that there is a limit to the total amount of pain medication that canbe prescribed so make every effort to take it only when needed. Unless otherwise instructed by Dr Ramirez you can take an over the counter anti-inflammatory to help with your pain as well. This includes but is not limited to Ibuprofen, Advil, Motrin, Alleve, etc. A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 10:02am December 14, 2024 10: 02am Supervision of high-risk December 14, 2024 10:02am History of gastroesophageal reflux (GERD ) December 14, 2024 10:02am Hypothyroidism December 14, 2024 10: 02am Anxiety December 28, 2024 9:50a m Current every day smoker December 28, 2024 9:50am History of maternal blood transfusion, c urrently December 28, 2024 9:50am Hx of depression, currently p regnant December 28, 2024 9:50am Obesity affecting December 28 9:50am December 28, 2024 9:50a m Supervision of high-risk December 172024 9:50am History of gastroesophageal reflux (GERD ) December 28, 2024 9:50am Hypothyroidism December 28, 2024 9:50a m Chief Complaint Admit Date ABDOMINAL PAIN September 15, 2024 5 :06pm ABD PAIN September 15, 2024 6 :01pm ABDOMINAL PAIN September 20, 2024 5 :38pm 22 wk OB September 21, 2024 1 0:40am 26 wk ob October 20, 2024 9:16 am 28 wk ob November 02, 2024 1:4 9pm 30 wk ob November 17, 2024 8:35 am 32 wk ob December 03, 2024 9:4 9am 34wk ob December 14, 2024 10: 02am 36wk ob December 28, 2024 9:50a m 37wk ob January 05, 2025 9:31a m Reason for Visit Admit Date Anxiety September 21, 2024 1 0:40am Current every day smoker September 21, 10:40am History of maternal blood transfusion, c urrently September 21, 2024 10:40am Hx of depression, currently p regnant September 21, 2024 10:40am Obesity affecting September 10:40am September 21, 2024 1 0:40am Supervision of high-risk u 2024 10:40am History of gastroesophageal reflux (GERD ) September 21, 2024 10:40am Hypothyroidism September 21, 2024 1 0:40am Abdominal pain, RLQ September 21, 2024 1 0:40am Acute appendicitis September 21, 2024 1 0:40am Second trimester September 21, 2024 10:40am Anxiety October 20, 2024 9:16 am Current every day smoker October 20, 2024 9:16am History of maternal blood transfusion, c urrently October 20, 2024 9:16am Hx of depression, currently p regnant October 20, 2024 9:16am Obesity affecting October 20 025 9:16am October 20, 2024 9:16 am Supervision of high-risk October 20, 2024 9:16am History of gastroesophageal reflux (GERD ) October 20, 2024 9:16am Hypothyroidism October 20, 2024 9:16 am Anxiety November 02, 2024 1:4 9pm Current every day smoker November 02 1:49pm History of maternal blood transfusion, c urrently November 02, 2024 1:49pm Hx of depression, currently p regnant November 02, 2024 1:49pm Obesity affecting November 02, 2024 1:49pm November 02, 2024 1:4 9pm Supervision of high-risk November 02, 2024 1:49pm History of gastroesophageal reflux (GERD ) November 02, 2024 1:49pm Hypothyroidism November 02, 2024 1:4 9pm Anxiety November 17, 2024 8:35 am Current every day smoker November 17, 2024 8:35am History of maternal blood transfusion, c urrently November 17, 2024 8:35am Hx of depression, currently p regnant November 17, 2024 8:35am Obesity affecting November 17 8:35am November 17, 2024 8:35 am Supervision of high-risk November 17, 2024 8:35am History of gastroesophageal reflux (GERD ) November 17, 2024 8:35am Hypothyroidism November 17, 2024 8:35 am Anxiety December 03, 2024 9:4 9am Current every day smoker December 03 9:49am History of maternal blood transfusion, c urrently December 03, 2024 9:49am Hx of depression, currently p regnant December 03, 2024 9:49am Obesity affecting December 03, 2024 9:49am December 03, 2024 9:4 9am Supervision of high-risk December 03, 2024 9:49am History of gastroesophageal reflux (GERD ) December 03, 2024 9:49am Hypothyroidism December 03, 2024 9:4 9am Anxiety December 14, 2024 10: 02am Current every day smoker December 14 10:02am History of maternal blood transfusion, c urrently December 14, 2024 10:02am Hx of depression, currently p regnant December 14, 2024 10:02am Obesity affecting December 14, 2024 10:02am December 14, 2024 10: 02am Supervision of high-risk December 14, 2024 10:02am History of gastroesophageal reflux (GERD ) December 14, 2024 10:02am Hypothyroidism December 14, 2024 10: 02am Anxiety December 28, 2024 9:50a m Current every day smoker December 28, 2024 9:50am History of maternal blood transfusion, c urrently December 28, 2024 9:50am Hx of depression, currently p regnant December 28, 2024 9:50am Obesity affecting December 28 9:50am December 28, 2024 9:50a m Supervision of high-risk December 172024 9:50am History of gastroesophageal reflux (GERD ) December 28, 2024 9:50am Hypothyroidism December 28, 2024 9:50a m Anxiety January 05, 2025 9:31a m Current every day smoker January 05, 2025 9:31am History of maternal blood transfusion, c urrently January 05, 2025 9:31am Hx of depression, currently p regnant January 05, 2025 9:31am Obesity affecting January 05 9:31am January 05, 2025 9:31a m Supervision of high-risk December 182024 9:31am History of gastroesophageal reflux (GERD ) January 05, 2025 9:31am Hypothyroidism January 05, 2025 9:31a m Chief Complaint Admit Date ABDOMINAL PAIN September 15, 2024 5 :06pm ABD PAIN September 15, 2024 6 :01pm ABDOMINAL PAIN September 20, 2024 5 :38pm 22 wk OB September 21, 2024 1 0:40am 26 wk ob October 20, 2024 9:16 am 28 wk ob November 02, 2024 1:4 9pm 30 wk ob November 17, 2024 8:35 am 32 wk ob December 03, 2024 9:4 9am 34wk ob December 14, 2024 10: 02am 36wk ob December 28, 2024 9:50a m 37wk ob January 05, 2025 9:31a m R/O January 06, 2025 7:35p m Chief Complaint Admit Date ABDOMINAL PAIN September 15, 2024 5 :06pm ABD PAIN September 15, 2024 6 :01pm ABDOMINAL PAIN September 20, 2024 5 :38pm 22 wk OB September 21, 2024 1 0:40am 26 wk ob October 20, 2024 9:16 am 28 wk ob November 02, 2024 1:4 9pm 30 wk ob November 17, 2024 8:35 am 32 wk ob December 03, 2024 9:4 9am 34wk ob December 14, 2024 10: 02am 36wk ob December 28, 2024 9:50a m 37wk ob January 05, 2025 9:31a m R/O January 06, 2025 7:35p m 38wk ob January 12, 2025 1:15p m Reason for Visit Admit Date Anxiety September 21, 2024 1 0:40am Current every day smoker September 21 10:40am History of maternal blood transfusion, c urrently September 21, 2024 10:40am Hx of depression, currently p regnant September 21, 2024 10:40am Obesity affecting September 10:40am September 21, 2024 1 0:40am Supervision of high-risk u [email or web address] 10:40am History of gastroesophageal reflux (GERD ) September 21, 2024 10:40am Hypothyroidism September 21, 2024 1 0:40am Abdominal pain, RLQ September 21, 2024 1 0:40am Acute appendicitis September 21, 2024 1 0:40am Second trimester September 21, 2024 10:40am Anxiety October 20, 2024 9:16 am Current every day smoker October 20, 2024 9:16am History of maternal blood transfusion, c urrently October 20, 2024 9:16am Hx of depression, currently p regnant October 20, 2024 9:16am Obesity affecting October 20, 025 9:16am October 20, 2024 9:16 am Supervision of high-risk October 20, 2024 9:16am History of gastroesophageal reflux (GERD ) October 20, 2024 9:16am Hypothyroidism October 20, 2024 9:16 am Anxiety November 02, 2024 1:4 9pm Current every day smoker November 02 1:49pm History of maternal blood transfusion, c urrently November 02, 2024 1:49pm Hx of depression, currently p regnant November 02, 2024 1:49pm Obesity affecting November 02, 2024 1:49pm November 02, 2024 1:4 9pm Supervision of high-risk November 02, 2024 1:49pm History of gastroesophageal reflux (GERD ) November 02, 2024 1:49pm Hypothyroidism November 02, 2024 1:4 9pm Anxiety November 17, 2024 8:35 am Current every day smoker November 17, 2024 8:35am History of maternal blood transfusion, c urrently November 17, 2024 8:35am Hx of depression, currently p regnant November 17, 2024 8:35am Obesity affecting November 17 8:35am November 17, 2024 8:35 am Supervision of high-risk November 17, 2024 8:35am History of gastroesophageal reflux (GERD ) November 17, 2024 8:35am Hypothyroidism November 17, 2024 8:35 am Anxiety December 03, 2024 9:4 9am Current every day smoker December 03 9:49am History of maternal blood transfusion, c urrently December 03, 2024 9:49am Hx of depression, currently p regnant December 03, 2024 9:49am Obesity affecting December 03, 2024 9:49am December 03, 2024 9:4 9am Supervision of high-risk December 03, 2024 9:49am History of gastroesophageal reflux (GERD ) December 03, 2024 9:49am Hypothyroidism December 03, 2024 9:4 9am Anxiety December 14, 2024 10: 02am Current every day smoker December 14 10:02am History of maternal blood transfusion, c urrently December 14, 2024 10:02am Hx of depression, currently p regnant December 14, 2024 10:02am Obesity affecting December 14, 2024 10:02am December 14, 2024 10: 02am Supervision of high-risk December 14, 2024 10:02am History of gastroesophageal reflux (GERD ) December 14, 2024 10:02am Hypothyroidism December 14, 2024 10: 02am Anxiety December 28, 2024 9:50a m Current every day smoker December 28, 2024 9:50am History of maternal blood transfusion, c urrently December 28, 2024 9:50am Hx of depression, currently p regnant December 28, 2024 9:50am Obesity affecting December 28 9:50am December 28, 2024 9:50a m Supervision of high-risk December 172024 9:50am History of gastroesophageal reflux (GERD ) December 28, 2024 9:50am Hypothyroidism December 28, 2024 9:50a m Anxiety January 05, 2025 9:31a m Current every day smoker January 05, 2025 9:31am History of maternal blood transfusion, c urrently January 05, 2025 9:31am Hx of depression, currently p regnant January 05, 2025 9:31am Obesity affecting January 05 9:31am January 05, 2025 9:31a m Supervision of high-risk December 182024 9:31am History of gastroesophageal reflux (GERD ) January 05, 2025 9:31am Hypothyroidism January 05, 2025 9:31a m Anxiety January 12, 2025 1:15p m Current every day smoker January 12, 2025 1:15pm History of maternal blood transfusion, c urrently January 12, 2025 1:15pm Hx of depression, currently p regnant January 12, 2025 1:15pm Obesity affecting January 12 1:15pm January 12, 2025 1:15p m Supervision of high-risk December 182024 1:15pm History of gastroesophageal reflux (GERD ) January 12, 2025 1:15pm Hypothyroidism January 12, 2025 1:15p m Additional Source Comments INFORMATION SOURCE (unrecogn ized section and content) DATE CREATED AUTHOR 01/08/2020 [facility] DATE CREATED AUTHOR AUTHOR'S ORGANIZ ATION 04/21/2022 [facility] DATE CREATED AUTHOR AUTHOR'S ORGANIZ ATION 05/26/2022 [facility] DATE CREATED AUTHOR AUTHOR'S ORGANIZ ATION 03/21/2023 [facility] ([place] DATE CREATED AUTHOR AUTHOR'S ORGANIZ ATION 10/06/2024 [facility] DATE CREATED AUTHOR AUTHOR'S ORGANIZ ATION 01/16/2025 [facility] DATE CREATED AUTHOR AUTHOR'S ORGANIZ ATION 01/16/2025 [facility] Ordered Prescriptions (unrec ognized section and content) Prescription Sig Dispensed Refills Start Date End Da te aspirin EC 81 MG EC tabletIndications:Osteoa rthritis of right subtalar joint Take 1 tablet by mouth daily 30 tablet 0 01/24/2021 ondansetron (ZOFRAN) 4 MG tabletIndications:Osteoa rthritis of right subtalar joint Take 1 tablet by mouth daily as needed for Nausea or Vomiting 30 tablet 0 01/24/2021 oxyCODONE-acetaminophen (PERCOCET) 5-325 MG per tabletIndications:Osteoa rthritis of right subtalar joint Take 1 tablet by mouth every 6 hours as needed for Pain for up to 7 days. Intended supply: 7 days. 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 Intended supply: 7 days. Take lowest dose possible to manage pain 28 tablet 0 05/22/2022 05/29/2022 Scheduled Active and Recently Administ ered Medications (unrecognized section and content) Medication Order 01/22/2021 01/23/2021 01/24/2021 acetaminophen (TYLENOL) tablet 1,000 mg (COMPLETED) 1,000 mg, Oral, ONCE, On Sat01/24/21 at 0845, For 1 dose, Maximum dose of acetaminophen is 4000 mg from all sources in 24 hours. Do not administer if patient has taken tylenol <4 hours earlier. Do not give if contraindicated ie. patient has active liver disease or cirrhosis., Pre-op (day of surgery) 0849 (Given - Provid er: Kalyani Greenwood RN) ceFAZolin (ANCEF) 3000 mg in sodium chloride 0.9% 100 mL IVPB 3,000 mg, Intravenous, RFID SPECIALIST TO O.R., 1 dose, On Sat01/24/21 at 0845, Administer within 1 hour prior to incision. Recommend to repeat in 3-4 hours after initial dose if still intra-op., Pre-op (day of surgery) 0845 (Due) famotidine (PEPCID) tablet 20 mg (COMPLETED) 20 mg, Oral, ONCE, On Sat01/24/21 at 0845, For 1 dose, Pre-op (day of surgery) 0849 (Given - Provid er: Kalyani Greenwood RN) LORazepam (ATIVAN) injection 1 mg (COMPLETED) 1 mg, Intravenous, ONCE, On Sat01/24/21 at 1400, For 1 dose, PACU only 1359 (Given - Provid er: Gilbert Lamar RN) sodium chloride flush 0.9 % injection 5-40 mL 5-40 mL, Intravenous, EVERY 12 HOURS SCHEDULED (2 times per day), First dose on Sat01/24/21 at 0900, For Line Patency: Peripheral IV = 5 mL; Midline or Central Line = 10 mL/lumen. If following IV push medication, administer flush at same rate as the IV push. Flush volume is determined by type of infusion therapy being given. For non-viscous solutions use: Peripheral IV = 5 mL Midline or Central Line = 10 mL/lumen For viscous solutions (i.e. blood components, parenteral nutrition, contrast media, or after obtaining blood sample) use: Peripheral IV = 10 mL Midline or Central Line = 20 mL/lumen, Pre-op (day of surgery) 0900 (Due)2100 (Due) Continuous Medication Order 01/22/2021 01/23/2021 01/24/2021 lactated ringers infusion Intravenous, at 50 mL/hr, CONTINUOUS, Starting on Sat01/24/21 at 0845, Upon admission to sameday - please start iv if patient does not have iv access. Use 500ml NS for patients on dialysis., Pre-op (day of surgery) 0848 (New Bag - Prov ider: Kalyani Greenwood RN) ropivacaine 0.2% (NAROPIN) elastomeric infusion 550 mL 550 mL, Infiltration, at 4 mL/hr, CONTINUOUS, Starting on Sat01/24/21 at 0915, Anesthesia /Acute Pain Service will connect the On-Q pump and set initial rate. If after 2 doses of rescue pain medication, does not change the pain score to <5, then call the compression molding machine operator and ask them to page the Acute Pain Service. Please provide complete call back number when paging. If catheter leaks, or is dislodged or pump is malfunctioning, page Acute Pain Service (See instructions as above)., PACU & Post-op 1424 (New Bag - Prov ider: Gilbert Lamar RN) PRN Medication Order 01/22/2021 01/23/2021 01/24/2021 0.9 % sodium chloride bolus 500 mL (3.63 mL/kg), Intravenous, at 250 mL/hr, Administer over 2 Hours, ONCE PRN, Nausea, Starting on Sat01/24/21 at 0851, For 1 dose, PACU only 0.9 % sodium chloride infusion 25 mL, Intravenous, at 100 mL/hr, PRN, If patient receiving piggyback infusions without ordered maintenance IV fluids or with frequent/long duration piggyback infusions, Starting on Sat01/24/21 at 0821, Administer at the same rate as the piggyback being infused., Pre-op (day of surgery) ALPRAZolam (NIRAVAM) dissolvable tablet 0.25 mg 0.25 mg, Oral, PRN, Anxiety, Starting on Sat01/24/21 at 0821, Pre-op (day of surgery) diphenhydrAMINE (BENADRYL) injection 12.5 mg 12.5 mg, Intravenous, ONCE PRN, Itching, Starting on Sat01/24/21 at 0851, For 1 dose, PACU only hydrALAZINE (APRESOLINE) injection 5 mg 5 mg, Intravenous, EVERY 10 MIN PRN, High Blood Pressure, Starting on Sat01/24/21 at 0851, PRN for SBP > 160 for 2 consecutive measurements, and if one of the following conditions is met: 1) If IV labetolol is ineffective. 2) If HR is under 60. 3) If patient has heart block, COPD or asthma. If both labetalol and hydralazine ineffective, notify anesthesiologist., PACU only HYDROmorphone (DILAUDID) injection 0.25 mg 0.25 mg, Intravenous, EVERY 5 MIN PRN, Pain Moderate (4-6), Starting on Sat01/24/21 at 0851, For 4 doses, Phase I and Phase II- Initial therapy for moderate pain (4-6). Restricted to a 50 minute time frame starting when the patient can verbally state their pain score. If secondary medications are utilized, do not return to initial therapy medications. SDS and, PACU only HYDROmorphone (DILAUDID) injection 0.25 mg 0.25 mg, Intravenous, EVERY 5 MIN PRN, Pain Moderate (4-6), Starting on Sat01/24/21 at 0851, For 4 doses, Phase I - Secondary therapy to be used after initial therapy medication doses are ineffective . If secondary medications are utilized, do not return to initial therapy medications., PACU only HYDROmorphone (DILAUDID) injection 0.5 mg 0.5 mg, Intravenous, EVERY 5 MIN PRN, Pain Severe (7-10), Starting on Sat01/24/21 at 0851, For 4 doses, Phase I or Phase II- Initial therapy for severe pain (7-10). Restricted to a 50 minute time frame starting when the patient can verbally state their pain score. If secondary medications are utilized, do not return to initial therapy medications. Sameday and, PACU only 1402 (Given - Provid er: Gilbert Lamar RN) HYDROmorphone (DILAUDID) injection 1 mg 1 mg, Intravenous, EVERY 5 MIN PRN, Pain Severe (7-10), Starting on Sat01/24/21 at 0851, For 4 doses, Phase I - Secondary therapy to be used after initial therapy medication doses are ineffective. If secondary medications are utilized, do not return to initial therapy medications., PACU only labetalol (NORMODYNE;TRANDATE) injection 5 mg 5 mg, Intravenous, EVERY 10 MIN PRN, High Blood Pressure, Starting on Sat01/24/21 at 0851, PRN for SBP >160 for 2 consecutive measurements, if HR is 60 or greater. If beta dyan is contraindicated (HR less than 60, heart block, COPD or asthma) use hydralazine IV order., PACU only lidocaine PF 1 % injection 1 mL 1 mL, Intradermal, ONCE PRN, IV start, Starting on Sat01/24/21 at 0821, For 1 dose, Pre-op (day of surgery) meperidine (DEMEROL) injection 12.5 mg 12.5 mg, Intravenous, EVERY 5 MIN PRN, Shivering, , Starting on Sat01/24/21 at 0851, May give every 5 minutes to max of 50mg., PACU only ondansetron (ZOFRAN) injection 4 mg 4 mg, Intravenous, ONCE PRN, Nausea, Starting on Sat01/24/21 at 0851, For 1 dose, Initial antiemetic therapy., PACU only oxyCODONE (ROXICODONE) immediate release tablet 5 mg (COMPLETED) 5 mg, Oral, PRN, Pain Moderate (4-6), Starting on Sat01/24/21 at 0851, For 1 dose, PHASE II, PACU only 1506 (Given - Provid er: Gilbert Lamar RN) promethazine (PHENERGAN) injection 6.25 mg 6.25 mg, Intravenous, ONCE PRN, Nausea, Starting on Sat01/24/21 at 0851, For 1 dose, Caution if used IV:Check IV site for infiltrate prior to and during administration. Secondary antiemetic therapy. For IV administration, dilute to 10ml with normal saline. Must be administered over at least 10 minutes., PACU only sodium chloride flush 0.9 % injection 5-40 mL 5-40 mL, Intravenous, PRN, Line Care, Starting on Sat01/24/21 at 0821, For Line Patency: Peripheral IV = 5 mL; Midline or Central Line = 10 mL/lumen. If following IV push medication, administer flush at same rate as the IV push. Flush volume is determined by type of infusion therapy being given. For non-viscous solutions use: Peripheral IV = 5 mL Midline or Central Line = 10 mL/lumen For viscous solutions (i.e. blood components, parenteral nutrition, contrast media, or after obtaining blood sample) use: Peripheral IV = 10 mL Midline or Central Line = 20 mL/lumen, Pre-op (day of surgery) No Frequency Medication Order 01/22/2021 01/23/2021 01/24/2021 HYDROmorphone (DILAUDID) 1 MG/ML injection Starting on Sat01/24/21 at 1404, For 1 dose, GILBERT LAMAR: cabinet override 1415 (Due) midazolam (VERSED) 2 MG/2ML injection Starting on Sat01/24/21 at 0903, For 1 dose, JASKARAN HERNANDEZ: cabinet override 0915 (Due) oxyCODONE (ROXICODONE) 5 MG immediate release tablet Starting on Sat01/24/21 at 1507, For 1 dose, GILBERT LAMAR: cabinet override 1515 (Due) ropivacaine 0.2% (NAROPIN) elastomeric infusion Starting on Sat01/24/21 at 1425, For 1 dose, GILBERT LAMAR: cabinet override 1430 (Due) Scheduled Medication Order 05/20/2022 05/21/2022 05/22/2022 acetaminophen (TYLENOL) tablet 1,000 mg (COMPLETED) 1,000 mg, Oral, ONCE, 1 dose, On Sat05/22/22 at 1115, Maximum dose of acetaminophen is 4000 mg from all sources in 24 hours. Do not administer if patient has taken tylenol <4 hours earlier. Do not give if contraindicated ie. patient has active liver disease or cirrhosis., Pre-op (day of surgery) 1129 (Given - Provid er: Mallory Anthony RN) ceFAZolin (ANCEF) 3000 mg in sodium chloride 0.9% 100 mL IVPB (COMPLETED) 3,000 mg, IntraVENous, RFID SPECIALIST TO O.R., 1 dose, On Sat05/22/22 at 1115, Antimicrobial Indications: Surgical Prophylaxis, Administer within 1 hour prior to incision. Recommend to repeat in 3-4 hours after initial dose if still intra-op., Pre-op (day of surgery) 1339 (Given by Other Clinician - Provider: Annmarie Santillan RN - Comment: given in OR) famotidine (PEPCID) tablet 20 mg (COMPLETED) 20 mg, Oral, ONCE, 1 dose, On Sat05/22/22 at 1115, Pre-op (day of surgery) 112 (Given - Provid er: Mallory Anthony RN) gabapentin (NEURONTIN) capsule 100 mg (COMPLETED) 100 mg, Oral, ONCE, 1 dose, On Sat05/22/22 at 1115, For Age >69, or Low GFR, Pre-op (day of surgery) 112 (Given - Provid er: Mallory Anthony RN) sodium chloride flush 0.9 % injection 5-40 mL 5-40 mL, IntraVENous, EVERY 12 HOURS SCHEDULED (2 times per day), First dose on Sat05/22/22 at 1115, Until Discontinued, For Line Patency: Peripheral IV = 5 mL; Midline or Central Line = 10 mL/lumen. If following IV push medication, administer flush at same rate as the IV push. Flush volume is determined by type of infusion therapy being given. For non-viscous solutions use: Peripheral IV = 5 mL Midline or Central Line = 10 mL/lumen For viscous solutions (i.e. blood components, parenteral nutrition, contrast media, or after obtaining blood sample) use: Peripheral IV = 10 mL Midline or Central Line = 20 mL/lumen, Pre-op (day of surgery) 1115 (Due)2100 (Due) sodium chloride flush 0.9 % injection 5-40 mL 5-40 mL, IntraVENous, EVERY 12 HOURS SCHEDULED (2 times per day), First dose on Sat05/22/22 at 2100, Until Discontinued, For Line Patency: Peripheral IV = 5 mL; Midline or Central Line = 10 mL/lumen. If following IV push medication, administer flush at same rate as the IV push. Flush volume is determined by type of infusion therapy being given. For non-viscous solutions use: Peripheral IV = 5 mL Midline or Central Line = 10 mL/lumen For viscous solutions (i.e. blood components, parenteral nutrition, contrast media, or after obtaining blood sample) use: Peripheral IV = 10 mL Midline or Central Line = 20 mL/lumen, PACU only 2100 (Due) Continuous Medication Order 05/20/2022 05/21/2022 05/22/2022 lactated ringers infusion IntraVENous, at 50 mL/hr, CONTINUOUS, Starting on Sat05/22/22 at 1115, Upon admission to sameday - please start iv if patient does not have iv access. Use 500ml NS for patients on dialysis., Pre-op (day of surgery) 1129 (New Bag - Prov ider: Mallory Anthony, KENDY) lactated ringers infusion IntraVENous, at 50 mL/hr, CONTINUOUS, Starting on Sat05/22/22 at 1530, PACU only 1530 (Due) PRN Medication Order 05/20/2022 05/21/2022 05/22/2022 0.9 % sodium chloride bolus 500 mL (3.62 mL/kg), IntraVENous, at 1,000 mL/hr, Administer over 0.5 Hours, PRN, Anti-nausea, Starting on Sat05/22/22 at 1502, PACU only 0.9 % sodium chloride infusion IntraVENous, at 5-250 mL/hr, PRN, if patient receiving piggyback infusions and maintenance fluids are not ordered OR KVO fluids to protect IV site / prevent frequent line interruptions/ long duration, Starting on Sat05/22/22 at 1059, For piggyback infusion, administer at same rate as piggyback for a total of 25 mL. Enter 25 mL into dose field and piggyback rate into rate field of order. If piggyback is infusing at a rate less than 100 mL/hr, enter 25 mL into dose field and 100 mL/hr into rate field of order. For KVO fluids, enter rate of 20 mL/hr or less into rate field of order., Pre-op (day of surgery) ALPRAZolam (NIRAVAM) dissolvable tablet 0.25 mg 0.25 mg, Oral, PRN, Starting on Sat05/22/22 at 1059, Until Discontinued, Anxiety, Pre-op (day of surgery) 1129 (Given - Provid er: Mallory Anthony, KENDY) diphenhydrAMINE (BENADRYL) injection 12.5 mg 12.5 mg, IntraVENous, ONCE PRN, 1 dose, Starting on Sat05/22/22 at 1502, Until Sat05/23/22 at 1502, Itching, for use Sameday and, PACU only fentaNYL (SUBLIMAZE) injection 25 mcg 25 mcg, IntraVENous, EVERY 5 MIN PRN, 3 doses, Starting on Sat05/22/22 at 1502, Until Discontinued, Pain Moderate (4-6), Phase I and Phase II- Initial therapy for moderate pain (4-6). Restricted to a 90 minute time frame starting when the patient can verbally state their pain score. If after 2 doses the pain score does not decrease by more than one point, then call the provider. If oral meds are utilized, do not return to initial therapy medications. SDS and, PACU only fentaNYL (SUBLIMAZE) injection 50 mcg 50 mcg, IntraVENous, EVERY 5 MIN PRN, 3 doses, Starting on Sat05/22/22 at 1502, Until Discontinued, Pain Severe (7-10), Phase I or Phase II- Initial therapy for severe pain (7-10). Restricted to a 90 minute time frame starting when the patient can verbally state their pain score. If after 2 doses the pain score does not decrease by more than one point, then call the provider. If oral meds are utilized, do not return to initial therapy medications. SDS and, PACU only 1516 (Given - Provid er: Emili Verde RN)1529 (Given - Provider: Annmarie Santillan RN) hydrALAZINE (APRESOLINE) injection 5 mg(Linked Group 1) 5 mg, IntraVENous, EVERY 10 MIN PRN, 2 doses, Starting on Sat05/22/22 at 1502, Until Discontinued, High Blood Pressure, PRN for SBP > 160 for 2 consecutive measurements, and if one of the following conditions is met: 1) If IV labetolol is ineffective. 2) If HR is under 60. 3) If patient has heart block, COPD or asthma. If both labetalol and hydralazine ineffective, notify anesthesiologist. for use Sameday and, PACU only labetalol (NORMODYNE;TRANDATE) injection 5 mg(Linked Group 1) 5 mg, IntraVENous, EVERY 10 MIN PRN, 2 doses, Starting on Sat05/22/22 at 1502, Until Discontinued, High Blood Pressure, PRN for SBP >160 for 2 consecutive measurements, if HR is 60 or greater. If beta dyan is contraindicated (HR less than 60, heart block, COPD or asthma) use hydralazine IV order. for use Sameday and, PACU only lidocaine 1 % injection 1 mL 1 mL, IntraDERmal, ONCE PRN, 1 dose, Starting on Sat05/22/22 at 1059, Until Sat05/23/22 at 1059, IV start, Pre-op (day of surgery) LORazepam (ATIVAN) injection 0.5 mg (COMPLETED) 0.5 mg, IntraVENous, ONCE PRN, 1 dose, Starting on Sat05/22/22 at 1502, Until Sat05/22/22 at 1520, for anxiety or muscle spasm., PACU only 1520 (Given - Provid er: Emili Verde RN) meperidine (DEMEROL) injection 12.5 mg 12.5 mg, IntraVENous, EVERY 5 MIN PRN, 4 doses, Starting on Sat05/22/22 at 1502, Until Discontinued, Shivering, , May give every 5 minutes to max of 50mg. for use Sameday and, PACU only ondansetron (ZOFRAN) injection 4 mg 4 mg, IntraVENous, ONCE PRN, 1 dose, Starting on Sat05/22/22 at 1502, Until Sat05/23/22 at 1502, Nausea, Initial antiemetic therapy. For use sameday and, PACU only oxyCODONE (ROXICODONE) immediate release tablet 5 mg (COMPLETED) 5 mg, Oral, PRN, 1 dose, Starting on Sat05/22/22 at 1502, Until Sat05/22/22 at 1606, Pain Moderate (4-6), PHASE II, PACU only 1606 (Given - Provid er: Annmarie Santillan RN) sodium chloride flush 0.9 % injection 5-40 mL 5-40 mL, IntraVENous, PRN, Starting on Sat05/22/22 at 1059, Until Discontinued, Line Care, After every IV line use, For Line Patency: Peripheral IV = 5 mL; Midline or Central Line = 10 mL/lumen. If following IV push medication, administer flush at same rate as the IV push. Flush volume is determined by type of infusion therapy being given. For non-viscous solutions use: Peripheral IV = 5 mL Midline or Central Line = 10 mL/lumen For viscous solutions (i.e. blood components, parenteral nutrition, contrast media, or after obtaining blood sample) use: Peripheral IV = 10 mL Midline or Central Line = 20 mL/lumen, Pre-op (day of surgery) sodium chloride flush 0.9 % injection 5-40 mL 5-40 mL, IntraVENous, PRN, Starting on Sat05/22/22 at 1502, Until Discontinued, Line Care, After every IV line use, For Line Patency: Peripheral IV = 5 mL; Midline or Central Line = 10 mL/lumen. If following IV push medication, administer flush at same rate as the IV push. Flush volume is determined by type of infusion therapy being given. For non-viscous solutions use: Peripheral IV = 5 mL Midline or Central Line = 10 mL/lumen For viscous solutions (i.e. blood components, parenteral nutrition, contrast media, or after obtaining blood sample) use: Peripheral IV = 10 mL Midline or Central Line = 20 mL/lumen, PACU only Linked Groups Order Group 1: labetalol (NORMODYNE;TRANDATE) injection 5 mgJump to med 5 mg, IntraVENous, EVERY 10 MIN PRN, 2 doses, Starting on Sat05/22/22 at 1502, Until Discontinued, High Blood Pressure
PRN for SBP >160 for 2 consecutive measurements, if HR is 60 or greater. If beta dyan is contraindicated (HR less than 60, heart block, COPD or asthma) use hydralazine IV order. for use Sameday and
PACU only Or hydrALAZINE (APRESOLINE) injection 5 mgJump to med 5 mg, IntraVENous, EVERY 10 MIN PRN, 2 doses, Starting on Sat05/22/22 at 1502, Until Discontinued, High Blood Pressure
PRN for SBP > 160 for 2 consecutive measurements, and if one of the following conditions is met: 1) If IV labetolol is ineffective. 2) If HR is under 60. 3) If patient has heart block, COPD or asthma. If both labetalol and hydralazine ineffective, notify anesthesiologist. for use Sameday and
PACU only Care Team (unrecognized sect ion and content) Product Picker Relationship Specialty Start Date End Date Shanti Garcia APRN - [employer]AVA [employer]EE ARCHITECT PCP - General Nurse Practitioner Family 01/24/18 Product Picker Relationship Specialty Start Date End Date Shanti Garcia APRN - [employer] ARCHITECT PCP - General Nurse Practitioner Family 01/24/18 Team Status: Active Member Role Status Dates Shanti Garcia JAVA [employer]EE ARCHITECT, [employer] ARCHITECT-C Family Provider Active No Primary Care Physician Primary Care Provider Active Team Status: Inactive Member Role Status Dates No Primary Care Physician Primary Care Provider, Refer ring Provider Active Tae Randolph PA, PA Attending Provider Active Team Status: Active Member Role Status Dates Employee Health Attending Provider Active Team Status: Active Member Role Status Dates No Primary Care Physician Primary Care Provider Active Health Risk Assessment Attending Provider, Referring P randy Active Team Status: Inactive Member Role Status Dates No Primary Care Physician Primary Care Provider Active Dr. Carlitos Last MD Attending Provider Active Team Status: Inactive Member Role Status Dates No Primary Care Physician Primary Care Provider Active Dr. Panda Cooper MD Emergency Provider Active Team Status: Inactive Member Role Status Dates No Primary Care Physician Primary Care Provider Active Start: July 31, 2024 End: July 31, 2024 No Primary Care Physician Referring Provider Active Start: July 31, 2024 End: July 31, 2024 Dr. Yany Carmichael DO Attending Provider Activ e Start: July 31, 2024 End: July 31, 2024 Team Status: Inactive Member Role Status Dates No Primary Care Physician Primary Care Provider Active Start: July 31, 2024 End: July 31, 2024 Suzy Daniels CNM Attending Provider Active S tart: July 31, 2024 End: July 31, 2024 Suzy Daniels CNM Referring Provider Active S tart: July 31, 2024 End: July 31, 2024 Team Status: Inactive Member Role Status Dates No Primary Care Physician Primary Care Provider Active Start: September 06, 2024 End: September 06, 2024 Dr. Tadeo Esquivel DO Attending Provider Active Start: September 06, 2024 End: September 06, 2024 Dr. Tadeo Esquivel DO Emergency Provider Active Start: September 06, 2024 End: September 06, 2024 Team Status: Inactive Member Role Status Dates No Primary Care Physician Primary Care Provider Active Start: September 15, 2024 End: September 15, 2024 Nina Marc CNM Attending Provider Active Start: September 15, 2024 End: September 15, 2024 Team Status: Inactive Member Role Status Dates No Primary Care Physician Primary Care Provider Active Start: September 15, 2024 End: September 16, 2024 Dr. Mateusz Carlisle DO Attending Provider Active Start : September 15, 2024 End: September 16, 2024 Dr. Mateusz Carlisle DO Emergency Provider Active Start : September 15, 2024 End: September 16, 2024 Team Status: Active Member Role Status Dates No Primary Care Physician Primary Care Provider Active Start: September 20, 2024 Nina Marc CNM Other Provider Active Star t: September 20, 2024 Dr. Blank Osuna MD Attending Provider Active Start: September 20, 2024 Team Status: Inactive Member Role Status Dates No Primary Care Physician Primary Care Provider Active Start: September 21, 2024 End: September 21, 2024 No Primary Care Physician Referring Provider Active Start: September 21, 2024 End: September 21, 2024 Suzy Daniels CNM Attending Provider Active S tart: September 21, 2024 End: September 21, 2024 Team Status: Inactive Member Role Status Dates No Primary Care Physician Primary Care Provider Active Start: October 20, 2024 End: October 20, 2024 No Primary Care Physician Referring Provider Active Start: October 20, 2024 End: October 20, 2024 Dr. Yany Carmichael DO Attending Provider Activ e Start: October 20, 2024 End: October 20, 2024 Team Status: Inactive Member Role Status Dates No Primary Care Physician Primary Care Provider Active Start: October 20, 2024 End: October 20, 2024 Suzy Daniels CNM Attending Provider Active S tart: October 20, 2024 End: October 20, 2024 Suzy Daniels CNM Referring Provider Active S tart: October 20, 2024 End: October 20, 2024 Team Status: Inactive Member Role Status Dates No Primary Care Physician Primary Care Provider Active Start: November 02, 2024 End: November 02, 2024 No Primary Care Physician Referring Provider Active Start: November 02, 2024 End: November 02, 2024 Dr. Blank Osuna MD Attending Provider Active Start: November 02, 2024 End: November 02, 2024 Team Status: Inactive Member Role Status Dates No Primary Care Physician Primary Care Provider Active Start: November 17, 2024 End: November 17, 2024 No Primary Care Physician Referring Provider Active Start: November 17, 2024 End: November 17, 2024 Archana Denton NP, [employer] ARCHITECT-C Attending Provider Active Start: November 17, 2024 End: November 17, 2024 Team Status: Inactive Member Role Status Dates No Primary Care Physician Primary Care Provider Active Start: December 03, 2024 End: December 03, 2024 No Primary Care Physician Referring Provider Active Start: December 03, 2024 End: December 03, 2024 Suzy Daniels CNM Attending Provider Active S tart: December 03, 2024 End: December 03, 2024 Team Status: Inactive Member Role Status Dates No Primary Care Physician Primary Care Provider Active Start: December 14, 2024 End: December 14, 2024 No Primary Care Physician Referring Provider Active Start: December 14, 2024 End: December 14, 2024 Dr. Yany Carmichael , Attending Provider Activ e Start: December 14, 2024 End: December 14, 2024 Team Status: Inactive Member Role Status Dates No Primary Care Physician Primary Care Provider Active Start: December 14, 2024 End: December 14, 2024 Dr. Yany Carmichael DO Attending Provider Activ e Start: December 14, 2024 End: December 14, 2024 Dr. Yany Carmichael DO Referring Provider Activ e Start: December 14, 2024 End: December 14, 2024 Team Status: Inactive Member Role Status Dates No Primary Care Physician Primary Care Provider Active Start: December 28, 2024 End: December 28, 2024 No Primary Care Physician Referring Provider Active Start: December 28, 2024 End: December 28, 2024 Suzy Daniels CNM Attending Provider Active S tart: December 28, 2024 End: December 28, 2024 Team Status: Inactive Member Role Status Dates No Primary Care Physician Primary Care Provider Active Start: December 28, 2024 End: December 28, 2024 Suzy Daniels CNM Attending Provider Active S tart: December 28, 2024 End: December 28, 2024 Suyz Daniels CNM Referring Provider Active S tart: December 28, 2024 End: December 28, 2024 Team Status: Inactive Member Role Status Dates No Primary Care Physician Primary Care Provider Active Start: January 05, 2025 End: January 05, 2025 No Primary Care Physician Referring Provider Active Start: January 05, 2025 End: January 05, 2025 Dr. Yany Carmichael , DO Attending Provider Activ e Start: January 05, 2025 End: January 05, 2025 Team Status: Inactive Member Role Status Dates No Primary Care Physician Primary Care Provider Active Start: January 06, 2025 End: January 06, 2025 Dr. Yany Carmichael , DO Attending Provider Activ e Start: January 06, 2025 End: January 06, 2025 Dr. Yany Carmichael , DO Referring Provider Activ e Start: January 06, 2025 End: January 06, 2025 Team Status: Inactive Member Role Status Dates No Primary Care Physician Primary Care Provider Active Start: January 12, 2025 End: January 12, 2025 No Primary Care Physician Referring Provider Active Start: January 12, 2025 End: January 12, 2025 Suzy Daniels CNM Attending Provider Active S tart: January 12, 2025 End: January 12, 2025 Goals (unrecognized section and content) Goals may be documented in a n alternate section Source Comments (unrecognize d section and content) In the event this informatio n is protected by the Federal Confidentiality of Alcohol and Drug Abuse Patient Records regulations: The Federal rules restrict any use of the information to criminally investigate or prosecute any alcohol or drug abuse patient.[facility] Reason for Visit (unrecogniz ed section and content) Reason Comments Post Op Follow Up FOR RECORDS PERTAINING TO PATIENTS WHO ARE OR HAVE BEEN ENROLLED IN A CHEMICAL DEPENDENCY/SUBSTANCEABUSE PROGRAM, SOME INFORMATION MAY BE OMITTED. This clinical summary was aggregated from multiple sources. Caution should be exercised in using it in the provision of clinical care. This summary normalizes information from multiple sources, and as a consequence, information in this document may materially change the coding, format and clinical context of patient data. In addition, data may be omitted in some cases. CLINICAL DECISIONS SHOULD BE BASED ON THE PRIMARY CLINICAL RECORDS. [employer] [facility]. provides no warranty or guarantee of the accuracy or completeness of information in this document.
[2025-01-19 08:14] LABS: Absolute Lymphocyte Count 3.11 X10^3/uL (0.83-4.51); Basophil# 0.04 X10^3/uL; Basophil% 0.3 % (0-1); Eosinophil# 0.18 X10^3/uL; Eosinophils% 1.5 % (0-5); Hematocrit 34.3 % (37-47); Hemoglobin 11.2 g/dL (12.0-15.0); Lymphocyte # 3.11 X10^3/ul (0.83-4.51); Lymphocyte % 26.7 % (19-41); Mean Corp Hgb Conc 32.7 g/dL (32-36); Mean Corpuscular Hgb 25.7 pg (27.0-32.0); Mean Corpuscular Volume 78.9 fL (81-99); Mean Platelet Vol. 10.9 fl (6.2-12.0); Monocyte# 1.21 X10^3/uL; Monocyte% 10.4 % (0-10); NRBC Flagged by Analyzer 0 % (0-5); Neutrophil # 6.97 X10^3/uL (2.7-7.7); Neutrophil % 59.9 % (47-70); Platelet Count 266 K/mm3 (150-450); RBC Distribution Width CV 14.1 % (11.6-14.6); RBC Distribution Width SD 39.8 fl (35.1-43.9); Red Blood Count 4.35 M/mm3 (4.2-5.4); White Blood Count 11.7 K/mm3 (4.4-11.0)
[2025-01-19] MEDS: Lactated Ringers 1,000 ML 50 ML IV (08:56)
[2025-01-19] MEDS: Oxytocin 15 Units/NS 250ml 15 UNITS/250 ML IV.SOLN 2 UNITS IV (08:57)
[2025-01-19 09:13] LABS: Syphilis Antibodies Nonreactive (Nonreactive)
[2025-01-19] MEDS: 0.9% Normal Saline Single 100 ML IV.SOLN. INTRA-UTER (10:00)
[2025-01-19] MEDS: Lactated Ringers 1,000 ML 200 ML IV (14:35)
[2025-01-19] MEDS: fentaNYL-bupivacaine (epidural) 100 ML BAG EPIDURAL (14:36)
[2025-01-19] MEDS: Lactated Ringers 1,000 ML 900 ML IV (14:56)
[2025-01-19] MEDS: TRANEXAMIC ACID 1,000 MG in 0.9% Normal Saline (100mL Bag) 100 ML 440 MG IV (17:25)
[2025-01-19] MEDS: Oxytocin 10 UNITS/ML Vial IM (17:25)
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
--- NOTE | 2025-01-19 19:24 | DCINST_ITS ---
Discharge Instructions Diet Discharge Diet: No restrictions DC O2, CPAP, BIPAP needs Home O2 Discharge instructions: No Dressing / Incision Discharge Activity: Return to Normal Activity, May Not Drive (while taking narcotic pain medications.) and May Shower May resume sexual activity in: 4-6 weeks Dressing / Incision Call your doctor if your incision/area has: Continuous Slow Oozing, Sudden Increased Bleeding, Increased Pain/ Swelling, Increased Redness and Foul Smelling Discharge Follow Up Care Please Follow Up With: Blank Osuna MD When: Call [phone] to make an appointment with your doctor in 6 weeks. If you had elevated blood pressure or 4th degree laceration, you will need to be seen in 2 weeks. Test Results: Test results from this visit will be discussed in further detail at your follow- up appointment, if applicable. Discharge Plan Admission Admit Date/Time: 01/19/25 07:19 Attending Provider: Blank Osuna Primary Care Provider: Care Physician,No Primary Discharge Orders/Prescriptions Prescriptions: No Action PNV-Elizabeth 28-1-300 mg capsule 1 cap PO DAILY albuterol sulfate 90 mcg/actuation HFA aerosol inhaler 2 puff inhalation Q6H PRN PRN (Reason: wheezing) Referrals / Follow Up: Care Physician,No Primary [Primary Care Provider] -
[2025-01-20] VITALS (8 sets, daily range): BP systolic 120–128; BP diastolic 61–75; PULSE 74–93; RESP 16–18; TEMP 36.7–37.2; O2SAT 92–99
--- NOTE | 2025-01-20 06:32 | PN.OBGYN_ITS ---
Subjective Subjective Patient doing well without complaints. Tolerating PO. Ambulating and voiding without difficulty. feeding well. Denies chest pain, shortness of breath, calf pain/swelling, fevers, chills, lightheadedness. Objective Data Objective Data Vital Signs: Vital Signs Temp Pulse Resp BP Pulse Ox O2 Del Method 98.1 F 74 18 121/75 H 99 Room Air 01/20/25 03:15 01/20/25 03:15 01/20/25 03:15 01/20/25 03:15 01/20/25 03:15 01/20/25 03:15 Oxygen Delivery Method Room Air Weight: 350 lb Body Mass Index (BMI) 60.0 Intake & Output: Intake and Output for Last 24 Hours 01/18/25 01/19/25 01/20/25 23:59 23:59 23:59 Intake Total 2430.00 / 2430.00 Output Total 400 / 400 250 / 250 Balance 2030.00 / 2030.00 -250 / -250 Lab / Micro Data 01/19/25 07:57 Labs: Laboratory Results - last 24 hr 01/19/25 07:57: WBC 11.7 H, RBC 4.35, Hgb 11.2 L, Hct 34.3 L, MCV 78.9 L, MCH 25.7 L, MCHC 32.7, RDW Std Deviation 39.8, RDW Coeff of Mimi 14.1, Plt Count 266, MPV 10.9, Immature Gran % (Auto) 1.200 H, Neut % (Auto) 59.9, Lymph % (Auto) 26.7, Liberty % (Auto) 10.4 H, Eos % (Auto) 1.5, Baso % (Auto) 0.3, Absolute Neuts (auto) 7.0, Absolute Lymphs (auto) 3.11, Nucleated RBC % 0, Syphilis Total Ab Nonreactive, Blood Type A POSITIVE, Antibody Screen NEGATIVE ROS Constitutional Constitutional: Reports systems reviewed and no addt'l complaints, except as documented Cardiovascular Cardiovascular: Reports systems reviewed and no addt'l complaints, except as documented Respiratory/Chest Respiratory/Chest: Reports systems reviewed and no addt'l complaints, except as documented Gastrointestinal Gastrointestinal: Reports systems reviewed and no addt'l complaints, except as documented Physical Exam Const alert, oriented x3 and no apparent distress HEENT Head and Scalp: atraumatic Resp normal respiratory effort GI soft to palpation and non-tender Bimanual Exam - Vag & Uterus: uterus non-tender Uterus Palpation: uterus fundus firm (below Umbilicus) Assessment & Plan (1) Vaginal delivery: COMMENT: sm 39 PLAN: Plan s/p PPD # 1 1. routine post delivery care 2. breast feeding- support given 3. rh positive 4. rubella immune
--- NOTE | 2025-01-22 13:45 | CASEMGMT ---
Social Work Assessment Labor and Delivery Unit Patient Address: [address] [place] [address] Phone number: [phone] Date of Referral: 01/19/25 Time of Referral:? 2007 Referred By: Dr. Osuna Date of Intervention:01/19/25 Time of Intervention:? 1300 Reason for Referral:? hx of PPD Sw completed chart review and acknowledges social work consult due to maternal mental health history. Sw presented to bedside and introduced self to mother of baby (MOB- Mallorie) and father of baby (FOB- Sanjay). Sw explained reason for sw involvement and completed psychosocial assessment. History obtained from: medical records, MOB and FOB Household composition: Currently residing in the family home is MOB, FOB, ANUJ's 8 year old daughter- Nick and baby when ready for discharge. Parents deny any housing concerns, reporting home is safe and secure. Patient's parent/guardian status:?ANUJ states that she and FOB have been together for one year after meeting each other online. No concerns reported of domestic violence or intimate partner violence. ? Medical History: ?ANUJ is 29 year old female who is 2, para 1- now 2 following labor and delivery of . ANUJ received routine care during with [place]. ANUJ presented to hospital for induction of labor and delivered baby via vaginal delivery on 01/19/25 at 39 weeks gestation. Baby girl, named Shelley Bran, was born weighing 8lb with apgars of 9 and 9 at one and five minutes of life, respectfully. ANUJ states that she is breast feeding baby and it is going well. Baby will be followed by Dr. Garcia for pediatrics. Educational Status:? Both parents report to graduating from high school, and have no concerns with reading, learning or comprehension. Financial Status: ANUJ is not employed at this time, FOB reports that he works in automotive. Supplies:?? All necessary baby supplies obtained, including: car seat, safe sleep space, clothes, diapers and wipes. Childcare/Caregiver(s):? ANUJ reports that she will be the primary caregiver to baby along with FOB when he is not working. Transportation:?Both parents have their drivers license and reliable means of transportation. No barriers. Programs/Agencies Involved: ANUJ states that she is connected to insurance provided through, [employer] and [employer]. MOB states that she is planning on getting connected to WIC. Children Services/Legal Issues:??? Chart review indicates a prior referral was made to Children Services following the delivery of ANUJ's first baby in 2017. The concerns at that time were due to maternal mental health and lack of bonding, caring for . - No issues or concerns warranting referral to be made at this time. Behavioral Health Issues: ??Mental Health History:?FOB denies mental health history. MOB states that she has been diagnosed with anxiety and depression. In prior conversations with social work MOB reported she was also BiPolar and Manic, however when talking with MOB today she denies those diagnoses. MOB states that she not struggle with any anxiety or depression after her first daughter was born. ?MOB states at this time she feels well and if her mental health is managed. ? Substance Use History: Parents deny substance use prior to and during . ?? Family History:?Parents deny family history of substance use and significant mental health diagnoses. ? Drug Screens: ??No drug screens observed while completing chart review. Family/Social Stressors:? Parents deny any issues, concerns or stressors at this time. Support Systems: MOB states that her biggest support is FOB, maternal grandpa, her older sister and paternal grandparents. Depression/Shaken Baby/Safe Sleeping:? Eric educated parents on signs and symptoms of baby blues and depression and anxiety. FOB states that he believes he would be able to recognize if MOB were struggling during this time. FOB states that if he did not know how to help MOB he would get into contact with someone who would know how to help. MOB denies being connected to mental health services or supports. MOB states that her mental health is managed at this time. Eric educated parents on shaken baby prevention and ABCs of safe sleep. Parents express understanding. ASSESSMENT:? MOB and baby admitted following labor and delivery of . MOB was observed sitting comfortably on bed and FOB sitting in chair nodding on and off throughout conversation. MOB's older daughter was also present and MOB stated okay to continue with assessment. MOB made and maintained eye contact throughout completion of assessment and appeared to be calm and attentive to baby. MOB with mental health history, but reports her symptoms are managed and she is not connected to any mental health services or supports. MOB states that she has people she can talk to if she feels as though she were to struggle with her mental health during this period. FOB reports to feeling comfortably holding and caring for baby, and that he would do his best to support MOB if she were to struggle. All baby supplies obtained and natural supports in place. PLAN:? No other services requested or indicated. MOB and baby to be discharged when medically ready. Parents were provided literature regarding: signs and symptoms of baby blues and mood and anxiety disorders, Help Me Grow, shaken baby prevention, ABCs of safe sleep and a list of county resources that are available for them should any needs present themselves. Paloma Prince, HANDLE BENDER, PATTERN CHANGER AND REPAIRER
== END 2025-01-20 18:15 | disposition home or self-care (01) | DRG 560 ==
PROVIDERS: Admitting Provider Obstetrics & Gynecology; Referring Provider Obstetrics & Gynecology; Visit Provider Obstetrics & Gynecology
DX: O36.63X0 Maternal care for excessive fetal growth, third trimester, not applicable or unspecified (principal); Z37.0 Single live birth; E03.9 Hypothyroidism, unspecified; E66.01 Morbid (severe) obesity due to excess calories; F17.290 Nicotine dependence, other tobacco product, uncomplicated; O99.284 Endocrine, nutritional and metabolic diseases complicating childbirth; Z3A.38 38 weeks gestation of pregnancy; O99.214 Obesity complicating childbirth; O69.81X0 Labor and delivery complicated by cord around neck, without compression, not applicable or unspecified; O99.334 Smoking (tobacco) complicating childbirth; O47.1 False labor at or after 37 completed weeks of gestation
CPT/HCPCS: 59050; 85025; 86780; 86850; 86900; 86901; 99221; G0378

== ENCOUNTER → 2025-06-09 | Outpatient (CLI) | payer MEDICAID, SELFPAY | END | disposition home or self-care (01) | LOC: BWCLAB 09:57 | PROVIDERS: Visit Provider Obstetrics & Gynecology | DX: E03.9 Hypothyroidism, unspecified (principal) | CPT/HCPCS: 36415; 84439; 84443 ==